=== PATIENT | male | born 1965 | race Caucasian/White ===

== ENCOUNTER → 2017-12-13 11:27 | Outpatient (CLI) | payer OTHER, SELFPAY ==
--- NOTE | 2017-12-13 13:06 | STRESSREP ---
Stress Test Report Exercise stress test. 52-year-old man with a history of chest pain. Stress protocol: Resting EKG demonstrates normal sinus rhythm with a rate of 76 bpm. Resting blood pressure is 148/90 mmHg. the patient exercised according to the regular Manuelito protocol for total duration of 5 minutes and 4 seconds. The maximum heart rate attained was 141 bpm. During recovery the patient was noted to go into a narrow complex tachycardia with a rate of approximately 166 bpm mild to moderate dyspnea was noted and the patient had to cough and bear down with gradual slowing of the narrow complex reentrant tachycardia 242 bpm, and then 137 bpm. Patient finally broke after 3 minutes of the narrow complex tachycardia. His blood pressure was stable at 168/88 mmHg. There were no ST or T-wave changes noted suggest ischemia no chest pain was noted. Blood pressures 148/90 with a peak blood pressure 174/90 mmHg. Conclusion ; Exercise stress test with no EKG criteria for ischemia at a moderate workload of 7 metabolic equivalents. Exercise provoked supraventricular tachyarrhythmia with a rate of approximately 170 bpm consistent with an AV jhon reentrant tachycardia.
== END ==
PROVIDERS: Family Provider Family Medicine; PCP Family Medicine; Visit Provider Internal Medicine Cardiovascular Disease
DX: R07.1 Chest pain on breathing (principal); R07.81 Pleurodynia
CPT/HCPCS: 93017

== ENCOUNTER → 2019-12-03 10:16 | Outpatient (CLI) | payer OTHER, SELFPAY ==
[2019-12-03 09:47] VITALS: BMI 37.3
[2019-12-03 11:01] LABS: Absolute Lymphocyte Count 2.01 X10^3/uL (0.83-4.51); Absolute Neutrophil Count 3.2 X10^3/uL (2.0-7.7); Basophil# 0.03 X10^3/uL; Basophil% 0.5 % (0-1); Eosinophil# 0.18 X10^3/uL; Hematocrit 47.5 % (40-54); Hemoglobin 16.3 g/dL (13.0-16.5); Lymphocyte # 2.01 X10^3/ul (4.0); Lymphocyte % 33.7 % (19-41); Mean Corp Hgb Conc 34.3 g/dL (32-36); Mean Corpuscular Hgb 30.9 pg (27.0-32.0); Mean Platelet Vol. 10.8 fl (6.2-12.0); Monocyte# 0.49 X10^3/uL; Monocyte% 8.2 % (0-10); NRBC Flagged by Analyzer 0 % (0-5); Neutrophil # 3.24 X10^3/uL (2.7-7.7); Neutrophil % 54.3 % (47-70); Platelet Count 185 K/mm3 (150-450); RBC Distribution Width CV 12.3 % (11.6-14.6); RBC Distribution Width SD 40.3 fl (35.1-43.9); Red Blood Count 5.28 M/mm3 (4.6-6.2)
[2019-12-03 11:34] LABS: Anion Gap 6 (5-15); BUN 10 mg/dL (7-18); BUN/Creat Ratio 9.3 RATIO (10-20); Calcium,Total 9.2 mg/dL (8.5-10.1); Chloride 110 mmol/L (98-107); Creatinine, Serum 1.07 mg/dL (0.70-1.30); EST Glomerular Filtration Rate 77 mL/min (>60); Est Glom Filt Rate - Afr Amer 93 mL/min (>60); Glucose 100 mg/dL (74-106); Potassium 3.9 mmol/L (3.5-5.1); Sodium Level 140 mmol/L (136-145)
[2019-12-03 11:37] LABS: BNP,B-Type NATRIURETIC PEPTIDE 24.7 pg/mL (0-100)
== END ==
PROVIDERS: PCP Family Medicine; Referring Provider Internal Medicine Cardiovascular Disease; Visit Provider Internal Medicine Cardiovascular Disease
DX: I10 Essential (primary) hypertension (principal); R06.00 Dyspnea, unspecified
CPT/HCPCS: 36415; 80048; 83880; 85025

== ENCOUNTER → 2019-12-17 12:58 | Outpatient (CLI) | payer OTHER, SELFPAY ==
[2019-12-03 09:47] VITALS: BMI 37.3
--- NOTE | 2019-12-17 13:00 | ECHOCS_ITS ---
Reason For Study: DYSPNEA Procedure This was a 2D Doppler, Color Flow transthoracic echocardiogram. The study was technically difficult. Contrast injection was performed. Exam performed in department. Left Ventricle Normal LV size. Left ventricular systolic function is normal. The estimated ejection fraction is 65 %. Stage 1 diastolic dysfunction. No regional wall motion abnormalities noted. Right Ventricle Normal RV size. Normal systolic function. Atria Normal left atrium. Normal right atrium. Mitral Valve Normal mitral valve. Tricuspid Valve Normal tricuspid valve. Mild (1+) tricuspid valve insufficiency. Pulmonary artery systolic pressure is 30 mmHg. Aortic Valve Normal aortic valve. Pulmonic Valve Normal pulmonic valve. Great Vessels Normal aortic root. The pulmonary artery is normal size. Normal inferior vena cava. Pericardium/Pleural No pericardial effusion. Medication 22 gauge I.V. with prn adaptor inserted into right arm. Diluted definity 3.0ml given slow IV push to enhance endocardial definition. MMode/2D Measurements & Calculations LVIDd: 4.9 cm IVSd: 0.98 cm Ao root diam: 3.6 cm LVIDs: 2.6 cm LVPWd: 0.96 cm RVDd: 3.2 cm FS: 46.2 % LAV(MOD-bp): 46.0 ml EDV(MOD-sp4): 136.1 ml EDV(MOD-sp2): 83.9 ml LAV(MOD-bp) Indexed: 19.2 ml/m2 ESV(MOD-sp4): 34.7 ml EF(MOD-sp2): 69.0 % LAV(MOD-sp2): 40.6 ml EF(MOD-sp4): 74.5 % LAV(MOD-sp4): 45.0 ml SV(MOD-sp4): 101.4 ml SV(MOD-sp2): 57.9 ml LA A4 area: 17.8 cm2 LA dimension(2D): 4.2 cm RA A4 area: 18.1 cm2 Time Measurements MV dec time: 0.22 sec Doppler Measurements & Calculations MV E max alvin: 65.0 cm/sec Lat Peak E' Alvin: 8.1 cm/sec Med Peak E' Alvin: 8.5 cm/sec MV A max alvin: 80.1 cm/sec E/E' lat: 8.1 E/E' med: 7.6 MV E/A: 0.81 Ao V2 max: 162.3 cm/sec LV V1 max: 153.5 cm/sec TR max alvin: 247.5 cm/sec Ao max P.5 mmHg LV V1 max P.4 mmHg TR max P.7 mmHg Interpretation Summary Normal LV size. Left ventricular systolic function is normal. The estimated ejection fraction is 65 %. Stage 1 diastolic dysfunction. Pulmonary artery systolic pressure is 30 mmHg. Contrast injection was performed. Ordering Physician: Parveen Dillard Referring Physician: RAFA BAILEY Performed By: Mar Arellano, AKSHAT, RVT
== END ==
PROVIDERS: PCP Family Medicine; Referring Provider Internal Medicine Cardiovascular Disease; Visit Provider Internal Medicine Cardiovascular Disease
DX: I10 Essential (primary) hypertension (principal); R06.00 Dyspnea, unspecified
CPT/HCPCS: 93306; Q9957; A4216; C8929

== ENCOUNTER → 2020-03-28 10:19 | Outpatient (CLI) | payer OTHER, SELFPAY ==
[2020-03-28 10:16] VITALS: BMI 37.3
--- NOTE | 2020-03-28 10:19 | RAD_ITS ---
STUDY: X-RAY - PELVIS AND LEFT HIP REASON FOR EXAM: Male, 54 years old. Hip pain, left leg injury over 30 years ago TECHNIQUE: 3 views of the pelvis and hip. COMPARISON: None. FINDINGS: There is a non-specific bowel gas pattern. There are multiple calcified phleboliths. A few surgical clips project in the left lower quadrant of the abdomen. Normal bilateral iliac wings, sacroiliac joints and visualized sacrum. Normal bilateral superior and inferior pubic rami. Normal pubic symphysis. Normal bilateral ischial tuberosities. Normal visualized femoral head. There is an old healed fracture deformity with some bowing at the proximal mid third of the femoral diaphysis. Minor degenerative sclerosis and slight articular lobulation of the roof of the acetabulum. Normal hip joint. There is no demonstrated acute fracture. RAD/HIP, UNI W/ Pelvis 2-3 Views IMPRESSION: No acute osseous abnormality of the pelvis or left hip. There is an old healed fracture deformity at the proximal to mid third of the left femoral diaphysis. Electronically Signed: Ritchie Winchester MD at 13:16 EDT , Service support ,
== END ==
PROVIDERS: PCP Family Medicine; Referring Provider Orthopaedic Surgery; Visit Provider Orthopaedic Surgery
DX: M25.552 Pain in left hip (principal)
CPT/HCPCS: 73502

== ENCOUNTER → 2020-03-28 10:37 | Outpatient (CLI) | payer OTHER, SELFPAY ==
[2020-03-28 10:16] VITALS: BMI 37.3
--- NOTE | 2020-03-28 10:38 | RAD_ITS ---
STUDY: X-RAY - LUMBAR SPINE REASON FOR EXAM: Male, 54 years old. LBP, HIP PAIN TECHNIQUE: 3 view(s) of the lumbar spine were obtained. COMPARISON: None FINDINGS: Normal lumbar lordosis. There is no substantial scoliosis. There is a normal alignment of the vertebrae. There is multilevel endplate spondylosis of the lumbar vertebrae. There is multi-level degenerative disc disease with multi-level disc space narrowing. The soft tissue structures are unremarkable. RAD/L/S Spine Min 4 Views IMPRESSION: Degenerative changes of the spine, as detailed above. Electronically Signed: Matias Templeton MD at 17:13 EDT , Service support ,
== END ==
PROVIDERS: PCP Family Medicine; Referring Provider Orthopaedic Surgery; Visit Provider Orthopaedic Surgery
DX: M25.552 Pain in left hip (principal)
CPT/HCPCS: 72110

== ENCOUNTER 2022-02-12 18:01 | Outpatient (RCR) | payer SELFPAY, OTHER ==
--- NOTE | 2022-02-13 07:54 | HP.PTEVAL_ITS ---
Patient's Visit Information KIRK ROGER is a 56 year old M referred to Physical Therapy by SHELBY HARDY with a diagnosis of SPONDYLOLISHESIS OF LUMBAR ,LUMAR FORAMINAL STENOSIS,HIP OA. Date of Evaluation: 02/12/22 Physical Therapist: Can Cornell PT, Cert MDT, OCS - Visit Plan Frequency: 1x/Week Duration: 2 Weeks Plan: PT EVAL ONLY FOR HEP PER PATIENT - Subjective This 56 y/o male presents to physical therapy with lumbar radiculopathy ,HIP OA. Patient has lumbar pain ~ 5 years from possible heavy sin. Seen orthopedic DR Fisher did MRI lumbar stenosis, bulging disc and spondylolisthesis . Patient then saw pain management recommended PT. Pain meds meloxicam. Location of pain left LS buttock to hip and lateral leg. Aggravating lifting ,standing ,walking affects job demands ,occasional ,no pain . Alleviating factors recliner. Tried chiropractor which did not help. Patient would be candidate. C/O paresthesia in leg. Coughing/sneezing -. Pain affect sleeping. Patient has no h/o trauma except 5 years old femur has leg shorter started heel lift . No abnormal night pain. Patient pain affects QOL and function. SOCIAL: . 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 GAIT: reciprocal pattern. NEURO: occasional paresthesia LLE ,reflexes L3-4,L4-5,L5-S1 1/3. SYMTRIES: LEFT LEG SHORTER 1/4. MMT QUADS/HAMS 4/5 RIGHT ,LEFT 4-/5,HIP FLEXION 4-/5,ABD 4-/5,ANKLE 4/5. AROM: HIP FLEXION 95 DEGREES,HIP ABD 40. FLEXABLITY : hams mod limited left - Special Tests L/S Slump test left side: Negative L/S Slump test right side: Negative L/S Left Straight Leg Raise: Negative L/S Right Straight Leg Raise: Negative - Goals Goal 1:: Patient was provided with HEP for back pain with core strengthening and flexablity Goal Time Frame: 2 Weeks - Rehabilitation Potential Physical Therapy Diagnosis: This patient has lumbar pain with radicular symptoms with pain ,pain with motion testing, positioning weakness left leg along decrease ROM left hip with pain thus benefit from skilled PT Rehabilitation Potential: Good - Anticipated Interventions Patient/Client Instruction: Educate patient on: Condition, Plan of Care For the Purpose of:: To decrease pain, To increase ROM, To improve muscle perfo rmance and motor function, To improve ability to perform ADL's, To increase tolerance to activity/condition/position, To improve performance and independence with ADL's, To improve ability of physical actions for home/community/work/leisure, To improve health of tissue, To decrease soft tissue restriction, To increase flexibility/ROM, To improve tolerance to ADL's Therapeutic Exercise to Include: Strength training, Power training, Body mechanics, Postural training, Gait and locomotor training, Active ROM, Marybeth Exercises Comment: HIP For the Purpose of:: To decrease pain, To increase ROM, To improve muscle performance and motor function, To improve ability to perform ADL's, To increase tolerance to activity/condition/position, To improve ability of physical actions for home/community/work/leisure, To improve gait and locomotor functions, To improve health of tissue, To decrease soft tissue restriction, To increase flexibility/ROM, To improve endurance Thank you for the opportunity to evaluate your patient. For Medicare and Medicare HMO plans, please review the plan of care and approve it. It will need to be FAXED BACK to us at [phone] for Medicare purposes. For Medicare only, by signing this I certify the plan of care. Please let me know if there are questions or concerns regarding this plan of care. Physician Signature: Date:
== END 2022-02-12 19:00 | disposition home or self-care (01) ==
LOC: PT 18:01
PROVIDERS: PCP Family Medicine
DX: M43.16 Spondylolisthesis, lumbar region (principal); M48.061 Spinal stenosis, lumbar region without neurogenic claudication; M16.10 Unilateral primary osteoarthritis, unspecified hip
CPT/HCPCS: 97110; 97162

== ENCOUNTER 2023-01-08 09:45 | Outpatient (RCR) | payer OTHER, SELFPAY ==
[2022-12-24 09:51] VITALS: BP 119/74; PULSE 79; RESP 16; TEMP 35.2
[2023-01-01 08:58] VITALS: BP 131/89; PULSE 79; TEMP 36.2; BMI 34.0
--- NOTE | 2023-01-01 12:44 | HP.PCM_ITS ---
History of Present Illness Date of Service: 01/01/23 Chief Complaint: Surgical abdominal wound History of Wound: This is a 57-year-old male who underwent elective left total hip replacement surgery at the [facility] in [place], [place], on December 04, 2022. Postoperatively, he developed an acute abdomen, and was transferred to [facility], where he was diagnosed with pneumoperitoneum, small bowel obstruction, and a small bowel perforation. December 06, 2022, the patient underwent diagnostic laparoscopy which was converted to an open exploratory laparotomy, with a small bowel resection with enteroenterostomy, appendectomy, and partial closure of the abdominal surgical incision and application of a wound VAC. The procedure was performed through a vertical midline incision. The surgeon was Dr. Michael Leblanc. The patient has largely recovered from his recent surgical interventions, though his vertical midline surgical incision remains open, and healing by secondary intention, with negative pressure wound therapy and use to assist in the healing of the surgical wound. At this juncture, the patient is functioning well on an outpatient basis, and has been referred to our facility for oversight of the wound healing process. He remains under the care of his surgeon, with whom he has an outpatient appointment on Saturday of this week. He also remains under the care of an infectious disease specialist. The patient's BMI is 34. He suffers from several pre-existing medical conditions, which are listed below. [facility] Medical History Anxiety AVNRT (AV jhon re-entry tachycardia) Bipolar disorder Bipolar disorder Celiac disease Celiac disease Colon polyps Depression Diverticulitis Family history of colon cancer GERD (gastroesophageal reflux disease) GERD (gastroesophageal reflux disease) Hemorrhoids Hepatic steatosis Hepatic steatosis Hiatal hernia History of rheumatic fever Hyperglycemia Hypertension Obesity (BMI 30.0-34.9) Obstructive sleep apnea Status post amputation of finger Surgical wound present Thrombocytopenia Home Medications bupropion HCl 150 mg tablet,12 hr sustained-release 150 mg PO DAILY 12/03/19 [History Last Taken Unknown] lisinopril 10 mg tablet 10 mg PO DAILY #90 tabs 11/23/21 [Rx Last Taken Unknown] metoprolol succinate 50 mg tablet,extended release 24 hr 50 mg PO QDAY #90 tabs 08/27/22 [Rx Last Taken Unknown] meloxicam 15 mg tablet 15 mg PO DAILY 11/27/22 [History Last Taken Unknown] aspirin 81 mg capsule 81 mg PO DAILY 01/01/23 [History Last Taken Unknown] oxycodone 5 mg capsule 5 mg PO BID PRN Pain, Moderate 01/01/23 [History Last Taken Unknown] Allergy/AdvReac Type Severity Reaction Status Date / Time No Known Allergies Allergy Verified 11/27/22 10:11 Surgical History History of esophagogastroduodenoscopy (EGD) History of laparoscopic cholecystectomy History of partial colectomy History of total left hip replacement History of umbilical hernia repair S/P ACL repair S/P colonoscopy S/P hemorrhoidectomy S/P tooth extraction Status post colectomy Social History Smoking Status: Never smoker Smokeless tobacco user: chewing tobacco and other how long ago did patient quit smoking: Quit smoking, still chewing alcohol intake: current alcohol intake frequency: 0-2 drinks per day Alcohol type: wine substance use type: does not use caffeine: Yes Type: coffee Number of servings: 3 Vital Signs Vital Signs Vital Signs: 01/01/23 08:58 Temperature 97.2 F L Temperature Source Temporal Pulse Rate 79 Blood Pressure 131/89 H Blood Pressure Mean 103 Blood Pressure Source Monitor Weight Weight: 244 lb Body Mass Index (BMI) 34.0 Physical Exam Const alert, oriented x3, no apparent distress and well nourished Constitutional Narrative: The patient is mildly obese. General Appearance: cooperative, comfortable, well kempt and well developed Orientation / Consciousness: awake, oriented to person, oriented to place and oriented to time Exam Limitations: no limitations HEENT normocephalic, head/scalp atraumatic and hearing grossly normal bilaterally Head and Scalp: normal to inspection, normocephalic and atraumatic Face and Sinus: normal facial exam External Ear: external ears normal Eyes PERRL and EOMs intact bilaterally General Eye: normal appearance of both eyes Chest inspection of chest normal Resp normal respiratory effort, normal air movement, no retractions and no use of accessory muscles Effort and Inspection: able to speak in complete sentences Extremity no calf tenderness General Extremity: Negative for clubbing or cyanosis Skin Wound Narrative: The abdomen is mildly obese. A vertical midline surgical incision is noted. The surgical incision is open, with subcutaneous tissue exposed. There is no sign of infection or cellulitis. Dimensions are documented elsewhere. The wound appears pink and healthy in appearance. One exposed suture is noted within the midportion of the open incision. Neuro oriented x3, CN's II-XII intact bilaterally, moves all extremities and no focal motor deficits Sensorium / Orientation: awake, alert, oriented to person, oriented to place and oriented to time Cranial Nerves: CN normal except as noted Speech: speech normal Psych mental status grossly normal Appearance: grossly normal and appropriate Attitude: calm Activity / Motor Behavior: appropriate eye contact Speech: normal speech Mood & Affect: euthymic mood Thought Process: normal thought process Thought Content: normal thought content Attention / Concentration: attention grossly intact Debridement Note Debridement Note No debridement was completed: No debridement was completed today Post-Debridement Measurements and Additional Note: Post-Debridement Measurements/Treatment - Nurse 1 - General Ulcer Assessment Start: 12/24/22 09:51 Freq: Status: Active Protocol: .AZRA Activity Type Activity Date Activity User E-sign Co-sign Detail Recorded Client Recorded Date Recorded By Document 12/24/22 09:51 [facility] [id number] 12/24/22 09:53 [facility] Document 01/01/23 08:58 MS [id number] 01/01/23 09:18 MS 12/24/22 01/01/23 09:51 08:58 - Today's Visit Information Type of service Nurse-only Initial Visit Visit Arrival Mode Ambulatory Ambulatory Transfer Assistance None Accompanied by Patient Identification Verified (Name & Yes Yes ) Patient Requires Transmission-Based No No Precautions Safety Precautions NA Height and Weight Height 5 ft 11 in Weight 244 lb Weight in Pounds 244.0 lbs Weight Measurement Method Standing Scale Body Mass Index (BMI) 34.0 BMI Classification Obese BSA - Victorina 2.29 Vital Signs Temperature (97.8 F-99.1 F) 95.4 F L 97.2 F L Temperature Source Temporal Temporal Pulse Rate (60-100) 79 79 Pulse Location Monitor Monitor Respiratory Rate (12-18) 16 Respiratory rate source Observation Oxygen Delivery Method Room Air Blood Pressure (90/60-120/80) 119/74 131/89 H Blood Pressure Mean 89 103 Source Monitor Monitor Position Sitting Blood Pressure Location Right Arm History Since Last Visit- (Skip if this is Patient's initial visit) Have you changed medications since your No last visit? Any new allergies or adverse reactions No Had a fall/change in ADL's that may No increase risk of falls Signs or symptoms of abuse and/or No neglect since last visit Have you been in the hospital since your No last visit? Has dressing in place as prescribed Yes Has compression in place as prescribed N/A Has offloadiing in place as prescribed N/A Experienced any changes in pain level or No management Left Footwear Regular Shoe Regular Shoe Right Footwear Regular Shoe Marion/Foam Pain Scale: 0-10 Numeric Is Patient Pain Free? Yes No Culture/Scientologist/Radio Television Announcer Cultural/Scientologist Needs that may affect Yes: tenriism Treatment Plan WC - Nurse 1 - General Ulcer Measurement Start: 12/24/22 09:51 Freq: Status: Active Protocol: Activity Type Activity Date Activity User E-sign Co-sign Detail Recorded Client Recorded Date Recorded By Document 01/01/23 08:58 MS [id number] 01/01/23 09:18 AK 01/01/23 08:58 Wound Center Nurse 1 #1- abd post op -Combined with other wound No -Current Size (cm) - Length 15 -Current Size (cm) - Width 4 -Current Size (cm) - Depth 0.1 -Total Square Cm 60 -Date of Last Picture (Recall this 01/01/23 field) -Photo Taken Yes -Tunneling No -Undermining/Tunneling No -Circular Undermining No -Change in Wound Grade/Stage No -Exudate Amt Medium -Exudate Type Serosanguineous -Wound Margin Distinct, Outline Attached -Granulation Amt Large (67-100%) -Granulation Quality Red -Slough/Fibrin Yes -Necrosis Amt Small (1-33%) -Necrotic Tissue Type Adherent Slough -Structure Exposed N/A -Texture (Maricel-wound Skin Appearance) No Abnormality, Assessed -Moisture (Maricel-wound Skin Appearance) No Abnormality, Assessed -Color (Maricel-wound Skin Appearance) No Abnormality, Assessed -Temperature (Maricel-wound Skin No Abnormality Appearance) (Pt Warm) -Tenderness on Palpation (Maricel-wound No Skin Appearance) -Ulcer Cleansing Soap and Water -Foul Odor after Cleansing No -Anesthetic Used 4% Lidocaine Solution WC - Nurse 2 - General Ulcer CM Notes Start: 12/24/22 09:51 Freq: Status: Active Protocol: Activity Type Activity Date Activity User E-sign Co-sign Detail Recorded Client Recorded Date Recorded By Document 01/01/23 09:39 MW [id number] 01/01/23 09:48 MW 01/01/23 09:39 Wound Center Nurse 2 -Time 09:40 -Correct Patient Yes -Correct Side, Site, Position Yes -Correct Procedure Yes -Procedure Performed Yes -Type of Procedure Debridement -Clinical Debridement Subcutaneous -Tissue Removed Subcutaneous -Post Debridement (cm) - Length 15.0 -Post Debridement (cm) - Width 4.0 -Post Debridement (cm) - Depth 0.1 -Total Square (Post) (cm) 60.00 -Tunneling No -Undermining/Tunneling No -Circular Undermining No -Wound/Ulcer Outcome Not Healed -Ulcer Cleansing Rinsed/ Irrigated with Saline -Foul Odor after Cleansing No -Bioengineered Tissue No -Treatment Response Procedure Tolerated Well -Offloading No -Debridement - Subq, 1st 20sq cm Yes Pain Scale: 0-10 Numeric Is Patient Pain Free? Yes WC - Nurse 3 - General Ulcer D/C NN Start: 12/24/22 09:51 Freq: Status: Active Protocol: Activity Type Activity Date Activity User E-sign Co-sign Detail Recorded Client Recorded Date Recorded By Document 12/24/22 09:51 [facility] [id number] 12/24/22 09:53 [facility] Document 12/24/22 09:53 [facility] [id number] 12/24/22 09:54 [facility] 12/24/22 12/24/22 09:51 09:53 Vital Signs Temperature (97.8 F-99.1 F) 95.4 F L Temperature Source Temporal Pulse Rate (60-100) 79 Pulse Location Monitor Respiratory Rate (12-18) 16 Respiratory rate source Observation Oxygen Delivery Method Room Air Blood Pressure (90/60-120/80) 119/74 Blood Pressure Mean 89 Source Monitor Position Sitting Blood Pressure Location Right Arm Pain Scale: 0-10 Numeric Is Patient Pain Free? Yes Yes Culture/Scientologist/Radio Television Announcer Cultural/Scientologist Needs that may affect Yes: tenriism Treatment Plan Wound Care Center Nurse 3 #1- abd post op -Ulcer Cleansing Soap and Water -Foul Odor after Cleansing No -Negative Pressure Wound Therapy Continue -Setting (mmHg) 125 -Negative Pressure is Continuous -NPWT Application Charge NPWT </= 50 sq cm ($) Treatment Response Procedure Tolerated Well WC - Visit Discharge Discharge Condition Stable Ambulatory Status Ambulatory, Walker Transportation Private Auto Accompanied by Notes: pt has home health Assessment/Plan Assessment/Plan (1) Surgical wound present: CODE(S): T14.8XXA - Other injury of unspecified body region, initial encounter (2) AVNRT (AV jhon re-entry tachycardia): CODE(S): I47.1 - Supraventricular tachycardia (3) Bipolar disorder: CODE(S): F31.9 - Bipolar disorder, unspecified (4) Celiac disease: CODE(S): K90.0 - Celiac disease (5) GERD (gastroesophageal reflux disease): CODE(S): K21.9 - Gastro-esophageal reflux disease without esophagitis (6) Hypertension: CODE(S): I10 - Essential (primary) hypertension (7) Obstructive sleep apnea: CODE(S): G47.33 - Obstructive sleep apnea (adult) (pediatric) (8) Hepatic steatosis: CODE(S): K76.0 - Fatty (change of) liver, not elsewhere classified (9) History of partial colectomy: CODE(S): Z90.49 - Acquired absence of other specified parts of digestive tract (10) History of umbilical hernia repair: CODE(S): Z98.890 - Other specified postprocedural states; Z87.19 - Personal history of other diseases of the digestive system (11) History of laparoscopic cholecystectomy: CODE(S): Z90.49 - Acquired absence of other specified parts of digestive tract (12) History of total left hip replacement: CODE(S): Z96.642 - Presence of left artificial hip joint PLAN: Plan This is a 57-year-old male who is status post exploratory laparotomy, small bowel resection with enteroenterostomy, and appendectomy. At the time of surgery, fascial closure was performed, though the subcutaneous layers were left open, and negative pressure wound therapy was implemented. The patient has been referred to our facility for oversight and management of the continued surgical wound healing process. It appears as though he is progressing well, and relates significant improvement in recent weeks. The wound appears healthy and viable, and healing without complication. Continuation of the negative pressure wound therapy appears appropriate. Serial wound management and oversight will continue at our facility. It is anticipated that transition will occur from negative pressure wound therapy to other modalities within the next several weeks, anticipating that the wound will continue to diminish in size. Patient is to remain under the care of his primary surgeon, Dr. Michael Leblanc, with whom he has an appointment 3 days hence. There is a suture which remains visible within the patient's surgical wound, which has been left in place today and undisturbed. We will defer to Dr. Leblanc as to management in this regard. Patient is to return for reevaluation in 1 week. Total time, including review of available medical records from the patient's prior hospitalizations, discussion and interaction with the patient and his , and physical examination: 62 minutes
[2023-01-08 09:58] VITALS: BP 125/87; PULSE 78; TEMP 36.2; BMI 34.0
--- NOTE | 2023-01-08 14:00 | HP.PCM_ITS ---
History of Present Illness Date of Service: 01/08/23 Chief Complaint: Surgical abdominal wound History of Wound: This is a 57-year-old male who underwent elective left total hip replacement surgery at the [facility] in [place], [place], on December 04, 2022. Postoperatively, he developed an acute abdomen, and was transferred to [facility], where he was diagnosed with pneumoperitoneum, small bowel obstruction, and a small bowel perforation. December 06, 2022, the patient underwent diagnostic laparoscopy which was converted to an open exploratory laparotomy, with a small bowel resection with enteroenterostomy, appendectomy, and partial closure of the abdominal surgical incision and application of a wound VAC. The procedure was performed through a vertical midline incision. The surgeon was Dr. Michael Leblanc. The patient has largely recovered from his recent surgical interventions, though his vertical midline surgical incision remains open, and healing by secondary intention, with negative pressure wound therapy and use to assist in the healing of the surgical wound. At this juncture, the patient is functioning well on an outpatient basis, and has been referred to our facility for oversight of the wound healing process. He remains under the care of his surgeon, with whom he has an outpatient appointment on Saturday of this week. He also remains under the care of an infectious disease specialist. The patient's BMI is 34. He suffers from several pre-existing medical conditions, which are listed below. [facility] Medical History Anxiety AVNRT (AV jhon re-entry tachycardia) Bipolar disorder Bipolar disorder Celiac disease Celiac disease Colon polyps Depression Diverticulitis Family history of colon cancer GERD (gastroesophageal reflux disease) GERD (gastroesophageal reflux disease) Hemorrhoids Hepatic steatosis Hepatic steatosis Hiatal hernia History of rheumatic fever Hyperglycemia Hypertension Obesity (BMI 30.0-34.9) Obstructive sleep apnea Status post amputation of finger Surgical wound present Thrombocytopenia Home Medications bupropion HCl 150 mg tablet,12 hr sustained-release 150 mg PO DAILY 12/03/19 [History Last Taken Unknown] lisinopril 10 mg tablet 10 mg PO DAILY #90 tabs 11/23/21 [Rx Last Taken Unknown] metoprolol succinate 50 mg tablet,extended release 24 hr 50 mg PO QDAY #90 tabs 08/27/22 [Rx Last Taken Unknown] meloxicam 15 mg tablet 15 mg PO DAILY 11/27/22 [History Last Taken Unknown] aspirin 81 mg capsule 81 mg PO DAILY 01/01/23 [History Last Taken Unknown] oxycodone 5 mg capsule 5 mg PO BID PRN Pain, Moderate 01/01/23 [History Last Taken Unknown] Allergy/AdvReac Type Severity Reaction Status Date / Time No Known Allergies Allergy Verified 11/27/22 10:11 Surgical History History of esophagogastroduodenoscopy (EGD) History of laparoscopic cholecystectomy History of partial colectomy History of total left hip replacement History of umbilical hernia repair S/P ACL repair S/P colonoscopy S/P hemorrhoidectomy S/P tooth extraction Status post colectomy Social History Smoking Status: Never smoker Smokeless tobacco user: chewing tobacco and other how long ago did patient quit smoking: Quit smoking, still chewing alcohol intake: current alcohol intake frequency: 0-2 drinks per day Alcohol type: wine substance use type: does not use caffeine: Yes Type: coffee Number of servings: 3 Vital Signs Vital Signs Vital Signs: 01/08/23 09:58 Temperature 97.2 F L Temperature Source Temporal Pulse Rate 78 Blood Pressure 125/87 H Blood Pressure Mean 99 Blood Pressure Source Monitor Weight Weight: 244 lb Body Mass Index (BMI) 34.0 Physical Exam Const alert, oriented x3, no apparent distress and well nourished Constitutional Narrative: The patient is mildly obese. General Appearance: cooperative, comfortable, well kempt and well developed Orientation / Consciousness: awake, oriented to person, oriented to place and oriented to time Exam Limitations: no limitations HEENT normocephalic, head/scalp atraumatic and hearing grossly normal bilaterally Head and Scalp: normal to inspection, normocephalic and atraumatic Face and Sinus: normal facial exam External Ear: external ears normal Eyes PERRL and EOMs intact bilaterally General Eye: normal appearance of both eyes Chest inspection of chest normal Resp normal respiratory effort, normal air movement, no retractions and no use of accessory muscles Effort and Inspection: able to speak in complete sentences Extremity no calf tenderness General Extremity: Negative for clubbing or cyanosis Skin Wound Narrative: The abdomen is mildly obese. A vertical midline surgical incision is noted. The surgical incision is open, with subcutaneous tissue exposed. There is no sign of infection or cellulitis. Dimensions are documented elsewhere. The wound appears pink and healthy in appearance. It appears slightly smaller than 1 week ago. One exposed suture is noted within the midportion of the open incision. Neuro oriented x3, CN's II-XII intact bilaterally, moves all extremities and no focal motor deficits Sensorium / Orientation: awake, alert, oriented to person, oriented to place and oriented to time Cranial Nerves: CN normal except as noted Speech: speech normal Psych mental status grossly normal Appearance: grossly normal and appropriate Attitude: calm Activity / Motor Behavior: appropriate eye contact Speech: normal speech Mood & Affect: euthymic mood Thought Process: normal thought process Thought Content: normal thought content Attention / Concentration: attention grossly intact Debridement Note Debridement Note No debridement was completed: No debridement was completed today Post-Debridement Measurements and Additional Note: Post-Debridement Measurements/Treatment - Nurse 1 - General Ulcer Assessment Start: 12/24/22 09:51 Freq: Status: Active Protocol: CATRACHITA Activity Type Activity Date Activity User E-sign Co-sign Detail Recorded Client Recorded Date Recorded By Document 12/24/22 09:51 [facility] [id number] 12/24/22 09:53 [facility] Document 01/01/23 08:58 [place] [id number] 01/01/23 09:18 [place] Document 01/08/23 09:58 WI [id number] 01/08/23 10:00 [place] 12/24/22 01/01/23 01/08/23 09:51 08:58 09:58 - Today's Visit Information Type of service Nurse-only Initial Visit Follow-up Visit Visit (Physician/CIVIL ENGINEER [employer] ) Arrival Mode Ambulatory Ambulatory Ambulatory Transfer Assistance None Accompanied by Patient Identification Verified (Name & Yes Yes Yes ) Patient Requires Transmission-Based No No No Precautions Safety Precautions NA NA Height and Weight Height 5 ft 11 in Weight 244 lb Weight in Pounds 244.0 lbs Weight Measurement Method Standing Scale Body Mass Index (BMI) 34.0 34.0 BMI Classification Obese Obese BSA - Victorina 2.29 Vital Signs Temperature (97.8 F-99.1 F) 95.4 F L 97.2 F L 97.2 F L Temperature Source Temporal Temporal Temporal Pulse Rate (60-100) 79 79 78 Pulse Location Monitor Monitor Monitor Respiratory Rate (12-18) 16 Respiratory rate source Observation Oxygen Delivery Method Room Air Blood Pressure (90/60-120/80) 119/74 131/89 H 125/87 H Blood Pressure Mean 89 103 99 Source Monitor Monitor Monitor Position Sitting Blood Pressure Location Right Arm History Since Last Visit- (Skip if this is Patient's initial visit) Have you changed medications since your No No last visit? Any new allergies or adverse reactions No No Had a fall/change in ADL's that may No No increase risk of falls Signs or symptoms of abuse and/or No No neglect since last visit Have you been in the hospital since your No No last visit? Has dressing in place as prescribed Yes Yes Has compression in place as prescribed N/A Has offloadiing in place as prescribed N/A N/A Experienced any changes in pain level or No No management Left Footwear Regular Shoe Regular Shoe Regular Shoe Right Footwear Regular Shoe [place] Port/Foam Regular Shoe Pain Scale: 0-10 Numeric Is Patient Pain Free? Yes No Yes Culture/Denominational/Consultant Electronics Cultural/Denominational Needs that may affect Yes: yazidi Treatment Plan WC - Nurse 1 - General Ulcer Measurement Start: 12/24/22 09:51 Freq: Status: Active Protocol: Activity Type Activity Date Activity User E-sign Co-sign Detail Recorded Client Recorded Date Recorded By Document 01/01/23 08:58 [place] [id number] 01/01/23 09:18 [place] Document 01/08/23 09:58 WI [id number] 01/08/23 10:00 [place] 01/01/23 01/08/23 08:58 09:58 Wound Center Nurse 1 #1- abd post op -Combined with other wound No No -Current Size (cm) - Length 15 14.6 -Current Size (cm) - Width 4 2.5 -Current Size (cm) - Depth 0.1 0.1 -Total Square Cm 60 36.50 -Date of Last Picture (Recall this 01/01/23 01/08/23 field) -Photo Taken Yes Yes -Tunneling No No -Undermining/Tunneling No No -Circular Undermining No No -Change in Wound Grade/Stage No No -Exudate Amt Medium Medium -Exudate Type Serosanguineous Serosanguineous -Wound Margin Distinct, Distinct, Outline Outline Attached Attached -Granulation Amt Large (67-100%) Large (67-100%) -Granulation Quality Red [place] -Slough/Fibrin Yes Yes -Necrosis Amt Small (1-33%) Small (1-33%) -Necrotic Tissue Type Adherent Slough Adherent Slough -Structure Exposed N/A N/A -Texture (Maricel-wound Skin Appearance) No Abnormality, No Abnormality, Assessed Assessed -Moisture (Maricel-wound Skin Appearance) No Abnormality, No Abnormality, Assessed Assessed -Color (Maricel-wound Skin Appearance) No Abnormality, No Abnormality, Assessed Assessed -Temperature (Maricel-wound Skin No Abnormality No Abnormality Appearance) (Pt Warm) (Pt Warm) -Tenderness on Palpation (Maricel-wound No No Skin Appearance) -Ulcer Cleansing Soap and Water Soap and Water -Foul Odor after Cleansing No No -Anesthetic Used 4% Lidocaine 4% Lidocaine Solution Solution WC - Nurse 2 - General Ulcer CM Notes Start: 12/24/22 09:51 Freq: Status: Active Protocol: Activity Type Activity Date Activity User E-sign Co-sign Detail Recorded Client Recorded Date Recorded By Document 01/01/23 09:39 MW [id number] 01/01/23 09:48 MW Document 01/08/23 10:16 MW [id number] 01/08/23 10:18 MW 01/01/23 01/08/23 09:39 10:16 Wound Center Nurse 2 #1- abd post op -Time 09:40 10:16 -Correct Patient Yes Yes -Correct Side, Site, Position Yes Yes -Correct Procedure Yes Yes -Procedure Performed Yes No -Type of Procedure Debridement -Clinical Debridement Subcutaneous -Tissue Removed Subcutaneous -Post Debridement (cm) - Length 15.0 14.6 -Post Debridement (cm) - Width 4.0 2.5 -Post Debridement (cm) - Depth 0.1 0.1 -Total Square (Post) (cm) 60.00 36.50 -Tunneling No No -Undermining/Tunneling No No -Circular Undermining No No -Wound/Ulcer Outcome Not Healed Not Healed -Ulcer Cleansing Rinsed/ Rinsed/ Irrigated with Irrigated with Saline Saline -Foul Odor after Cleansing No No -Bioengineered Tissue No No -Bleeding Controlled with NA -Treatment Response Procedure Procedure Tolerated Well Tolerated Well -Offloading No No -Debridement - Subq, 1st 20sq cm Yes Pain Scale: 0-10 Numeric Is Patient Pain Free? Yes Yes WC - Nurse 3 - General Ulcer D/C NN Start: 12/24/22 09:51 Freq: Status: Active Protocol: Activity Type Activity Date Activity User E-sign Co-sign Detail Recorded Client Recorded Date Recorded By Document 12/24/22 09:51 BM [id number] 12/24/22 09:53 BM Document 12/24/22 09:53 BMF [id number] 12/24/22 09:54 BM Document 01/08/23 10:31 MW [id number] 01/08/23 10:32 MW 12/24/22 12/24/22 01/08/23 09:51 09:53 10:31 Vital Signs Temperature (97.8 F-99.1 F) 95.4 F L Temperature Source Temporal Pulse Rate (60-100) 79 Pulse Location Monitor Respiratory Rate (12-18) 16 Respiratory rate source Observation Oxygen Delivery Method Room Air Blood Pressure (90/60-120/80) 119/74 Blood Pressure Mean 89 Source Monitor Position Sitting Blood Pressure Location Right Arm Pain Scale: 0-10 Numeric Is Patient Pain Free? Yes Yes Yes Culture/Denominational/Consultant Electronics Cultural/Denominational Needs that may affect Yes: yazidi Treatment Plan Teaching: Wound Center Dressing Your Wound -Person Taught Patient,Family -Teaching Method Discussion, Demonstration -Response to teaching Verbalize understanding Wound Care Center Nurse 3 #1- abd post op -Ulcer Cleansing Soap and Water Wound Cleanser -Foul Odor after Cleansing No No -Negative Pressure Wound Therapy Continue N/A -Setting (mmHg) 125 -Negative Pressure is Continuous -Primary Dressing Applied Fibracol Plus 4x4 -Primary Dressing Covered/Secured with Secured with Tape -Other Covering ABD pad -NPWT Application Charge NPWT </= 50 sq cm ($) -Fibracol Plus 4x4 3 Treatment Response Procedure Procedure Tolerated Well Tolerated Well WC - Visit Discharge Discharge Condition Stable Stable Ambulatory Status Ambulatory, Ambulatory,Cane Walker Transportation Private Auto Private Auto Accompanied by self Medication Reconcilliation completed & No provided to patient/care provider Clinical Summary of Care Provided Yes Notes: pt has home health Assessment/Plan Assessment/Plan (1) Surgical wound present: CODE(S): T14.8XXA - Other injury of unspecified body region, initial encounter (2) AVNRT (AV jhon re-entry tachycardia): CODE(S): I47.1 - Supraventricular tachycardia (3) Bipolar disorder: CODE(S): F31.9 - Bipolar disorder, unspecified (4) Celiac disease: CODE(S): K90.0 - Celiac disease (5) GERD (gastroesophageal reflux disease): CODE(S): K21.9 - Gastro-esophageal reflux disease without esophagitis (6) Hypertension: CODE(S): I10 - Essential (primary) hypertension (7) Obstructive sleep apnea: CODE(S): G47.33 - Obstructive sleep apnea (adult) (pediatric) (8) Hepatic steatosis: CODE(S): K76.0 - Fatty (change of) liver, not elsewhere classified (9) History of partial colectomy: CODE(S): Z90.49 - Acquired absence of other specified parts of digestive tract (10) History of umbilical hernia repair: CODE(S): Z98.890 - Other specified postprocedural states; Z87.19 - Personal history of other diseases of the digestive system (11) History of laparoscopic cholecystectomy: CODE(S): Z90.49 - Acquired absence of other specified parts of digestive tract (12) History of total left hip replacement: CODE(S): Z96.642 - Presence of left artificial hip joint PLAN: Plan This is a 57-year-old male who is status post exploratory laparotomy, small bowel resection with enteroenterostomy, and appendectomy. At the time of surgery, fascial closure was performed, though the subcutaneous layers were left open, and negative pressure wound therapy was implemented. The patient has been referred to our facility for oversight and management of the continued surgical wound healing process. It appears as though he is progressing well, and relates significant improvement in recent weeks. The wound appears healthy and viable, and healing without complication. We are to transition from the use of negative pressure wound therapy to the use of Fibracol which will be applied topically to the open surgical wound every other day. The patient has been instructed in the appropriate means of application. Serial wound management and oversight will continue at our facility. The patient remains under the care of his primary surgeon, Dr. Michael Leblanc, with whom he is to follow-up at intervals. There is a suture which remains visible within the patient's surgical wound, which has been left in place today and undisturbed. The patient is to return for reevaluation in 1 week. Total time, including review of available medical records from the patient's prior hospitalizations, discussion and interaction with the patient and his , and physical examination: 28 minutes
== END 2023-01-08 23:59 | disposition home or self-care (01) ==
LOC: WC 09:45
PROVIDERS: PCP Family Medicine; Visit Provider Surgery
DX: T81.31XA Disruption of external operation (surgical) wound, not elsewhere classified, initial encounter (principal); I10 Essential (primary) hypertension; F17.220 Nicotine dependence, chewing tobacco, uncomplicated; K21.9 Gastro-esophageal reflux disease without esophagitis; K90.0 Celiac disease; K76.0 Fatty (change of) liver, not elsewhere classified; G47.33 Obstructive sleep apnea (adult) (pediatric); Y83.6 Removal of other organ (partial) (total) as the cause of abnormal reaction of the patient, or of later complication, without mention of misadventure at the time of the procedure; E66.9 Obesity, unspecified; Z68.34 Body mass index [BMI] 34.0-34.9, adult; Z79.899 Other long term (current) drug therapy; Z79.82 Long term (current) use of aspirin; F32.9 Major depressive disorder, single episode, unspecified; F41.9 Anxiety disorder, unspecified
CPT/HCPCS: 11042; 97605; 99203; 99213; G0463

== ENCOUNTER 2023-01-22 09:45 | Outpatient (RCR) | payer OTHER, SELFPAY ==
[2023-01-09 00:34] VITALS: BP 125/87; PULSE 78; RESP 16; TEMP 36.2; BMI 34.0
[2023-01-15 09:41] VITALS: BP 139/92; PULSE 77; RESP 20; TEMP 36.2; BMI 34.0
--- NOTE | 2023-01-15 13:22 | HP.PCM_ITS ---
History of Present Illness Date of Service: 01/15/23 Chief Complaint: Surgical abdominal wound History of Wound: This is a 57-year-old male who underwent elective left total hip replacement surgery at the [facility] in [place], [place], on December 04, 2022. Postoperatively, he developed an acute abdomen, and was transferred to [facility], where he was diagnosed with pneumoperitoneum, small bowel obstruction, and a small bowel perforation. December 06, 2022, the patient underwent diagnostic laparoscopy which was converted to an open exploratory laparotomy, with a small bowel resection with enteroenterostomy, appendectomy, and partial closure of the abdominal surgical incision and application of a wound VAC. The procedure was performed through a vertical midline incision. The surgeon was Dr. Michael Leblanc. The patient has largely recovered from his recent surgical interventions, though his vertical midline surgical incision remains open, and healing by secondary intention, with negative pressure wound therapy and use to assist in the healing of the surgical wound. At this juncture, the patient is functioning well on an outpatient basis, and was referred to our facility for oversight of the wound healing process. He remains under the care of his surgeon. He also remains under the care of an infectious disease specialist. The patient's BMI is 34. He suffers from several pre- existing medical conditions, which are listed below. [facility] Medical History Anxiety AVNRT (AV jhon re-entry tachycardia) Bipolar disorder Bipolar disorder Celiac disease Celiac disease Colon polyps Depression Diverticulitis Family history of colon cancer GERD (gastroesophageal reflux disease) GERD (gastroesophageal reflux disease) Hemorrhoids Hepatic steatosis Hepatic steatosis Hiatal hernia History of rheumatic fever Hyperglycemia Hypertension Obesity (BMI 30.0-34.9) Obstructive sleep apnea Status post amputation of finger Surgical wound present Thrombocytopenia Home Medications bupropion HCl 150 mg tablet,12 hr sustained-release 150 mg PO DAILY 12/03/19 [History Last Taken Unknown] lisinopril 10 mg tablet 10 mg PO DAILY #90 tabs 11/23/21 [Rx Last Taken Unknown] metoprolol succinate 50 mg tablet,extended release 24 hr 50 mg PO QDAY #90 tabs 08/27/22 [Rx Last Taken Unknown] meloxicam 15 mg tablet 15 mg PO DAILY 11/27/22 [History Last Taken Unknown] aspirin 81 mg capsule 81 mg PO DAILY 01/01/23 [History Last Taken Unknown] oxycodone 5 mg capsule 5 mg PO BID PRN Pain, Moderate 01/01/23 [History Last Taken Unknown] Allergy/AdvReac Type Severity Reaction Status Date / Time No Known Allergies Allergy Verified 11/27/22 10:11 Surgical History History of esophagogastroduodenoscopy (EGD) History of laparoscopic cholecystectomy History of partial colectomy History of total left hip replacement History of umbilical hernia repair S/P ACL repair S/P colonoscopy S/P hemorrhoidectomy S/P tooth extraction Status post colectomy Social History Smoking Status: Never smoker Smokeless tobacco user: chewing tobacco and other how long ago did patient quit smoking: Quit smoking, still chewing alcohol intake: current alcohol intake frequency: 0-2 drinks per day Alcohol type: wine substance use type: does not use caffeine: Yes Type: coffee Number of servings: 3 Vital Signs Vital Signs Vital Signs: 01/15/23 09:41 Temperature 97.2 F L Temperature Source Temporal Pulse Rate 77 Respiratory Rate 20 H Blood Pressure 139/92 H Blood Pressure Mean 107 Blood Pressure Source Monitor Weight Weight: 244 lb Body Mass Index (BMI) 34.0 Physical Exam Const alert, oriented x3, no apparent distress and well nourished Constitutional Narrative: The patient is mildly obese. General Appearance: cooperative, comfortable, well kempt and well developed Orientation / Consciousness: awake, oriented to person, oriented to place and oriented to time Exam Limitations: no limitations HEENT normocephalic, head/scalp atraumatic and hearing grossly normal bilaterally Head and Scalp: normal to inspection, normocephalic and atraumatic Face and Sinus: normal facial exam External Ear: external ears normal Eyes PERRL and EOMs intact bilaterally General Eye: normal appearance of both eyes Chest inspection of chest normal Resp normal respiratory effort, normal air movement, no retractions and no use of accessory muscles Effort and Inspection: able to speak in complete sentences Extremity no calf tenderness General Extremity: Negative for clubbing or cyanosis Skin Wound Narrative: The abdomen is mildly obese. A vertical midline surgical incision is noted. The surgical incision is open, with subcutaneous tissue exposed. There is no sign of infection or cellulitis. Dimensions are documented elsewhere. The wound appears pink and healthy in appearance. It appears slightly smaller than 1 week ago. There is a small amount of bioburden. Neuro oriented x3, CN's II-XII intact bilaterally, moves all extremities and no focal motor deficits Sensorium / Orientation: awake, alert, oriented to person, oriented to place and oriented to time Cranial Nerves: CN normal except as noted Speech: speech normal Psych mental status grossly normal Appearance: grossly normal and appropriate Attitude: calm Activity / Motor Behavior: appropriate eye contact Speech: normal speech Mood & Affect: euthymic mood Thought Process: normal thought process Thought Content: normal thought content Attention / Concentration: attention grossly intact Debridement Note Debridement Note Wound debrided: Open surgical wound, vertical midline surgical incision Laterality: Not Applicable Type of Debridement: Excisional debridement Anesthesia Used: 5% Lidocaine Gel Depth: Down to and including healthy tissue and in the subcutaneous layer Percentage of wound debrided: 100 Instrument Used: 5mm curette Tissue Removed: Bioburden Severity: Fat Layer Exposed Amount of bleeding with debridement: Mild Bleeding Controlled with: Compression and gauze Patient tolerated procedure: Patient tolerated procedure well Post-Debridement Measurements and Additional Note: Post-Debridement Measurements/Treatment - Nurse 1 - General Ulcer Assessment Start: 01/15/23 09:41 Freq: Status: Active Protocol: CATRACHITA Activity Type Activity Date Activity User E-sign Co-sign Detail Recorded Client Recorded Date Recorded By Document 01/15/23 09:41 DL [id number] 01/15/23 09:44 DL 01/15/23 09:41 - Today's Visit Information Type of service Follow-up Visit (Physician/FINANCIAL AID COUNSELOR ) Arrival Mode Ambulatory Transfer Assistance None Patient Identification Verified (Name & Yes ) Patient Requires Transmission-Based No Precautions Height and Weight Body Mass Index (BMI) 34.0 BMI Classification Obese Vital Signs Temperature (97.8 F-99.1 F) 97.2 F L Temperature Source Temporal Pulse Rate (60-100) 77 Pulse Location Monitor Respiratory Rate (12-18) 20 H Respiratory rate source Observation Blood Pressure (90/60-120/80) 139/92 H Blood Pressure Mean 107 Source Monitor History Since Last Visit- (Skip if this is Patient's initial visit) Have you changed medications since your No last visit? Any new allergies or adverse reactions No Had a fall/change in ADL's that may No increase risk of falls Signs or symptoms of abuse and/or No neglect since last visit Have you been in the hospital since your No last visit? Has dressing in place as prescribed Yes Has compression in place as prescribed N/A Has offloadiing in place as prescribed N/A Experienced any changes in pain level or No management Pain Scale: 0-10 Numeric Is Patient Pain Free? Yes WC - Nurse 1 - General Ulcer Measurement Start: 01/15/23 09:41 Freq: Status: Active Protocol: Activity Type Activity Date Activity User E-sign Co-sign Detail Recorded Client Recorded Date Recorded By Document 01/15/23 09:41 DL [id number] 01/15/23 09:44 DL 01/15/23 09:41 Wound Center Nurse 1 #1- abd post op -Current Size (cm) - Length 14.8 -Current Size (cm) - Width 2 -Current Size (cm) - Depth 0.1 -Total Square Cm 29.6 -Photo Taken Yes -Exudate Amt Medium -Exudate Type Serosanguineous -Wound Margin Thickened -Granulation Amt Large (67-100%) -Granulation Quality Red -Necrosis Amt Small (1-33%) -Necrotic Tissue Type Adherent Slough -Structure Exposed N/A -Texture (Maricel-wound Skin Appearance) Scarring -Moisture (Maricel-wound Skin Appearance) No Abnormality -Color (Maricel-wound Skin Appearance) No Abnormality -Temperature (Maricel-wound Skin No Abnormality Appearance) (Pt Warm) -Tenderness on Palpation (Maricel-wound No Skin Appearance) -Ulcer Cleansing Rinsed/ Irrigated with Saline -Foul Odor after Cleansing No -Anesthetic Used 5% Lidocaine Gel - Nurse 2 - General Ulcer CM Notes Start: 01/15/23 09:41 Freq: Status: Active Protocol: Activity Type Activity Date Activity User E-sign Co-sign Detail Recorded Client Recorded Date Recorded By Document 01/15/23 11:32 PL [id number] 01/15/23 11:33 PL 01/15/23 11:32 Wound Center Nurse 2 -Time 09:55 -Correct Patient Yes -Correct Side, Site, Position Yes -Correct Procedure Yes -Procedure Performed Yes -Type of Procedure Debridement -Clinical Debridement Subcutaneous -Tissue Removed Subcutaneous -Post Debridement (cm) - Length 14.8 -Post Debridement (cm) - Width 2.0 -Post Debridement (cm) - Depth 0.1 -Total Square (Post) (cm) 29.60 -Area of Debridement (cm) - Length 14.8 -Area of Debridement (cm) - Width 2.0 -Total Square (Area) (cm) 29.60 -Tunneling No -Undermining/Tunneling No -Circular Undermining No -Wound/Ulcer Outcome Not Healed -Ulcer Cleansing Rinsed/ Irrigated with Saline -Foul Odor after Cleansing No -Bioengineered Tissue No -Bleeding Controlled with Pressure -Treatment Response Procedure Tolerated Well -Debridement - Subq, 1st 20sq cm Yes Pain Scale: 0-10 Numeric Is Patient Pain Free? Yes - Nurse 3 - General Ulcer D/C NN Start: 01/15/23 09:41 Freq: Status: Active Protocol: Activity Type Activity Date Activity User E-sign Co-sign Detail Recorded Client Recorded Date Recorded By Document 01/15/23 10:10 DL [id number] 01/15/23 10:14 DL 01/15/23 10:10 Wound Care Center Nurse 3 #1- abd post op -Ulcer Cleansing Rinsed/ Irrigated with Saline -Foul Odor after Cleansing No -Primary Dressing Applied Fibracol Plus 4x4 -Primary Dressing Covered/Secured with Dry Gauze, Secured with Tape -Fibracol Plus 4x4 1 Treatment Response Procedure Tolerated Well Pain Scale: 0-10 Numeric Is Patient Pain Free? Yes WC - Visit Discharge Discharge Condition Stable Ambulatory Status Ambulatory Facility Type Home Health Orders Sent Yes Assessment/Plan Assessment/Plan (1) Surgical wound present: CODE(S): T14.8XXA - Other injury of unspecified body region, initial encou nter (2) AVNRT (AV jhon re-entry tachycardia): CODE(S): I47.1 - Supraventricular tachycardia (3) Bipolar disorder: CODE(S): F31.9 - Bipolar disorder, unspecified (4) Celiac disease: CODE(S): K90.0 - Celiac disease (5) GERD (gastroesophageal reflux disease): CODE(S): K21.9 - Gastro-esophageal reflux disease without esophagitis (6) Hypertension: CODE(S): I10 - Essential (primary) hypertension (7) Obstructive sleep apnea: CODE(S): G47.33 - Obstructive sleep apnea (adult) (pediatric) (8) Hepatic steatosis: CODE(S): K76.0 - Fatty (change of) liver, not elsewhere classified (9) History of partial colectomy: CODE(S): Z90.49 - Acquired absence of other specified parts of digestive tract (10) History of umbilical hernia repair: CODE(S): Z98.890 - Other specified postprocedural states; Z87.19 - Personal history of other diseases of the digestive system (11) History of laparoscopic cholecystectomy: CODE(S): Z90.49 - Acquired absence of other specified parts of digestive tract (12) History of total left hip replacement: CODE(S): Z96.642 - Presence of left artificial hip joint PLAN: Plan This is a 57-year-old male who is status post exploratory laparotomy, small bowel resection with enteroenterostomy, and appendectomy. At the time of surgery, fascial closure was performed, though the subcutaneous layers were left open, and negative pressure wound therapy was implemented. The patient has been referred to our facility for oversight and management of the continued surgical wound healing process. It appears as though he is progressing well, and relates significant improvement in recent weeks. The wound appears healthy and viable, and healing without complication. We are to continue the use of Fibracol, which will be applied topically to the open surgical wound every other day. The patient has been instructed in the appropriate means of application. Serial wound management and oversight will continue at our facility. The patient remains under the care of his primary surgeon, Dr. Michael Leblanc, with whom he is to follow-up at intervals. The patient is to return for reevaluation in 1 week. Total time, including review of available medical records from the patient's prior hospitalizations, discussion and interaction with the patient and his , and physical examination: 26 minutes
[2023-01-22 10:06] VITALS: BP 136/86; PULSE 76; RESP 16; TEMP 35.7; BMI 34.0
--- NOTE | 2023-01-22 13:17 | HP.PCM_ITS ---
History of Present Illness Date of Service: 01/22/23 Chief Complaint: Surgical abdominal wound History of Wound: This is a 57-year-old male who underwent elective left total hip replacement surgery at the [facility] in [place], [place], on December 04, 2022. Postoperatively, he developed an acute abdomen, and was transferred to [facility], where he was diagnosed with pneumoperitoneum, small bowel obstruction, and a small bowel perforation. December 06, 2022, the patient underwent diagnostic laparoscopy which was converted to an open exploratory laparotomy, with a small bowel resection with enteroenterostomy, appendectomy, and partial closure of the abdominal surgical incision and application of a wound VAC. The procedure was performed through a vertical midline incision. The surgeon was Dr. Michael Leblanc. The patient has largely recovered from his recent surgical interventions, though his vertical midline surgical incision remains open, and healing by secondary intention, with negative pressure wound therapy and use to assist in the healing of the surgical wound. At this juncture, the patient is functioning well on an outpatient basis, and was referred to our facility for oversight of the wound healing process. He remains under the care of his surgeon. He also remains under the care of an infectious disease specialist. The patient's BMI is 34. He suffers from several pre- existing medical conditions, which are listed below. [facility] Medical History (Updated 01/22/23 @ 13:[address] Moncho Herbert MD) Anxiety AVNRT (AV jhon re-entry tachycardia) Bipolar disorder Bipolar disorder Celiac disease Celiac disease Colon polyps Depression Diverticulitis Family history of colon cancer GERD (gastroesophageal reflux disease) GERD (gastroesophageal reflux disease) Hemorrhoids Hepatic steatosis Hepatic steatosis Hiatal hernia History of rheumatic fever Hyperglycemia Hypertension Obesity (BMI 30.0-34.9) Obstructive sleep apnea Postoperative wound dehiscence Status post amputation of finger Surgical wound present Thrombocytopenia Home Medications bupropion HCl 150 mg tablet,12 hr sustained-release 150 mg PO DAILY 12/03/19 [History Last Taken Unknown] lisinopril 10 mg tablet 10 mg PO DAILY #90 tabs 11/23/21 [Rx Last Taken Unknown] metoprolol succinate 50 mg tablet,extended release 24 hr 50 mg PO QDAY #90 tabs 08/27/22 [Rx Last Taken Unknown] meloxicam 15 mg tablet 15 mg PO DAILY 11/27/22 [History Last Taken Unknown] aspirin 81 mg capsule 81 mg PO DAILY 01/01/23 [History Last Taken Unknown] oxycodone 5 mg capsule 5 mg PO BID PRN Pain, Moderate 01/01/23 [History Last Ghanshyam en Unknown] Allergy/AdvReac Type Severity Reaction Status Date / Time No Known Allergies Allergy Verified 11/27/22 10:11 Surgical History History of esophagogastroduodenoscopy (EGD) History of laparoscopic cholecystectomy History of partial colectomy History of total left hip replacement History of umbilical hernia repair S/P ACL repair S/P colonoscopy S/P hemorrhoidectomy S/P tooth extraction Status post colectomy Social History Smoking Status: Never smoker Smokeless tobacco user: chewing tobacco and other how long ago did patient quit smoking: Quit smoking, still chewing alcohol intake: current alcohol intake frequency: 0-2 drinks per day Alcohol type: wine substance use type: does not use caffeine: Yes Type: coffee Number of servings: 3 Vital Signs Vital Signs Vital Signs: 01/22/23 10:06 Temperature 96.2 F L Temperature Source Temporal Pulse Rate 76 Respiratory Rate 16 Blood Pressure 136/86 H Blood Pressure Mean 102 Blood Pressure Source Monitor Blood Pressure Position Sitting Blood Pressure Location Right Arm Oxygen Delivery Method Room Air Weight Weight: 244 lb Body Mass Index (BMI) 34.0 Physical Exam Const alert, oriented x3, no apparent distress and well nourished Constitutional Narrative: The patient is mildly obese. General Appearance: cooperative, comfortable, well kempt and well developed Orientation / Consciousness: awake, oriented to person, oriented to place and oriented to time Exam Limitations: no limitations HEENT normocephalic, head/scalp atraumatic and hearing grossly normal bilaterally Head and Scalp: normal to inspection, normocephalic and atraumatic Face and Sinus: normal facial exam External Ear: external ears normal Eyes PERRL and EOMs intact bilaterally General Eye: normal appearance of both eyes Chest inspection of chest normal Resp normal respiratory effort, normal air movement, no retractions and no use of accessory muscles Effort and Inspection: able to speak in complete sentences Extremity no calf tenderness General Extremity: Negative for clubbing or cyanosis Skin Wound Narrative: The abdomen is mildly obese. A vertical midline surgical incision is noted. The surgical incision is open, with subcutaneous tissue exposed. There is no sign of infection or cellulitis. Dimensions are documented elsewhere. The wound appears pink and healthy in appearance. It appears smaller than 1 week ago, with evidence of peripheral epithelialization. The wound bed appears clean, pink, and healthy. Neuro oriented x3, CN's II-XII intact bilaterally, moves all extremities and no focal motor deficits Sensorium / Orientation: awake, alert, oriented to person, oriented to place and oriented to time Cranial Nerves: CN normal except as noted Speech: speech normal Psych mental status grossly normal Appearance: grossly normal and appropriate Attitude: calm Activity / Motor Behavior: appropriate eye contact Speech: normal speech Mood & Affect: euthymic mood Thought Process: normal thought process Thought Content: normal thought content Attention / Concentration: attention grossly intact Debridement Note Debridement Note No debridement was completed: No debridement was completed today Post-Debridement Measurements and Additional Note: Post-Debridement Measurements/Treatment - Nurse 1 - General Ulcer Assessment Start: 01/15/23 09:41 Freq: Status: Active Protocol: CATRACHITA Activity Type Activity Date Activity User E-sign Co-sign Detail Recorded Client Recorded Date Recorded By Document 01/15/23 09:41 DL [id number] 01/15/23 09:44 DL Document 01/22/23 10:06 MW [id number] 01/22/23 10:13 MW 01/15/23 01/22/23 09:41 10:06 - Today's Visit Information Type of service Follow-up Visit Follow-up Visit (Physician/REAL ESTATE SERVICES ADMINISTRATOR (Physician/REAL ESTATE SERVICES ADMINISTRATOR ) ) Arrival Mode Ambulatory Ambulatory Transfer Assistance None None Accompanied by Patient Identification Verified (Name & Yes Yes ) Patient Requires Transmission-Based No No Precautions Height and Weight Body Mass Index (BMI) 34.0 34.0 BMI Classification Obese Obese Vital Signs Temperature (97.8 F-99.1 F) 97.2 F L 96.2 F L Temperature Source Temporal Temporal Pulse Rate (60-100) 77 76 Pulse Location Monitor Apical Respiratory Rate (12-18) 20 H 16 Respiratory rate source Observation Observation Oxygen Delivery Method Room Air Blood Pressure (90/60-120/80) 139/92 H 136/86 H Blood Pressure Mean 107 102 Source Monitor Monitor Position Sitting Blood Pressure Location Right Arm History Since Last Visit- (Skip if this is Patient's initial visit) Have you changed medications since your No No last visit? Any new allergies or adverse reactions No No Had a fall/change in ADL's that may No No increase risk of falls Signs or symptoms of abuse and/or No No neglect since last visit Have you been in the hospital since your No No last visit? Has dressing in place as prescribed Yes Yes Has compression in place as prescribed N/A N/A Has offloadiing in place as prescribed N/A N/A Experienced any changes in pain level or No No management Left Footwear Regular Shoe Right Footwear Regular Shoe Pain Scale: 0-10 Numeric Is Patient Pain Free? Yes Yes WC - Nurse 1 - General Ulcer Measurement Start: 01/15/23 09:41 Freq: Status: Active Protocol: Activity Type Activity Date Activity User E-sign Co-sign Detail Recorded Client Recorded Date Recorded By Document 01/15/23 09:41 DL [id number] 01/15/23 09:44 DL Document 01/22/23 10:06 MW [id number] 01/22/23 10:13 MW 01/15/23 01/22/23 09:41 10:06 Wound Center Nurse 1 #1- abd post op -Current Size (cm) - Length 14.8 6.8 -Current Size (cm) - Width 2 2.0 -Current Size (cm) - Depth 0.1 0.1 -Total Square Cm 29.6 13.60 -Date of Last Picture (Recall this 01/22/23 field) -Photo Taken Yes Yes -Epithelialization Small 1-33% -Tunneling No -Undermining/Tunneling No -Circular Undermining No -Exudate Amt Medium Medium -Exudate Type Serosanguineous Sanguineous -Wound Margin Thickened Flat & Intact -Granulation Amt Large (67-100%) Large (67-100%) -Granulation Quality Red [place] -Slough/Fibrin Yes -Necrosis Amt Small (1-33%) Small (1-33%) -Necrotic Tissue Type Adherent Slough Adherent Slough -Structure Exposed N/A N/A -Texture (Maricel-wound Skin Appearance) Scarring Assessed, Scarring -Moisture (Maricel-wound Skin Appearance) No Abnormality No Abnormality, Assessed -Color (Maricel-wound Skin Appearance) No Abnormality No Abnormality, Assessed -Temperature (Maricel-wound Skin No Abnormality Appearance) (Pt Warm) -Tenderness on Palpation (Maricel-wound No No Skin Appearance) -Ulcer Cleansing Rinsed/ Rinsed/ Irrigated with Irrigated with Saline Saline -Foul Odor after Cleansing No No -Anesthetic Used 5% Lidocaine 5% Lidocaine Gel Gel [facility] - Nurse 2 - General Ulcer CM Notes Start: 01/15/23 09:41 Freq: Status: Active Protocol: Activity Type Activity Date Activity User E-sign Co-sign Detail Recorded Client Recorded Date Recorded By Document 01/15/23 11:32 PL [id number] 01/15/23 11:33 PL Edit Result 01/15/23 11:32 PL (1) [id number] 01/16/23 07:14 PL Document 01/22/23 11:49 PL [id number] 01/22/23 11:50 PL (1) #1- abd post op - Debridement, SubQ, ea addt'l 20sq cm => 1 or part thereof 01/15/23 01/22/23 11:32 11:49 Wound Center Nurse 2 #1- abd post op -Time 09:55 10:18 -Correct Patient Yes -Correct Side, Site, Position Yes -Correct Procedure Yes -Procedure Performed Yes No -Type of Procedure Debridement -Clinical Debridement Subcutaneous -Tissue Removed Subcutaneous -Post Debridement (cm) - Length 14.8 6.8 -Post Debridement (cm) - Width 2.0 2.0 -Post Debridement (cm) - Depth 0.1 0.1 -Total Square (Post) (cm) 29.60 13.60 -Area of Debridement (cm) - Length 14.8 -Area of Debridement (cm) - Width 2.0 -Total Square (Area) (cm) 29.60 -Tunneling No -Undermining/Tunneling No -Circular Undermining No -Wound/Ulcer Outcome Not Healed Not Healed -Ulcer Cleansing Rinsed/ Irrigated with Saline -Foul Odor after Cleansing No -Bioengineered Tissue No -Bleeding Controlled with Pressure -Treatment Response Procedure Tolerated Well -Debridement - Subq, 1st 20sq cm Yes -Debridement, SubQ, ea addt'l 20sq cm 1 or part thereof Pain Scale: 0-10 Numeric Is Patient Pain Free? Yes Yes NHI - Nurse 3 - General Ulcer D/C NN Start: 01/15/23 09:41 Freq: Status: Active Protocol: Activity Type Activity Date Activity User E-sign Co-sign Detail Recorded Client Recorded Date Recorded By Document 01/15/23 10:10 DL [id number] 01/15/23 10:14 DL Document 01/22/23 10:31 MW [id number] 01/22/23 10:32 MW 01/15/23 01/22/23 10:10 10:31 Wound Care Center Nurse 3 #1- abd post op -Ulcer Cleansing Rinsed/ Rinsed/ Irrigated with Irrigated with Saline Saline -Foul Odor after Cleansing No No -Negative Pressure Wound Therapy N/A -Primary Dressing Applied Fibracol Plus Fibracol Plus 4x4 4x4 -Primary Dressing Covered/Secured with Dry Gauze, Secured with Secured with Tape Tape -Other Covering abd pad -Fibracol Plus 4x4 1 3 Treatment Response Procedure Procedure Tolerated Well Tolerated Well Pain Scale: 0-10 Numeric Is Patient Pain Free? Yes Yes Teaching: Wound Center Dressing Your Wound -Person Taught Patient,Family -Teaching Method Discussion -Response to teaching Verbalize understanding WC - Visit Discharge Discharge Condition Stable Stable Ambulatory Status Ambulatory Ambulatory Transportation Private Auto Accompanied by Medication Reconcilliation completed & No provided to patient/care provider Clinical Summary of Care Provided Yes Facility Type Home Health Orders Sent Yes Assessment/Plan Assessment/Plan (1) Postoperative wound dehiscence: CODE(S): T81.31XA - Disruption of external operation (surgical) wound, not elsewhere classified, initial encounter QUALIFIERS: Encounter type: subsequent encounter Qualified Code(s): T81.31XD - Disruption of external operation (surgical) wound, not elsewhere classified, subsequent encounter (2) Surgical wound present: CODE(S): T14.8XXA - Other injury of unspecified body region, initial encounter (3) AVNRT (AV jhon re-entry tachycardia): CODE(S): I47.1 - Supraventricular tachycardia (4) Bipolar disorder: CODE(S): F31.9 - Bipolar disorder, unspecified (5) Celiac disease: CODE(S): K90.0 - Celiac disease (6) GERD (gastroesophageal reflux disease): CODE(S): K21.9 - Gastro-esophageal reflux disease without esophagitis (7) Hypertension: CODE(S): I10 - Essential (primary) hypertension (8) Obstructive sleep apnea: CODE(S): G47.33 - Obstructive sleep apnea (adult) (pediatric) (9) Hepatic steatosis: CODE(S): K76.0 - Fatty (change of) liver, not elsewhere classified (10) History of partial colectomy: CODE(S): Z90.49 - Acquired absence of other specified parts of digestive tract (11) History of umbilical hernia repair: CODE(S): Z98.890 - Other specified postprocedural states; Z87.19 - Personal history of other diseases of the digestive system (12) History of laparoscopic cholecystectomy: CODE(S): Z90.49 - Acquired absence of other specified parts of digestive tract (13) History of total left hip replacement: CODE(S): Z96.642 - Presence of left artificial hip joint PLAN: Plan This is a 57-year-old male who is status post exploratory laparotomy, small bowel resection with enteroenterostomy, and appendectomy. At the time of surgery, fascial closure was performed, though the subcutaneous layers were left open, and negative pressure wound therapy was implemented. The patient has been referred to our facility for oversight and management of the continued surgical wound healing process. It appears as though he is progressing well, and relates significant improvement in recent weeks. The wound appears healthy and viable, and healing without complication. We are to continue the use of Fibracol, which will be applied topically to the open surgical wound every other day. The patient has been instructed in the appropriate means of application. Serial wound management and oversight will continue at our facility. The patient remains under the care of his primary surgeon, Dr. Michael Leblanc, with whom he is to follow-up at intervals. He has a scheduled appointment with his surgeon 2 days hence. The patient is to return for reevaluation in 1 week. Total time, including review of available medical records from the patient's prior hospitalizations, discussion and interaction with the patient and his , and physical examination: 25 minutes
== END 2023-02-08 23:59 | disposition home or self-care (01) ==
LOC: WC 09:45
PROVIDERS: PCP Family Medicine; Visit Provider Surgery
DX: T81.31XA Disruption of external operation (surgical) wound, not elsewhere classified, initial encounter (principal); F31.9 Bipolar disorder, unspecified; Z79.82 Long term (current) use of aspirin; G47.33 Obstructive sleep apnea (adult) (pediatric); K76.0 Fatty (change of) liver, not elsewhere classified; I10 Essential (primary) hypertension; K21.9 Gastro-esophageal reflux disease without esophagitis; F17.220 Nicotine dependence, chewing tobacco, uncomplicated; K90.0 Celiac disease; Y83.9 Surgical procedure, unspecified as the cause of abnormal reaction of the patient, or of later complication, without mention of misadventure at the time of the procedure; Z79.899 Other long term (current) drug therapy; F41.9 Anxiety disorder, unspecified; E66.9 Obesity, unspecified; Z68.34 Body mass index [BMI] 34.0-34.9, adult
CPT/HCPCS: 11042; 11045; 99213; G0463

== ENCOUNTER 2023-03-05 13:45 | Outpatient (RCR) | payer OTHER, SELFPAY ==
[2023-02-09 01:59] VITALS: BP 136/86; PULSE 76; RESP 16; TEMP 35.7; BMI 34.0
[2023-02-12 09:33] VITALS: BP 143/98; PULSE 75; RESP 20; TEMP 36.4; BMI 34.0
--- NOTE | 2023-02-12 12:32 | HP.PCM_ITS ---
History of Present Illness Date of Service: 02/12/23 Chief Complaint: Surgical abdominal wound History of Wound: This is a 57-year-old male who underwent elective left total hip replacement surgery at the [facility] in [place], [place], on December 04, 2022. Postoperatively, he developed an acute abdomen, and was transferred to [facility], where he was diagnosed with pneumoperitoneum, small bowel obstruction, and a small bowel perforation. December 06, 2022, the patient underwent diagnostic laparoscopy which was converted to an open exploratory laparotomy, with a small bowel resection with enteroenterostomy, appendectomy, and partial closure of the abdominal surgical incision and application of a wound VAC. The procedure was performed through a vertical midline incision. The surgeon was Dr. Michael Leblanc. The patient has largely recovered from his recent surgical interventions, though his vertical midline surgical incision remains open, and healing by secondary intention, with negative pressure wound therapy and use to assist in the healing of the surgical wound. At this juncture, the patient is functioning well on an outpatient basis, and was referred to our facility for oversight of the wound healing process. He remains under the care of his surgeon. He also remains under the care of an infectious disease specialist. The patient's BMI is 34. He suffers from several pre- existing medical conditions, which are listed below. [facility] Medical History Anxiety AVNRT (AV jhon re-entry tachycardia) Bipolar disorder Bipolar disorder Celiac disease Celiac disease Colon polyps Depression Diverticulitis Family history of colon cancer GERD (gastroesophageal reflux disease) GERD (gastroesophageal reflux disease) Hemorrhoids Hepatic steatosis Hepatic steatosis Hiatal hernia History of rheumatic fever Hyperglycemia Hypertension Obesity (BMI 30.0-34.9) Obstructive sleep apnea Postoperative wound dehiscence Status post amputation of finger Surgical wound present Thrombocytopenia Home Medications bupropion HCl 150 mg tablet,12 hr sustained-release 150 mg PO DAILY 12/03/19 [History Last Taken Unknown] lisinopril 10 mg tablet 10 mg PO DAILY #90 tabs 11/23/21 [Rx Last Taken Unknown] metoprolol succinate 50 mg tablet,extended release 24 hr 50 mg PO QDAY #90 tabs 08/27/22 [Rx Last Taken Unknown] meloxicam 15 mg tablet 15 mg PO DAILY 11/27/22 [History Last Taken Unknown] aspirin 81 mg capsule 81 mg PO DAILY 01/01/23 [History Last Taken Unknown] oxycodone 5 mg capsule 5 mg PO BID PRN Pain, Moderate 01/01/23 [History Last Ta violeta Unknown] Allergy/AdvReac Type Severity Reaction Status Date / Time No Known Allergies Allergy Verified 11/27/22 10:11 Surgical History History of esophagogastroduodenoscopy (EGD) History of laparoscopic cholecystectomy History of partial colectomy History of total left hip replacement History of umbilical hernia repair S/P ACL repair S/P colonoscopy S/P hemorrhoidectomy S/P tooth extraction Status post colectomy Social History Smoking Status: Never smoker Smokeless tobacco user: chewing tobacco and other how long ago did patient quit smoking: Quit smoking, still chewing alcohol intake: current alcohol intake frequency: 0-2 drinks per day Alcohol type: wine substance use type: does not use caffeine: Yes Type: coffee Number of servings: 3 Vital Signs Vital Signs Vital Signs: 02/12/23 09:33 Temperature 97.6 F L Temperature Source Temporal Pulse Rate 75 Respiratory Rate 20 H Blood Pressure 143/98 H Blood Pressure Mean 113 Blood Pressure Source Monitor Weight Weight: 244 lb Body Mass Index (BMI) 34.0 Physical Exam Const alert, oriented x3, no apparent distress and well nourished Constitutional Narrative: The patient is mildly obese. General Appearance: cooperative, comfortable, well kempt and well developed Orientation / Consciousness: awake, oriented to person, oriented to place and oriented to time Exam Limitations: no limitations HEENT normocephalic, head/scalp atraumatic and hearing grossly normal bilaterally Head and Scalp: normal to inspection, normocephalic and atraumatic Face and Sinus: normal facial exam External Ear: external ears normal Eyes PERRL and EOMs intact bilaterally General Eye: normal appearance of both eyes Chest inspection of chest normal Resp normal respiratory effort, normal air movement, no retractions and no use of accessory muscles Effort and Inspection: able to speak in complete sentences Extremity no calf tenderness General Extremity: Negative for clubbing or cyanosis Skin Wound Narrative: The abdomen is mildly obese. A vertical midline surgical incision is noted. The surgical incision is open, with subcutaneous tissue exposed. There is no sign of infection or cellulitis. Dimensions are documented elsewhere. The wound appears pink and healthy in appearance. It appears smaller than 2 weeks ago, with evidence of peripheral epithelialization. Unfortunately, at this time, there is evidence that the patient may have developed an incisional hernia. The subcutaneous layers appear to be well approximated, but a bulge at the site of the incision suggests the presence of a fascial disruption. Neuro oriented x3, CN's II-XII intact bilaterally, moves all extremities and no focal motor deficits Sensorium / Orientation: awake, alert, oriented to person, oriented to place and oriented to time Cranial Nerves: CN normal except as noted Speech: speech normal Psych mental status grossly normal Appearance: grossly normal and appropriate Attitude: calm Activity / Motor Behavior: appropriate eye contact Speech: normal speech Mood & Affect: euthymic mood Thought Process: normal thought process Thought Content: normal thought content Attention / Concentration: attention grossly intact Debridement Note Debridement Note Wound debrided: Surgical abdominal wound Laterality: Not Applicable Type of Debridement: Excisional debridement Anesthesia Used: 5% Lidocaine Gel Depth: Down to and including healthy tissue and in the subcutaneous layer Percentage of wound debrided: 100 Instrument Used: 5mm curette Tissue Removed: Bioburden Severity: Fat Layer Exposed Amount of bleeding with debridement: Mild Bleeding Controlled with: Compression and gauze Patient tolerated procedure: Patient tolerated procedure well Post-Debridement Measurements and Additional Note: Post-Debridement Measurements/Treatment - Nurse 1 - General Ulcer Assessment Start: 02/12/23 09:33 Freq: Status: Active Protocol: .LOWPRITESH Activity Type Activity Date Activity User E-sign Co-sign Detail Recorded Client Recorded Date Recorded By Document 02/12/23 09:33 DL [id number] 02/12/23 09:41 DL 02/12/23 09:33 - Today's Visit Information Type of service Follow-up Visit (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 ) Arrival Mode Ambulatory Transfer Assistance None Patient Identification Verified (Name & Yes ) Patient Requires Transmission-Based No Precautions Height and Weight Body Mass Index (BMI) 34.0 BMI Classification Obese Vital Signs Temperature (97.8 F-99.1 F) 97.6 F L Temperature Source Temporal Pulse Rate (60-100) 75 Pulse Location Monitor Respiratory Rate (12-18) 20 H Respiratory rate source Observation Blood Pressure (90/60-120/80) 143/98 H Blood Pressure Mean 113 Source Monitor History Since Last Visit- (Skip if this is Patient's initial visit) Have you changed medications since your No last visit? Any new allergies or adverse reactions No Had a fall/change in ADL's that may No increase risk of falls Signs or symptoms of abuse and/or No neglect since last visit Have you been in the hospital since your No last visit? Has dressing in place as prescribed Yes Has compression in place as prescribed N/A Has offloadiing in place as prescribed N/A Experienced any changes in pain level or No management Pain Scale: 0-10 Numeric Is Patient Pain Free? Yes WC - Nurse 1 - General Ulcer Measurement Start: 02/12/23 09:33 Freq: Status: Active Protocol: Activity Type Activity Date Activity User E-sign Co-sign Detail Recorded Client Recorded Date Recorded By Document 02/12/23 09:33 DL [id number] 02/12/23 09:41 DL 02/12/23 09:33 Wound Center Nurse 1 #1- abd post op -Current Size (cm) - Length 3 -Current Size (cm) - Width 0.8 -Current Size (cm) - Depth 0.1 -Total Square Cm 2.4 -Photo Taken Yes -Exudate Amt Small -Exudate Type Serosanguineous -Wound Margin Distinct, Outline Attached -Granulation Amt Large (67-100%) -Granulation Quality Red -Necrosis Amt None Present (0 %) -Structure Exposed N/A -Texture (Maricel-wound Skin Appearance) Scarring -Moisture (Maricel-wound Skin Appearance) No Abnormality -Color (Maricel-wound Skin Appearance) No Abnormality -Temperature (Maricel-wound Skin No Abnormality Appearance) (Pt Warm) -Tenderness on Palpation (Maricel-wound No Skin Appearance) -Ulcer Cleansing Rinsed/ Irrigated with Saline -Foul Odor after Cleansing No -Anesthetic Used 5% Lidocaine Gel WC - Nurse 2 - General Ulcer CM Notes Start: 02/12/23 09:33 Freq: Status: Active Protocol: Activity Type Activity Date Activity User E-sign Co-sign Detail Recorded Client Recorded Date Recorded By Document 02/12/23 12:02 PL [id number] 02/12/23 12:03 PL 02/12/23 12:02 Wound Center Nurse 2 -Time 10:03 -Correct Patient Yes -Correct Side, Site, Position Yes -Correct Procedure Yes -Procedure Performed Yes -Type of Procedure Debridement -Clinical Debridement Subcutaneous -Tissue Removed Subcutaneous -Post Debridement (cm) - Length 3.0 -Post Debridement (cm) - Width 0.8 -Post Debridement (cm) - Depth 0.1 -Total Square (Post) (cm) 2.40 -Area of Debridement (cm) - Length 3.0 -Area of Debridement (cm) - Width 0.8 -Total Square (Area) (cm) 2.40 -Tunneling No -Undermining/Tunneling No -Circular Undermining No -Wound/Ulcer Outcome Not Healed -Ulcer Cleansing Rinsed/ Irrigated with Saline -Foul Odor after Cleansing No -Bioengineered Tissue No -Bleeding Controlled with Pressure -Treatment Response Procedure Tolerated Well -Debridement - Subq, 1st 20sq cm Yes Pain Scale: 0-10 Numeric Is Patient Pain Free? Yes - Nurse 3 - General Ulcer D/C NN Start: 02/12/23 09:33 Freq: Status: Active Protocol: Activity Type Activity Date Activity User E-sign Co-sign Detail Recorded Client Recorded Date Recorded By Document 02/12/23 12:02 PL [id number] 02/12/23 12:03 PL 02/12/23 12:02 Is Patient Pain Free? Yes Wound Care Center Nurse 3 #1- abd post op -Ulcer Cleansing Rinsed/ Irrigated with Saline -Foul Odor after Cleansing No -Primary Dressing Applied Fibracol Plus 4x4,Mepilex Border -Fibracol Plus 4x4 1 -Mepilex Border 1 WC - Visit Discharge Discharge Condition Stable Ambulatory Status Ambulatory Transportation Private Auto Assessment/Plan Assessment/Plan (1) Postoperative wound dehiscence: CODE(S): T81.31XA - Disruption of external operation (surgical) wound, not elsewhere classified, initial encounter QUALIFIERS: Encounter type: subsequent encounter Qualified Code(s): T81.31XD - Disruption of external operation (surgical) wound, not elsewhere classified, subsequent encounter (2) Surgical wound present: CODE(S): T14.8XXA - Other injury of unspecified body region, initial encounter (3) AVNRT (AV jhon re-entry tachycardia): CODE(S): I47.1 - Supraventricular tachycardia (4) Bipolar disorder: CODE(S): F31.9 - Bipolar disorder, unspecified (5) Celiac disease: CODE(S): K90.0 - Celiac disease (6) GERD (gastroesophageal reflux disease): CODE(S): K21.9 - Gastro-esophageal reflux disease without esophagitis (7) Hypertension: CODE(S): I10 - Essential (primary) hypertension (8) Obstructive sleep apnea: CODE(S): G47.33 - Obstructive sleep apnea (adult) (pediatric) (9) Hepatic steatosis: CODE(S): K76.0 - Fatty (change of) liver, not elsewhere classified (10) History of partial colectomy: CODE(S): Z90.49 - Acquired absence of other specified parts of digestive tract (11) History of umbilical hernia repair: CODE(S): Z98.890 - Other specified postprocedural states; Z87.19 - Personal history of other diseases of the digestive system (12) History of laparoscopic cholecystectomy: CODE(S): Z90.49 - Acquired absence of other specified parts of digestive tract (13) History of total left hip replacement: CODE(S): Z96.642 - Presence of left artificial hip joint PLAN: Plan This is a 57-year-old male who is status post exploratory laparotomy, small bowel resection with enteroenterostomy, and appendectomy. At the time of surgery, fascial closure was performed, though the subcutaneous layers were left open, and negative pressure wound therapy was implemented. The patient has been referred to our facility for oversight and management of the continued surgical wound healing process. It appears as though he is progressing well, and relates significant improvement in recent weeks. The wound appears healthy and viable, and healing without complication. We are to continue the use of Fibracol, which will be applied topically to the open surgical wound every day. The patient has been instructed in the appropriate means of application. Serial wound management and oversight will continue at our facility. The patient remains under the care of his primary surgeon, Dr. Michael Leblanc, with whom he is to follow-up at intervals. As of today's visit, it appears as though the patient has developed an incisional hernia, and he has been advised to seek follow-up with his surgeon as soon as possible. He is to return for reevaluation in our clinic in 1 week. Lifting beyond 10 to 15 pounds has been discouraged. Total time: 25 minutes
[2023-02-19 09:32] VITALS: BP 150/95; PULSE 75; RESP 18; TEMP 36.2; BMI 34.0
--- NOTE | 2023-02-19 13:17 | PCM.WC.HP ---
History of Present Illness Date of Service: 02/19/23 Chief Complaint: Surgical abdominal wound History of Wound: This is a 57-year-old male who underwent elective left total hip replacement surgery at the [facility] in [place], [place], on December 04, 2022. Postoperatively, he developed an acute abdomen, and was transferred to [facility], [place], where he was diagnosed with pneumoperitoneum, small bowel obstruction, and a small bowel perforation. December 06, 2022, the patient underwent diagnostic laparoscopy which was converted to an open exploratory laparotomy, with a small bowel resection with enteroenterostomy, appendectomy, and partial closure of the abdominal surgical incision and application of a wound VAC. The procedure was performed through a vertical midline incision. The surgeon was Dr. Michael Leblanc. The patient has largely recovered from his recent surgical interventions, though his vertical midline surgical incision remains open, and healing by secondary intention, with negative pressure wound therapy and use to assist in the healing of the surgical wound. At this juncture, the patient is functioning well on an outpatient basis, and was referred to our facility for oversight of the wound healing process. He remains under the care of his surgeon. He also remains under the care of an infectious disease specialist. The patient's BMI is 34. He suffers from several pre-existing medical conditions, which are listed below. FORMERLY [facility], [facility] Medical History Anxiety AVNRT (AV jhon re-entry tachycardia) Bipolar disorder Bipolar disorder Celiac disease Celiac disease Colon polyps Depression Diverticulitis Family history of colon cancer GERD (gastroesophageal reflux disease) GERD (gastroesophageal reflux disease) Hemorrhoids Hepatic steatosis Hepatic steatosis Hiatal hernia History of rheumatic fever Hyperglycemia Hypertension Obesity (BMI 30.0-34.9) Obstructive sleep apnea Postoperative wound dehiscence Status post amputation of finger Surgical wound present Thrombocytopenia Home Medications bupropion HCl 150 mg tablet,12 hr sustained-release 150 mg PO DAILY 12/03/19 [History Last Taken Unknown] lisinopril 10 mg tablet 10 mg PO DAILY #90 tabs 11/23/21 [Rx Last Taken Unknown] metoprolol succinate 50 mg tablet,extended release 24 hr 50 mg PO QDAY #90 tabs 08/27/22 [Rx Last Taken Unknown] meloxicam 15 mg tablet 15 mg PO DAILY 11/27/22 [History Last Taken Unknown] aspirin 81 mg capsule 81 mg PO DAILY 01/01/23 [History Last Taken Unknown] oxycodone 5 mg capsule 5 mg PO BID PRN Pain, Moderate 01/01/23 [History Last Taken Unknown] Allergy/AdvReac Type Severity Reaction Status Date / Time No Known Allergies Allergy Verified 11/27/22 10:11 Surgical History History of esophagogastroduodenoscopy (EGD) History of laparoscopic cholecystectomy History of partial colectomy History of total left hip replacement History of umbilical hernia repair S/P ACL repair S/P colonoscopy S/P hemorrhoidectomy S/P tooth extraction Status post colectomy Social History Smoking Status: Never smoker Smokeless tobacco user: chewing tobacco and other how long ago did patient quit smoking: Quit smoking, still chewing alcohol intake: current alcohol intake frequency: 0-2 drinks per day Alcohol type: wine substance use type: does not use caffeine: Yes Type: coffee Number of servings: 3 Vital Signs Vital Signs Vital Signs: 02/19/23 09:32 Temperature 97.1 F L Temperature Source Temporal Pulse Rate 75 Respiratory Rate 18 Blood Pressure 150/95 H Blood Pressure Mean 113 Blood Pressure Source Monitor Weight Weight: 244 lb Body Mass Index (BMI) 34.0 Physical Exam Const alert, oriented x3, no apparent distress and well nourished Constitutional Narrative: The patient is mildly obese. General Appearance: cooperative, comfortable, well kempt and well developed Orientation / Consciousness: awake, oriented to person, oriented to place and oriented to time Exam Limitations: no limitations HEENT normocephalic, head/scalp atraumatic and hearing grossly normal bilaterally Head and Scalp: normal to inspection, normocephalic and atraumatic Face and Sinus: normal facial exam External Ear: external ears normal Eyes PERRL and EOMs intact bilaterally General Eye: normal appearance of both eyes Chest inspection of chest normal Resp normal respiratory effort, normal air movement, no retractions and no use of accessory muscles Effort and Inspection: able to speak in complete sentences Extremity no calf tenderness General Extremity: Negative for clubbing or cyanosis Skin Wound Narrative: The abdomen is mildly obese. A vertical midline surgical incision is noted. The surgical incision is open, with subcutaneous tissue exposed. There is no sign of infection or cellulitis. Dimensions are documented elsewhere. The wound appears pink and healthy in appearance. It appears smaller in size, with evidence of peripheral epithelialization. Unfortunately, at this time, there is evidence that the patient may have developed an incisional hernia. The subcutaneous layers appear to be well approximated, but a bulge at the site of the incision suggests the presence of a fascial disruption. Neuro oriented x3, CN's II-XII intact bilaterally, moves all extremities and no focal motor deficits Sensorium / Orientation: awake, alert, oriented to person, oriented to place and oriented to time Cranial Nerves: CN normal except as noted Speech: speech normal Psych mental status grossly normal Appearance: grossly normal and appropriate Attitude: calm Activity / Motor Behavior: appropriate eye contact Speech: normal speech Mood & Affect: euthymic mood Thought Process: normal thought process Thought Content: normal thought content Attention / Concentration: attention grossly intact Debridement Note Debridement Note No debridement was completed: No debridement was completed today (The dehiscent surgical wound appears pink and healthy in appearance, with little or no bioburden.) Post-Debridement Measurements and Additional Note: Post-Debridement Measurements/Treatment - Nurse 1 - General Ulcer Assessment Start: 02/12/23 09:33 Freq: Status: Active Protocol: NHI.AZRA Activity Type Activity Date Activity User E-sign Co-sign Detail Recorded Client Recorded Date Recorded By Document 02/12/23 09:33 DL [id number] 02/12/23 09:41 DL Document 02/19/23 09:32 DL [id number] 02/19/23 09:38 DL 02/12/23 02/19/23 09:33 09:32 - Today's Visit Information Type of service Follow-up Visit Follow-up Visit (Physician/WELDING SYSTEMS AND EQUIPMENT REPAIRER (Physician/WELDING SYSTEMS AND EQUIPMENT REPAIRER ) ) Arrival Mode Ambulatory Ambulatory Transfer Assistance None None Patient Identification Verified (Name & Yes Yes ) Patient Requires Transmission-Based No No Precautions Height and Weight Body Mass Index (BMI) 34.0 34.0 BMI Classification Obese Obese Vital Signs Temperature (97.8 F-99.1 F) 97.6 F L 97.1 F L Temperature Source Temporal Temporal Pulse Rate (60-100) 75 75 Pulse Location Monitor Monitor Respiratory Rate (12-18) 20 H 18 Respiratory rate source Observation Observation Blood Pressure (90/60-120/80) 143/98 H 150/95 H Blood Pressure Mean 113 113 Source Monitor Monitor History Since Last Visit- (Skip if this is Patient's initial visit) Have you changed medications since your No No last visit? Any new allergies or adverse reactions No No Had a fall/change in ADL's that may No No increase risk of falls Signs or symptoms of abuse and/or No No neglect since last visit Have you been in the hospital since your No No last visit? Has dressing in place as prescribed Yes Yes Has compression in place as prescribed N/A N/A Has offloadiing in place as prescribed N/A Yes Experienced any changes in pain level or No No management Pain Scale: 0-10 Numeric Is Patient Pain Free? Yes Yes WC - Nurse 1 - General Ulcer Measurement Start: 02/12/23 09:33 Freq: Status: Active Protocol: Activity Type Activity Date Activity User E-sign Co-sign Detail Recorded Client Recorded Date Recorded By Document 02/12/23 09:33 DL [id number] 02/12/23 09:41 DL Document 02/19/23 09:32 DL [id number] 02/19/23 09:38 DL 02/12/23 02/19/23 09:33 09:32 Wound Center Nurse 1 #1- abd post op -Current Size (cm) - Length 3 3.9 -Current Size (cm) - Width 0.8 0.9 -Current Size (cm) - Depth 0.1 0.1 -Total Square Cm 2.4 3.51 -Photo Taken Yes Yes -Exudate Amt Small None Present -Exudate Type Serosanguineous -Wound Margin Distinct, Distinct, Outline Outline Attached Attached -Granulation Amt Large (67-100%) Large (67-100%) -Granulation Quality Red Red -Necrosis Amt None Present (0 None Present (0 %) %) -Structure Exposed N/A N/A -Texture (Maricel-wound Skin Appearance) Scarring Scarring -Moisture (Maricel-wound Skin Appearance) No Abnormality No Abnormality -Color (Maricel-wound Skin Appearance) No Abnormality No Abnormality -Temperature (Maricel-wound Skin No Abnormality No Abnormality Appearance) (Pt Warm) (Pt Warm) -Tenderness on Palpation (Maricel-wound No No Skin Appearance) -Ulcer Cleansing Rinsed/ Rinsed/ Irrigated with Irrigated with Saline Saline -Foul Odor after Cleansing No No -Anesthetic Used 5% Lidocaine 5% Lidocaine Gel Gel - Nurse 2 - General Ulcer CM Notes Start: 02/12/23 09:33 Freq: Status: Active Protocol: Activity Type Activity Date Activity User E-sign Co-sign Detail Recorded Client Recorded Date Recorded By Document 02/12/23 12:02 PL [id number] 02/12/23 12:03 PL 02/12/23 12:02 Wound Center Nurse 2 -Time 10:03 -Correct Patient Yes -Correct Side, Site, Position Yes -Correct Procedure Yes -Procedure Performed Yes -Type of Procedure Debridement -Clinical Debridement Subcutaneous -Tissue Removed Subcutaneous -Post Debridement (cm) - Length 3.0 -Post Debridement (cm) - Width 0.8 -Post Debridement (cm) - Depth 0.1 -Total Square (Post) (cm) 2.40 -Area of Debridement (cm) - Length 3.0 -Area of Debridement (cm) - Width 0.8 -Total Square (Area) (cm) 2.40 -Tunneling No -Undermining/Tunneling No -Circular Undermining No -Wound/Ulcer Outcome Not Healed -Ulcer Cleansing Rinsed/ Irrigated with Saline -Foul Odor after Cleansing No -Bioengineered Tissue No -Bleeding Controlled with Pressure -Treatment Response Procedure Tolerated Well -Debridement - Subq, 1st 20sq cm Yes Pain Scale: 0-10 Numeric Is Patient Pain Free? Yes - Nurse 3 - General Ulcer D/C NN Start: 02/12/23 09:33 Freq: Status: Active Protocol: Activity Type Activity Date Activity User E-sign Co-sign Detail Recorded Client Recorded Date Recorded By Document 02/12/23 12:02 PL [id number] 02/12/23 12:03 02/12/23 12:02 Is Patient Pain Free? Yes Wound Care Center Nurse 3 #1- abd post op -Ulcer Cleansing Rinsed/ Irrigated with Saline -Foul Odor after Cleansing No -Primary Dressing Applied Fibracol Plus 4x4,Mepilex Border -Fibracol Plus 4x4 1 -Mepilex Border 1 WC - Visit Discharge Discharge Condition Stable Ambulatory Status Ambulatory Transportation Private Auto Assessment/Plan Assessment/Plan (1) Postoperative wound dehiscence: CODE(S): T81.31XA - Disruption of external operation (surgical) wound, not elsewhere classified, initial encounter QUALIFIERS: Encounter type: subsequent encounter Qualified Code(s): T81.31XD - Disruption of external operation (surgical) wound, not elsewhere classified, subsequent encounter (2) Surgical wound present: CODE(S): T14.8XXA - Other injury of unspecified body region, initial encounter (3) AVNRT (AV jhon re-entry tachycardia): CODE(S): I47.1 - Supraventricular tachycardia (4) Bipolar disorder: CODE(S): F31.9 - Bipolar disorder, unspecified (5) Celiac disease: CODE(S): K90.0 - Celiac disease (6) GERD (gastroesophageal reflux disease): CODE(S): K21.9 - Gastro-esophageal reflux disease without esophagitis (7) Hypertension: CODE(S): I10 - Essential (primary) hypertension (8) Obstructive sleep apnea: CODE(S): G47.33 - Obstructive sleep apnea (adult) (pediatric) (9) Hepatic steatosis: CODE(S): K76.0 - Fatty (change of) liver, not elsewhere classified (10) History of partial colectomy: CODE(S): Z90.49 - Acquired absence of other specified parts of digestive tract (11) History of umbilical hernia repair: CODE(S): Z98.890 - Other specified postprocedural states; Z87.19 - Personal history of other diseases of the digestive system (12) History of laparoscopic cholecystectomy: CODE(S): Z90.49 - Acquired absence of other specified parts of digestive tract (13) History of total left hip replacement: CODE(S): Z96.642 - Presence of left artificial hip joint PLAN: Plan This is a 57-year-old male who is status post exploratory laparotomy, small bowel resection with enteroenterostomy, and appendectomy. At the time of surgery, fascial closure was performed, though the subcutaneous layers were left open, and negative pressure wound therapy was implemented. The patient has been referred to our facility for oversight and management of the continued surgical wound healing process. It appears as though he is progressing well. The wound appears healthy and viable, and healing without complication. We are to continue the use of Fibracol, which will be applied topically to the open surgical wound every day. The patient has been instructed in the appropriate means of application. Serial wound management and oversight will continue at our facility. The patient remains under the care of his primary surgeon, Dr. Michael Leblanc, with whom he is to follow-up at intervals. It appears as though the patient has developed an incisional hernia, and he has been advised to seek follow-up with his surgeon as soon as possible. He has an appointment with her next week. He is to return for reevaluation in our clinic in 2 weeks. Lifting beyond 10 to 15 pounds has been discouraged. Total time: 24 minutes
[2023-03-05 13:46] VITALS: BP 146/89; PULSE 72; RESP 18; TEMP 36.4; BMI 34.0
--- NOTE | 2023-03-05 14:50 | PCM.WC.HP ---
History of Present Illness Date of Service: 03/05/23 Chief Complaint: Surgical abdominal wound History of Wound: This is a 57-year-old male who underwent elective left total hip replacement surgery at the [facility] in [place], [place], on December 04, 2022. Postoperatively, he developed an acute abdomen, and was transferred to [facility], where he was diagnosed with pneumoperitoneum, small bowel obstruction, and a small bowel perforation. December 06, 2022, the patient underwent diagnostic laparoscopy which was converted to an open exploratory laparotomy, with a small bowel resection with enteroenterostomy, appendectomy, and partial closure of the abdominal surgical incision and application of a wound VAC. The procedure was performed through a vertical midline incision. The surgeon was Dr. Michael Leblanc. The patient has largely recovered from his recent surgical interventions, though his vertical midline surgical incision remains open, and healing by secondary intention, with negative pressure wound therapy and use to assist in the healing of the surgical wound. At this juncture, the patient is functioning well on an outpatient basis, and was referred to our facility for oversight of the wound healing process. He remains under the care of his surgeon. He also remains under the care of an infectious disease specialist. The patient's BMI is 34. He suffers from several pre-existing medical conditions, which are listed below. REPLACED BY [facility] Medical History Anxiety AVNRT (AV jhon re-entry tachycardia) Bipolar disorder Bipolar disorder Celiac disease Celiac disease Colon polyps Depression Diverticulitis Family history of colon cancer GERD (gastroesophageal reflux disease) GERD (gastroesophageal reflux disease) Hemorrhoids Hepatic steatosis Hepatic steatosis Hiatal hernia History of rheumatic fever Hyperglycemia Hypertension Obesity (BMI 30.0-34.9) Obstructive sleep apnea Postoperative wound dehiscence Status post amputation of finger Surgical wound present Thrombocytopenia Home Medications bupropion HCl 150 mg tablet,12 hr sustained-release 150 mg PO DAILY 12/03/19 [History Last Taken Unknown] metoprolol succinate 50 mg tablet,extended release 24 hr 50 mg PO QDAY #90 tabs 08/27/22 [Rx Last Taken Unknown] meloxicam 15 mg tablet 15 mg PO DAILY 11/27/22 [History Last Taken Unknown] aspirin 81 mg capsule 81 mg PO DAILY 01/01/23 [History Last Taken Unknown] oxycodone 5 mg capsule 5 mg PO BID PRN Pain, Moderate 01/01/23 [History Last Taken Unknown] lisinopril 10 mg tablet 10 mg PO DAILY #90 tabs 02/25/23 [Rx Last Taken Unknown] Allergy/AdvReac Type Severity Reaction Status Date / Time No Known Allergies Allergy Verified 11/27/22 10:11 Surgical History History of esophagogastroduodenoscopy (EGD) History of laparoscopic cholecystectomy History of partial colectomy History of total left hip replacement History of umbilical hernia repair S/P ACL repair S/P colonoscopy S/P hemorrhoidectomy S/P tooth extraction Status post colectomy Social History Smoking Status: Never smoker Smokeless tobacco user: chewing tobacco and other how long ago did patient quit smoking: Quit smoking, still chewing alcohol intake: current alcohol intake frequency: 0-2 drinks per day Alcohol type: wine substance use type: does not use caffeine: Yes Type: coffee Number of servings: 3 Vital Signs Vital Signs Vital Signs: 03/05/23 13:46 Temperature 97.6 F L Temperature Source Temporal Pulse Rate 72 Respiratory Rate 18 Blood Pressure 146/89 H Blood Pressure Mean 108 Blood Pressure Source Monitor Blood Pressure Location Left Arm Oxygen Delivery Method Room Air Weight Weight: 244 lb Body Mass Index (BMI) 34.0 Physical Exam Const alert, oriented x3, no apparent distress and well nourished Constitutional Narrative: The patient is mildly obese. General Appearance: cooperative, comfortable, well kempt and well developed Orientation / Consciousness: awake, oriented to person, oriented to place and oriented to time Exam Limitations: no limitations HEENT normocephalic, head/scalp atraumatic and hearing grossly normal bilaterally Head and Scalp: normal to inspection, normocephalic and atraumatic Face and Sinus: normal facial exam External Ear: external ears normal Eyes PERRL and EOMs intact bilaterally General Eye: normal appearance of both eyes Chest inspection of chest normal Resp normal respiratory effort, normal air movement, no retractions and no use of accessory muscles Effort and Inspection: able to speak in complete sentences Extremity no calf tenderness General Extremity: Negative for clubbing or cyanosis Skin Wound Narrative: The abdomen is mildly obese. A dehiscent vertical midline surgical incision is noted. The dehiscent surgical wound is now nearly totally healed. Only several small, superficial areas remain yet unhealed. There is no sign of infection or cellulitis. Dimensions are documented elsewhere. The remaining open portion of the wound appears pink and healthy in appearance. It appears much smaller in size, with evidence of peripheral epithelialization. Unfortunately, at this time, there is evidence a large incisional hernia, with fascial dehiscence. The subcutaneous layers appear to be well approximated, but a bulge at the site of the incision suggests the presence of a fascial disruption. Neuro oriented x3, CN's II-XII intact bilaterally, moves all extremities and no focal motor deficits Sensorium / Orientation: awake, alert, oriented to person, oriented to place and oriented to time Cranial Nerves: CN normal except as noted Speech: speech normal Psych mental status grossly normal Appearance: grossly normal and appropriate Attitude: calm Activity / Motor Behavior: appropriate eye contact Speech: normal speech Mood & Affect: euthymic mood Thought Process: normal thought process Thought Content: normal thought content Attention / Concentration: attention grossly intact Debridement Note Debridement Note No debridement was completed: No debridement was completed today Post-Debridement Measurements and Additional Note: Post-Debridement Measurements/Treatment - Nurse 1 - General Ulcer Assessment Start: 02/12/23 09:33 Freq: Status: Active Protocol: CATRACHITA Activity Type Activity Date Activity User E-sign Co-sign Detail Recorded Client Recorded Date Recorded By Document 02/12/23 09:33 DL [id number] 02/12/23 09:41 DL Document 02/19/23 09:32 DL [id number] 02/19/23 09:38 DL Document 03/05/23 13:46 MW [id number] 03/05/23 13:53 MW 02/12/23 02/19/23 03/05/23 09:33 09:32 13:46 - Today's Visit Information Type of service Follow-up Visit Follow-up Visit Follow-up Visit (Physician/[employer] PROFESSOR (Physician/[employer] PROFESSOR (Physician/[employer] PROFESSOR ) ) ) Arrival Mode Ambulatory Ambulatory Ambulatory Transfer Assistance None None None Accompanied by Patient Identification Verified (Name & Yes Yes Yes ) Patient Requires Transmission-Based No No No Precautions Height and Weight Body Mass Index (BMI) 34.0 34.0 34.0 BMI Classification Obese Obese Obese Vital Signs Temperature (97.8 F-99.1 F) 97.6 F L 97.1 F L 97.6 F L Temperature Source Temporal Temporal Temporal Pulse Rate (60-100) 75 75 72 Pulse Location Monitor Monitor Monitor Respiratory Rate (12-18) 20 H 18 18 Respiratory rate source Observation Observation Observation Oxygen Delivery Method Room Air Blood Pressure (90/60-120/80) 143/98 H 150/95 H 146/89 H Blood Pressure Mean 113 113 108 Source Monitor Monitor Monitor Blood Pressure Location Left Arm History Since Last Visit- (Skip if this is Patient's initial visit) Have you changed medications since your No No No last visit? Any new allergies or adverse reactions No No No Had a fall/change in ADL's that may No No No increase risk of falls Signs or symptoms of abuse and/or No No No neglect since last visit Have you been in the hospital since your No No No last visit? Has dressing in place as prescribed Yes Yes Yes Has compression in place as prescribed N/A N/A N/A Has offloadiing in place as prescribed N/A Yes N/A Experienced any changes in pain level or No No No management Left Footwear Regular Shoe Right Footwear Regular Shoe Pain Scale: 0-10 Numeric Is Patient Pain Free? Yes Yes Yes WC - Nurse 1 - General Ulcer Measurement Start: 02/12/23 09:33 Freq: Status: Active Protocol: Activity Type Activity Date Activity User E-sign Co-sign Detail Recorded Client Recorded Date Recorded By Document 02/12/23 09:33 DL [id number] 02/12/23 09:41 DL Document 02/19/23 09:32 DL [id number] 02/19/23 09:38 DL Document 03/05/23 13:46 MW [id number] 03/05/23 13:53 MW 02/12/23 02/19/23 03/05/23 09:33 09:32 13:46 Wound Center Nurse 1 #1- abd post op -Combined with other wound No -Current Size (cm) - Length 3 3.9 0.6 -Current Size (cm) - Width 0.8 0.9 0.4 -Current Size (cm) - Depth 0.1 0.1 0.1 -Total Square Cm 2.4 3.51 0.24 -Photo Taken Yes Yes Yes -Exudate Amt Small None Present Small -Exudate Type Serosanguineous Serosanguineous -Wound Margin Distinct, Distinct, Distinct, Outline Outline Outline Attached Attached Attached -Granulation Amt Large (67-100%) Large (67-100%) Large (67-100%) -Granulation Quality Red Red Pearl -Necrosis Amt None Present (0 None Present (0 Small (1-33%) %) %) -Necrotic Tissue Type Adherent Slough -Structure Exposed N/A N/A N/A -Texture (Maricel-wound Skin Appearance) Scarring Scarring Scarring -Moisture (Maricel-wound Skin Appearance) No Abnormality No Abnormality No Abnormality -Color (Maricel-wound Skin Appearance) No Abnormality No Abnormality No Abnormality -Temperature (Maricel-wound Skin No Abnormality No Abnormality No Abnormality Appearance) (Pt Warm) (Pt Warm) (Pt Warm) -Tenderness on Palpation (Maricel-wound No No No Skin Appearance) -Ulcer Cleansing Rinsed/ Rinsed/ Rinsed/ Irrigated with Irrigated with Irrigated with Saline Saline Saline -Foul Odor after Cleansing No No No -Anesthetic Used 5% Lidocaine 5% Lidocaine 5% Lidocaine Gel Gel Gel WC - Nurse 2 - General Ulcer CM Notes Start: 02/12/23 09:33 Freq: Status: Active Protocol: Activity Type Activity Date Activity User E-sign Co-sign Detail Recorded Client Recorded Date Recorded By Document 02/12/23 12:02 [id number] 02/12/23 12:03 Document 03/05/23 14:20 [id number] 03/05/23 14:21 PL 02/12/23 03/05/23 12:02 14:20 Wound Center Nurse 2 #1- abd post op -Time 10:03 13:59 -Correct Patient Yes Yes -Correct Side, Site, Position Yes -Correct Procedure Yes -Procedure Performed Yes No -Type of Procedure Debridement -Clinical Debridement Subcutaneous -Tissue Removed Subcutaneous -Post Debridement (cm) - Length 3.0 0.5 -Post Debridement (cm) - Width 0.8 0.4 -Post Debridement (cm) - Depth 0.1 0.1 -Total Square (Post) (cm) 2.40 0.20 -Area of Debridement (cm) - Length 3.0 -Area of Debridement (cm) - Width 0.8 -Total Square (Area) (cm) 2.40 -Tunneling No No -Undermining/Tunneling No No -Circular Undermining No No -Wound/Ulcer Outcome Not Healed Not Healed -Ulcer Cleansing Rinsed/ Irrigated with Saline -Foul Odor after Cleansing No -Bioengineered Tissue No -Bleeding Controlled with Pressure -Treatment Response Procedure Tolerated Well -Debridement - Subq, 1st 20sq cm Yes Pain Scale: 0-10 Numeric Is Patient Pain Free? Yes Yes - Nurse 3 - General Ulcer D/C NN Start: 02/12/23 09:33 Freq: Status: Active Protocol: Activity Type Activity Date Activity User E-sign Co-sign Detail Recorded Client Recorded Date Recorded By Document 02/12/23 12:02 PL [id number] 02/12/23 12:03 PL Document 03/05/23 14:10 DL [id number] 03/05/23 14:11 DL 02/12/23 03/05/23 12:02 14:10 Pain Scale: 0-10 Numeric Is Patient Pain Free? Yes Yes Wound Care Center Nurse 3 #1- abd post op -Ulcer Cleansing Rinsed/ Rinsed/ Irrigated with Irrigated with Saline Saline -Foul Odor after Cleansing No No -Primary Dressing Applied Fibracol Plus 4x4,Mepilex Border -Other Dressing hydrogel -Primary Dressing Covered/Secured with Dry Gauze, Secured with Tape -Fibracol Plus 4x4 1 -Mepilex Border 1 Treatment Response Procedure Tolerated Well WC - Visit Discharge Discharge Condition Stable Stable Ambulatory Status Ambulatory Ambulatory Transportation Private Auto Private Auto Assessment/Plan Assessment/Plan (1) Postoperative wound dehiscence: CODE(S): T81.31XA - Disruption of external operation (surgical) wound, not elsewhere classified, initial encounter QUALIFIERS: Encounter type: subsequent encounter Qualified Code(s): T81.31XD - Disruption of external operation (surgical) wound, not elsewhere classified, subsequent encounter (2) Surgical wound present: CODE(S): T14.8XXA - Other injury of unspecified body region, initial encounter (3) AVNRT (AV jhon re-entry tachycardia): CODE(S): I47.1 - Supraventricular tachycardia (4) Bipolar disorder: CODE(S): F31.9 - Bipolar disorder, unspecified (5) Celiac disease: CODE(S): K90.0 - Celiac disease (6) GERD (gastroesophageal reflux disease): CODE(S): K21.9 - Gastro-esophageal reflux disease without esophagitis (7) Hypertension: CODE(S): I10 - Essential (primary) hypertension (8) Obstructive sleep apnea: CODE(S): G47.33 - Obstructive sleep apnea (adult) (pediatric) (9) Hepatic steatosis: CODE(S): K76.0 - Fatty (change of) liver, not elsewhere classified (10) History of partial colectomy: CODE(S): Z90.49 - Acquired absence of other specified parts of digestive tract (11) History of umbilical hernia repair: CODE(S): Z98.890 - Other specified postprocedural states; Z87.19 - Personal history of other diseases of the digestive system (12) History of laparoscopic cholecystectomy: CODE(S): Z90.49 - Acquired absence of other specified parts of digestive tract (13) History of total left hip replacement: CODE(S): Z96.642 - Presence of left artificial hip joint PLAN: Plan This is a 57-year-old male who is status post exploratory laparotomy, small bowel resection with enteroenterostomy, and appendectomy. At the time of surgery, fascial closure was performed, though the subcutaneous layers were left open, and negative pressure wound therapy was implemented. The patient has been referred to our facility for oversight and management of the continued surgical wound healing process. It appears as though he is progressing well. The wound appears healthy and viable, and healing without complication. The wound is now nearly totally healed. We are to implement the use of collagen hydrogel, which will be applied topically on a daily basis. The patient and his have been instructed in the appropriate means of application. The patient remains under the care of his primary surgeon, Dr. Michael Leblanc, who evaluated the patient last week with regard to his fascial herniation. According the patient, the plan is for his surgeon to schedule robotic incisional hernia repair in the very near future. In the interim, the patient will continue to follow-up at our facility until which time his external surgical dehiscent wound has completely healed. The patient will follow-up in 1 week, unless surgical intervention occurs prior to that time. Lifting beyond 10 to 15 pounds has been discouraged. Total time: 25 minutes
== END 2023-03-10 23:59 | disposition home or self-care (01) ==
LOC: WC 13:45
PROVIDERS: PCP Family Medicine; Visit Provider Surgery
DX: T81.31XA Disruption of external operation (surgical) wound, not elsewhere classified, initial encounter (principal); F31.9 Bipolar disorder, unspecified; G47.33 Obstructive sleep apnea (adult) (pediatric); F17.220 Nicotine dependence, chewing tobacco, uncomplicated; I10 Essential (primary) hypertension; K90.0 Celiac disease; K21.9 Gastro-esophageal reflux disease without esophagitis; K76.0 Fatty (change of) liver, not elsewhere classified; Y83.9 Surgical procedure, unspecified as the cause of abnormal reaction of the patient, or of later complication, without mention of misadventure at the time of the procedure; Z79.899 Other long term (current) drug therapy; Z79.82 Long term (current) use of aspirin; F41.9 Anxiety disorder, unspecified
CPT/HCPCS: 11042; 99213; G0463

== ENCOUNTER 2023-03-12 09:33 | Outpatient (RCR) | payer OTHER, SELFPAY ==
[2023-03-11 00:39] VITALS: BP 146/89; PULSE 72; RESP 18; TEMP 36.4; BMI 34.0
[2023-03-12 09:37] VITALS: BP 149/101; PULSE 65; RESP 18; TEMP 36.2; BMI 35.5
--- NOTE | 2023-03-12 10:00 | WC ---
Patient arrived at [facility] wound center for appt. Accompanied with . Noted BP elevated. Checked x 2 in left arm 150/100 and 172/118. Right arm 149/101. stated pt had chest pain Saturday with shortness of breath. Patient c/o fatigue and decreased energy past two days. Dr. Herbert notified. Instructed to re-check BP with a larger cuff size. Left arm 147/96. Dr. Herbert will instruct patient to call his pecan huller or be seen in the ER for evaluation.
--- NOTE | 2023-03-12 10:18 | PCM.WC.HP ---
History of Present Illness Date of Service: 03/12/23 Chief Complaint: Surgical abdominal wound History of Wound: This is a 57-year-old male who underwent elective left total hip replacement surgery at the [facility] in [place], [place], on December 04, 2022. Postoperatively, he developed an acute abdomen, and was transferred to [facility], where he was diagnosed with pneumoperitoneum, small bowel obstruction, and a small bowel perforation. December 06, 2022, the patient underwent diagnostic laparoscopy which was converted to an open exploratory laparotomy, with a small bowel resection with enteroenterostomy, appendectomy, and partial closure of the abdominal surgical incision and application of a wound VAC. The procedure was performed through a vertical midline incision. The surgeon was Dr. Michael Leblanc. The patient has largely recovered from his recent surgical interventions, though his vertical midline surgical incision remains open, and healing by secondary intention, with negative pressure wound therapy and use to assist in the healing of the surgical wound. At this juncture, the patient is functioning well on an outpatient basis, and was referred to our facility for oversight of the wound healing process. He remains under the care of his surgeon. He also remains under the care of an infectious disease specialist. The patient's BMI is 34. He suffers from several pre-existing medical conditions, which are listed below. [facility] Medical History Anxiety AVNRT (AV jhon re-entry tachycardia) Bipolar disorder Bipolar disorder Celiac disease Celiac disease Colon polyps Depression Diverticulitis Family history of colon cancer GERD (gastroesophageal reflux disease) GERD (gastroesophageal reflux disease) Hemorrhoids Hepatic steatosis Hepatic steatosis Hiatal hernia History of rheumatic fever Hyperglycemia Hypertension Obesity (BMI 30.0-34.9) Obstructive sleep apnea Postoperative wound dehiscence Status post amputation of finger Surgical wound present Thrombocytopenia Home Medications bupropion HCl 150 mg tablet,12 hr sustained-release 150 mg PO DAILY 12/03/19 [History Last Taken Unknown] metoprolol succinate 50 mg tablet,extended release 24 hr 50 mg PO QDAY #90 tabs 08/27/22 [Rx Last Taken Unknown] meloxicam 15 mg tablet 15 mg PO DAILY 11/27/22 [History Last Taken Unknown] aspirin 81 mg capsule 81 mg PO DAILY 01/01/23 [History Last Taken Unknown] oxycodone 5 mg capsule 5 mg PO BID PRN Pain, Moderate 01/01/23 [History Last Taken Unknown] lisinopril 10 mg tablet 10 mg PO DAILY #90 tabs 02/25/23 [Rx Last Taken Unknown] Allergy/AdvReac Type Severity Reaction Status Date / Time No Known Allergies Allergy Verified 11/27/22 10:11 Surgical History History of esophagogastroduodenoscopy (EGD) History of laparoscopic cholecystectomy History of partial colectomy History of total left hip replacement History of umbilical hernia repair S/P ACL repair S/P colonoscopy S/P hemorrhoidectomy S/P tooth extraction Status post colectomy Social History Smoking Status: Never smoker Smokeless tobacco user: chewing tobacco and other how long ago did patient quit smoking: Quit smoking, still chewing alcohol intake: current alcohol intake frequency: 0-2 drinks per day Alcohol type: wine substance use type: does not use caffeine: Yes Type: coffee Number of servings: 3 Vital Signs Vital Signs Vital Signs: 03/12/23 09:37 Temperature 97.1 F L Temperature Source Temporal Pulse Rate 65 Respiratory Rate 18 Blood Pressure 149/101 H Blood Pressure Mean 117 Blood Pressure Source Monitor Blood Pressure Position Sitting Blood Pressure Location Right Arm Oxygen Delivery Method Room Air Weight Weight: 255 lb Body Mass Index (BMI) 35.5 Physical Exam Const alert, oriented x3, no apparent distress and well nourished Constitutional Narrative: The patient is mildly obese. General Appearance: cooperative, comfortable, well kempt and well developed Orientation / Consciousness: awake, oriented to person, oriented to place and oriented to time Exam Limitations: no limitations HEENT normocephalic, head/scalp atraumatic and hearing grossly normal bilaterally Head and Scalp: normal to inspection, normocephalic and atraumatic Face and Sinus: normal facial exam External Ear: external ears normal Eyes PERRL and EOMs intact bilaterally General Eye: normal appearance of both eyes Chest inspection of chest normal Resp normal respiratory effort, normal air movement, no retractions and no use of accessory muscles Effort and Inspection: able to speak in complete sentences Extremity no calf tenderness General Extremity: Negative for clubbing or cyanosis Skin Wound Narrative: The abdomen is mildly obese. The patient's dehiscent vertical midline surgical incision appears to be completely healed and epithelialized. There is no sign of infection or cellulitis. There is a large incisional hernia, with fascial dehiscence. The cutaneous and subcutaneous layers appear to be well approximated, but a bulge at the site of the incision suggests the presence of a fascial disruption. Neuro oriented x3, CN's II-XII intact bilaterally, moves all extremities and no focal motor deficits Sensorium / Orientation: awake, alert, oriented to person, oriented to place and oriented to time Cranial Nerves: CN normal except as noted Speech: speech normal Psych mental status grossly normal Appearance: grossly normal and appropriate Attitude: calm Activity / Motor Behavior: appropriate eye contact Speech: normal speech Mood & Affect: euthymic mood Thought Process: normal thought process Thought Content: normal thought content Attention / Concentration: attention grossly intact Debridement Note Debridement Note No debridement was completed: No debridement was completed today (The patient's surgical wound appears to be completely healed and epithelialized.) Post-Debridement Measurements and Additional Note: Post-Debridement Measurements/Treatment - Nurse 1 - General Ulcer Assessment Start: 03/12/23 09:37 Freq: Status: Active Protocol: WC.LOWPRITESHT Activity Type Activity Date Activity User E-sign Co-sign Detail Recorded Client Recorded Date Recorded By Document 03/12/23 09:37 MW [id number] 03/12/23 09:49 MW Edit Result 03/12/23 09:37 MW (1) [id number] 03/12/23 09:57 MW (1) Height => 5 ft 11 in Weight => 255 lb Weight in Pounds => 255.0 lbs Weight Measurement Method => Stated by Patient Body Mass Index (BMI) 34.0 => 35.5 BSA - Victorina => 2.34 03/12/23 09:37 - Today's Visit Information Type of service Follow-up Visit (Physician/FOOD MIXER REPAIRER ) Arrival Mode Ambulatory Transfer Assistance None Accompanied by Patient Identification Verified (Name & Yes ) Patient Requires Transmission-Based No Precautions Height and Weight Height 5 ft 11 in Weight 255 lb Weight in Pounds 255.0 lbs Weight Measurement Method Stated by Patient Body Mass Index (BMI) 35.5 BMI Classification Obese BSA - Victorina 2.34 Vital Signs Temperature (97.8 F-99.1 F) 97.1 F L Temperature Source Temporal Pulse Rate (60-100) 65 Pulse Location Monitor Respiratory Rate (12-18) 18 Respiratory rate source Observation Oxygen Delivery Method Room Air Blood Pressure (90/60-120/80) 149/101 H Blood Pressure Mean 117 Source Monitor Position Sitting Blood Pressure Location Right Arm History Since Last Visit- (Skip if this is Patient's initial visit) Have you changed medications since your No last visit? Any new allergies or adverse reactions No Had a fall/change in ADL's that may No increase risk of falls Signs or symptoms of abuse and/or No neglect since last visit Have you been in the hospital since your No last visit? Has dressing in place as prescribed Yes Has compression in place as prescribed N/A Has offloadiing in place as prescribed N/A Experienced any changes in pain level or No management Left Footwear Regular Shoe Right Footwear Regular Shoe Pain Scale: 0-10 Numeric Is Patient Pain Free? Yes WC - Nurse 1 - General Ulcer Measurement Start: 03/12/23 09:37 Freq: Status: Active Protocol: Activity Type Activity Date Activity User E-sign Co-sign Detail Recorded Client Recorded Date Recorded By Document 03/12/23 09:37 MW [id number] 03/12/23 09:49 MW 03/12/23 09:37 Wound Center Nurse 1 #1- abd post op -Combined with other wound No -Current Size (cm) - Length 0.1 -Current Size (cm) - Width 0.1 -Current Size (cm) - Depth 0.1 -Total Square Cm 0.01 -Date of Last Picture (Recall this 03/12/23 field) -Photo Taken Yes -Epithelialization Large 67-100% -Tunneling No -Undermining/Tunneling No -Circular Undermining No -Exudate Amt None Present -Wound Margin Flat & Intact -Granulation Amt None Present (0 %) -Granulation Quality N/A -Slough/Fibrin No -Necrosis Amt None Present (0 %) -Structure Exposed N/A -Texture (Maricel-wound Skin Appearance) Assessed, Scarring -Moisture (Maricel-wound Skin Appearance) No Abnormality, Assessed -Color (Maricel-wound Skin Appearance) No Abnormality, Assessed -Temperature (Maricel-wound Skin No Abnormality Appearance) (Pt Warm) -Tenderness on Palpation (Maricel-wound No Skin Appearance) -Ulcer Cleansing Not Cleansed -Foul Odor after Cleansing No Lower Limb Edema Present No Assessment/Plan Assessment/Plan (1) Postoperative wound dehiscence: CODE(S): T81.31XA - Disruption of external operation (surgical) wound, not elsewhere classified, initial encounter QUALIFIERS: Encounter type: subsequent encounter Qualified Code(s): T81.31XD - Disruption of external operation (surgical) wound, not elsewhere classified, subsequent encounter (2) Surgical wound present: CODE(S): T14.8XXA - Other injury of unspecified body region, initial encounter (3) AVNRT (AV jhon re-entry tachycardia): CODE(S): I47.1 - Supraventricular tachycardia (4) Bipolar disorder: CODE(S): F31.9 - Bipolar disorder, unspecified (5) Celiac disease: CODE(S): K90.0 - Celiac disease (6) GERD (gastroesophageal reflux disease): CODE(S): K21.9 - Gastro-esophageal reflux disease without esophagitis (7) Hypertension: CODE(S): I10 - Essential (primary) hypertension (8) Obstructive sleep apnea: CODE(S): G47.33 - Obstructive sleep apnea (adult) (pediatric) (9) Hepatic steatosis: CODE(S): K76.0 - Fatty (change of) liver, not elsewhere classified (10) History of partial colectomy: CODE(S): Z90.49 - Acquired absence of other specified parts of digestive tract (11) History of umbilical hernia repair: CODE(S): Z98.890 - Other specified postprocedural states; Z87.19 - Personal history of other diseases of the digestive system (12) History of laparoscopic cholecystectomy: CODE(S): Z90.49 - Acquired absence of other specified parts of digestive tract (13) History of total left hip replacement: CODE(S): Z96.642 - Presence of left artificial hip joint PLAN: Plan This is a 57-year-old male who is status post exploratory laparotomy, small bowel resection with enteroenterostomy, and appendectomy. At the time of surgery, fascial closure was performed, though the subcutaneous layers were left open, and negative pressure wound therapy was implemented. The patient was referred to our facility for oversight and management of the continued surgical wound healing process. It appears as though the surgical wound is now completely healed and epithelialized. Therefore, the patient is to be discharged. The patient remains under the care of his primary surgeon, Dr. Michael Leblanc, who evaluated the patient recently with regard to his fascial herniation. According the patient, the plan is for his surgeon to schedule robotic incisional hernia repair in the very near future. His surgeon has indicated that a plastic surgeon will also be involved in the surgical reconstruction. Of note, it is learned that the patient has had chest pain within the last 48 hours. His blood pressure in the clinic today is noted to be as high as 172/118. The patient and his have been urged to seek medical attention without delay. The patient's switchboard operator supervisor, Dr. Dillard, is to be contacted. If an appointment with the patient's switchboard operator supervisor cannot be arranged without delay, the patient has been advised to seek evaluation in the emergency department. The patient will be discharged from the Wound Center at this time. Total time: 26 minutes
== END 2023-03-12 16:23 | disposition home or self-care (01) ==
LOC: WC 09:33
PROVIDERS: PCP Family Medicine; Visit Provider Surgery
DX: T81.31XA Disruption of external operation (surgical) wound, not elsewhere classified, initial encounter (principal); F31.9 Bipolar disorder, unspecified; I47.1 Supraventricular tachycardia; K90.0 Celiac disease; G47.33 Obstructive sleep apnea (adult) (pediatric); Z80.0 Family history of malignant neoplasm of digestive organs; I10 Essential (primary) hypertension; K21.9 Gastro-esophageal reflux disease without esophagitis; K76.0 Fatty (change of) liver, not elsewhere classified; Z87.891 Personal history of nicotine dependence; T14.8XXA Other injury of unspecified body region, initial encounter; Z90.49 Acquired absence of other specified parts of digestive tract; Z96.642 Presence of left artificial hip joint; Z98.890 Other specified postprocedural states
CPT/HCPCS: 99213; G0463

== ENCOUNTER 2023-03-12 10:32 | Emergency (ER) | payer OTHER, SELFPAY ==
[2023-03-12 10:33] VITALS: BP 163/101; PULSE 66; RESP 14; TEMP 36.4; O2SAT 96; BMI 35.5
[2023-03-12 11:07] VITALS: BP 139/98; PULSE 66; RESP 18; O2SAT 95
--- NOTE | 2023-03-12 11:30 | EX.ED.DYSGE1 ---
HPI History of Present Illness Chief Complaint: Hypertension Detail of Chief Complaint: Hypertension, dizzy, blurred vision Informant: patient Onset/Context/Timing Onset: Days Current Severity: Mild Maximum Severity: Moderate Narrative Narrative: Patient presents from the wound center secondary to concerns for high blood pressure and recent indigestion. Reportedly his blood pressure was elevated at the wound center. He told them that he had some indigestion on Saturday, 2 days ago. They were concerned that this may be cardiac in nature and sent him to emergency room. He does state that he has had some dizziness and blurred vision the past couple days that seems to come and go. He is not sure if it is related to his blood pressure. Patient had hip replacement surgery in [place] earlier this year. Following this he was found to have a tumor in his abdomen with bowel perforation. He had another extensive abdominal surgery and is currently following up with the wound center secondary to wound dehiscence from his abdominal surgery. He states that site is healing well. He has had no fevers or chills. [facility] Medical History Anxiety AVNRT (AV jhon re-entry tachycardia) Bipolar disorder Celiac disease Colon polyps Depression Diverticulitis Family history of colon cancer GERD (gastroesophageal reflux disease) Hemorrhoids Hepatic steatosis Hiatal hernia History of rheumatic fever Hyperglycemia Hypertension Obesity (BMI 30.0-34.9) Obstructive sleep apnea Postoperative wound dehiscence Status post amputation of finger Surgical wound present Thrombocytopenia Home Medications bupropion HCl 150 mg tablet,12 hr sustained-release 150 mg PO DAILY 12/03/19 [History Last Taken Unknown] metoprolol succinate 50 mg tablet,extended release 24 hr 50 mg PO QDAY #90 tabs 08/27/22 [Rx Last Taken Unknown] meloxicam 15 mg tablet 15 mg PO DAILY 11/27/22 [History Last Taken Unknown] aspirin 81 mg capsule 81 mg PO DAILY 01/01/23 [History Last Taken Unknown] oxycodone 5 mg capsule 5 mg PO BID PRN Pain, Moderate 01/01/23 [History Last Taken Unknown] lisinopril 10 mg tablet 10 mg PO DAILY #90 tabs 02/25/23 [Rx Last Taken Unknown] Allergy/AdvReac Type Severity Reaction Status Date / Time No Known Allergies Allergy Verified 03/12/23 10:34 Surgical History History of esophagogastroduodenoscopy (EGD) History of laparoscopic cholecystectomy History of partial colectomy History of total left hip replacement History of umbilical hernia repair S/P ACL repair S/P colonoscopy S/P hemorrhoidectomy S/P tooth extraction Status post colectomy Social History Smoking Status: Never smoker Smokeless tobacco user: chewing tobacco and other how long ago did patient quit smoking: Quit smoking, still chewing alcohol intake: current alcohol intake frequency: 0-2 drinks per day Alcohol type: wine substance use type: does not use caffeine: Yes Type: coffee Number of servings: 3 ROS ROS ED Constitutional Constitutional ED: Denies chills or fever(s) Eyes Eyes: Reports change in vision; Denies discharge from eye(s) ENT ENT ED: Denies discharge from eye(s), rhinorrhea or sore throat Cardiovascular Cardiovascular: Denies chest pain or palpitations Respiratory/Chest Respiratory/Chest: Denies cough or dyspnea Gastrointestinal Gastrointestinal: Denies abdominal pain, diarrhea, nausea or vomiting Genitourinary Genitourinary ED: Denies dysuria Musculoskeletal Musculoskeletal: Denies back pain or extremity pain Integumentary Denies Abrasions or rash Neurologic Neurologic: Denies headache(s) or weakness Psychiatric Psychiatric: Denies anxiety or depression Allergic/Immunologic Allergic/Immunologic ED: Denies lip swelling or urticaria EXAM Physical Exam Const Vital Signs: 03/12/23 10:33 03/12/23 11:07 03/12/23 13:20 Temperature 97.5 F L Temperature Source Temporal Pulse Rate 66 66 64 Respiratory Rate 14 18 20 H Blood Pressure 163/101 H 139/98 H 127/102 H Blood Pressure Mean 121 111 110 Pulse Ox 96 95 95 Oxygen Delivery Method Room Air Room Air Room Air Positive well nourished and well developed General Appearance ED: well developed HEENT Reports normocephalic and head/scalp atraumatic Eyes PERRL and EOMs intact bilaterally Neck supple Chest Wall inspection of chest normal and palpation of chest normal Resp normal respiratory effort and clear to auscultation bilaterally Cardio regular rate and regular rhythm GI GI Narrative: Abdomen soft with healing midline surgical wound. No sign of secondary infection. Abdomen is nontender to palpation. Palpation: soft Extremity normal to inspection Neuro oriented x3 and no sensory deficits noted Sensorium / Orientation: alert Motor Exam: strength 5/5 throughout Psych mental status grossly normal Skin no rashes or lesions noted MDM MDM MDM Narrative Medical decision making narrative: Patient placed on cardiac nurse specialist. EKG obtained to evaluate for cardiac arrhythmia/ischemia. Labwork obtained to evaluate for leukocytosis, anemia, and electrolyte derangement. Chest x-ray obtained to evaluate for acute lung pathology, cardiac size, or mediastinal abnormality. Lab Data Attestation: I reviewed the patient's lab results. Labs: Laboratory Results - last 24 hr 03/12/23 03/12/23 11:10 11:10 WBC 7.2 RBC 5.46 Hgb 16.3 Hct 47.4 MCV 86.8 MCH 29.9 MCHC 34.4 RDW Std Deviation 43.3 RDW Coeff of Lei 13.5 Plt Count 166 MPV 10.9 Immature Gran % (Auto) 0.300 Neut % (Auto) 62.4 Lymph % (Auto) 27.2 Barron % (Auto) 7.8 Eos % (Auto) 1.7 Baso % (Auto) 0.6 Absolute Neuts (auto) 4.5 Absolute Lymphs (auto) 1.96 Nucleated RBC % 0 Sodium 141 Potassium 3.9 Chloride 110 H Carbon Dioxide 24.0 Anion Gap 7 BUN 13 Creatinine 0.90 Estim Creat Clear Calc 98.77 Est GFR (MDRD) Af Amer 113 Est GFR (MDRD) Non-Af 93 BUN/Creatinine Ratio 14.5 Glucose 106 Calcium 9.5 Troponin I High Sens 3 Radiography Chest X-Ray - ED: 1 View, Read by ED Physician and Chronic Changes Diagnostic Testing: Clinical Impression(s) from Imaging Studies Chest X-Ray 03/12/23 12:34 IMPRESSION: No acute abnormality is seen. Electronically Signed: Pito Diamond MD at 13:16 EDT , EKG Initial EKG: Attestation: I personally reviewed and interpreted this EKG as follows: Interpretation: Sinus Rhythm (Sinus at 66 with no acute ischemia.) Treatment and Re-Evaluation :: CBC is unremarkable. Chemistry studies normal. Glucose is normal at 106. Troponin is 3. EKG reveals no evidence of acute ischemia. Chest x-ray per my interpretation was chronic changes with no focal findings. Radiology interpretation is reviewed and agrees. At this time patient's blood pressure has been in the 120s to 130s systolic while in the emergency room. He will be discharged home at this time and advised to follow-up with his primary care physician. Return instructions given. Discharge Plan Triage Chief Complaint: Hypertension ED Provider: Anila Mercado Dx/Rx/DC Orders Clinical Impression: Dizziness Instructions: ED Dizziness, Uncertain Cause Prescriptions: No Action meloxicam 15 mg tablet 15 mg PO DAILY Label Comments: TAKE 1 TABLET BY MOUTH ONCE DAILY bupropion HCl 150 mg tablet sustained-release 12 hr 150 mg PO DAILY Label Comments: DEPRESSION oxycodone 5 mg Capsule 5 mg PO BID PRN (Reason: Pain, Moderate) aspirin 81 mg Capsule 81 mg PO DAILY metoprolol succinate 50 mg tablet extended release 24 hr 50 mg PO QDAY Qty: 90 4RF lisinopril 10 mg tablet 10 mg PO DAILY Qty: 90 3RF Primary Care Provider: Tommy Callahan Referrals: Tommy Callahan MD [Primary Care Provider] - Disposition Disposition: Home, Self Care
[2023-03-12 11:50] LABS: Absolute Lymphocyte Count 1.96 X10^3/uL (0.83-4.51); Absolute Neutrophil Count 4.5 X10^3/uL (2.0-7.7); Basophil# 0.04 X10^3/uL; Basophil% 0.6 % (0-1); Eosinophil# 0.12 X10^3/uL; Eosinophils% 1.7 % (0-5); Hematocrit 47.4 % (40-54); Hemoglobin 16.3 g/dL (13.0-16.5); Lymphocyte # 1.96 X10^3/ul (0.83-4.51); Lymphocyte % 27.2 % (19-41); Mean Corp Hgb Conc 34.4 g/dL (32-36); Mean Corpuscular Hgb 29.9 pg (27.0-32.0); Mean Corpuscular Volume 86.8 fL (80-94); Mean Platelet Vol. 10.9 fl (6.2-12.0); Monocyte# 0.56 X10^3/uL; Monocyte% 7.8 % (0-10); NRBC Flagged by Analyzer 0 % (0-5); Neutrophil % 62.4 % (47-70); Platelet Count 166 K/mm3 (150-450); RBC Distribution Width CV 13.5 % (11.6-14.6); RBC Distribution Width SD 43.3 fl (35.1-43.9); Red Blood Count 5.46 M/mm3 (4.6-6.2); White Blood Count 7.2 K/mm3 (4.4-11.0)
[2023-03-12 11:55] LABS: Anion Gap 7 (5-15); BUN 13 mg/dL (7-18); BUN/Creat Ratio 14.5 RATIO (10-20); Calcium,Total 9.5 mg/dL (8.5-10.1); Chloride 110 mmol/L (98-107); EST Glomerular Filtration Rate 93 mL/min (>60); Est Glom Filt Rate - Afr Amer 113 mL/min (>60); Estimated Creatinine Clearance 98.77 ml/min; Glucose 106 mg/dL (74-106); Potassium 3.9 mmol/L (3.5-5.1); Sodium Level 141 mmol/L (136-145); Troponin-I HS 3 pg/mL (3.0-78.0)
--- NOTE | 2023-03-12 12:34 | RAD_ITS ---
STUDY: X-RAY CHEST REASON FOR EXAM: Male, 57 years old. Chest pain. Hypertension. TECHNIQUE: Single AP portable view of the chest. COMPARISON: None. FINDINGS: EKG electrodes are seen. The lungs are clear and expanded. There is no demonstrated pleural abnormality. Normal size heart. Normal mediastinum and david. Normal visualized pulmonary arteries. There is atherosclerotic tortuosity of the aortic arch and descending thoracic aorta. Normal visualized thoracic spine. Normal visualized ribs, clavicles, and shoulders. There is no demonstrated abnormality of the visualized soft tissue structures of the upper abdomen. RAD/Chest 1 View (Portable) IMPRESSION: No acute abnormality is seen. Electronically Signed: Pito Diamond MD at 13:16 EDT ,
[2023-03-12 13:20] VITALS: BP 127/102; PULSE 64; RESP 20; O2SAT 95
== END 2023-03-12 13:42 | disposition home or self-care (01) ==
PROVIDERS: Emergency Provider Emergency Medicine; PCP Family Medicine; Visit Provider Emergency Medicine
DX: R42 Dizziness and giddiness (principal); G47.33 Obstructive sleep apnea (adult) (pediatric); F17.290 Nicotine dependence, other tobacco product, uncomplicated
CPT/HCPCS: 71045; 80048; 84484; 85025; 93005; 99284; A4216

== ENCOUNTER 2023-12-02 18:09 | Emergency (ER) | payer OTHER, SELFPAY ==
[2023-12-02 18:11] VITALS: BP 165/94; PULSE 75; RESP 20; TEMP 37.1; O2SAT 100; BMI 37.0
--- NOTE | 2023-12-02 18:21 | ED.VIS.CHEST ---
HPI <SOPHIA Titus - Last Filed: 12/02/23 21:10> History of Present Illness Chief Complaint: Chest Pain Narrative Narrative: 58-year-old male with PMH of HTN, GERD, SVT presents with left-sided chest heaviness radiating down his left arm that started about 3:30 PM. He states he just got up to get dressed when it started and had not been exerting himself. When asked if he has had recent exertional chest pain or shortness of breath he says no but then states sometimes when he is active he will get a minute of chest pain that resolves. During today's episode he also felt nauseous and lightheaded. No vomiting or diaphoresis. He is scheduled to have a stress test with Dr. Dillard's office next month for clearance for hernia surgery. He vapes and uses chewing tobacco. PFSH <SOPHIA Titus - Last Filed: 12/02/23 21:10> PFS Medical History Anxiety AVNRT (AV jhon re-entry tachycardia) Bipolar disorder Celiac disease Colon polyps Depression Diverticulitis Family history of colon cancer GERD (gastroesophageal reflux disease) Hemorrhoids Hepatic steatosis Hiatal hernia History of rheumatic fever Hyperglycemia Hypertension Obesity (BMI 30.0-34.9) Obstructive sleep apnea Postoperative wound dehiscence Status post amputation of finger Surgical wound present Thrombocytopenia Home Medications bupropion HCl 150 mg tablet,12 hr sustained-release 150 mg PO DAILY DEPRESSION 12/03/19 [History Last Taken Unknown] aspirin 81 mg capsule 81 mg PO DAILY HEART HEALTH 01/01/23 [History Last Taken Unknown] amoxicillin 875 mg-potassium clavulanate 125 mg tablet 1 tab PO BID ANTIBIOTIC 11/28/23 [History Last Taken Unknown] lisinopril 10 mg tablet 10 mg PO DAILY BLOOD PRESSURE #90 tabs 11/28/23 [Rx Last Taken Unknown] metoprolol succinate 50 mg tablet,extended release 24 hr 50 mg PO QDAY BLOOD PRESSURE #90 tabs 11/28/23 [Rx Last Taken Unknown] Allergy/AdvReac Type Severity Reaction Status Date / Time No Known Allergies Allergy Verified 11/28/23 09:07 Surgical History History of esophagogastroduodenoscopy (EGD) History of laparoscopic cholecystectomy History of partial colectomy History of total left hip replacement History of umbilical hernia repair S/P ACL repair S/P colonoscopy S/P hemorrhoidectomy S/P tooth extraction Status post colectomy Social History Smoking Status: Never smoker Smokeless tobacco user: chewing tobacco and other how long ago did patient quit smoking: Quit smoking, still chewing alcohol intake: current alcohol intake frequency: 0-2 drinks per day Alcohol type: wine substance use type: does not use caffeine: Yes Type: coffee Number of servings: 3 ROS <SOPHIA Titus - Last Filed: 12/02/23 21:10> ROS ED ROS Narrative Constitutional: Negative for fever, chills, malaise. CVS: Positive for chest pain. Negative for palpitations, syncope. Respiratory: Negative for shortness of breath, cough. GI: Positive for nausea. Negative for abdominal pain, vomiting. EXAM <SOPHIA Titus - Last Filed: 12/02/23 21:10> Physical Exam Narrative Exam Narrative: CONST: Patient appears uncomfortable but nontoxic EYES: Normal inspection. NECK: Normal inspection. RESP: No respiratory distress, CTAB. CVS: Regular rate and rhythm, no murmur, no gallop. ABD: Soft and nontender, no guarding or rebound, nondistended. SKIN: Color normal, no rash, warm, dry, intact. EXTREMITIES: Normal appearance, no pedal edema. NEURO: Oriented x4. PSYCH: Normal affect. Const Vital Signs: 12/02/23 18:11 12/02/23 18:24 12/02/23 18:24 Temperature 98.8 F Temperature Source Temporal Pulse Rate 75 Respiratory Rate 20 H Respiratory Effort Normal Blood Pressure 165/94 H Blood Pressure Mean 117 Pulse Ox 100 Oxygen Delivery Method Room Air Room Air 12/02/23 18:35 Temperature Temperature Source Pulse Rate 69 Respiratory Rate Respiratory Effort Blood Pressure 117/91 H Blood Pressure Mean Pulse Ox Oxygen Delivery Method <Dr. Dave Nielson MD - Last Filed: 12/02/23 21:20> Physical Exam Const Vital Signs: 12/02/23 18:11 12/02/23 18:24 12/02/23 18:24 Temperature 98.8 F Temperature Source Temporal Pulse Rate 75 Respiratory Rate 20 H Respiratory Effort Normal Blood Pressure 165/94 H Blood Pressure Mean 117 Pulse Ox 100 Oxygen Delivery Method Room Air Room Air 12/02/23 18:35 Temperature Temperature Source Pulse Rate 69 Respiratory Rate Respiratory Effort Blood Pressure 117/91 H Blood Pressure Mean Pulse Ox Oxygen Delivery Method <SOPHIA Titus - Last Filed: 12/02/23 21:10> Heart Score History: Moderately Suspicious ECG: Normal Age: >45 - <65 years Risk Factors: >/= 3 Risk Factors or History of CAD Score: 4 <Dr. Dave Nielson MD - Last Filed: 12/02/23 21:20> Heart Score Score: 4 MDM <SOPHIA Titus - Last Filed: 12/02/23 21:10> MDM MDM Narrative Medical decision making narrative: History gathered from: Patient and spouse Patient has left-sided chest pressure radiating down the left arm that started around 3:30 PM. He appears well and nontoxic. Vital signs stable. Normal cardiopulmonary exam. No abdominal tenderness. He is wearing abdominal binder for a chronic hernia. Upper and lower extremity pulses are symmetric and intact. He was given full dose aspirin while cardiac workup obtained. EKG is normal sinus rhythm with no ischemic changes. First troponin is 4. External records reviewed Echocardiogram 12/17/2019 EF is 65%, stage I diastolic dysfunction Mild tricuspid valve insufficiency. Lab Data Attestation: I reviewed the patient's lab results. Labs: Laboratory Results - last 24 hr 12/02/23 12/02/23 18:15 20:16 WBC 11.9 H RBC 5.00 Hgb 15.6 Hct 44.8 MCV 89.6 MCH 31.2 MCHC 34.8 RDW Std Deviation 38.7 RDW Coeff of Lei 12.0 Plt Count 259 MPV 10.5 Immature Gran % (Auto) 0.900 Neut % (Auto) 55.4 Lymph % (Auto) 33.7 Newberry % (Auto) 7.8 Eos % (Auto) 1.6 Baso % (Auto) 0.6 Absolute Neuts (auto) 6.6 Absolute Lymphs (auto) 4.00 Nucleated RBC % 0 Sodium 141 Potassium 3.6 Chloride 109 H Carbon Dioxide 26.0 Anion Gap 6 BUN 12 Creatinine 1.01 Estim Creat Clear Calc 107.87 Est GFR (MDRD) Af Amer 98 Est GFR (MDRD) Non-Af 81 BUN/Creatinine Ratio 11.9 Glucose 105 Calcium 10.2 H Troponin I High Sens 4 5 History gathered from: Patient and spouse Patient has left-sided chest pressure rating down his left arm. He appears well and nontoxic. He is hypertensive on arrival with otherwise normal vital signs. Normal cardiopulmonary exam. No abdominal tenderness. He has an abdominal binder due to a chronic hernia. He has no lower extremity edema or calf tenderness. EKG is sinus rhythm with no ischemic changes and serial enzymes are 4 and 5 ruling out ACS. Basic labs and CXR show no acute process. Patient was given aspirin here, declined pain medication and states he is feeling significantly improved. He is scheduled for an outpatient stress test next month with the [facility]. I advised him if symptoms return or worsen he should come back to the ER for reevaluation. He was comfortable with this plan and discharged in stable condition. Radiography Chest X-Ray - ED: 1 View, Read by ED Physician, Read by Radiologist, Heart, Mediastinum, Bony Structures and No Acute Disease Diagnostic Testing: Clinical Impression(s) from Imaging Studies Chest X-Ray 12/02/23 18:25 IMPRESSION: There are findings consistent with COPD. There is no evidence of acute chest disease. Electronically Signed: Mack Duarte MD at 19:00 EST , ED attending interpretation of 2-view chest x-ray shows normal heart size, no acute infiltrate, edema, or effusion. EKG Initial EKG: Attestation: I personally reviewed and interpreted this EKG as follows: Interpretation: Sinus Rhythm and No Acute Injury Pattern Comments: Normal sinus rhythm at 75 bpm Normal intervals, no acute ischemic changes <Dr. Dave Nielson MD - Last Filed: 12/02/23 21:20> [facility] Narrative Medical decision making narrative: History gathered from: Patient and spouse Patient has left-sided chest pressure radiating down the left arm that started around 3:30 PM. He appears well and nontoxic. Vital signs stable. Normal cardiopulmonary exam. No abdominal tenderness. He is wearing abdominal binder for a chronic hernia. Upper and lower extremity pulses are symmetric and intact. He was given full dose aspirin while cardiac workup obtained. EKG is normal sinus rhythm with no ischemic changes. First troponin is 4. External records reviewed Echocardiogram 12/17/2019 EF is 65%, stage I diastolic dysfunction Mild tricuspid valve insufficiency. I have personally performed a face to face assessment of the patient and have reviewed the SHAHRAM Note. I performed a substantive portion of the visit including all aspects of the following. My browning findings include: History is remarkable for left-sided pressure sensation rating down the left arm. This is started at approximately 1520. He was sitting in a chair at the time. There were no alleviating or exacerbating factors. Patient is scheduled for an outpatient stress test for operative restratification/clearance. He is scheduled for hernia repair. The stress test is scheduled for the end of December. He denied diaphoresis or dyspnea. He denies known history of coronary disease. He denies fever, chills night sweats. He denies dyspnea, dyspnea on exertion or orthopnea. 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 Exam is unremarkable for any acute pathology. HEENT exam is unremarkable. Initial blood pressure was elevated. Subsequent blood pressure is normal. Lungs are clear to auscultation. Breath sounds are symmetric. Heart is regular. Rate is normal. There is no murmur, gallop or rub. Abdomen soft nontender. No palp pulsatile mass or abdominal bruit. Lower extremity exam is mild pitting edema bilaterally. Medical Decision Making need to evaluate for cardiac versus noncardiac etiology. Patient's first and second troponin were both less than 7. EKG was unremarkable. Patient was discharged to home to follow-up with his alumina refinery operator. Other additions or changes: [None] Lab Data Lab results narrative: White count is slightly evaded at 11.9 which is nonspecific. Differential is normal. Basic metabolic panel is normal. First troponin is 4. 2-hour troponin is 5 with a delta of 1. These are all normal. Labs: Laboratory Results - last 24 hr 12/02/23 12/02/23 18:15 20:16 WBC 11.9 H RBC 5.00 Hgb 15.6 Hct 44.8 MCV 89.6 MCH 31.2 MCHC 34.8 RDW Std Deviation 38.7 RDW Coeff of Lei 12.0 Plt Count 259 MPV 10.5 Immature Gran % (Auto) 0.900 Neut % (Auto) 55.4 Lymph % (Auto) 33.7 Newberry % (Auto) 7.8 Eos % (Auto) 1.6 Baso % (Auto) 0.6 Absolute Neuts (auto) 6.6 Absolute Lymphs (auto) 4.00 Nucleated RBC % 0 Sodium 141 Potassium 3.6 Chloride 109 H Carbon Dioxide 26.0 Anion Gap 6 BUN 12 Creatinine 1.01 Estim Creat Clear Calc 107.87 Est GFR (MDRD) Af Amer 98 Est GFR (MDRD) Non-Af 81 BUN/Creatinine Ratio 11.9 Glucose 105 Calcium 10.2 H Troponin I High Sens 4 5 Radiography Diagnostic Testing: Clinical Impression(s) from Imaging Studies Chest X-Ray 12/02/23 18:25 IMPRESSION: There are findings consistent with COPD. There is no evidence of acute chest disease. Electronically Signed: Mack Duarte MD at 19:00 EST , Discharge Plan Triage Chief Complaint: Chest Pain ED Midlevel Provider: Phyllis Dhillon ED Provider: Dave Nielson Dx/Rx/DC Orders Clinical Impression: Chest pain Instructions: Chest Pain [facility] Prescriptions: No Action amoxicillin-pot clavulanate 875-125 mg tablet 1 tab PO BID Patient Comments: TAKE 1 TABLET BY MOUTH IN THE MORNING AND 1 TABLET IN THE EVENING FOR 7 DAYS lisinopril 10 mg tablet 10 mg PO DAILY Qty: 90 3RF metoprolol succinate 50 mg tablet extended release 24 hr 50 mg PO QDAY Qty: 90 3RF bupropion HCl 150 mg tablet sustained-release 12 hr 150 mg PO DAILY aspirin 81 mg Capsule 81 mg PO DAILY Primary Care Provider: Tommy Callahan Referrals: Tommy Callahan MD [Primary Care Provider] - Activity Restrictions/Additional Instructions: Follow-up with your alumina refinery operator as scheduled for your stress test. If your symptoms worsen before then come back to the ER. Disposition Disposition: Home, Self Care
--- NOTE | 2023-12-02 18:25 | RAD_ITS ---
STUDY: X-RAY CHEST REASON FOR EXAM: Male, 58 years old. chest pain TECHNIQUE: Frontal and lateral views of the chest. COMPARISON: 03/12/2023. FINDINGS: There is hyperinflation of the lungs consistent with chronic obstructive lung disease (COPD). No infiltrates or effusions. There is no demonstrated pleural abnormality. Normal size heart. Normal mediastinum and david. Normal visualized pulmonary arteries. Normal visualized aortic arch and descending thoracic aorta. Normal visualized thoracic spine. Normal visualized ribs, clavicles, and shoulders. There is no demonstrated abnormality of the visualized soft tissue structures of the upper abdomen. RAD/Chest PA and Lateral IMPRESSION: There are findings consistent with COPD. There is no evidence of acute chest disease. Electronically Signed: Mack Duarte MD at 19:00 EST ,
[2023-12-02 18:27] LABS: Absolute Neutrophil Count 6.6 X10^3/uL (2.0-7.7); Basophil# 0.07 X10^3/uL; Basophil% 0.6 % (0-1); Eosinophil# 0.19 X10^3/uL; Eosinophils% 1.6 % (0-5); Hematocrit 44.8 % (40-54); Hemoglobin 15.6 g/dL (13.0-16.5); Lymphocyte % 33.7 % (19-41); Mean Corp Hgb Conc 34.8 g/dL (32-36); Mean Corpuscular Hgb 31.2 pg (27.0-32.0); Mean Corpuscular Volume 89.6 fL (80-94); Mean Platelet Vol. 10.5 fl (6.2-12.0); Monocyte# 0.92 X10^3/uL; Monocyte% 7.8 % (0-10); NRBC Flagged by Analyzer 0 % (0-5); Neutrophil # 6.57 X10^3/uL (2.7-7.7); Neutrophil % 55.4 % (47-70); Platelet Count 259 K/mm3 (150-450); RBC Distribution Width SD 38.7 fl (35.1-43.9); White Blood Count 11.9 K/mm3 (4.4-11.0)
[2023-12-02] MEDS: Aspirin 81 MG TAB.CHEW 324 MG PO (18:34)
[2023-12-02 18:35] VITALS: BP 117/91; PULSE 69
[2023-12-02 18:47] LABS: Anion Gap 6 (5-15); BUN 12 mg/dL (7-18); BUN/Creat Ratio 11.9 RATIO (10-20); Calcium,Total 10.2 mg/dL (8.5-10.1); Chloride 109 mmol/L (98-107); Creatinine, Serum 1.01 mg/dL (0.70-1.30); EST Glomerular Filtration Rate 81 mL/min (>60); Est Glom Filt Rate - Afr Amer 98 mL/min (>60); Estimated Creatinine Clearance 107.87 ml/min; Glucose 105 mg/dL (74-106); Potassium 3.6 mmol/L (3.5-5.1); Sodium Level 141 mmol/L (136-145); Troponin-I HS (w/2H Reflex) 4 pg/mL (3.0-78.0)
--- OUTSIDE RECORDS SUMMARY | 2023-12-02 19:02 | XMS RPT_ITS | CCD ---
Author Name Unknown Address [address] [place] [address] Organization [facility] Care Team Providers Care Lead Sprinkler Name Role Phone PHYSICIAN, NOT RECORDED Primary Care Physician U GRACIELA Pedroza Attending Unavailable GRACIELA DEGROOT Primary Care Unavailable GRACIELA DEGROOT Admitting Unavailable ENRIQUE COLEMAN PA-C Consulting Unavailable STELLA WELLER MD Referring Unavailable PROVIDER, UNKNOWN Consulting Unavailable STELLA WELLER MD Attending Unavailable STELLA WELLER MD Primary Care Unavailable STELLA WELLER MD Admitting Unavailable ENRIQUE COLEMAN PA-C Consulting Unavailable PROVIDER, UNKNOWN Consulting Unavailable None, Pcp Primary Care Provider Unavaillori ortega None, Pcp Primary Care Provider UnavailTommy Baker MD Unavailable Tommy Dan MD Primary Care Provider Tommy Dan MD Unavailable Tommy Dan MD Primary Care Provider GERARD EGAN DO Attending Unavaillori e PHYSICIAN, NOT RECORDED Primary Care UnavailTommy Gonzales MD Primary Care Provider [phone] JOHN JORDAN Attending Unavailable TOMMY DAN Primary Care Unavailable JOHN JORDAN Attending Unavailable JOHN JORDAN Referring Unavailable TOMMY DAN Primary Care Unavailable JOHN JORDAN Attending Unavailable TOMMY DAN Primary Care Unavailable Jim MANRIQUE Enrique J Unavailable [facility] Unavailable Oral Surgery Provider Unavailable Unavaillori Curran MD, Dr. Donovan Unavailable General Surgery Provider Unavailable Unavail able Todd WALKER, Dr. 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 WORKER-C, Yifan Shin Unavailable Lex JACOBS, Sugey Clark Unavailable Unavaila ble [place] SHOE IRONER, Velma K Unavailable Unavai ghazala Degroot PA-C, Graciela Vallejo Unavailable [phone] Scottie Garcia), Guero Unavailable Unavailab le Richert SHOE IRONER, Janessa Kenney Unavailable Unavailab le Katarzyna SHOE IRONER, Sylwia Shore Unavailable Unavailab le [place] SHOE IRONER, Blank Nazario Unavailable Unavailab le Bridger ZENDEJAS, Alena Unavailable Unavailable Wengerd SHOE IRONER, Anila Unavailable Unavailabl ina Francis SHOE IRONER, Stacy Monreal Unavailable Unavaila ble Unavailable Unavailable ADAM TAPIA Referring Unavailable DIYA ROSALES Attending Unavailable DIYA ROSALES Referring Unavailable NI TOMMY [facility] Care Unavailable KEVIN GANNON Referring Unavailable [facility] TOMMY Primary Care Unavailable DEANA, RATHNA Referring Unavailable DEANA, RATHNA Referring Unavailable KEVIN GANNON Attending [facility] Care Unavailable STELLA WELLER Attending Unavailable STELLA WELLER Referring Unavailable [facility] Primary Care Unavailable DEANA, RATHNA Attending Unavailable KATHARINE VIDAL Consulting Unavailable DEANA, RATHNA Admitting Unavailable DINAH PARKS Consulting Unavailable STELLA WELLER Consulting Unavailable DEANA, RATHNA Referring Unavailable DEANA, RATHNA Referring Unavailable DINAH PARKS Referring Unavailable DEANA, RATHNA Referring Unavailable DEANA, RATHNA Referring Unavailable DEANA, RATHNA Referring Unavailable VAISHNAVI HUNG Attending Unavailable [facility] Primary Care Unavailable DIYA ROSALES Attending Unavailable NITOMMY [facility] Unavailable TOMMY DAN [facility] Unavailable KEVIN GANNON Attending Unavailable [facility] Unavailable NI TOMMY [facility] Unavailable Genevieve MARQUEZ Attending Unavailable STELLA WELLER Attending Unavailable [facility], [facility] Unavailable IRLANDA KATHLEEN Attending Unavailable [facility] Unavailable Allergies Allergy Classification Reported Allergen(s) Allergy Type Date of Onset Reaction(s) Facility (15 sources) Gluten Propensity to adverse reactions 06-03-2015 Diarrhea [facility] (3 sources) Wheat gluten extract; Translations: [GLUTEN] Drug Allergy 06-03-2015 Diarrhea [facility] Work Phone: Medications Current Medications Medication Drug Class(es) Dates Sig (Normalized) Sig (Original) aspirin 81 mg delayed release oral tablet (2 sources) Platelet Aggregation Inhibitor, Nonsteroidal Anti-inflammatory Drug take 1 tablet by mouth once daily Aspirin 81 MG Oral Tablet Delayed Release ; 1 daily (81 MG) 12 hr buPROPion hydrochloride 150 mg extended release oral tablet (18 sources) Aminoketone Start: 11-15-2022 take 1 tablet by mouth twice daily buPROPion HCl ER (SR) 150 MG Oral Tablet Extended Release 12 Hour ; 1 (one) Tablet two times daily for 0 days Quantity: 180 {Tablet} Refills: 1 Ordered: 15-Nov-2022 HILARIA Coleman Start: 15-Nov-2022 Comments: pu Completed/Discontinued Medications Medication Drug Class(es) Dates Sig (Normalized) Sig (Original) acetaminophen 325 mg / oxyCODONE hydrochloride 5 mg oral tablet (6 sources) Opioid Agonist Start: 12-04-2022 End: 02-28-2023 take 1 tablet by mouth every four hours as needed for pain oxyCODONE-acetamino phen (Percocet) 5-325 MG tablet TAKE 1 TABLET BY MOUTH EVERY 4 HOURS (INTERVAL) NEEDED FOR PAIN 0 12/04/2022 02/28/2023 Discontinued (Med list cleanup) Problems Active Problems Problem Classification Problem Date Documented Date Episodic/Chronic Abdominal hernia (7 sources) Hernia of anterior abdominal wall; Translations: [Ventral hernia without obstruction or gangrene] Onset: 09-26-2023 Episodic Abdominal pain (4 sources) Abdominal pain; Translations: [Unspecified abdominal pain] 11-25-2023 Episodic Adjustment disorders (3 sources) Complicated grieving; 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] 11-25-2023 Chronic Administrative/socia l admission (2 sources) Issue of repeat prescriptions 08-04-2012 Episodic Anxiety disorders (3 sources) Anxiety; Translations: [Anxiety disorder, unspecified] 09-07-2016 Chronic Cardiac dysrhythmias (15 sources) AV jhon re-entry tachycardia; Translations: [Supraventricular tachycardia] Onset: 11-24-2021 12-26-2022 Chronic Coagulation and hemorrhagic disorders (15 sources) Platelet count below reference range; Translations: [Thrombocytopenia, unspecified] Onset: 12-26-2022 12-26-2022 Chronic Diseases of mouth; excluding dental (2 sources) Ulcer of mouth; Translations: [Other forms of stomatitis] 11-25-2023 Episodic Diverticulosis and diverticulitis (20 sources) Diverticulitis; Translations: [Diverticulitis of intestine, part unspecified, without perforation or abscess without bleeding] Onset: 12-26-2022 12-26-2022 Chronic E Codes: Cut/pierceb (3 sources) Accident caused by powered lawn technician; Translations: [Contact with powered lawn technician, initial encounter] 11-25-2023 Episodic Esophageal disorders (15 sources) Gastroesophageal reflux disease; Translations: [Gastro-esophageal reflux disease without esophagitis] Onset: 01-09-2023 01-24-2023 Chronic Essential hypertension (20 sources) Hypertensive disorder; Translations: [Essential (primary) hypertension] Onset: 01-09-2023 01-24-2023 Chronic Past or Other Problems Problem Classification Problem Date Documented Da te Episodic/Chronic Bacterial infection; unspecified site (19 sources) Infection due to ESBL bacteria; Translations: [Bacterial infection, unspecified] Onset: 01-04-2023 01-04-2023 Episodic Cardiac dysrhythmias (15 sources) Tachycardia; Translations: [Tachycardia, unspecified] Onset: 12-26-2022 12-26-2022 Episodic Complications of surgical procedures or medical care (17 sources) Postoperative intra-abdominal abscess; Translations: [Infection following a procedure, organ and space surgical site, initial encounter] Onset: 01-04-2023 01-04-2023 Episodic Intestinal obstruction without hernia (4 sources) Small bowel obstruction; Translations: [Unspecified intestinal obstruction, unspecified as to partial versus complete obstruction] Onset: 12-06-2022 11-25-2023 Episodic Other acquired deformities (20 sources) Lumbar spondylolisthesis; Translations: [Spondylolisthesis, lumbar region] Onset: 12-26-2022 01-30-2022 Episodic Other and unspecified benign neoplasm (15 sources) Familial multiple polyposis syndrome; Translations: [Benign neoplasm of colon, unspecified] Onset: 12-26-2022 12-26-2022 Episodic Other gastrointestinal disorders (17 sources) Viscus structure finding; Translations: [Other specified symptoms and signs involving the digestive system and abdomen] Onset: 12-06-2022 Episodic Other gastrointestinal disorders (15 sources) Pneumatosis coli; Translations: [Other specified diseases of intestine] Onset: 12-06-2022 12-06-2022 Episodic Other gastrointestinal disorders (2 sources) Perforation of intestine (nontraumatic); Translations: [Perforation of intestine (nontraumatic) (HCC)] Onset: 12-31-2022 Episodic Other gastrointestinal disorders (2 sources) Other specified symptoms and signs involving the digestive system and abdomen; Translations: [Other specified symptoms and signs involving the digestive system and abdomen] Onset: 12-06-2022 Episodic Other gastrointestinal disorders (2 sources) Other specified diseases of intestine; Translations: [Other specified diseases of intestine] Onset: 12-06-2022 Episodic Other gastrointestinal disorders (2 sources) Other specified disorders of peritoneum; Translations: [Other specified disorders of peritoneum] Onset: 12-06-2022 Episodic Other lower respiratory disease (15 sources) Chest pain on breathing; Translations: [Chest pain on breathing] Onset: 12-26-2022 12-26-2022 Episodic Other lower respiratory disease (17 sources) Dyspnea; Translations: [Shortness of breath] Onset: 12-26-2022 12-26-2022 Episodic Peritonitis and intestinal abscess (4 sources) Infectious disease of abdomen; Translations: [Peritonitis, unspecified] Onset: 12-31-2022 11-25-2023 Episodic Residual codes; unclassified (15 sources) History of partial resection of colon; Translations: [Acquired absence of other specified parts of digestive tract] Onset: 01-24-2023 01-24-2023 Episodic Unclassified (1 source) Abdominal pain - The onset of the abdominal pain has been acute and has been occurring in a persistent pattern for 3 days. The course has been constant. The pain is described as a moderate cramping. The pain is located in the periumbilical area. The symptoms have been associated with constipation and fever (100.3). Note for Abdominal pain : Has been using stool softener with no improvement. reviewed by [facility] 11-25-2023 Unclassified (1 source) Mouth pain - Symptoms include mouth lesions and inflamed gums. Symptoms are located in the gums and left mandibular area. There is no radiation. Onset was sudden 6 month(s) ago. There is no known event that preceded symptom onset. The symptoms occur intermittently. The patient describes this as mild and worsening. Note for Mouth pain : patient reports that sometimes he busts it open and puts listerine in it reviewed by [facility] 01-15-2023 Unclassified (1 source) Preoperative Clearance - Surgical procedure(s) planned: other (Left hip arthroplasty). Date of procedure: (12-04-22) Surgeon: (Dr Katharine Vidal) and Location of procedure: ([facility]) There have been no problems with general anesthesia or blood/blood products. Prosthetics include dentures (Full upper and lower). Note for Pre-operative clearance : Saw lead caster helper this morning and had an EKG done at that time.Labs to be completed on .Patient reports that he is feeling well at this time. Denies any chest pain, fatigue, shortness of breath, or palpitations. 11-27-2022 Unclassified (1 source) Fever - The onset of the fever has been acute , and it has been occurring in a persistent pattern for 2 days. The course has been recurrent. The patient has had a temperature of up to 104 F (104.6). The fever is relieved by analgesics. Note for Fever : Has a painful lesion on back of right foot which his drained at home last night. He reports pus-like drainage at the time. Also complains of painful lymph nodes in right groin area. Continues with pain and fever. 10-08-2022 Unclassified (1 source) Consult - Patient is here today to discuss his left hip pain and lower back pain. Been seeing pain management Dr. Jordan Velasquez for his left hip and lower back pain. Was given Epidural Steroid Injection into his back that helped for a few weeks. It was about $2,000 dollars. Was prescribed Meloxicam that seems to help his pain, he has been out of this medication for a few days and the hip/back pain is getting worse. Would like to discuss if PCP is able to refill meloxicam or if needs to be seen by pain management.He was seen by a hip specialist Dr. Harley that recommended patient to have his lower back addressed first but then back specialist said that a fusion could be done on the lower back but could have worse pain in 5 years than he does currently. Patient is interested in a second opinion from ortho if he can get one.Been taking Alternating Tylenol and Ibuprofen but does not help to relieve the pain. He stands on [employer] for his job. 09-24-2022 Unclassified (1 source) grief reaction - pts father at 1 am this morning pt is not doing well around people right now-- wants something to help him with this - he is already on bupropion and needs that refilled bupropion has been working well to control his bipolar disorder symptomshis dad has been struggling and was in the hospital the last 2 weeks before he - pt has only been sleeping a few hrs a night since then. He has taken Ambien in the past for sleep and found that it worked well for him.pt was tearful and wants something to get him through this - has tried both lorazepam and Klonopin in the past and did not like the way these medications made him feelPatient reports that he has a very good support system through his and other family members 12-12-2021 Unclassified (1 source) Hip pain - The onset of the hip pain has been gradual and has been occurring in a persistent pattern for 4 years (been having left hip pain intermittent for the past 4 years. No known injury 4 years ago but when he was 14 years old had an accident and fractured his femur below the hip joint. Within the past year, he has seen ortho (had xrays done) then was seen by a specialist Dr. Elpidio Harley who told him that eventually he will need hip replacement surgery. Was seen by Dr. Harley earlier this year.This Saturday, he was loading a truck with 90lb bags of [place], is having worse pain of his left hip since Saturday that is constant.). The course has been worsening. The hip pain is described as being a dull aching (with movement will become a sharper pain) located in the left hip (Will sometimes have pain in both hips and into left leg). The pain is aggravated by general physical activity, walking, sitting (on a hard chair), prolonged standing, lying on affected side, lifting, bending and squatting. There are no relieving factors. The symptoms have been associated with limping, stiffness and tingling (sometimes will), while the symptoms have not been associated with weakness, numbness, catching, locking, fatigue, fever, chills or other joint complaints. Previous diagnostic tests have included plain radiographs (03/2020). There has been no previous surgeries. Note for Hip pain : Has tried Extra Strength Tylenol, Ibuprofen, Aleve OTC but nothing is helping to relieve his pain.When he walks, will feel like the hip joint is wanting to come out of socket. 07-21-2021 Unclassified (1 source) Transition into care - The patient is transitioning into care from a hospital and a summary of care was reviewed. 12-08-2019 Unclassified (1 source) [ADDITIONAL REASON] Follow up consultation - The patient is here to follow-up after hospitalization ([facility] with bowel obstruction.) on : (11-30-19 to 12-01-19.). Note for Consultation follow-up : Is feeling well. reviewed by [facility] 12-08-2019 Unclassified (1 source) Preoperative Clearance - Surgical procedure(s) planned: other (Right shoulder Rotator cuff repair). Date of procedure: (08-28-18) Surgeon: and Location of procedure: ([facility].) There have been no problems with general anesthesia or blood/blood products. Prosthetics include dentures and eye glasses. Note for Pre-operative clearance : Saw Dr Dillard in November 2017. Had an EKG and stress test at that time. 08-18-2018 Unclassified (1 source) Breathing trouble - The onset of the breathing trouble has been sudden and has been occurring in a persistent pattern for 1 week. The course has been increasing. The breathing trouble is moderate. It is described as tightness, shortness of breath (lightheaded as well) and wheezing. The breathing trouble occurs with normal activities and occurs when waking. The symptoms have been associated with chest pain and swelling of feet, but have not been associated with fever / chills or palpitations. Note for Breathing trouble : JOSE FRANCISCO 06/04/2017patient was rushing to get somewhere last weekend and had to stop for 3 breaks to catch breath. ran for 10-15 minutes. ever since has been having trouble breathingalso had back pain saturday and had pain going down right arm. took aspirin and went away after 10-15 minutes 08-26-2017 Unclassified (1 source) Follow up consultation - The patient is here to follow-up after Emergency Room/Urgent Care on : (Patient seen at [facility] on 05/17/2017 for lawnmower accident. Was discharged to home. Patient went to [facility] ER on 05/20/2017 due to having pain from injuries from the accident. Was discharged to home. Patient is here today for a ER follow-up.). Current symptoms include right side pain (the pain is described as being an achy pain at rest, with movement, deep breathing, cough, or hiccups the pain will become sharper. Denies having shortness of breath. Is currently alternating Percocet and Motrin. Pain is rated a 3/10 pain scale at rest, with movement the pain will increase to 8/10. ). Note for Consultation follow-up : pain has been improving slowely. 06-04-2017 Unclassified (1 source) [ADDITIONAL REASON] Transition into care - The patient is transitioning into care from an emergency room and a summary of care was reviewed. 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 he was mowing the lawn going down a hill and rolled off the lawn technician. his pain while moving from a scale of 1-10 is a 10. the pain while sitting still is a 4. the pain is described is stabbing pain in the areas of injury. he stated he has been coughing anf it is very painful while doing so. the accident occured yesterday afternoon. the areas of injury are the right leg, right wrist, right side of abdomen, and left shoulder down to left elbow. the patient has taken tylenol for pain. Reviewed by JOHANA. 05-17-2017 Unclassified (1 source) Follow up consultation - The patient is here to follow-up after hospitalization ([facility]) on : (08/28-09/04). Follow up visit with no current symptoms. Note for Consultation follow-up : Patient was hospitalized for recurrent diverticulitis. He had a sigmoid partial colectomy. 09-10-2016 Unclassified (1 source) Rectal bleeding - The onset of the rectal bleeding has been sudden and has been occurring in an intermittent pattern for 1 week. The course has been recurrent. The bleeding is characterized as blood streaking of toilet paper and bloody toilet bowl water. The symptoms have been associated with abdominal pain, family history of colon cancer and nausea, while the symptoms have not been associated with change in bowel habits, dizziness, easy bruising, heartburn, hematemesis, ingestion of bismuth, ingestion of iron pills, painful bowel movements, vomiting or weight loss. The symptoms do not include pain or painful bowel movements. There have been no previous diagnostic tests. Note for Rectal bleeding : Patient has concerns as he has gained 15# in the 10 days. 11-15-2015 Unclassified (1 source) Abdominal pain - The onset of the abdominal pain has been sudden and has been occurring in a persistent pattern for 1 day. The course has been increasing. The pain is described as a severe sharp pain and stabbing. The pain is located in the lower abdomen and does not radiate. The symptoms are aggravated by motion (bending over) but have no relieving factors. The symptoms have been associated with fever. 09-08-2015 Unclassified (1 source) Follow up consultation - The patient is here to follow-up after hospitalization on : (10/19/14 to 10/21/14). Current symptoms include abdominal pain. Note for Consultation follow-up : Pt was in hospital for diverticulitis. Pt was given Cipro, Flagyl and percocet. 10-23-2014 Unclassified (1 source) Back pain - The onset of the back pain has been sudden and has been occurring in a persistent pattern for 2 days. The course has been increasing. The pain is characterized as a dull ache. The pain is located in the lower back and radiates to the lower abdomen (states that it hurts in his testicals and feels like he has to urinate all the time and when he does he has to push to go.). There are no precipitating factors. The symptoms have no aggravating factors and have no relieving factors. The pain has been associated with abdominal pain, chills and fever. Note for Back pain : also headache . reviewed by [facility] 07-21-2012 Unclassified (1 source) Insect Bite/Sting - This occurred 1 day(s) ago at home. The patient sustained the insect bite/sting to the left arm (elbow). Presenting symptoms included insect bite/sting, swelling at the site of the bite/sting, redness at the site of the bite/sting and pain at the site of the bite/sting. Current symptoms include single bite or sting, pain at the site of the bite or sting, redness at the site of the bite or sting and swelling at the site of the bite or sting. Symptoms are located on the left arm (elbow). Onset was sudden. The patient describes this as moderate in severity and worsening. Note for Insect Bite/Sting : Patient woke up yesterday morning and noticed bite at that time. Since then the redness and swelling have been worsening. Patient reports he does not know what bit him. reviewed by [facility] 05-27-2012 Unclassified (1 source) Bloody stools - The onset of the bloody stools has been gradual (Has been doing this on/off for about a year but then started again last thru Saturday. Has not noticed any yesterday ro today.) , and they have been occurring in an intermittent pattern. The bloody stools are characterized as blood streaking of toilet paper. The symptoms have been associated with abdominal pain (Has had lower abdominal pain that is more constant at this point. Stoold are soft and brown. Not straining to have BM.). Note for Bloody stools : Had henorroidectomy and fissure repair about 10 years ago by doctor in [place]. reviewed by [facility] 09-24-2011 Unclassified (1 source) Follow up consultation - The patient is here to follow-up after Emergency Room/Urgent Care on : (06/26/11). Note for Follow up consultation : Pt had a rock (24X3 inch slab) fall on his left foot from a second story window on Saturday. He went to the ER, xrays done, no fx noted. He does have swelling and bruising of his left foot, is using crutches to help keep weight off his foot. He states that last evening was the worst it has been, but seems to have let up this am. Has been using ice and elevation. Swelling was worse until this AM. Has noted swelling up to knee and calf tenderness over the last two days.No personal of family history of clots. 06-29-2011 Unclassified (1 source) Anxiety - The onset of the anxiety has been gradual and has been occurring in a persistent pattern for 2 weeks. The course has been increasing. The anxiety is characterized as apprehension. The phobia is defined as social phobias (diagnosed with social phobia few yrs ago. Son is getting in 2 days and apprehensive about that. There is conflict in the voodoo and these people will be at the wedding. 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 Precipitating factors include specific forthcoming events. The symptoms have been associated with agitation and chest pain. 03-14-2011 Unclassified (1 source) Shoulder Pain - The onset of the shoulder pain has been sudden following no specific incident (Injured trying to start an engine (pulling on a rope starter)) and has been occurring in a persistent pattern for 2 days. The course has been without change. The shoulder pain is characterized as a moderate to severe sharp stabbing. The shoulder pain is described as being located in the right shoulder. The shoulder pain is aggravated by any movement. There are no relieving factors. Associated features include muscle swelling, painful ROM, decreased ROM, difficulty overhead activities, difficulty dressing oneself, difficulty combing hairs and difficulty with lifting, but do not include other joint complaints. The shoulder pain was preceded by trauma. 02-01-2011 Unclassified (1 source) Low back pain, unspecified; Translations: [Low back pain, unspecified] Onset: 02-25-2023 Results Test Name Value Interpretation Reference Range Facil ity Vital Signs Date Time Vital Sign Value Performing Clinician Faci lity 11-25-2023 18:03-0500 SaO2% (BldA) [Mass fraction] 100 % ABIGAIL Marquez MD Work Phone: [employer] 11-25-2023 17:58-0500 Body temperature 98.49 [degF] ABIGAIL Marquez MD Work Phone: [facility] 11-25-2023 17:58-0500 Diastolic blood pressure 85 mm[Hg] ABIGAIL Marquez MD Work Phone: [facility] 11-25-2023 17:58-0500 Heart rate 83 /min ABIGAIL Marquez MD Work Phone: [facility] 11-25-2023 17:58-0500 Respiratory rate 18 /min ABIGAIL Marquez MD Work Phone: [facility] 11-25-2023 17:58-0500 Systolic blood pressure 143 mm[Hg] ABIGAIL Marquez MD Work Phone: [facility] 11-25-2023 11:22-0500 Body height 180.34 cm [facility], [facility].; [facility], [employer]. 11-25-2023 11:22-0500 Body mass index (BMI) [Ratio] 35.98 kg/m2 [facility], [facility].; [place] [facility], [facility]. 11-25-2023 11:22-0500 Body surface area Derived from formula 2.35 m2 [facility], [facility].; [employer] [facility], [employer]. 11-25-2023 11:22-0500 Body temperature 100.2 [degF] [facility], [facility] [employer] [facility] Encounters Encounter Date Encounter Type Care Provider Facility Start: 11-25-2023 End: 11-25-2023 Emergency department patient visit [facility] Start: 11-25-2023 End: 11-25-2023 Emergency department patient visit Genevieve Marquez MD Work Phone: [facility] Procedures Date Procedure Procedure Detail Performing Clinician Start: 11-25-2023 Ct abdomen & pelvis w/contrast material Lilia CORTES Work Phone: Start: 11-25-2023 Urinalysis complete panel - Urine Lilia CORTES Work Phone: Start: 11-25-2023 Urnls dip stick/tabl et reagent auto microscopy Lilia CORTES Work Phone: Start: 11-25-2023 Comprehensive metabo lic panel Lilia CORTES Work Phone: Start: 09-19-2023 End: 09-19-2023 Colonoscopy flx dx w/collj spec when pfrmd John Jordan MD Work Phone: Plan of Treatment Date Care Activity Detail Author Start: 2027 RSV Immunization aged 60 or older (1 - 1-dose 60+ series) RSV Immunization aged 60 or older (1 - 1-dose 60+ series) [facility] Start: 09-19-2024 Colonoscopy Colonoscopy [facility] Start: 09-19-2024 Colorectal Cancer Screening Colorectal Cancer Screening [facility] Start: 01-15-2024 End: 01-15-2024 Patient encounter procedure 01/15/2024 11:30 AM EST Office Visit [facility] [address] [place] [id number] Diya Rosales PA-C [address] [place], [place] [id number] [facility] Start: 01-06-2024 End: 01-06-2024 Admission to same day surgery center 01/06/2024 7:30 AM EST - 01/06/2024 12:30 PM EST Surgery [facility] MA[facility] OR [address] [place] [address] Vaishnavi Hung MD [address], [place] [id number] ANTERIOR VS POSTERIOR COMPONENT SEPARATION WITH MESH PLACEMENT [[id number] (CPT )] [facility] Payers Date Payer Category Payer Unknown [id number] 2022 Unknown [id number] 2022 Unknown [id number] 1965 Unknown [id number] 1965 Unknown [id number] 1965 Unknown [id number] Social History Date Type Detail Facility Tobacco Nicotine Use: sn uff. Type: Oral (Snuff, Chew). [facility] Sex Assigned At [facility] Start: 01-04-2023 Tobacco smoking status NVIS Never smoked tobacco [facility] Start: 01-04-2023 Tobacco use and exposure Smokeless tobacco non-user [facility] Start: 01-04-2023 End: 11-25-2023 Alcohol intake Lifetime non-drinker (finding) [facility] Start: 12-06-2022 History SDOH Alcohol Frequency 4 [facility] Start: 12-06-2022 History SDOH Alcohol Std Drinks 1 [facility] Start: 1965 Sex Assigned At Not on file [facility] Start: 01-14-2023 End: 03-27-2023 Exposure to SARS-CoV-2 (event) Not sure [facility] Start: 12-06-2022 End: 10-02-2023 History of Social function [facility] Start: 12-06-2022 End: 10-02-2023 Alcohol Use Disorder Identification Test - Consumption [AUDIT-C] [facility] How often to you hav e a drink containing alcohol? 2-3 time sa week [facility] How many standard dr inks containing alcohol do you have on a typical day? 1 or 2 [facility] How often do you hav e 6 or more drinks on 1 occasion? Never [facility] Start: 08-27-2023 Tobacco smoking status NVIS Smokes tobacco daily [facility] History of tobacco use Cigar Smoker [facility] Start: 08-27-2023 End: 09-19-2023 Tobacco use and exposure User of smokeless tobacco [facility] Start: 08-27-2023 End: 09-19-2023 Alcohol intake Current drinker of alcohol (finding) [facility] National Score (1-10 0), lower number is lower risk 47 [facility] Start: 08-27-2023 Tobacco Comment 2 cigars a day and snuff [facility] Start: 09-19-2023 Tobacco smoking status NHIS Occasional tobacco smoker [facility] History of tobacco use Snuff User [facility] Tobacco Use: Tobacco Use: ; C urrent some day smoker. [facility]. Male [facility].; [facility] [employer]. Work Phone: Functional Status Date Assessment Result Facility 03-29-2022 Functional Status [facility] Mental Status Date Assessment Result Facility 03-29-2022 Mental Status [facility] Clinical Notes 03-29-2022 to 11-25-2023 Elisha Bee RN - 11/25/2023 6:08 PM Salome Bee RN - 11/25/2023 6:08 PM LÓPEZ Marquez MD - 11/25/2023 1:40 PM ESTDischarge InstructionsAttachmentsPatient Instructions Note Date & Type Note Facility 11-25-2023 Emergency department Note Pt provided with & educated on discharge paperwork, follow up care, and new medication. Pt verbalized understanding with no further questions. Pt stable, A&O x4, with even & unlabored respirations upon leaving ED Elisha Bee RN 11/25/231809 [employer] 11-25-2023 Emergency department Note Pt provided with & educated on discharge paperwork, follow up care, and new medication. Pt verbalized understanding with no further questions. Pt stable, A&O x4, with even & unlabored respirations upon leaving ED Elisha Bee RN 11/25/231809 Emergency Department Encounter [facility] Patient: Adam Lawson : 1965 Date of Evaluation: 11/25/2023 ED Provider: Genevieve Marquez MD I saw the patient as the Clinician in Triage and performed a brief history and physical exam, established acuity, and ordered appropriate tests to develop basic plan of care. Patient will be seen by SHAHRAM, resident and/or my physician partner who will evaluate the patient. I wore appropriate PPE for the entirety of this encounter. Brief HPI: In brief, Adam Lawson is a 58 y.o. male that presents for generalized abdominal pain and constipation, noting that he has not had a bowel movement for 2 days, which is abnormal for him. He states that he has been able to pass gas. He endorses accompanying nausea but denies any vomiting. He endorses decreased p.o. intake. He denies any complaints. Focused Physical exam: Generalized TTP of his abdomen. Marked ventral hernia with no accompanying TTP Plan/MDM: He denies any penile discharge or testicular pain and I'm less concerned for testicular torsion. Cannot rule out pancreatitis versus diverticulitis versus biliary pathology versus urinary tract infection versus appendicitis versus SBO. No rebound or guarding, and I am less concerned for mesenteric ischemia versus perforated viscus. He denies any ripping or tearing back or flank pain and I'm less concerned for for aortic dissection. No CVA tenderness to palpation, he denies flank pain, hematuria, or dysuria, and I'm less concerned for kidney stone. Please see subsequent provider note for further details and disposition This will serve as my Supervisory note and shared attestation. I did perform a substantive portion of the visit including all aspects of the Medical Decision Making. All diagnostic, treatment, and disposition decisions were made by myself in conjunction with the SHAHRAM. For all further details of the patient's emergency department visit, please see their documentation. (Comment: Please note this report has been produced using speech recognition software and may contain errors related to that system including errors in grammar, punctuation, and spelling as well as words and phrases that may be inappropriate. If there are any questions or concerns please feel free to contact the dictating provider for clarification) Genevieve Marquez MD [email or web address] [facility] Genevieve Marquez MD 11/25/23 [id number] documented in this encounter [facility] 11-25-2023 Hospital Discharg e instructions SOPHIA Calvo - 11/25/2023 6:[address] of your abdomen shows evidence of a diverticulitis. Please take antibiotic, Augmentin, as prescribed please take full course. Please follow-up with your primary care provider in 2 days for reevaluation. If any of your symptoms are to worsen or change please return to the ED for reevaluation. In the medical field, there is always a level of diagnostic uncertainty, even if this uncertainty is low. For this reason, it is important to immediately return to the emergency department if you have any new symptoms, worsening symptoms, change of symptoms, or if you have any other concerns. We would be happy to re-evaluate you. Otherwise, please take your medications as prescribed and follow-up as recommended. The following attachments cannot be sent through Care Everywhere.Diverticulitis Discharge Instructions (Eritrean)documented in this encounter [facility] 11-25-2023 Physician Emergency department Note Emergency Department Encounter [facility] EMERGENCY DEPT Patient: Adam Lawson : 1965 Date of Evaluation: 11/25/2023 ED Provider: Genevieve Marquez MD I saw the patient as the Clinician in Triage and performed a brief history and physical exam, established acuity, and ordered appropriate tests to develop basic plan of care. Patient will be seen by SHAHRAM, resident and/or my physician partner who will evaluate the patient. I wore appropriate PPE for the entirety of this encounter. Brief HPI: In brief, Adam Lawson is a 58 y.o. male that presents for generalized abdominal pain and constipation, noting that he has not had a bowel movement for 2 days, which is abnormal for him. He states that he has been able to pass gas. He endorses accompanying nausea but denies any vomiting. He endorses decreased p.o. intake. He denies any complaints. Focused Physical exam: Generalized TTP of his abdomen. Marked ventral hernia with no accompanying TTP Plan/MDM: He denies any penile discharge or testicular pain and I'm less concerned for testicular torsion. Cannot rule out pancreatitis versus diverticulitis versus biliary pathology versus urinary tract infection versus appendicitis versus SBO. No rebound or guarding, and I am less concerned for mesenteric ischemia versus perforated viscus. He denies any ripping or tearing back or flank pain and I'm less concerned for for aortic dissection. No CVA tenderness to palpation, he denies flank pain, hematuria, or dysuria, and I'm less concerned for kidney stone. Please see subsequent provider note for further details and disposition This will serve as my Supervisory note and shared attestation. I did perform a substantive portion of the visit including all aspects of the Medical Decision Making. All diagnostic, treatment, and disposition decisions were made by myself in conjunction with the SHAHRAM. For all further details of the patient's emergency department visit, please see their documentation. (Comment: Please note this report has been produced using speech recognition software and may contain errors related to that system including errors in grammar, punctuation, and spelling as well as words and phrases that may be inappropriate. If there are any questions or concerns please feel free to contact the dictating provider for clarification) Genevieve Marquez MD Acute Care [facility] Genevieve Marquez MD 11/25/23 [id number] [employer] Work Phone: 11-21-2023 Telephone encounter Note Mrs Lawson calling to check status of FMLA - I asked the patient to fax the forms to [phone]. I will get them filled out and signed once I received them. Patient's expressed understanding. [employer] 11-21-2023 Miscellaneous Notes Mrs Lawson calling to check status of FMLA - I asked the patient to fax the forms to [phone]. I will get them filled out and signed once I received them. Patient's expressed understanding. documented in this encounter [facility] 10-14-2023 Telephone encounter Note Yomaira notified, voiced her understanding. [facility] 10-14-2023 Miscellaneous Notes Yomaira notified, voiced her understanding. Left voicemail for Yomaira of information in Dr. Leblanc's note. To call with any questions. No he does not need any surgery from my perspective. He does not have a desmoid tumor. His pathology revealed desmoid fibromatosis, but he does not appear to have disease on his scan. Michael No he does not need any surgery from my perspective. He does not have a desmoid tumor. His pathology revealed desmoid fibromatosis, but he does not appear to have disease on his scan. Michael Name of caller: Yomaira Contact phone number: [phone] Relationship to Patient: spouse/SO Provider: Deana Practice: Trauma Chief Complaint/Reason for Call: Yomaira called and said the patient is having hernia surgery on 01/06/24. She said the patient had a CT scan done 09/26/23. They want to know if you can look at the scan to see if the desmoid tumor needs to be removed. She said Dr Said said that you could come in and remove it when he does the hernia surgery. Please advise Best time of day caller can be reached: any Patient advised that office/PCP has 24-48 business hours to return their call: No documented in this encounter [facility] 10-09-2023 Telephone encounter Note Left voicemail for Yomaira of information in Dr. Leblanc's note. To call with any questions. [facility] [employer] 10-09-2023 Telephone encounter Note No he does not need any surgery from my perspective. He does not have a desmoid tumor. His pathology revealed desmoid fibromatosis, but he does not appear to have disease on his scan. Michael [employer] Work Phone: 10-09-2023 Telephone encounter Note No he does not need any surgery from my perspective. He does not have a desmoid tumor. His pathology revealed desmoid fibromatosis, but he does not appear to have disease on his scan. Michael [employer] 10-08-2023 Note Case# [id number] Procedure: anterior versus posterior component separation with mesh placement. Sx Date: 01/06/24 730 AM Time: 5 HOURS Location: [facility] Anesthesia: GENERAL CPT: 29134 ICD-10: K43.2, E66.9, Z68.37 Special Equipment: PAT: 12/30/23 2PM COMBO WITH SUBICHIN AND ADMISSION NEEDED FOR OBSERVATION TO ONE DAY. SCHEDULE AFTER 01-04. MERISSA FROM THE [facility] ADVISED THAT PROCEDURE IS APPROVED AND NO PRIOR AUTH IS REQUIRED. [facility] [employer] [facility] 10-08-2023 Telephone encounter Note Name of caller: Yomaira Contact phone number: [phone] Relationship to Patient: spouse/SO Provider: Deana Practice: Trauma Chief Complaint/Reason for Call: Yomaira called and said the patient is having hernia surgery on 01/06/24. She said the patient had a CT scan done 09/26/23. They want to know if you can look at the scan to see if the desmoid tumor needs to be removed. She said Dr Said said that you could come in and remove it when he does the hernia surgery. Please advise Best time of day caller can be reached: any Patient advised that office/PCP has 24-48 business hours to return their call: No [facility] [employer] 10-02-2023 History of Presen t illness Narrative Department of Plastic Surgery - Adult Attending Consult Note CHIEF COMPLAINT: Follow-up to discuss CT abdomen and pelvis History Obtained From: patient, EMR HISTORY OF PRESENT ILLNESS: The patient is a 58 y.o. male with past medical history significant for exploratory laparotomy in November 2022 for abdominal peritonitis and pneumoperitoneum following total hip arthroplasty who presents in follow-up to discuss results of CT abdomen and pelvis. We initially saw the patient in March 2023 for evaluation of large ventral hernia. Ultimately, it was too close to his initial operation to consider further surgical intervention. We advised conservative management with use of an abdominal binder and follow-up in 6 months for reevaluation. Patient completed CT abdomen and pelvis prior to presentation today. He denies recent changes in health history. Past Medical History: Past Medical History: Diagnosis Date AVNRT (AV jhon re-entry tachycardia) Bipolar disorder (HCC) Celiac disease GERD (gastroesophageal reflux disease) Hepatic steatosis Hypertension [place] (obstructive sleep apnea) Thrombocytopenia (HCC) Past Surgical History: Past Surgical History: Procedure Laterality Date CHOLECYSTECTOMY COLON SURGERY 12inch of colon removed EXPLORATORY LAPAROTOMY 12/06/2022 HERNIA REPAIR JOINT REPLACEMENT L hip Current Medications: Current Outpatient Medications Medication Instructions buPROPion XL (WELLBUTRIN XL) 150 mg, Oral, Daily, Do not crush, chew, or split. Calcium Polycarbophil (fiber) 625 MG tablet 1 tablet, Oral cholecalciferol (VITAMIN D-3) 1,000 Units, Oral, Daily lisinopril 10 mg, Oral, Daily metoprolol succinate XL (TOPROL-XL) 50 mg, Oral, Daily omega-3 acid ethyl esters (LOVAZA) 1 g, Oral, Daily Allergies: Gluten meal Social History: Social History Socioeconomic History Marital status: Spouse name: Not on file Number of children: Not on file Years of education: Not on file Highest education level: Not on file Occupational History Not on file Tobacco Use Smoking status: Never Smokeless tobacco: Never Substance and Sexual Activity Alcohol use: Never Drug use: Never Sexual activity: Not Currently Partners: Female Comment: Other Topics Concern Not on file Social History Narrative Not on file Social Determinants of Health Financial Resource Strain: Not on file Food Insecurity: Not on file Transportation Needs: Not on file Physical Activity: Not on file Stress: Not on file Social Connections: Not on file Intimate Partner Violence: Not on file Housing Stability: Not on file Family History: No family history on file. REVIEW OF SYSTEMS: CONSTITUTIONAL: negative for fevers, chills, sweats and fatigue EYES: negative for dipolpia or acute vision loss. RESPIRATORY: negative for dry cough, cough with sputum, dyspnea, wheezing and chest pain CARDIOVASCULAR: negative for chest pain, dyspnea, palpitations, syncope GASTROINTESTINAL: negative for nausea, vomiting, change in bowel habits, diarrhea, constipation and abdominal pain EXTREMITIES: negative for edema MUSCULOSKELETAL: negative for muscle weakness SKIN: negative for itching or rashes. BEHAVIOR/PSYCH: negative for poor appetite, increased appetite, decreased sleep and poor concentration PHYSICAL EXAM: VITALS: Ht 5' 11.5 (1.816 m) Wt 274 lb 9.6 oz (125 kg) BMI 37.77 kg/m CONSTITUTIONAL: awake, alert, cooperative, no apparent distress, and appears stated age EYES: PERRLA, EOMI, no signs of occular infection LUNGS: No increased work of breathing, good air exchange, clear to auscultation bilaterally, no crackles or wheezing CARDIOVASCULAR: Normal apical impulse, regular rate and rhythm, normal S1 and S2, no S3 or S4, and no murmur noted ABDOMEN: Soft, nontender, and nondistended. Patient continues to have large ventral hernia/supraumbilical as well as umbilical hernia. According to Dr. Hung's initial evaluation, the ventral hernia was approximately 17 cm wide. On repeat examination today, it is closer to 13 to 14 cm wide. Palpation of the abdomen reveals no palpable organomegaly. Exploratory laparotomy incision healed well via secondary intention. Thinning of the scar due to the distention of the ventral hernia is not as noticeable on reexamination today. EXTREMITIES: no signs of clubbing or cyanosis. MUSCULOSKELETAL: negative for flaccid muscle tone or spastic movements. SKIN: gross examination reveals no signs of rashes, or diaphoresis. NEURO: Cranial nerves II-XII grossly intact. No signs of agitated mood. CBC: Lab Results Component Value Date WBC 7.5 12/20/2022 RBC 3.59 (L) 12/20/2022 HGB 11.5 (L) 12/20/2022 HGB 15.8 12/06/2022 HCT 33.8 (L) 12/20/2022 MCV 94.1 12/20/2022 MCH 31.9 12/20/2022 MCHC 33.9 12/20/2022 RDW 13.1 12/20/2022 PLT 327 12/20/2022 MPV 8.6 12/20/2022 BMP: Lab Results Component Value Date NA 140 02/25/2023 K 4.4 02/25/2023 CL 109 (H) 02/25/2023 CO2 26 02/25/2023 BUN 17 02/25/2023 CREATININE 0.84 02/25/2023 CALCIUM 9.6 02/25/2023 GLUCOSE 91 02/25/2023 Hepatic Function Panel: Lab Results Component Value Date ALKPHOS 59 12/18/2022 ALT 60 (H) 12/18/2022 AST 43 12/18/2022 PROT 6.9 12/18/2022 BILITOT 0.8 12/18/2022 BILIDIR 0.0 12/18/2022 Data- Radiology Review: CT abdomen and pelvis from 09/26/2023 COMPARISON: 02/25/2023 FINDINGS: Lung bases: Bibasilar dependent atelectasis is observed. Otherwise, no focal consolidation or pleural effusion identified. No suspicious pulmonary nodules. Chest wall: Unremarkable. Liver: The liver is enlarged and diffusely hypoattenuating relative to the spleen, compatible with hepatomegaly and steatosis. The liver is otherwise normal in contour. No focal hepatic lesions identified. Biliary system: The biliary system is not dilated. Postsurgical changes compatible with cholecystectomy are noted. Spleen: The spleen is normal in size and contour. Pancreas: No significant abnormality. Adrenal glands: No significant abnormality. Kidneys/ Ureter: The bilateral kidneys are normal in size and contour. No evidence of hydroureteronephrosis. No evidence of nephrolithiasis. No evidence of focal renal lesions. Bladder: The urinary bladder is decompressed, limiting detailed evaluation. Pelvic organs: No masses or other significant abnormalities seen. Bowel: Esophagus is unremarkable. The stomach is unremarkable. Postsurgical changes are noted in the in the small bowel. Otherwise, the small bowel is of normal caliber throughout without evidence of wall thickening or obstruction. Postsurgical changes compatible with appendectomy are observed. Diverticuli are noted throughout the colon. No stenotic lesion or mucosal thickening is noted to suggest diverticulitis. Postsurgical changes noted in the sigmoid colon. Mesentery/Intraperitoneum: No evidence of ascites or pneumoperitoneum. Lymph nodes: No lymphadenopathy Vasculature: The abdominal aorta is normal in caliber without evidence of aneurysmal dilatation. The venous vasculature appears grossly unremarkable. Abdominal wall: Fat and bowel containing ventral abdominal hernia is noted largely stable as compared to prior examination. No evidence of bowel incarceration. Osseous structures: Postsurgical changes compatible with total left hip arthroplasty are observed, without prosthetic fracture or periprosthetic lucencies to suggest hardware failure. Mild degenerative changes of the lumbar spine are observed. Subtle retrolisthesis of L2-L3 is seen as well as L5-S1. IMPRESSION: 1. No acute abdominopelvic process identified. 2. Fat and bowel containing ventral abdominal hernia without evidence of incarceration. 3. Hepatomegaly with steatosis. 4. Diverticulosis without evidence of diverticulitis. 5. Thoracolumbar spondylosis with multilevel retrolisthesis. 6. Other chronic and postsurgical findings as discussed. IMPRESSION/RECOMMENDATIONS: Diagnosis: 1-loss of domain 2-large ventral hernia We will plan to wait until patient is at least 1 year out from previous open abdominal surgery, which will be December 2023. At that time, we will plan for anterior versus posterior component separation with mesh placement. Patient will be admitted to the hospital for at least 1 day afterwards for observation. This will be a combination case with Dr. Hung's partner, Dr. Sher. We also had a lengthy conversation regarding weight loss. Patient was advised to aim for loss of 1 to 2 pounds per week until surgery in order to minimize wound healing complications and ultimately aid in an easier recovery. Patient was offered a referral to nonsurgical weight management, and he accepts the referral at this point of time. Risks or complications including but not limited to scar formation, pain, bleeding, bowel obstruction, bowel perforation, infection, hematoma or seroma formation, DVT/PE, asymmetry, and need for additional procedures in the future were discussed with the patient. He agrees to the risks, and would like to proceed with surgical intervention. Our office to contact patient regarding scheduling surgery. Follow Up for surgery. Orders are in. The physician was present, and has seen and examined the patient at the bedside with me. Diya Ngo PA-C documented in this encounter [facility] 09-26-2023 Note HNO ID: [id number] Author: John Jordan MD Service: ? Author Type: Physician Type: Progress Notes Filed: 09/26/2023 2:09 PM Note Text: Subjective: Patient is status post a colonoscopy completed. [facility] removed a polyp in his hepatic flexure which came back as a serrated polyp with thermal artifacts. Pictures really do confirm this does look like an adenomatous polyp. He is moving his bowels normally not having any abdominal pain. The other areas where he had had previous polyps removed and they been inked all look normal. Objective:Blood pressure 134/86, pulse 80, temperature 36.9 ?C (98.4 ?F), SpO2 95 %. Abdomen is obese soft nontender no rebound guarding or peritoneal signs are identified Assessment: Colon polyps Plan: He will need to have another colonoscopy in 5 years [facility] 09-19-2023 Nurse Note Patient freely passing flatus and states abdomen is much more comfortable. Assisted with dressing by his . Ambulated to vehicle at 1155. Dinah Armenta RN Patient ambulated to BRP with assistance of nurse. Has distended belly and needs to release flatus. All safety precautions in place' Arrived in phase II via cart. Left lateral position. Sedated, but responds to verbal stimuli. Color normal; skin warm and dry. Respirations wnl and unlabored. Abdomen soft and with + bowel sounds in quads X 4. Patient resting comfortably. Family at bedside. Dr. Jordan at bedside to review procedure and recommendations. Dinah Armenta RN documented in this encounter [facility] 09-19-2023 History and physical note Images from the original note were not included. HISTORY AND PHYSICAL Adam Lawson 1965 REFERRING PHYSICIAN: Tommy Dan MD CHIEF COMPLAINT: Consult (Stomach pain x6 months, family history of stomach cancer. ) HPI: The patient is a 58 year old male referred for endoscopy. Adam notes the following GI complaints: Adam denies abdominal pain.. Adam denies diarrhea. Adam denies constipation. Adam denies a change in bowel habits. Adam denies melena. Adam notes bright red blood per rectum. Adam denies hemorrhoids. The patient notes no history of upper GI complaints. Adam has undergone prior endoscopy. 2017 The patient is being seen by me today at the request of Dr. Tommy Dan MD for my opinion and advice regarding Rectal bleeding (primary encounter diagnosis). PAST MEDICAL HISTORY PAST MEDICAL HISTORY Diagnosis Date Bipolar 1 disorder (HCC) Celiac disease Depression Diverticulitis PAST SURGICAL HISTORY PAST SURGICAL HISTORY Procedure Laterality Date AMP /11/12 JT/PHALANX W/NEURECT W/DIR CLSR COLONOSCOPY FLX DX W/COLLJ SPEC WHEN PFRMD 06/24/2014 Colonoscopy [facility] COLONOSCOPY FLX DX W/COLLJ SPEC WHEN PFRMD 10/16/2011 Colonoscopy [facility] COLONOSCOPY FLX DX W/COLLJ SPEC WHEN PFRMD 11/28/2012 Colonoscopy [facility] HEMORRHOID SURGERY HX with fissurectomy PAST SURGICAL HISTORY OF left acl repair PAST SURGICAL HISTORY OF left arm artery tear repair REMOVAL GALLBLADDER REPAIR ROTATOR CUFF,ACUTE TOTAL HIP REPLACEMENT 11/2022 CURRENT MEDICATIONS Current Outpatient Medications Medication Sig peg 3350-Electrolytes (GOLYTELY) 236-22.74-6.74 -5.86 gram suspension Take 4,000 mL by mouth one time only for 1 dose. Refer to printed prep instructions from your provider. buPROPion SR (WELLBUTRIN SR) 150 mg 12 hr tablet Take 150 mg by mouth once daily. No current facility-administered medications for this visit. ALLERGIES: Gluten PERSONAL HISTORY: SOCIAL HISTORY Social History Tobacco Use Smoking status: Every Day Types: Cigars Smokeless tobacco: Current Tobacco comments: 2 cigars a day and snuff Substance Use Topics Alcohol use: Yes Comment: rare FAMILY HISTORY: FAMILY HISTORY FAMILY HISTORY Problem Relation Age of Onset Cancer Sister colon Cancer Paternal Grandmother colon Cancer Mother lung Cancer Sister brain Cancer Other kidney cancer-spread REVIEW OF SYMPTOMS: The review of systems data was entered by the nurse and reviewed by nv Nursing Notes: Darcie Serrato RN 08/27/2023 4:29 PM Signed REVIEW OF SYSTEMS: General: The patient denies fatigue, denies weight loss, denies weight gain, denies feeling hot, and denies feelings of cold. Eyes: The patient denies glaucoma, denies eye injury/surgery, does not wear glasses or contacts. Ear/Nose/Throat: The patient NOTES allergies, denies hayfever, denies ear infections, and denies bloody noses. Cardiovascular: The patient denies chest pain, denies heart disease, NOTES high blood pressure,denies cardiac stent, denies prior heart attack, denies irregular heart beat, denies high cholesterol, denies poor circulation, NOTES heart failure, other cardiac issues, denies claudication, denies cold feet, denies peripheral arterial stent. Respiratory: The patient denies tuberculosis, denies pneumonia, denies frequent cough, denies pulmonary embolism, denies shortness of breath, denies coughing up blood and NOTES NJ. Gastrointestinal: The patient denies difficulty swallowing, NOTES acid reflux, denies ulcers, denies vomiting, denies jaundice/hepatitis, NOTES gallbladder problems, denies black or tarry stools, denies hemorrhoids, NOTES bleeding from rectum, NOTES diverticulitis, denies constipation, denies diarrhea, denies loss of stool control, and NOTES hernias. Kidney/Bladder: The patient denies kidney stones, denies urine infections, and denies bloody urine. Skin: The patient denies a history of skin cancer, denies bleeding/changing moles, and denies a history of skin rash. Neurologic: The patient denies a history of epilepsy/convulsions, denies headaches, denies head/spinal injuries, and denies stroke/TIA. Psychiatric: The patient denies psychiatric medications, NOTES depression, and denies voices, denies substance abuse. Endocrine: The patient denies thyroid disorders, denies diabetes, and denies hormonal problems. Hematologic: The patient denies a history of bruising, denies bleeding, and denies anemia, denies blood clots. Infections: The patient denies a history of measles and mumps, NOTES rheumatic fever, and denies sexually transmitted diseases. Musculoskeletal: The patient NOTES back pain/injury, NOTES back problems, denies sciatica, denies knee/foot trouble, NOTES arthritis, or denies gout. When was patient's last Mammogram screening? N/A Last Colonoscopy: Possibly 2017 Darcie Serrato RN PHYSICAL EXAMINATION: General: The patient is 58 year old male, well nourished, well hydrated in no acute distress. The patient is oriented to time, place, and person. VITALS: Blood pressure 142/88, pulse 75, temperature 36.4 C (97.5 F), height 181.6 cm (5' 11.5 ), weight 126.6 kg (279 lb 3.2 oz), SpO2 97 %. Body mass index is 38.4 kg/m . HEENT: Normal cephalic, ataumatic, pupils are equally round, sclera are anicteric, mucous membranes are moist, oropharynx is clear. Neck has no masses, asymmetry or lymphadenopathy. Thyroid is unremarkable. Respiratory: Clear to auscultation and percussion. Normal respiratory excursion and pattern. Cardiac: Examination is regular rate and rhythm. Abdominal exam: Soft, nontender, with no palpable masses. No hepatosplenomegaly. No palpable hernias. Rectal exam: exam deferred Extremities: no clubbing, cyanosis or edema. No adenopathy. Other: LABORATORY VALUES: As Noted RADIOLOGIC STUDIES: As Noted Assessment IMPRESSION: Rectal bleeding (primary encounter diagnosis) PLAN: I plan to perform lower endoscopy. We discussed the risks and benefits of the planned endoscopy. I have informed the patient that complications can occur including failure to complete the endoscopy and perforation. The patient had the opportunity to ask questions concerning the planned endoscopy. My staff has also explained the procedure to the patient in understandable terms and has given the patient printed material concerning the procedure. The patient freely consents to surgery. I plan to use golytely bowel preparation for endoscopy Diagnoses: (K62.5) Rectal bleeding (primary encounter diagnosis) My findings have been communicated to Dr. Tommy Dan MD via shared medical record. This note will be forwarded to Dr. Tommy Dan MD. Return to Clinic: The patient is instructed to follow-up with me 1 week post operatively. John Jordan III, MD UPDATED HISTORY AND PHYSICAL EXAMINATION SERVICE DATE: 09/19/2023 SERVICE TIME: 10:33 AM PHYSICAL EXAM MUST BE COMPLETED ON ADMISSION The History and Physical (completed in the past 30 days) has been reviewed and the patient has been examined. The contents accurately reflect the patient's condition with the following additions or revisions since the H&P was completed. Examination indicates no changes. This H&P can be found in the attached. SIGNATURE: John Jordan III, MD PATIENT NAME: Adam Lawson DATE: September 19, 2023 TIME: 10:33 AM documented in this encounter [facility] 08-27-2023 Note HNO ID: [id number] Author: John Jordan MD Service: ? Author Type: Physician Type: Progress Notes Filed: 09/13/2023 2:17 PM Note Text: HISTORY AND PHYSICAL Adam Lawson 1965 REFERRING PHYSICIAN: Tommy Dan MD CHIEF COMPLAINT: Consult (Stomach pain x6 months, family history of stomach cancer. ) HPI: The patient is a 58 year old male referred for endoscopy. Adam notes the following GI complaints: Adam denies abdominal pain.. Adam denies diarrhea. Adam denies constipation. Adam denies a change in bowel habits. Adam denies melena. Adam notes bright red blood per rectum. Adam denies hemorrhoids. The patient notes no history of upper GI complaints. Adam has undergone prior endoscopy. 2016 The patient is being seen by me today at the request of Dr. Tommy Dan MD for my opinion and advice regarding Rectal bleeding (primary encounter diagnosis). PAST MEDICAL HISTORY Diagnosis Date Bipolar 1 disorder (HCC) Celiac disease Depression Diverticulitis PAST SURGICAL HISTORY Procedure Laterality Date AMP /11/12 JT/PHALANX W/NEURECT W/DIR CLSR COLONOSCOPY FLX DX W/COLLJ SPEC WHEN PFRMD 06/24/2014 Colonoscopy [facility] COLONOSCOPY FLX DX W/COLLJ SPEC WHEN PFRMD 10/16/2011 Colonoscopy [facility] COLONOSCOPY FLX DX W/COLLJ SPEC WHEN PFRMD 11/28/2012 Colonoscopy [facility] HEMORRHOID SURGERY HX with fissurectomy PAST SURGICAL HISTORY OF left acl repair PAST SURGICAL HISTORY OF left arm artery tear repair REMOVAL GALLBLADDER REPAIR ROTATOR CUFF,ACUTE TOTAL HIP REPLACEMENT 11/2022 Current Outpatient Medications Medication Sig peg 3350-Electrolytes (GOLYTELY) 236-22.74-6.74 -5.86 gram suspension Take 4,000 mL by mouth one time only for 1 dose. Refer to printed prep instructions from your provider. buPROPion SR (WELLBUTRIN SR) 150 mg 12 hr tablet Take 150 mg by mouth once daily. No current facility-administered medications for this visit. ALLERGIES: Gluten PERSONAL HISTORY: Social History Tobacco Use Smoking status: Every Day Types: Cigars Smokeless tobacco: Current Tobacco comments: 2 cigars a day and snuff Substance Use Topics Alcohol use: Yes Comment: rare FAMILY HISTORY: FAMILY HISTORY Problem Relation Age of Onset Cancer Sister colon Cancer Paternal Grandmother colon Cancer Mother lung Cancer Sister brain Cancer Other kidney cancer-spread REVIEW OF SYMPTOMS: The review of systems data was entered by the nurse and reviewed by nv Nursing Notes: Darcie Serrato RN 08/27/2023 4:29 PM Signed REVIEW OF SYSTEMS: General: The patient denies fatigue, denies weight loss, denies weight gain, denies feeling hot, and denies feelings of cold. Eyes: The patient denies glaucoma, denies eye injury/surgery, does not wear glasses or contacts. Ear/Nose/Throat: The patient NOTES allergies, denies hayfever, denies ear infections, and denies bloody noses. Cardiovascular: The patient denies chest pain, denies heart disease, NOTES high blood pressure,denies cardiac stent, denies prior heart attack, denies irregular heart beat, denies high cholesterol, denies poor circulation, NOTES heart failure, other cardiac issues, denies claudication, denies cold feet, denies peripheral arterial stent. Respiratory: The patient denies tuberculosis, denies pneumonia, denies frequent cough, denies pulmonary embolism, denies shortness of breath, denies coughing up blood and NOTES NJ. Gastrointestinal: The patient denies difficulty swallowing, NOTES acid reflux, denies ulcers, denies vomiting, denies jaundice/hepatitis, NOTES gallbladder problems, denies black or tarry stools, denies hemorrhoids, NOTES bleeding from rectum, NOTES diverticulitis, denies constipation, denies diarrhea, denies loss of stool control, and NOTES hernias. Kidney/Bladder: The patient denies kidney stones, denies urine infections, and denies bloody urine. Skin: The patient denies a history of skin cancer, denies bleeding/changing moles, and denies a history of skin rash. Neurologic: The patient denies a history of epilepsy/convulsions, denies headaches, denies head/spinal injuries, and denies stroke/TIA. Psychiatric: The patient denies psychiatric medications, NOTES depression, and denies voices, denies substance abuse. Endocrine: The patient denies thyroid disorders, denies diabetes, and denies hormonal problems. Hematologic: The patient denies a history of bruising, denies bleeding, and denies anemia, denies blood clots. Infections: The patient denies a history of measles and mumps, NOTES rheumatic fever, and denies sexually transmitted diseases. Musculoskeletal: The patient NOTES back pain/injury, NOTES back problems, denies sciatica, denies knee/foot trouble, NOTES arthritis, or denies gout. When was patient's last Mammogram screening? N/A Last Colonoscopy: Possibly 2017 Darcie Link (more content not included)... [facility] 08-27-2023 Nurse Note REVIEW OF SYSTEMS: General: The patient denies fatigue, denies weight loss, denies weight gain, denies feeling hot, and denies feelings of cold. Eyes: The patient denies glaucoma, denies eye injury/surgery, does not wear glasses or contacts. Ear/Nose/Throat: The patient NOTES allergies, denies hayfever, denies ear infections, and denies bloody noses. Cardiovascular: The patient denies chest pain, denies heart disease, NOTES high blood pressure,denies cardiac stent, denies prior heart attack, denies irregular heart beat, denies high cholesterol, denies poor circulation, NOTES heart failure, other cardiac issues, denies claudication, denies cold feet, denies peripheral arterial stent. Respiratory: The patient denies tuberculosis, denies pneumonia, denies frequent cough, denies pulmonary embolism, denies shortness of breath, denies coughing up blood and NOTES NJ. Gastrointestinal: The patient denies difficulty swallowing, NOTES acid reflux, denies ulcers, denies vomiting, denies jaundice/hepatitis, NOTES gallbladder problems, denies black or tarry stools, denies hemorrhoids, NOTES bleeding from rectum, NOTES diverticulitis, denies constipation, denies diarrhea, denies loss of stool control, and NOTES hernias. Kidney/Bladder: The patient denies kidney stones, denies urine infections, and denies bloody urine. Skin: The patient denies a history of skin cancer, denies bleeding/changing moles, and denies a history of skin rash. Neurologic: The patient denies a history of epilepsy/convulsions, denies headaches, denies head/spinal injuries, and denies stroke/TIA. Psychiatric: The patient denies psychiatric medications, NOTES depression, and denies voices, denies substance abuse. Endocrine: The patient denies thyroid disorders, denies diabetes, and denies hormonal problems. Hematologic: The patient denies a history of bruising, denies bleeding, and denies anemia, denies blood clots. Infections: The patient denies a history of measles and mumps, NOTES rheumatic fever, and denies sexually transmitted diseases. Musculoskeletal: The patient NOTES back pain/injury, NOTES back problems, denies sciatica, denies knee/foot trouble, NOTES arthritis, or denies gout. When was patient's last Mammogram screening? N/A Last Colonoscopy: Possibly 2017 Darcie Serrato RN documented in this encounter [facility] 08-27-2023 Instructions John Jordan MD - 08/27/2023 4:04 PM EDT Images from the original note were not included. Bowel Preparation Instructions for: Golytely, Nulytely, Trilyte or Colyte (polyethylene glycol 3350 and electrolytes) IF YOU DO NOT FOLLOW THESE DIRECTIONS, YOUR COLONOSCOPY WILL BE CANCELLED. [place] Instructions: Your bowel must be empty so that your doctor can clearly view your colon. Follow all of the instructions in this handout EXACTLY as they are written. Do NOT eat any solid food the ENTIRE day before your colonoscopy. Drink only clear liquids. Buy your bowel preparation at least 5 days before your colonoscopy. TRANSPORTATION on the Day of Your Exam A responsible person MUST be present with you at Check In prior to your colonoscopy and REMAIN in the endoscopy area until you are discharged. You are NOT ALLOWED to drive, take a taxi or bus, or leave the Endoscopy Center ALONE. If you do not have a responsible class a regional drivers (family member or friend) with you to take you home, your exam cannot be done with sedation and will be cancelled. Please bring a list of all of your current medications, including any Over-the Counter medications with you. Medications If you take insulin, diabetic medications or blood thinners such as Coumadin (warfarin), Plavix (clopidogrel), Ticlid (ticlopidine hydrochloride), Agrylin (anagrelide), Xarelto (Rivaroxaban), Pradaxa (Dabigatran), Eliquis (Apixaban), and Effient (Prasugrel). You MUST call the doctors who orders those medicines for instructions on altering the dosage before your colonoscopy. All other medications should be taken the day of the exam with a sip of water including ASPIRIN. Five (5) Days Before Your Colonoscopy Do NOT take medicines that stop diarrhea - such as Imodium, Kaopectate, or Pepto Bismol. Do NOT take fiber supplements - such as Metamucil, Citrucel, or Perdiem. Do NOT take products that contain iron - such as multi-vitamins (the label lists what is in the products). Do NOT take Vitamin E. Buy the prescription bowel preparation solution at your local pharmacy or drugstore pharmacy. 10/2019 Bowel Preparation Instructions for: Golytely, Nulytely, Trilyte or Colyte (polyethylene glycol 3350 and electrolytes) Three (3) Days Before Your Colonoscopy Do NOT eat high-fiber foods - such as popcorn, beans, seeds (flax, sunflower, quinoa), multigrain bread, nuts, salad/vegetables, or fresh and dried fruit. One (1) Day Before Your Colonoscopy Only drink clear liquids the ENTIRE DAY before your colonoscopy. Do NOT eat any solid foods. Drink at least 8 ounces of clear liquids every hour after waking up. The clear liquids you can drink include: Clear Liquid (NO RED LIQUIDS) DO NOT DRINK Gatorade, Pedialyte or Powerade Clear broth or bouillon Coffee or tea (no milk or non-dairy creamer) Carbonated and non-carbonated soft drinks Duran-Aid or other fruit flavored drinks Strained fruit juices (no pulp) Jell-O, popsicles, hard candy Water Alcohol Milk or non-dairy creamers Noodles or vegetables in soup Juice with pulp Liquid you cannot see through Do not use tobacco/vaping products The bowel preparation solution will be consumed in two parts. Mix the solution the evening before your colonoscopy and refrigerate before drinking. You may add the flavor pack that came with the bowel preparation. Do NOT add ice, sugar or any other flavorings to the solution. Part 1 At 6:00 PM - Evening before your colonoscopy Drink an 8-oz glass of bowel preparation every 10 minutes for a total of 8 glasses. You may continue to drink clear liquids until midnight. Part 2 On the day of your colonoscopy you may drink clear liquids up to (three) 3 hours before your procedure. 4 1/2 hours before your colonoscopy Drink an 8-oz glass of bowel preparation every 10 minutes for a total of 8 glasses. Fifteen (15) minutes later, drink an 8-oz glass of clear liquids every 15 minutes for a total of 2 glasses. You may continue to drink clear liquids up to (three) 3 hours before your exam. 2 10/2019 documented in this encounter [facility] 08-27-2023 History of Presen t illness Narrative HISTORY AND PHYSICAL Adam Kenney Renny 1965 REFERRING PHYSICIAN: Tommy Dan MD CHIEF COMPLAINT: Consult (Stomach pain x6 months, family history of stomach cancer. ) HPI: The patient is a 58 year old male referred for endoscopy. Adam notes the following GI complaints: Adam denies abdominal pain.. Adam denies diarrhea. Adam denies constipation. Adam denies a change in bowel habits. Adam denies melena. Adam notes bright red blood per rectum. Adam denies hemorrhoids. The patient notes no history of upper GI complaints. Adam has undergone prior endoscopy. 2017 The patient is being seen by me today at the request of Dr. Tommy Dan MD for my opinion and advice regarding Rectal bleeding (primary encounter diagnosis). PAST MEDICAL HISTORY Diagnosis Date Bipolar 1 disorder (HCC) Celiac disease Depression Diverticulitis PAST SURGICAL HISTORY Procedure Laterality Date AMP /11/12 JT/PHALANX W/NEURECT W/DIR CLSR COLONOSCOPY FLX DX W/COLLJ SPEC WHEN PFRMD 06/24/2014 Colonoscopy [facility] COLONOSCOPY FLX DX W/COLLJ SPEC WHEN PFRMD 10/16/2011 Colonoscopy [facility] COLONOSCOPY FLX DX W/COLLJ SPEC WHEN PFRMD 11/28/2012 Colonoscopy [facility] HEMORRHOID SURGERY HX with fissurectomy PAST SURGICAL HISTORY OF left acl repair PAST SURGICAL HISTORY OF left arm artery tear repair REMOVAL GALLBLADDER REPAIR ROTATOR CUFF,ACUTE TOTAL HIP REPLACEMENT 11/2022 Current Outpatient Medications Medication Sig peg 3350-Electrolytes (GOLYTELY) 236-22.74-6.74 -5.86 gram suspension Take 4,000 mL by mouth one time only for 1 dose. Refer to printed prep instructions from your provider. buPROPion SR (WELLBUTRIN SR) 150 mg 12 hr tablet Take 150 mg by mouth once daily. No current facility-administered medications for this visit. ALLERGIES: Gluten PERSONAL HISTORY: Social History Tobacco Use Smoking status: Every Day Types: Cigars Smokeless tobacco: Current Tobacco comments: 2 cigars a day and snuff Substance Use Topics Alcohol use: Yes Comment: rare FAMILY HISTORY: FAMILY HISTORY Problem Relation Age of Onset Cancer Sister colon Cancer Paternal Grandmother colon Cancer Mother lung Cancer Sister brain Cancer Other kidney cancer-spread REVIEW OF SYMPTOMS: The review of systems data was entered by the nurse and reviewed by me Nursing Notes: Darcie Serrato RN 08/27/2023 4:29 PM Signed REVIEW OF SYSTEMS: General: The patient denies fatigue, denies weight loss, denies weight gain, denies feeling hot, and denies feelings of cold. Eyes: The patient denies glaucoma, denies eye injury/surgery, does not wear glasses or contacts. Ear/Nose/Throat: The patient NOTES allergies, denies hayfever, denies ear infections, and denies bloody noses. Cardiovascular: The patient denies chest pain, denies heart disease, NOTES high blood pressure,denies cardiac stent, denies prior heart attack, denies irregular heart beat, denies high cholesterol, denies poor circulation, NOTES heart failure, other cardiac issues, denies claudication, denies cold feet, denies peripheral arterial stent. Respiratory: The patient denies tuberculosis, denies pneumonia, denies frequent cough, denies pulmonary embolism, denies shortness of breath, denies coughing up blood and NOTES NJ. Gastrointestinal: The patient denies difficulty swallowing, NOTES acid reflux, denies ulcers, denies vomiting, denies jaundice/hepatitis, NOTES gallbladder problems, denies black or tarry stools, denies hemorrhoids, NOTES bleeding from rectum, NOTES diverticulitis, denies constipation, denies diarrhea, denies loss of stool control, and NOTES hernias. Kidney/Bladder: The patient denies kidney stones, denies urine infections, and denies bloody urine. Skin: The patient denies a history of skin cancer, denies bleeding/changing moles, and denies a history of skin rash. Neurologic: The patient denies a history of epilepsy/convulsions, denies headaches, denies head/spinal injuries, and denies stroke/TIA. Psychiatric: The patient denies psychiatric medications, NOTES depression, and denies voices, denies substance abuse. Endocrine: The patient denies thyroid disorders, denies diabetes, and denies hormonal problems. Hematologic: The patient denies a history of bruising, denies bleeding, and denies anemia, denies blood clots. Infections: The patient denies a history of measles and mumps, NOTES rheumatic fever, and denies sexually transmitted diseases. Musculoskeletal: The patient NOTES back pain/injury, NOTES back problems, denies sciatica, denies knee/foot trouble, NOTES arthritis, or denies gout. When was patient's last Mammogram screening? N/A Last Colonoscopy: Possibly 2017 Darcie Serrato RN PHYSICAL EXAMINATION: General: The patient is 58 year old male, well nourished, well hydrated in no acute distress. The patient is oriented to time, place, and person. VITALS: Blood pressure 142/88, pulse 75, temperature 36.4 C (97.5 F), height 181.6 cm (5' 11.5 ), weight 126.6 kg (279 lb 3.2 oz), SpO2 97 %. Body mass index is 38.4 kg/m . HEENT: Normal cephalic, ataumatic, pupils are equally round, sclera are anicteric, mucous membranes are moist, oropharynx is clear. Neck has no masses, asymmetry or lymphadenopathy. Thyroid is unremarkable. Respiratory: Clear to auscultation and percussion. Normal respiratory excursion and pattern. Cardiac: Examination is regular rate and rhythm. Abdominal exam: Soft, nontender, with no palpable masses. No hepatosplenomegaly. No palpable hernias. Rectal exam: exam deferred Extremities: no clubbing, cyanosis or edema. No adenopathy. Other: LABORATORY VALUES: As Noted RADIOLOGIC STUDIES: As Noted Assessment IMPRESSION: Rectal bleeding (primary encounter diagnosis) PLAN: I plan to perform lower endoscopy. We discussed the risks and benefits of the planned endoscopy. I have informed the patient that complications can occur including failure to complete the endoscopy and perforation. The patient had the opportunity to ask questions concerning the planned endoscopy. My staff has also explained the procedure to the patient in understandable terms and has given the patient printed material concerning the procedure. The patient freely consents to surgery. I plan to use golytely bowel preparation for endoscopy Diagnoses: (K62.5) Rectal bleeding (primary encounter diagnosis) My findings have been communicated to Dr. Tommy Dan MD via shared medical record. This note will be forwarded to Dr. Tommy Dan MD. Return to Clinic: The patient is instructed to follow-up with me 1 week post operatively. John Jordan III, MD documented in this encounter [facility] 03-27-2023 Note Addended by: DIYA LAW on: 09/02/2023 08:03 AM Modules accepted: [facility] 03-27-2023 History of Presen t illness Narrative Department of Plastic Surgery - Adult Attending Consult Note Reason for Consult: Ventral incisional hernia Requesting Physician: Dr. Leblanc CHIEF COMPLAINT: Dr. Leblanc History Obtained From: patient and EMR HISTORY OF PRESENT ILLNESS: The patient is a 57 y.o. male who presents with significant past surgical history of abdominal peritonitis and pneumoperitoneum. Patient had a hip replacement surgery early November 2022. 2 days later patient developed significant abdominal pain and peritonitis. He underwent diagnostic laparoscopy which was converted to exploratory laparotomy with small bowel resection, appendectomy and application of wound VAC on 01/07/2023. Postoperatively the patient developed an incisional ventral hernia. Patient is being referred to manage his ventral hernia. Patient reports that he can walk a mile he had slowly due to his deconditioning after surgery. Otherwise, he is pretty much very active. Patient denies smoking tobacco. Patient is complaining of pain and discomfort while bending forward as well as attempting to lift any heavy object. Is currently out of work and needs a medical clearance for light duty so that he can pay his bills. Past Medical History: Past Medical History: Diagnosis Date AVNRT (AV jhon re-entry tachycardia) (CMS/HCC) (HCC) Bipolar disorder (HCC) Celiac disease GERD (gastroesophageal reflux disease) Hepatic steatosis Hypertension NJ (obstructive sleep apnea) Thrombocytopenia (HCC) Past Surgical History: Past Surgical History: Procedure Laterality Date CHOLECYSTECTOMY COLON SURGERY 12inch of colon removed EXPLORATORY LAPAROTOMY 12/06/2022 HERNIA REPAIR JOINT REPLACEMENT L hip Current Medications: Current Outpatient Medications Medication Instructions buPROPion XL (WELLBUTRIN XL) 150 mg, Oral, Daily, Do not crush, chew, or split. Calcium Polycarbophil (fiber) 625 MG tablet 1 tablet, Oral cholecalciferol (VITAMIN D-3) 1,000 Units, Oral, Daily lisinopril 10 mg, Oral, Daily metoprolol succinate XL (TOPROL-XL) 50 mg, Oral, Daily omega-3 acid ethyl esters (LOVAZA) 1 g, Oral, Daily Allergies: Gluten meal Social History: Social History Socioeconomic History Marital status: Spouse name: Not on file Number of children: Not on file Years of education: Not on file Highest education level: Not on file Occupational History Not on file Tobacco Use Smoking status: Never Smokeless tobacco: Never Substance and Sexual Activity Alcohol use: Never Drug use: Never Sexual activity: Not Currently Partners: Female Comment: Other Topics Concern Not on file Social History Narrative Not on file Social Determinants of Health Financial Resource Strain: Not on file Food Insecurity: Not on file Transportation Needs: Not on file Physical Activity: Not on file Stress: Not on file Social Connections: Not on file Intimate Partner Violence: Not on file Housing Stability: Not on file Family History: No family history on file. REVIEW OF SYSTEMS: CONSTITUTIONAL: negative for fevers, chills, sweats and fatigue EYES: negative for dipolpia or acute vision loss. RESPIRATORY: negative for dry cough, cough with sputum, dyspnea, wheezing and chest pain CARDIOVASCULAR: negative for chest pain, dyspnea, palpitations, syncope GASTROINTESTINAL: negative for nausea, vomiting, change in bowel habits, diarrhea, constipation and positive for abdominal discomfort with physical activities at the hernia site EXTREMITIES: negative for edema MUSCULOSKELETAL: negative for muscle weakness SKIN: negative for itching or rashes. BEHAVIOR/PSYCH: negative for poor appetite, increased appetite, decreased sleep and poor concentration PHYSICAL EXAM: VITALS: Ht 1.803 m (5' 11 ) Wt 119 kg (262 lb 6.4 oz) BMI 36.60 kg/m CONSTITUTIONAL: awake, alert, cooperative, no apparent distress, and appears stated age EYES: PERRLA, EOMI, no signs of occular infection LUNGS: No increased work of breathing, good air exchange, clear to auscultation bilaterally, no crackles or wheezing CARDIOVASCULAR: Normal apical impulse, regular rate and rhythm, normal S1 and S2, no S3 or S4, and no murmur noted ABDOMEN: Soft, not tender and not distended. However, there is a large ventral hernia/supraumbilical as well as umbilical hernia. The ventral hernia is 17 cm wide. Palpation of the abdomen reveals no palpable organomegaly. Overlying incision is healing by secondary intention. Marked thinning out of the scar due to the distention of the ventral hernia. EXTREMITIES: no signs of clubbing or cyanosis. MUSCULOSKELETAL: negative for flaccid muscle tone or spastic movements. SKIN: gross examination reveals no signs of rashes, or diaphoresis. NEURO: Cranial nerves II-XII grossly intact. No signs of agitated mood. CBC: Lab Results Component Value Date WBC 7.5 12/20/2022 RBC 3.59 (L) 12/20/2022 HGB 11.5 (L) 12/20/2022 HGB 15.8 12/06/2022 HCT 33.8 (L) 12/20/2022 MCV 94.1 12/20/2022 MCH 31.9 12/20/2022 MCHC 33.9 12/20/2022 RDW 13.1 12/20/2022 PLT 327 12/20/2022 MPV 8.6 12/20/2022 BMP: Lab Results Component Value Date NA 140 02/25/2023 K 4.4 02/25/2023 CL 109 (H) 02/25/2023 CO2 26 02/25/2023 BUN 17 02/25/2023 CREATININE 0.84 02/25/2023 CALCIUM 9.6 02/25/2023 GLUCOSE 91 02/25/2023 Hepatic Function Panel: Lab Results Component Value Date ALKPHOS 59 12/18/2022 ALT 60 (H) 12/18/2022 AST 43 12/18/2022 PROT 6.9 12/18/2022 BILITOT 0.8 12/18/2022 BILIDIR 0.0 12/18/2022 Data- Radiology Review: CT scan performed on 02/25/2022 revealed IMPRESSION: No acute abdominal or pelvic findings to explain symptoms. No ileus or bowel obstruction is evident. Supraumbilical ventral hernia, increased from prior exam. Enlarged fatty liver. IMPRESSION/RECOMMENDATIONS: Diagnosis: 1-incisional ventral hernia/supraumbilical. Not incarcerated or obstructed The Patients EMR report has been reviewed We will plan 1-on reviewing the CT scan, there is still evidence of postsurgical changes in the form of tissue edema and swelling. 2-we will wait for at least a year prior to attempting any form of surgical repair of the ventral hernia to allow for scar maturation and decrease the incidence of bowel injury while attempting surgical repair with component separation 3-abdominal binder while the patient is ambulating (patient can take of the abdominal binder while sleeping) 4-patient can return to light duty work with weight limitations at 20 pounds. Follow-up in 6-month We will order CT scan during the next office visit and prepare the patient for Anterior component separation/bilateral to repair his large ventral hernia defect Follow Up In September 2023 Please disregard any typographical errors. This note was partially dictated using voice recognition software. documented in this encounter [facility] 03-27-2023 Miscellaneous Notes Addended by: DIYA ROSALES on: 09/02/2023 08:03 AM Modules accepted: Orders documented in this encounter [facility] 03-27-2023 Note Addended by: DIYA LAW on: 09/02/2023 08:03 AM Modules accepted: Orders [facility] Work Phone: 03-08-2023 Note Name of Caller: Yomaira Contact Reason for Appointment: Ventral hernia without obstruction or gangrene, refer to msg on referral Office Name: [facility] [place] Plastic Surgery Medication Refills need, if any: N/A Medication Name: N/A [facility] 03-08-2023 Telephone encounter Note Name of Caller: Yomaira Contact Reason for Appointment: Ventral hernia without obstruction or gangrene, refer to msg on referral Office Name: [facility] [place] Plastic Surgery Medication Refills need, if any: N/A Medication Name: N/A [facility] 03-08-2023 Miscellaneous Notes Name of Caller: Yomaira Contact Reason for Appointment: Ventral hernia without obstruction or gangrene, refer to msg on referral Office Name: [facility] [place] Plastic Surgery Medication Refills need, if any: N/A Medication Name: N/A documented in this encounter [facility] 02-28-2023 History of Presen t illness Narrative Acute Care Surgery Brief Clinic Note Today's Date: 02/28/2023 Chief Complaint: Chief Complaint Patient presents with Follow-up CT results Identification: 57 y.o. male status post ex-lap, SBR, and appendectomy with Dr Leblanc on 12/06/22 for peritonitis, found to have a small bowel perforation. He had a wound vac applied after surgery. His path showed desmoid fibromatosis, small bowel serosal defects, serosal adhesions, appendix with serositis. He was discharged on 12/20. He was last seen in clinic on 01/24, at which time he had completed wound vac therapy and antibiotics. He was instructed to follow up again in 4 weeks for wound check. The patient presents today for follow up. Subjective: Patient reports that he is doing okay this afternoon, although has been experiencing some discomfort at the superior aspect of his midline incision. He was recently seen at his wound care clinic, and they noted that he likely had a incisional hernia. He had a CT scan on 02/25, which confirmed a superior/supraumbilical ventral hernia along the incision. There is additionally a possible small umbilical hernia. He reports that when he works, he sometimes has some shooting type pain due to the hernia. He denies any obstructive symptoms. He continues to endorse some lower back pain, although no findings were seen correlating with that on the CT scan. He states he has been eating well, having normal bowel function, and otherwise doing fine. No fevers, chills, shortness of breath, or chest pain. Review of Systems: I performed a complete Review of Systems. It was negative, except for as above. Objective: Vitals: BP (!) 153/87 (BP Location: Left arm, Patient Position: Sitting, BP Cuff Size: Large adult long) Pulse 76 Physical Exam: GEN: No acute distress, non-toxic appearance NEURO: Alert and oriented x3, no focal neuro deficits HEENT: Normocephalic, atraumatic NECK: Supple, full ROM CV: Regular rate, normal capillary refill PULM: Breathing unlabored, symmetric chest rise ABDOMEN: Protuberant, but nondistended. Soft. Large supraumbilical incisional hernia noted, as well as small umbilical defect. INCISION: Healthy granulation tissue noted along midline laparotomy incision, small site at left aspect of the middle incision with very small amount of serous drainage MSK: LEY, no deformities Assessment & Plan: Problem List Items Addressed This Visit None -Patient recovered well since surgery in November, however now experiencing some discomfort associated with a ventral incisional hernia. -We will discuss robotic ventral hernia repair with Dr Geoffrey Desai -Patient should source and wear a abdominal binder -Surgical pathology reviewed with the patient -All of the patient's questions were answered -Patient discussed with Dr Gannon Follow up: Follow up in about 1 week (around 03/07/2023) for pre-op visit, OR planning. Controlled Substances Monitoring: reviewed 02/28/23 by MD Aleah Escobar MD General Surgery PGY-1 02/28/23 3:20 PM Pager # [phone] This note may have been dictated using [email or web address] Practice Edition 2.6 and/or [employer] Voice Recognition Feature. The document was proofread; however, unrecognized voice recognition cost reduction engineer errors may be present. Associated attestation - Kevin Gannon MD - 02/28/2023 3:37 PM EDT I evaluated the patient in clinic with the resident. I agree with their assessment/plan as documented in their note. Additional comments below. - pt overall doing well, but has developed a large ventral hernia at midline incision that is limiting his ability work - we discussed the option of robotic ventral hernia repair which he would like to pursue as soon as possible - will discuss timing options with either Dr. Hale or Dr. Lloyd Gannon MD Division of Trauma Department of Surgery [facility] Pager: [phone] documented in this encounter [facility] 02-08-2023 Telephone encounter Note Called Adam Lawson to enquire about back pain to see what the nature of the concern was. Unusual that this would be related to the surgical procedure or which study that is required. Will possibly attempted to call back tomorrow. Message was left on the answering machine to call back/hospital monitor attending. Arturo Desai MD General Surgery, PGY5 [facility] Work Phone: 02-08-2023 Miscellaneous Notes Called Adam Lawson to enquire about back pain to see what the nature of the concern was. Unusual that this would be related to the surgical procedure or which study that is required. Will possibly attempted to call back tomorrow. Message was left on the answering machine to call back/hospital monitor attending. Arturo Desai MD General Surgery, PGY5 documented in this encounter [facility] 01-24-2023 History of Presen t illness Narrative Acute Care Surgery Brief Clinic Note Today's Date: 01/24/2023 Chief Complaint: Chief Complaint Patient presents with Wound Check Identification: 57 y.o. male status post ex lap, small bowel resection, appendectomy on 12/06/[address] Leblanc for small bowel perforation, discharged 12/20/2022. Hospital course complicated by postoperative ileus and abscess requiring TPN long-term antibiotics. Has since finished course of antibiotics and presents for wound check. Surgical pathology revealed desmoid fibromatosis, small bowel serosal defects, serosal adhesions, appendix with serositis. Subjective: Patient is doing well today and denies abdominal pain, nausea, vomiting. He is wondering about his wound healing and what appears to be tiny stitch in left superior aspect of the wound poking through. Review of Systems: I performed a complete Review of Systems. It was negative, except for as above. Objective: Vitals: BP (!) 145/94 (BP Location: Right arm, Patient Position: Sitting, BP Cuff Size: Large adult) Pulse 82 Temp 36.4 C (97.5 F) Physical Exam: GEN: No acute distress, non-toxic appearance NEURO: Alert and oriented x3, no focal neuro deficits HEENT: Normocephalic, atraumatic NECK: Supple, full ROM CV: Regular rate, normal capillary refill PULM: Breathing unlabored, symmetric chest rise ABDOMEN: Soft, nontender, nondistended INCISION: Midline laparotomy incision healing by secondary intention appears to be healing well with healthy appearing granulation tissue, no purulence. There is what appears to be a sliver of a exposed stitch in the left superior aspect of the wound MSK: LEY, no deformities Assessment & Plan: Problem List Items Addressed This Visit Other Perforated viscus - Primary -Patient has finished wound VAC and antibiotics. Wound continues to heal well. -Instructed patient that he can follow-up here in 4 weeks to check on status of wound healing and can call as needed for other concerns. He currently follows up at [place] [facility]. -Surgical pathology reviewed with the patient -All of the patient's questions were answered -Patient discussed with Dr. Gannon Follow up: Follow up in about 4 weeks (around 02/21/2023). Controlled Substances Monitoring: reviewed 01/24/23 by MD Kevin Nolasco MD General Surgery PGY-1 01/24/23 4:08 PM This note may have been dictated using [email or web address] Practice Edition 2.6 and/or [employer] Voice Recognition Feature. The document was proofread; however, unrecognized voice recognition cost reduction engineer errors may be present. Associated attestation - Kevin Gannon MD - 02/11/2023 4:42 PM EDT I evaluated the patient in clinic with the resident. I agree with their assessment/plan as documented in their note. 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 Pt has multiple relatives with hx of colon cancer. However, he has had recent colonoscopies without evidence of FAP, so this appears to be a sporadic tumor. - we discussed that while intra-abdominal desmoids are benign in nature, they do have a tendency to recur, and as such, he should follow up for clinical exam in 6 months, then at one year for CT scan which should be repeated annually for 5 years. - of note, the pt reported that he had recently been having some pain in his left lower back and noted some swelling there - denies trauma or injury to lower back - on exam, there is palpable swelling in the left lower back, moderately tender, no overlying erythema or skin changes - unclear etiology at this time, however with non-FAP associated desmoids, commonly affected regions include hip/trunk where location is often deep within muscles or fascial planes - recommended treatment with NSAIDs as needed, and if symptoms persist or worsen over the following week, will obtain a CT a/p to further evaluate Kevin Gannon MD Division of Trauma Department of Surgery [facility] Pager: [phone] documented in this encounter [facility] 12-20-2022 Note Discharge Summary Adam Lawson : 1965 ADMIT DATE: 12/06/2022 DISCHARGE DATE: 12/20/2022 ATTENDING PHYSICIAN: Michael Leblanc MD VISIT STATUS: Admission CODE STATUS: Full Code DISCHARGE DIAGNOSES: Patient Active Problem List Diagnosis Date Noted Perforated viscus 12/06/2022 Pneumatosis coli 12/06/2022 BMI Classification: Obese (BMI 30.0-39.9) HOSPITAL COURSE: Adam Lawson is a 57 y.o. male who presented to [facility] on 12/06/2022 2 days after an elective left hip orthopedic procedure with increased abdominal distention and pain. He was found to have peritonitis and concerning CTAP - he was taken to the OR for diagnostic lap converted to exploratory laparotomy with small bowel resection, enteroenterostomy, and closure on the day of admission. A wound vac was applied to his midline wound subcutaneous tissues given contamination from the small bowel perforation. He did tolerate the surgery well but he had an ileus and additionally, required TPN. He was weaned off of this with return of bowel function. He did have leukocytosis and cultures from peritoneal fluid grew ESBL organisms. An interval post-op CT scan did not demonstrate a discrete abscess but there was mentioned of an interloop area that may have harbored fluid - this was not amenable to aspiration. We started him onertapenem and consulted ID who recommended a 3 week course with interval CT scan. He was discharged tolerating diet, having wound vac changed MWF, off TPN, on ertapenem through a PICC line. Of note, orthopedic surgery made recommendations for BID ASA81 for DVT ppx - we followed these recommendations and sent scripts to [facility] for this medication in addition to the pain control, anti-nausea medications, and bowel regimen. At the time of discharge patient's vital signs were within normal limits. Patient was voiding spontaneously, tolerating a diet, ambulating independently and having bowel function. Patient's pain was controlled with PO pain meds. Pt was discharged with instructions as follows. CONSULTANTS: ID, Orthopedic Surgery (for continuity of care), Medicine (PICC, TPN), PT/OT, social work SIGNIFICANT DIAGNOSTIC STUDIES: CTAP 12/06/22 IMPRESSION: 1. Pneumatosis coli of the small bowel with adjacent mesenteric air external to the bowel loop concerning for bowel perforation versus air within the mesenteric vessels. There is bowel wall thickening. Suspect small bowel obstruction possibly due to adhesions. Findings are also concerning for bowel ischemia. Surgical consultation recommended. 2. Small volume of free fluid is present as well as stranding in the mesentery. 3. Left total hip arthroplasty with expected postsurgical changes. A few locules of air are present deep to the subcutaneous fatty tissue and there is stranding in the overlying subcutaneous fatty tissue due to recent surgery. 4. Hepatic steatosis. 5. Cholecystectomy. 6. Additional findings, as above. CTAP 12/11/22 IMPRESSION: 1. Multiple dilated loops of small bowel measuring up to at least 5.1 cm. Distal loops of small bowel demonstrate a relatively collapsed appearance. Though no discrete transition point is identified, there appears to be relative caliber change within the right hemiabdomen. Findings may reflect ileus versus developing or low-grade obstruction. 2. Fluid and gas distends the proximal large bowel at the level of the transverse colon which may also reflect ileus. 3. Relatively small amount of ascites in the upper abdomen/paracolic gutters as well as within the mesenteric folds without discrete focal fluid collection. Lack of enteric contrast limits evaluation to some extent. 4. Additional unchanged findings detected in the body the report. CTAP 12/15/22 IMPRESSION: 1. Persistent but improving dilated loops of small bowel. Distal loops of small bowel demonstrate collapsed appearance with relative caliber change within the right hemiabdomen, in region of anastomosis, without discrete transition point. Mild gaseous distention involving the proximal large bowel. 2. Subtle 3.4 x 1.4 x 0.8 cm loculated pocket of fluid, anterior right lower quadrant, in close proximity to loops of small bowel. This does not appear drainable due to its small size and close proximity of small bowel bowel. 3. Minimal mesenteric edema and trace ascites. DISCHARGE MEDICATIONS: Medication List START taking these medications aspirin 81 MG chewable tablet Chew 1 tablet (81 mg) 2 times daily. ClearLax 17 GM/SCOOP powder Generic drug: polyethylene glycol (PEG) 3350 Take 17 g by mouth daily. ondansetron 4 MG tablet Commonly known as: Zofran Take 1 tablet (4 mg) by mouth every 8 hours as needed for nausea or vomiting for up to 7 days. oxyCODONE 5 MG immediate release tablet Commonly known as: Roxicodone Take 1 tablet (5 mg) by mouth every 6 hours as needed for moderate pain (4-6) or severe pain (7 (more content not included)... [facility] 12-20-2022 Note [facility] - Infectious Diseases Attending Progress Note Subjective: Following for soft tissue abscess with ESBL E. Coli and Klebsiella He is continuing to improve. He continues to be afebrile and is increasing his movement well. He is eating a full diet and having regular bowel movements. He does report occasional L abdominal pain after eating that he describes as sharp. It will only last for a few seconds and resolve. No fevers, chills, night sweats, SOB, or new bruising. Per surgery notes, anticipating discharge tomorrow. Objective: Vitals: Patient Vitals for the past 24 hrs: BP Temp Temp src Pulse Resp SpO2 12/20/22 0827 93/67 36.7 ?C (98.1 ?F) Temporal 82 -- 94 % 12/20/22 0514 108/68 36.7 ?C (98 ?F) Temporal 71 16 97 % 12/20/22 0003 129/66 36.7 ?C (98 ?F) Temporal 78 18 98 % 12/19/22 2136 113/63 37.1 ?C (98.7 ?F) Temporal 78 16 95 % 12/19/22 1951 122/74 36.1 ?C (97 ?F) Temporal 84 16 95 % Physical Exam Vitals reviewed. Constitutional: General: He is not in acute distress. Appearance: Normal appearance. He is obese. He is not ill-appearing or diaphoretic. HENT: Head: Normocephalic and atraumatic. Pulmonary: Effort: Pulmonary effort is normal. Musculoskeletal: General: Swelling (R hip with VAC and associated bruising) present. Skin: General: Skin is warm and dry. Findings: Bruising present. No erythema or rash. Comments: Incision appears to be healing well - relatively unchanged from yesterday Neurological: General: No focal deficit present. Mental Status: He is alert and oriented to person, place, and time. Mental status is at baseline. Psychiatric: Mood and Affect: Mood normal. Thought Content: Thought content normal. Labs: Recent Labs 12/18/22 0234 12/19/22 0536 12/20/22 0130 NA 142 139 140 K 4.1 4.1 3.9 CL 114* 108* 108* CO2 24 22 22 BUN 22* 22* 19 CREATININE 0.72 0.67 0.77 GLUCOSE 118* 129* 102* CALCIUM 8.7 8.6 8.5 PROT 6.9 -- -- BILITOT 0.8 -- -- ALKPHOS 59 -- -- AST 43 -- -- ALT 60* -- -- Recent Labs 12/18/22 0234 12/19/22 0536 12/20/22 0130 WBC 8.7 8.1 7.5 HGB 10.9* 11.1* 11.5* HCT 31.1* 31.4* 33.8* PLT 319 316 327 LYMPHOPCT 21.3 21.1 27.2 MONOPCT 8.6 11.0* 10.7* BASOPCT 1.2 1.1 1.1 NEUTROABS 5.7 5.0 4.2 Micro: 12/06- peritoneal fluid cx- ESBL E coli, ESBL Kleb pneumo, Bacteroides 12/06- blood cx- negative 12/06- COVID/ RSV/ flu PCR- negative Lines: LUE PICC Radiography/Echo/Other: Reviewed Antimicrobials, Start/End Dates: Ertapenem Start 12/16/22 Zosyn 12/06/22-12/10/22 Impression: Post operative intraabdominal abscess - 3.4 x 1.4 x 0.8cm loculated pocket of fluid in the anterior R lower quadrant that is not a drainable location 2. Small bowel Perforation/peritonitis - ESBL E. Coli/Klebsiella/Bacterioides on peritoneal cx - s/p diagnostic laparoscopy converted to ex lap with SBR with enteroenterostomy, appendectomy, and wound vac placement on 12/06 3. S/p L RICHIE 12/03/22 at [facility] 4. Hx sigmoidectomy for diverticulitis (2017) Plan: Continue ertapenem. Will prescribe for 3 weeks, and will reassess with CT at 2 weeks. TCC informed of need to set up outpatient infusion. OPAT order to be scanned into chart. Repeat CT abdomen/pelvis at 2 weeks to reassess fluid collection. If not cleared at that time, reconsult IR to see if it is able to be drained at that time. Continue to monitor WBC trend. Can follow up with ID, at EOT( can be virtual visit) Will continue to follow [facility] Infectious Disease Attending Note Patient seen and evaluated with resident/student. I performed/re-performed a history and physical examination of the patient and discussed his/her management with the resident/student. I reviewed the resident/student note and agree with the documented findings and plan of care with changes as noted with italics. Overall stable, and awaiting DC home with Home care. OPAt order in chart already. Needs surveillance CTAP to help determine duraiton of treatment, but anticipate 2-3 weeks. [facility] 12-20-2022 Note Problem: Safety Goal: Patient will be injury free during hospitalization Outcome: Progressing Goal: I will remain free of falls Outcome: Progressing [facility] 12-19-2022 Note [facility] - Infectious Diseases Attending Progress Note Subjective: Following for soft tissue abscess with ESBL E. Coli and Klebsiella Patient doing well today with no acute complaints. His diet has advanced to soft foods and TPN has been discontinued. He reports he feels recovery is going well. He is having more regular bowel movements. He is not experiencing fevers, chills, sweats, abdominal pain, headache, chest pain, SOB today. Objective: Vitals: Patient Vitals for the past 24 hrs: BP Temp Temp src Pulse Resp SpO2 12/19/22 1054 115/70 36.4 ?C (97.5 ?F) Temporal 81 18 95 % 12/19/22 0818 116/75 36.5 ?C (97.7 ?F) Temporal 81 16 94 % 12/19/22 0500 110/71 36.9 ?C (98.4 ?F) Temporal 79 16 96 % 12/19/22 0020 106/62 36.6 ?C (97.8 ?F) Temporal 82 16 95 % 12/18/22 2140 110/68 37.1 ?C (98.7 ?F) Temporal 79 20 94 % 12/18/22 1701 101/71 36.7 ?C (98 ?F) Temporal 79 14 96 % Physical Exam Vitals reviewed. Constitutional: General: He is not in acute distress. Appearance: Normal appearance. He is obese. He is not ill-appearing or diaphoretic. HENT: Head: Normocephalic and atraumatic. Pulmonary: Effort: Pulmonary effort is normal. Musculoskeletal: General: Swelling (R hip with VAC and associated bruising) present. Skin: General: Skin is warm and dry. Findings: Bruising present. No erythema or rash. Comments: Incision appears to be healing well Neurological: General: No focal deficit present. Mental Status: He is alert and oriented to person, place, and time. Mental status is at baseline. Psychiatric: Mood and Affect: Mood normal. Thought Content: Thought content normal. Labs: Recent Labs 12/17/2222612/18/22 0234 12/19/22 0536 NA 140 142 139 K 3.9 4.1 4.1 CL 113* 114* 108* CO2 23 24 22 BUN 23* 22* 22* CREATININE 0.68 0.72 0.67 GLUCOSE 124* 118* 129* CALCIUM 8.8 8.7 8.6 PROT -- 6.9 -- BILITOT -- 0.8 -- ALKPHOS -- 59 -- AST -- 43 -- ALT -- 60* -- Recent Labs 12/17/2222612/18/22 0234 12/19/22 0536 WBC 11.0* 8.7 8.1 HGB 11.1* 10.9* 11.1* HCT 33.1* 31.1* 31.4* PLT 323 319 316 LYMPHOPCT 15.3* 21.3 21.1 MONOPCT 7.3 8.6 11.0* BASOPCT 0.4 1.2 1.1 NEUTROABS 8.2* 5.7 5.0 Micro: 12/06- peritoneal fluid cx- ESBL E coli, ESBL Kleb pneumo, Bacteroides 12/06- blood cx- negative 12/06- COVID/ RSV/ flu PCR- negative Lines: LUE PICC Radiography/Echo/Other: Reviewed Antimicrobials, Start/End Dates: Ertapenem Start 12/16/22 Zosyn 12/06/22-12/10/22 Impression: Post operative intraabdominal abscess - 3.4 x 1.4 x 0.8cm loculated pocket of fluid in the anterior R lower quadrant that is not a drainable location 2. Small bowel Perforation/peritonitis - ESBL E. Coli/Klebsiella/Bacterioides on peritoneal cx - s/p diagnostic laparoscopy converted to ex lap with SBR with enteroenterostomy, appendectomy, and wound vac placement on 12/06 3. S/p L RICHIE 12/03/22 at [facility] 4. Hx sigmoidectomy for diverticulitis (2017) Plan: Continue ertapenem. Will prescribe for 3 weeks, and will reassess with CT at 2 weeks. TCC informed of need to set up outpatient infusion. OPAT order to be scanned into chart. Repeat CT abdomen/pelvis at 2 weeks to reassess fluid collection. If not cleared at that time, reconsult IR to see if it is able to be drained at that time. Continue to monitor WBC trend. Can follow up with ID, at EOT( can be virtual visit) Will continue to follow [facility] Infectious Disease Attending Note Patient seen and evaluated with resident/student. I performed/re-performed a history and physical examination of the patient and discussed his/her management with the resident/student. I reviewed the resident/student note and agree with the documented findings and plan of care with changes as noted with italics. [facility] 12-18-2022 Note [facility] - Infectious Diseases Attending Progress Note Subjective: Patient doing well today with no acute complaints. His diet has advanced to full liquid and he is requiring less TPN. He is not experiencing fevers, chills, sweats, abdominal pain, headache, chest pain, SOB today. TCC informed of the need for outpatient ertapenem administration on discharge and the need for repeat CT scan after 2 weeks of therapy. Objective: Vitals: Patient Vitals for the past 24 hrs: BP Temp Temp src Pulse Resp SpO2 Height 12/18/22 1212 126/78 37 ?C (98.6 ?F) Temporal 81 14 97 % -- 12/18/22 1212 126/78 -- -- 81 -- -- -- 12/18/22 1204 -- -- -- -- -- -- 5' 10.98 (1.803 m) 12/18/22 0754 111/77 36.7 ?C (98.1 ?F) Temporal 85 18 94 % -- 12/18/22 0438 108/63 36.3 ?C (97.4 ?F) Temporal 77 20 95 % -- 12/18/22 0024 87/61 36.4 ?C (97.5 ?F) Temporal 80 18 91 % -- 12/17/222013 130/75 36.4 ?C (97.5 ?F) Temporal 91 20 96 % -- Physical Exam Vitals reviewed. Constitutional: General: He is not in acute distress. Appearance: Normal appearance. He is obese. He is not ill-appearing or diaphoretic. HENT: Head: Normocephalic and atraumatic. Cardiovascular: Rate and Rhythm: Normal rate and regular rhythm. Skin: General: Skin is warm and dry. Findings: No rash. Comments: Incision appears to be healing well Neurological: General: No focal deficit present. Mental Status: He is alert and oriented to person, place, and time. Mental status is at baseline. Labs: Recent Labs 12/16/2211212/17/2222612/18/22 0234 NA 139 140 142 K 4.1 3.9 4.1 CL 109* 113* 114* CO2 22 23 24 BUN 22* 23* 22* CREATININE 0.74 0.68 0.72 GLUCOSE 129* 124* 118* CALCIUM 8.7 8.8 8.7 PROT -- -- 6.9 BILITOT -- -- 0.8 ALKPHOS -- -- 59 AST -- -- 43 ALT -- -- 60* Recent Labs 12/16/22 01112/17/2222612/18/22 0234 WBC 14.6* 11.0* 8.7 HGB 12.0* 11.1* 10.9* HCT 34.8* 33.1* 31.1* PLT 355 323 319 LYMPHOPCT 12.0* 15.3* 21.3 MONOPCT 6.4 7.3 8.6 BASOPCT 1.1 0.4 1.2 NEUTROABS 11.3* 8.2* 5.7 Micro: 12/06- peritoneal fluid cx- ESBL E coli, ESBL Kleb pneumo, Bacteroides 12/06- blood cx- negative 12/06- COVID/ RSV/ flu PCR- negative Lines: LUE PICC Radiography/Echo/Other: Reviewed Antimicrobials, Start/End Dates: Ertapenem Start 12/16/22 Zosyn 12/06/22-12/10/22 Impression: Post operative intraabdominal abscess - 3.4 x 1.4 x 0.8cm loculated pocket of fluid in the anterior R lower quadrant that is not a drainable location 2. Small bowel Perforation/peritonitis - ESBL E. Coli/Klebsiella/Bacterioides on peritoneal cx - s/p diagnostic laparoscopy converted to ex lap with SBR with enteroenterostomy, appendectomy, and wound vac placement on 12/06 3. S/p L RICHIE 12/03/22 at [facility] 4. Hx sigmoidectomy for diverticulitis (2017) Plan: Continue ertapenem. Will prescribe for 3 weeks, and will reassess with CT at 2 weeks. TCC informed of need to set up outpatient infusion. OPAT order to be scanned into chart. Repeat CT abdomen/pelvis at 2 weeks to reassess fluid collection. If not cleared at that time, reconsult IR to see if it is able to be drained at that time. Continue to monitor WBC trend. Can follow up with ID, at EOT( can be virtual visit) [facility] Infectious Disease Attending Note Patient seen and evaluated with resident/student. I performed/re-performed a history and physical examination of the patient and discussed his/her management with the resident/student. I reviewed the resident/student note and agree with the documented findings and plan of care with changes as noted with italics. Based on diagnoses and management, combination of acute and chronic problems, exacerbations and/or acuity, this visit should be considered to be of moderate complexity. [facility] 12-18-2022 Note Problem: Pain Goal: My pain/discomfort is manageable Outcome: Progressing Problem: Safety Goal: Patient will be injury free during hospitalization Outcome: Progressing Goal: I will remain free of falls Outcome: Progressing Problem: Daily Care Goal: Daily care needs are met Outcome: Progressing [facility] 12-18-2022 Note Nutrition Progress N familia Lawson : 1965(57 y.o.) Date: 12/18/22 CC: TPN Interval events: Advancing to fulls today. +BM, walking halls, no nausea, feels better overall. Family at bedside Diet: Adult TPN Central Line Adult diet Full liquid Adult TPN Central Line I/Os: No intake or output data in the 24 hours ending 12/18/22 1632 Weight: ABW: Admission weight: 122 kg (270 lb) Body mass index is 36.56 kg/m?. Line: PICC L basilic DL @ 48 cm Date placed: 12/12/22 Objective: Vitals: 12/18/22 0754 12/18/22 1204 12/18/22 1212 12/18/22 1212 BP: 111/77 126/78 126/78 BP Location: Right arm Patient Position: Sitting Pulse: 85 81 81 Resp: 18 14 Temp: 36.7 ?C (98.1 ?F) 37 ?C (98.6 ?F) TempSrc: Temporal Temporal SpO2: 94% 97% Weight: Height: 1.803 m (5' 10.98 ) Physical Exam Vitals and nursing note reviewed. Constitutional: Comments: WD overwt WM resting in bed, awake/alert, NAD Cardiovascular: Rate and Rhythm: Normal rate and regular rhythm. Pulmonary: Effort: Pulmonary effort is normal. No respiratory distress. Breath sounds: No stridor. No wheezing. Abdominal: Comments: Soft, +BS, non tender to light palp Musculoskeletal: Right lower leg: No edema. Left lower leg: No edema. Skin: General: Skin is warm. Coloration: Skin is not jaundiced. Renal Panel: Recent Labs 12/16/22 0113 12/17/22 0227 12/18/22 0234 NA 139 140 142 K 4.1 3.9 4.1 CL 109* 113* 114* CO2 22 23 24 PHOS 4.3 4.2 4.4 BUN 22* 23* 22* CREATININE 0.74 0.68 0.72 CALCIUM 8.7 8.8 8.7 MG 2.5* 2.4* 2.3 No results for input(s): POCGLU in the last 72 hours. Assessment: Malnutrition -pt is at high risk for malnutrition: decreased po intake x >=5 days; both pt and agree pt has lost weight acutely but neither can quantitate how much, per dietitian notes there is no documented wt loss in chart -TPN initiated 12/12/22, no significant refeeding, advanced to goal kcals 12/13/22 -tolerating clears, advancing to fulls Electrolytes -potassium and phos good range, creeping up, adjust stl -sodium also trending up, decrease -serum bicarb stable now -thiamine day 4 potassium much improved -mag high but starting to trend down -calcium nl range, serum pH 7.38 -hyperchloremia, minimize CL as able Hypertriglyceridemia -level 298 on 12/17--> still within range of < 350 while TPN infusing, continue weekly protocol L THR Small bowel obstruction with pneumoperitoneum -s/p L THR at [facility] 12/04/22, developed lower abdominal pain 12/05/22 which progressively worsened, presented to [facility] ER 12/06/22 where found to be febrile with leukocytosis -CTAP 12/06/22: Pneumatosis coli of small bowel with adjacent mesenteric air external to the bowel loop concerning for bowel perforation versus air within the mesenteric vessels. There is bowel wall thickening. Suspect small bowel obstruction possibly due to adhesions. Findings are also concerning for bowel ischemia -taken to OR 12/06/22 for exp laparoscopy, found to have small bowel perforation mid abdomen with dense adhesions,-->converted to open procedure, required KEREN and SBR with primary anastomosis (225 cm small bowel remaining) -post op ileus-->NG out 12/16, starting diet Past surgical history: -history of segmental sigmoid colectomy with primary re-anastomosis -cholecystectomy Other medical comorbidities: -HTN -[place] -AV jhon reentry tachycardia -hepatic steatosis -obesity, BMI >30 -celiac disease -GERD PLAN SUMMARY, and as above: -change to 16 hour cycle today, formula tweaked as above -if able to advance diet tomorrow may be able to stop tpn, discussed with Dr. Ledesma TPN macronutrient calculations Ht: 5' 11 Actual BW: 262 lbs/ 119 kgs IBW: 172 lbs/ 78.1 kgs Start TOTAL Kcal = 1562 @ 20 Kcal/kg of IBW Goal TOTAL Kcal = 1955 @ 25 Kcal/kg of IBW Protein: 140 grams @ 1.8 grams/kg of IBW for 560 kcal Goal: 155 grams @ 2 grams/kg of IBW for 620 kcal Carbs: Start- 540 Kcal Lipid: Start- 465 Kcal Goal- 750 Kcal Goal- 585 Kcal : Navi Keller personally obtained subsequent history, examined the patient, reviewed chart, reviewed/personally interpreted data including labs/radiology reports and ordered medications/tests as indicated. Discussed with patient, primary service, and family. Total time on this day of visit includes record and documentation review before and after visit including documentation and time not explicitly included on EMR time stamp. [facility] 12-17-2022 Note [facility] - Infectious Diseases Attending Progress Note Subjective: Following for post surgical ESBL E. Coli and Klebsiella abscess Patient was found to have a 3.4 x 1.4 x 0.8 cm loculated pocket of fluid in anterior RLQ on 12/15/22. Ertapenem was started on 12/16. He reports having pain in the RLQ since his surgery, but the pain has resolved over the weekend. Today he feels well with no acute complaints. He is still on a clear liquid diet supplemented with TPN. He has begun to have small bowel movements, and is ambulating. He would like to go home and do outpatient abx once surgery clears him to go home - PICC line already placed in L arm. He denies fever, chills, headaches, SOB, chest pain, abdominal pain, diarrhea, constipation. He reports no surgical site pain and feels the wound is healing well. Objective: Vitals: Patient Vitals for the past 24 hrs: BP Temp Temp src Pulse Resp SpO2 12/17/22 1329 120/83 36.5 ?C (97.7 ?F) Temporal 95 16 96 % 12/17/22 0916 124/79 36.7 ?C (98.1 ?F) Temporal 95 16 94 % 12/17/22 0538 105/69 36.6 ?C (97.8 ?F) Temporal 94 16 95 % 12/17/22 0059 (!) 145/78 36.2 ?C (97.2 ?F) Temporal 88 20 94 % 12/16/22 2121 126/73 -- -- 105 -- -- 12/16/221 133/81 36.7 ?C (98.1 ?F) Temporal 100 20 92 % Physical Exam Vitals reviewed. Constitutional: Appearance: Normal appearance. He is obese. HENT: Head: Normocephalic and atraumatic. Nose: Nose normal. Mouth/Throat: Mouth: Mucous membranes are moist. Pharynx: Oropharynx is clear. Cardiovascular: Rate and Rhythm: Normal rate and regular rhythm. Pulmonary: Effort: Pulmonary effort is normal. Breath sounds: Normal breath sounds. Abdominal: General: There is no distension. Palpations: Abdomen is soft. Tenderness: There is no abdominal tenderness. Comments: Abdominal incision healing well; no redness, warmth present, nontender. Skin: General: Skin is warm and dry. Neurological: General: No focal deficit present. Mental Status: He is alert and oriented to person, place, and time. Mental status is at baseline. Labs: Recent Labs 12/15/2225812/16/2211212/17/22226 NA 137 139 140 K 3.7 4.1 3.9 CL 110* 109* 113* CO2 20* 22 23 BUN 19 22* 23* CREATININE 0.68 0.74 0.68 GLUCOSE 128* 129* 124* CALCIUM 8.6 8.7 8.8 Recent Labs 12/15/2225812/16/2211212/17/22226 WBC 13.1* 14.6* 11.0* HGB 11.8* 12.0* 11.1* HCT 33.9* 34.8* 33.1* PLT 315 355 323 LYMPHOPCT 13.4* 12.0* 15.3* MONOPCT 6.4 6.4 7.3 BASOPCT 1.4 1.1 0.4 NEUTROABS 10.0* 11.3* 8.2* Micro: 12/06- peritoneal fluid cx- ESBL E coli, ESBL Kleb pneumo, Bacteroides 12/06- blood cx- negative 12/06- COVID/ RSV/ flu PCR- negative Lines: LUE PICC (12/12) Radiography/Echo/Other: 12/16/22 XR abdomen: FINDINGS: The contrast column is now present within the right colon. Mildly dilated air-filled loops of bowel within the central abdomen, decreased since the study of 12/13/2022. Degenerative changes of the imaged spine. Left hip arthroplasty is present. Surgical clips within the left lower quadrant. Skin pradip are present. Enteric tube courses below diaphragm with the tip overlying the stomach. IMPRESSION: Contrast column is now present within the right colon. Mildly dilated air-filled loops of bowel within the central abdomen, decreased since the study of 12/13/2022 Antimicrobials, Start/End Dates: Ertapenem - Start 12/16/22 Zosyn 12/06/22-12/10/22 Impression: Post operative intraabdominal abscess - 3.4 x 1.4 x 0.8cm loculated pocket of fluid in the anterior R lower quadrant that is not a drainable location 2. Small bowel Perforation/peritonitis - ESBL E. Coli/Klebsiella/Bacterioides on peritoneal cx - s/p diagnostic laparoscopy converted to ex lap with SBR with enteroenterostomy, appendectomy, and wound vac placement on 12/06 3. S/p L RICHIE 12/03/22 at [facility] 4. Hx sigmoidectomy for diverticulitis (2016) Plan: Continue ertapenem. Likely needs a minimum of 2 weeks of IV abx. OK for outpatient administration once patient is cleared for discharge by surgical team. Will discuss abx plan with TCC. Repeat CT abdomen/pelvis in the future to reassess fluid collection as it is not able to be aspirated. Continue to monitor WBC trend. [facility] Infectious Disease Attending Note Patient seen and evaluated with resident/student. I performed/re-performed a history and physical examination of the patient and discussed his/her management with the resident/student. I reviewed the resident/student note and agree with the documented findings and plan of care with changes as noted with italics. [facility] 12-17-2022 Note Nutrition Progress Jocelin familia Lawson : 1965(57 y.o.) Date: 12/17/22 CC: TPN Interval events: NG removed yesterday. Taking clears, having BMs. No vomiting Diet: NPO diet Adult TPN Central Line I/Os: Intake/Output Summary (Last 24 hours) at 12/17/2022 0817 Last data filed at 12/17/2022 0539 Gross per 24 hour Intake -- Output 50 ml Net -50 ml Weight: ABW: Admission weight: 122 kg (270 lb) Body mass index is 36.56 kg/m?. Line: PICC L basilic DL @ 48 cm Date placed: 12/12/22 Objective: Vitals: 12/16/22 2031 12/16/22 2121 12/17/22 0059 12/17/22 0538 BP: 133/81 126/73 (!) 145/78 105/69 BP Location: Right arm Left arm Patient Position: Lying Lying Pulse: 100 105 88 94 Resp: 20 20 16 Temp: 36.7 ?C (98.1 ?F) 36.2 ?C (97.2 ?F) 36.6 ?C (97.8 ?F) TempSrc: Temporal Temporal Temporal SpO2: 92% 94% 95% Weight: Height: Physical Exam Vitals and nursing note reviewed. Constitutional: Comments: WD overwt WM, awake/alert, walked down to floor lounge to watch the helicopter with family, NAD Cardiovascular: Rate and Rhythm: Normal rate and regular rhythm. Comments: No significant peripheral edema Pulmonary: Effort: Pulmonary effort is normal. No respiratory distress. Breath sounds: No stridor. No wheezing. Abdominal: Comments: Less distended. Some BS, non tender to light palp Skin: General: Skin is warm. Coloration: Skin is not jaundiced. Renal Panel: Recent Labs 12/15/22 0259 12/16/22 0113 12/17/22 0227 NA 137 139 140 K 3.7 4.1 3.9 CL 110* 109* 113* CO2 20* 22 23 PHOS 3.7 4.3 4.2 BUN 19 22* 23* CREATININE 0.68 0.74 0.68 CALCIUM 8.6 8.7 8.8 MG 2.3 2.5* 2.4* Assessment: Malnutrition -pt is at high risk for malnutrition: decreased po intake x >=5 days; both pt and agree pt has lost weight acutely but neither can quantitate how much, per dietitian notes there is no documented wt loss in chart -TPN initiated 12/12/22, no significant refeeding, advanced to goal kcals yesterday 12/13/22 -NG remains in place, 900 cc out per I/O documentation over past 24 hours Electrolytes -potassium much improved -mag high but starting to trend down -calcium nl range, serum pH 7.38 -hyperchloremia, minimize CL as able Hypertriglyceridemia -level 298 today 12/17--> still within range of < 350 while TPN infusing, continue weekly protocol L THR Small bowel obstruction with pneumoperitoneum -s/p L THR at [facility] 12/04/22, developed lower abdominal pain 12/05/22 which progressively worsened, presented to [facility] ER 12/06/22 where found to be febrile with leukocytosis -CTAP 12/06/22: Pneumatosis coli of small bowel with adjacent mesenteric air external to the bowel loop concerning for bowel perforation versus air within the mesenteric vessels. There is bowel wall thickening. Suspect small bowel obstruction possibly due to adhesions. Findings are also concerning for bowel ischemia -taken to OR 12/06/22 for exp laparoscopy, found to have small bowel perforation mid abdomen with dense adhesions,-->converted to open procedure, required KEREN and SBR with primary anastomosis (225 cm small bowel remaining) -post op ileus Past surgical history: -history of segmental sigmoid colectomy with primary re-anastomosis -cholecystectomy Other medical comorbidities: -HTN -[place] -AV jhon reentry tachycardia -hepatic steatosis -obesity, BMI >30 -celiac disease -GERD PLAN SUMMARY, and as above: -starting on clears, keep TPN continuous infusion today -adjustments to lytes as above, day 3 thiamine TPN macronutrient calculations Ht: 5' 11 Actual BW: 262 lbs/ 119 kgs IBW: 172 lbs/ 78.1 kgs Start TOTAL Kcal = 1562 @ 20 Kcal/kg of IBW Goal TOTAL Kcal = 1955 @ 25 Kcal/kg of IBW Protein: 140 grams @ 1.8 grams/kg of IBW for 560 kcal Goal: 155 grams @ 2 grams/kg of IBW for 620 kcal Carbs: Start- 540 Kcal Lipid: Start- 465 Kcal Goal- 750 Kcal Goal- 585 Kcal I spent over 51% of total time providing counseling or in coordination of care: > 25 minutes. I personally obtained subsequent history, examined the patient, reviewed chart, reviewed/personally interpreted data including labs/radiology reports and ordered medications/tests as indicated. Discussed with patient and family. Total time on this day of visit includes record and documentation review before and after visit including documentation and time not explicitly included on EMR time stamp. [facility] 12-17-2022 Note Referral sent to [facility] for possible home IV antibiotic infusion needs. [facility] updated in care port. Need IV orders when ID confirms plan. [facility] 12-14-2022 Note Nutrition Progress N familia Lawson : 1965(57 y.o.) Date: 12/14/22 CC: TPN Interval events: NG just readjusted but otherwise feeling a little better today. No BM. +gas. Only discomfort right now is his nose from the NG Diet: NPO diet Adult TPN Central Line Adult TPN Central Line I/Os: Intake/Output Summary (Last 24 hours) at 12/14/2022 1125 Last data filed at 12/14/2022 0747 Gross per 24 hour Intake 0 ml Output 900 ml Net -900 ml Weight: ABW: Admission weight: 122 kg (270 lb) Body mass index is 36.56 kg/m?. Line: PICC L basilic DL @ 48 cm Date placed: 12/12/22 Objective: Vitals: 12/14/22 0005 12/14/22 0539 12/14/22 0829 12/14/22 1019 BP: (!) 147/89 (!) 148/84 (!) 153/91 BP Location: Right arm Right arm Right arm Patient Position: Lying Lying Sitting Pulse: 83 89 88 Resp: 21 20 18 Temp: 37.5 ?C (99.5 ?F) 36.2 ?C (97.2 ?F) 36.1 ?C (97 ?F) TempSrc: Temporal Temporal Temporal SpO2: 96% 92% 94% Weight: Height: 1.803 m (5' 10.98 ) Physical Exam Vitals and nursing note reviewed. Constitutional: Comments: WD obese WM sitting up in chair, awake/alert, pleasant, NAD HENT: Nose: Comments: NG in place Mouth/Throat: Mouth: Mucous membranes are dry. Pharynx: Oropharynx is clear. Eyes: General: No scleral icterus. Cardiovascular: Rate and Rhythm: Normal rate and regular rhythm. Comments: Trace bilat LE edema Pulmonary: Effort: Pulmonary effort is normal. No respiratory distress. Abdominal: Tenderness: There is no guarding or rebound. Comments: A little less distended. Occ BS. Min tender to light palp Musculoskeletal: Comments: No significant loss of muscle mass or fat stores Skin: General: Skin is warm. Coloration: Skin is not jaundiced. Findings: Bruising (at site of hip surgery) present. Renal Panel: Recent Labs 12/12/22 0055 12/13/22 0000 12/14/22 0349 NA 139 137 135 K 3.5 3.5 3.6 CL 106 110* 104 CO2 26 23 22 PHOS 3.2 3.4 3.4 BUN 18 16 16 CREATININE 0.85 0.77 0.66 CALCIUM 8.0* 8.1* 8.3* MG 2.3 2.3 2.3 Glucose: Recent Labs 12/13/22 0003 POCGLU 109* Assessment: Malnutrition -pt is at high risk for malnutrition: decreased po intake x >=5 days; both pt and agree pt has lost weight acutely but neither can quantitate how much, per dietitian notes there is no documented wt loss in chart -TPN initiated 12/12/22, no significant refeeding, advanced to goal kcals yesterday 12/13/22 -NG remains in place, 900 cc out per I/O documentation over past 24 hours Electrolytes -hypokalemia, potassium a little better, still lower than goal for nutrition/ileus but ok to keep at goal kcals, increase in tpn -phos stayed the same even with increased amount in tpn, increase again today via Kphos -chloride dropped nicely but sodium dropped, increase again today, check ionized ca for serum pH -mag good L THR Small bowel obstruction with pneumoperitoneum -s/p L THR at [facility] 12/04/22, developed lower abdominal pain 12/05/22 which progressively worsened, presented to [facility] ER 12/06/22 where found to be febrile with leukocytosis -CTAP 12/06/22: Pneumatosis coli of small bowel with adjacent mesenteric air external to the bowel loop concerning for bowel perforation versus air within the mesenteric vessels. There is bowel wall thickening. Suspect small bowel obstruction possibly due to adhesions. Findings are also concerning for bowel ischemia -taken to OR 12/06/22 for exp laparoscopy, found to have small bowel perforation mid abdomen with dense adhesions,-->converted to open procedure, required KEREN and SBR with primary anastomosis (225 cm small bowel remaining) -post op ileus Past surgical history: -history of segmental sigmoid colectomy with primary re-anastomosis -cholecystectomy Other medical comorbidities: -HTN -[place] -AV jhon reentry tachycardia -hepatic steatosis -obesity, BMI >30 -celiac disease -GERD PLAN SUMMARY, and as above: -potassium and phos lower than goal for nutrition but I think ok to continue goal kcals -multiple electrolyte changes as above -zinc ordered 12/12 but does not appear to have been collected, need to discuss with nursing, will reorder -no insulin needed in tpn, dc glucose checks -continue daily electrolytes for now TPN macronutrient calculations Ht: 5 Actual BW: 262 lbs/ 119 kgs IBW: 172 lbs/ 78.1 kgs Start TOTAL Kcal = 1562 @ 20 Kcal/kg of IBW Goal TOTAL Kcal = 1955 @ 25 Kcal/kg of IBW Protein: 140 grams @ 1.8 grams/kg of IBW for 560 kcal Goal: 155 grams @ 2 grams/kg of IBW for 620 kcal Carbs: Start- 540 Kcal Lipid: Start- 465 Kcal Goal- 750 Kcal Goal- 585 Kcal I spent over 51% of total time providing counseling or in coordination of care: > 35 minutes. I personally obtained subsequent history, examined the patient, reviewed chart, reviewed/personally int (more content not included)... [facility] 12-13-2022 Note Nutrition Progress Jocelin Lawson : 1965(57 y.o.) Date: 12/13/22 CC: TPN Interval events: NG remains in place. No abdominal pain unless press hard. May have had some gas, no BM. Family at bedside, updated re nutrition. Diet: NPO diet Adult TPN Central Line I/Os: Intake/Output Summary (Last 24 hours) at 12/13/2022 0948 Last data filed at 12/13/2022 0634 Gross per 24 hour Intake -- Output 800 ml Net -800 ml Weight: ABW: Admission weight: 122 kg (270 lb) Body mass index is 36.56 kg/m?. Line: PICC L basilic DL @ 48 cm Date placed: 12/12/22 Objective: Vitals: 12/12/22 1946 12/12/22 2110 12/13/22 0605 12/13/22 0820 BP: (!) 146/88 (!) 158/88 (!) 154/85 (!) 160/88 BP Location: Right arm Right arm Right arm Patient Position: Lying Sitting Lying Pulse: 84 85 85 77 Resp: 20 16 Temp: 38.2 ?C (100.8 ?F) 36.9 ?C (98.4 ?F) TempSrc: Temporal Temporal SpO2: 92% 95% 94% Weight: Height: Physical Exam Vitals and nursing note reviewed. Constitutional: Comments: WD obese WM lying in bed, awake/alert, conversant, pleasant, NAD HENT: Nose: Comments: NG in place Mouth/Throat: Mouth: Mucous membranes are dry. Pharynx: Oropharynx is clear. Comments: edentulous Eyes: General: No scleral icterus. Pupils: Pupils are equal, round, and reactive to light. Cardiovascular: Rate and Rhythm: Normal rate and regular rhythm. Comments: Trace periph edema feet/hands Pulmonary: Effort: Pulmonary effort is normal. No respiratory distress. Breath sounds: No stridor. No wheezing. Abdominal: General: There is distension. Tenderness: There is no guarding or rebound. Comments: Non tender to mod palpation, did not hear BS Musculoskeletal: Comments: No significant loss of muscle mass or fat stores Skin: General: Skin is warm. Capillary Refill: Capillary refill takes less than 2 seconds. Coloration: Skin is not jaundiced. Renal Panel: Recent Labs 12/11/22 0142 12/12/22 0055 12/13/22 0000 NA 138 139 137 K 3.5 3.5 3.5 CL 106 106 110* CO2 25 26 23 PHOS -- 3.2 3.4 BUN 24* 18 16 CREATININE 0.74 0.85 0.77 CALCIUM 8.2* 8.0* 8.1* MG 2.3 2.3 2.3 Glucose: Recent Labs 12/13/22 0003 POCGLU 109* Assessment: Malnutrition -pt is at risk for malnutrition: decreased po intake x >=5 days -both pt and agree pt has lost weight acutely but neither can quantitate how much, per dietitian notes there is no documented wt loss in chart -TPN initiated yesterday 12/12/22, potassium stayed same at 3.5 but phos better-->I think should tolerate goal kcals Electrolytes -mild hypokalemia, level 3.5, bolus ordered this a.m. -hypophosphatemia, improving, > 3 -hyperchloremia, mild, serum pH 7.45 (on ionized ca), keep same -magnesium high normal, keep to help with potassium -follow calcium L THR Small bowel obstruction with pneumoperitoneum -s/p L THR at [facility] 12/04/22, developed lower abdominal pain 12/05/22 which progressively worsened, presented to [facility] ER 12/06/22 where found to be febrile with leukocytosis -CTAP 12/06/22: Pneumatosis coli of small bowel with adjacent mesenteric air external to the bowel loop concerning for bowel perforation versus air within the mesenteric vessels. There is bowel wall thickening. Suspect small bowel obstruction possibly due to adhesions. Findings are also concerning for bowel ischemia -taken to OR 12/06/22 for exp laparoscopy, found to have small bowel perforation mid abdomen with dense adhesions,-->converted to open procedure, required KEREN and SBR with primary anastomosis (225 cm small bowel remaining) -post op ileus Past surgical history: -history of segmental sigmoid colectomy with primary re-anastomosis -cholecystectomy Other medical comorbidities: -HTN -[place] -AV jhon reentry tachycardia -hepatic steatosis -obesity, BMI >30 -celiac disease -GERD PLAN SUMMARY, and as above: -KCl bolus this a.m. -trial of goal kcals today -dc glucose checks, sugars all in good range (< 180) while tpn infusing -electrolytes adjustments as above TPN macronutrient calculations: Ht: 5' 11 Actual BW: 262 lbs/ 119 kgs IBW: 172 lbs/ 78.1 kgs Start TOTAL Kcal = 1562 @ 20 Kcal/kg of IBW Goal TOTAL Kcal = 1955 @ 25 Kcal/kg of IBW Protein: 140 grams @ 1.8 grams/kg of IBW for 560 kcal Goal: 155 grams @ 2 grams/kg of IBW for 620 kcal Carbs: Start- 540 Kcal Lipid: Start- 465 Kcal Goal- 750 Kcal Goal- 585 Kcal I spent over 51% of total time providing counseling or in coordination of care: > 50 minutes. I personally obtained subsequent history, examined the patient, reviewed chart, reviewed/personally interpreted data including labs/radiology reports and ordered medications/tests as indicated. Discussed with patient and family. Total time on this day of visit includes record and documentation review before and after (more content not included)... [facility] 12-12-2022 Note Central Line Inserti on Checklist - PICC per Central Access Team 12/12/22 at 4:22 PM Procedure: [x] Central Venous Catheter Insertion - PICC (see PICC Procedure note same date) Time Out: [x] Completed immediately prior to the start of the procedure which included verification of the correct patient, correct site and agreement on the procedure to be done [] Unable to be completed due to emergent procedure Central Line Bundle: [x] Proceduralist(s) performed hand hygiene prior to starting procedure The following were worn by the proceduralist(s) throughout the procedure: [x] Hat [x] Mask [x] Sterile gown [x] Sterile gloves [x] Skin was prepped per policy --> [x] Upper Arm Site: Chlorhexidine was used to prep the skin using a vigorous, side to side motion for a minimum of 30 seconds and was allowed to air dry for at least 30 seconds. [x] Patient was draped per policy (Full body drape for central venous catheter; fenestrated drape for arterial line insertion) [x] Everyone in the room wore a mask during the procedure Patient and/or Family Education: [x] Type of Catheter [x] Catheter Care [x] Hand Hygiene [x] Signs and Symptoms of Infection Sterile Technique Used Throughout Procedure: [x] Yes [] Sterility temporarily compromised. Procedure stopped immediately and safety concern discussed. Sterility maintained in subsequent attempt.* *If sterility is not achieved after safety discussion, follow escalation policy. Proceduralist: Vipul Ordaz APRN [facility] 12-12-2022 Note PICC Procedure Note History/labs/allergies reviewed. Indication: Ileus, TPN Consent was obtained after explaining the procedure, indication, risks to patient and/or next of kin. Time out: Completed immediately prior to the start of the procedure which included verification of the correct patient, correct site and agreement on the procedure to be done. Sterile prep: Complete handwashing care was performed by all involved personnel prior to initiation of the procedure. Full maximum sterile field/barrier technique was followed (with cap and mask, gloves and sterile gown, as well as broad field sterile drapes). Local disinfection was performed with broad field application of dyed chloraprep solution, which was allowed to dry fully prior to the initiation of the procedure. Local anesthetic: Aqueous lidocaine 1% used Ultrasound guidance used. Site prior to insertion: benign Lot # [id number] Catheter type: 5 Irish Double Lumen Location: Left basilic vein Trimmed at 48 cm ; inserted at 48 Procedure: The site was prepped with chlorprep solution. Using modified seldinger technique, the above vessel was located venous access obtained with 20g 1.88cm catheter. Wire advanced, microintroducer inserted over wire, wire removed, picc positioned through introducer. The site was reprepped with chlorprep solution followed by placement of an antiseptic device and secured in place via securement device and covered with occlusive dressing. Hemostasis was assured at the termination of procedure. PICC info and BSI info sheet left at bedside. Complications: No apparent complications Follow up Chest X-Ray: Ordered. Placed by Vipul Ordaz APRN [facility] 12-11-2022 Note Problem: Pain Goal: My pain/discomfort is manageable Outcome: Progressing Problem: Safety Goal: Patient will be injury free during hospitalization Outcome: Progressing Goal: I will remain free of falls Outcome: Progressing Problem: Daily Care Goal: Daily care needs are met Outcome: Progressing Problem: Psychosocial Needs Goal: Demonstrates ability to cope with hospitalization/illness Outcome: Progressing Goal: Collaborate with me, my family, and caregiver to identify my specific goals Outcome: Progressing Problem: Discharge Barriers Goal: My discharge needs are met Outcome: Progressing Problem: Knowledge Deficit Goal: Patient/family/caregiver demonstrates understanding of disease process, treatment plan, medications, and discharge instructions Outcome: Progressing Problem: Potential for Compromised Skin Integrity Goal: Skin Integrity is Maintained or Improved Outcome: Progressing Goal: Nutritional status is improving Outcome: Progressing Problem: Urinary Incontinence Goal: Perineal skin integrity is maintained or improved Outcome: Progressing [facility] 12-09-2022 Note Problem: Pain Goal: My pain/discomfort is manageable Outcome: Progressing Problem: Safety Goal: Patient will be injury free during hospitalization Outcome: Progressing Goal: I will remain free of falls Outcome: Progressing Problem: Daily Care Goal: Daily care needs are met Outcome: Progressing Problem: Psychosocial Needs Goal: Demonstrates ability to cope with hospitalization/illness Outcome: Progressing Goal: Collaborate with me, my family, and caregiver to identify my specific goals Outcome: Progressing Problem: Discharge Barriers Goal: My discharge needs are met Outcome: Progressing Problem: Knowledge Deficit Goal: Patient/family/caregiver demonstrates understanding of disease process, treatment plan, medications, and discharge instructions Outcome: Progressing Problem: Potential for Compromised Skin Integrity Goal: Skin Integrity is Maintained or Improved Outcome: Progressing Goal: Nutritional status is improving Outcome: Progressing Problem: Urinary Incontinence Goal: Perineal skin integrity is maintained or improved Outcome: Progressing [facility] 12-08-2022 Note Department of Genera l Surgery Daily Progress Note Surg ACS Service ADMIT DATE: 12/06/2022 TODAY'S DATE: 12/08/2022 SUBJECTIVE: NAEON. Patient reports minimal pain. Still no evidence of flatus / BM. Bilious output from NGT - 1.6L /24h. No fevers, chills/CP/SOB. Passed TOV following Hu catheter discontinuation yesterday. OBJECTIVE: VITALS: BP (!) 146/97 Pulse 98 Temp 37.3 ?C (99.1 ?F) (Temporal) Resp 20 Ht 5' 11 (1.803 m) Wt 270 lb (122 kg) SpO2 94% BMI 37.66 kg/m? INTAKE/OUTPUT: I/O last 3 completed shifts: In: 1316.3 (10.7 mL/kg) [I.V.:1206.3 (9.8 mL/kg); IV Piggyback:110] Out: 3575 (29.2 mL/kg) [Urine:1950 (0.4 mL/kg/hr); Emesis/NG output:1400; Drains:25; Blood:200] Weight: 122.5 kg I/O this shift: In: - Out: 300 [Emesis/NG output:300] PHYSICAL EXAM: Gen: NAD, A&Ox3, pain well controlled Heart: Well perfused Lungs: symmetric chest rise, normal work of breathing Abd: soft, RUQ and RLQ tender, mildly distended. Non rigid. Wound vacuum in place, well sealing. Ext: no c/c/e no gross deformities Skin: warm, well perfused, <2 cm cap refill, no obvious rashes, cellulitis or gross discoloration LABS CBC: Recent Labs 12/06/22 0404 12/06/22 0408 12/07/22 0217 WBC 12.2* -- 10.0 HGB 15.0 15.8 14.2 HCT 43.4 -- 40.5 PLT 190 -- 170 BMP: Recent Labs 12/06/22 0404 12/07/22 0217 NA 136 140 K 3.8 3.9 CL 105 106 CO2 21* 26 BUN 15 17 CREATININE 0.86 0.88 GLUCOSE 155* 174* Hepatic: Recent Labs 12/06/22 040 AST 51* ALT 36 BILITOT 2.0* ALKPHOS 48 Current Inpatient Medications Scheduled Meds:acetaminophen, 1,000 mg, IntraVENous, q8h enoxaparin, 40 mg, SubCUTAneous, Daily metoprolol, 5 mg, IntraVENous, q6h piperacillin-tazobactam, 3,375 mg, IntraVENous, q8h sodium chloride 0.9%, 10 mL, IntraVENous, 2 times per day Continuous Infusions:lactated Ringer's, 125 mL/hr, Last Rate: 125 mL/hr (12/08/22 0152) PRN Meds:PRN medications: HYDROmorphone OR HYDROmorphone, LORazepam, ondansetron ODT OR ondansetron, phenol, sodium chloride, sodium chloride 0.9% ASSESSMENT AND PLAN: 57 y.o. male s/p diagnostic lap converted to Ex lap with small bowel resection with primary anastomosis, appendectomy, and application of wound vacuum on 12/06/22 for small bowel obstruction with pneumoperitoneum. - Continue NGT on low continious suction - start NGT flushes q12h - start IV Protonix 40 mg daily - stop LR - start D51/2 NS @ 125 ml/hr - encourage chewing gum - IV Abx - Zosyn - day 3/ Clarence Jean-Baptiste MD [facility] Trauma, Surgical Critical Care, & General Surgery Division of Trauma Department of Surgery [facility] P [facility] 12-06-2022 Note Patient: Adam Dumont etluis Procedure Summary Date: 12/06/22 Room / Location: [address] Operating Room Anesthesia Start: 732 Anesthesia Stop: Procedures: DIAGNOSTIC LAPAROSCOPY (Abdomen) EXPLORATORY LAPAROTOMY (Abdomen) Diagnosis: 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 Anesthesia Post Evaluation Patient location during evaluation: PACU Patient participation: complete - patient participated Level of consciousness: sleepy but conscious Pain management: satisfactory to patient Airway patency: patent Dental Injury: no Cardiovascular status: acceptable, blood pressure returned to baseline and hemodynamically stable Respiratory status: acceptable and spontaneous ventilation Hydration status: euvolemic Nausea/Vomiting: controlled No notable events documented. Patient can be discharged once all PACU criteria has been met. 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 Anesthesia Post Evaluation Patient location during evaluation: PACU Patient participation: complete - patient participated Level of consciousness: sleepy but conscious Pain management: satisfactory to patient Multimodal analgesia pain management approach Airway patency: patent Two or more strategies used to mitigate risk of obstructive sleep apnea Cardiovascular status: acceptable and hemodynamically stable Respiratory status: face mask Hydration status: acceptable No notable events documented. MIPS #430 PONV Patient received an inhalational anesthetic (4554F) Patient does not exhibit three or more risk factors for PONV (X0430)) Patient received at leaset 2 prophylactic Rx PONV anti-emtic agents of different classes preop and/or intraop (G9775) MIPS # 424 Perioperative Temperature Management Anesthesia time was 60 minutes or longer (4255F) Anesthesai administered was General (inhalational or TIVA) or Neuraxial block (X0424) At least one body temperature greater than 95.8F/35.5C achieved within the 30 mins immediately prior to or the 15 minutes immediately following anesthesia end time (G9771) MIPS #477 Multimodal Pain Management Not emergent case Patient was administered multimodal pain management (two or more drugs and/or interventions excluding systemic opioids) in the periopeartive period occurring at some time between 6 hours prior to anesthesia start time until discharged from PACU (G2148) MIPS #404 Anesthesiology Smoking Abstinence The patient is not a current smoker (e.g. cigarette, cigar, pipe, e-cigarette/vaping/marijuana) I completed my handoff to the receiving clinician during which we: 1. Identified the patient 2. Identified the responsible provider 3. Reviewed the pertinent medical history 4. Discussed the surgical course 5. Reviewed intra-op anesthesia management and issues during anesthesia 6. Set expectations for post-procedure period 7. Allowed opportunity for questions and acknowledgement of understanding. [facility] 12-06-2022 Note Airway Date/Time: 12/06/2022 7:41 AM Urgency: scheduled Airway not difficult General Information and Staff Patient location during procedure: Procedural Resident/TRACK COACH: Josef Barth APRN - TRACK COACH Performed: TRACK COACH Indications and Patient Condition Indications for airway management: anesthesia and airway protection Sedation level: RSI and Asleep Preoxygenated: yes Patient position: sniffing Mask difficulty assessment: 0 - not attempted Final Airway Details Final airway type: endotracheal airway Successful airway: ETT Cuffed: yes Successful intubation technique: direct laryngoscopy Facilitating devices/methods: cricoid pressure Blade: Keegan Blade size: #4 ETT size (mm): 8.0 Cormack-Lehane Classification: grade IIa - partial view of glottis Placement verified by: chest auscultation and capnometry Measured from: lips ETT to lips (cm): 19 Number of attempts at approach: 1 [facility] 12-06-2022 Note Peripheral Block Time Out: 12/06/2022 7:45 AM Patient location during procedure: Procedural Start time: 12/06/2022 7:45 AM End time: 12/06/2022 7:48 AM Reason for block: at surgeon's request and post-op pain management Staffing Performed: TRACK COACH Resident/TRACK COACH: JANNA Sequeira CRNA Preanesthetic Checklist Completed: patient identified, IV checked, site marked, risks and benefits discussed, surgical consent, monitors and equipment checked, pre-op evaluation and timeout performed Region: [place] Primary: TAP (Bupivacaine 0.375%/ Epi 1:200,000/ Dex 0.1mg/mL 40ml divided evenly bilateral) Secondary: Upper rectus (Bupivacaine 0.375%/ Epi 1:200,000/ Dex 0.1mg/mL 20ml divided evenly bilateral) Peripheral Block Patient position: supine Prep: ChloraPrep Patient monitoring: heart rate, disability rater, continuous pulse ox and continuous capnometry O2: ETT/LMA Laterality: bilateral Injection technique: single-shot Guidance: ultrasound guided -image retained in chart, tip of the needle identified by ultraound during injection. Needle Needle: 21G X 110 mm Additional Notes 12/06/2022 7:45 AM Assessment Injection assessment: negative aspiration for heme, no paresthesia on injection and incremental injection Heart rate change: no Slow fractionated injection: yes Required Documentation: Relevant anatomy identified (Nerves, Vessels, Muscles), Negative for blood on aspiration, Local anesthetic injected incrementally with intermittent aspiration every 5 mL, Normal resistance with injection, No EKG changes noted, No symptoms of toxicity, Local anesthetic spread visualized around nerves or plane. and Local anesthetic injected without difficultyMedications fboBCOMOktfiw-hrbzjuqmcav-eflwp phrine (TAP) syringe - Injection 60 mL - 12/06/2022 7:45:00 AM [facility] 12-06-2022 Note Patient: Adam garcía Procedure Information Date/Time: 12/06/22 0735 Procedures: DIAGNOSTIC LAPAROSCOPY (Abdomen) EXPLORATORY LAPAROTOMY (Abdomen) Location: [address] Operating Room Surgeons: Michael Leblanc MD EK12/06/22 Junctional tachycardia Ventricular premature complex Borderline T abnormalities, inferior leads Adam Lawson is a 57 y.o. male with PMHx of AVNRT, bipolar, celiac disease, GERD, hypertension, NJ, thrombocytopenia. Patient is status post left hip replacement at the [facility] 12/04. He has developed significant abdominal pain since this time and presented to the [facility] ER for evaluation. Patient has surgical history of segmental sigmoid colectomy with primary anastomosis. Also surgical history of laparoscopic cholecystectomy. Relevant Problems No relevant active problems Past Medical History: Past Medical History: No date: AVNRT (AV jhon re-entry tachycardia) (CMS/HCC) (HCC) No date: Bipolar disorder (HCC) No date: Celiac disease No date: GERD (gastroesophageal reflux disease) No date: Hepatic steatosis No date: Hypertension No date: NJ (obstructive sleep apnea) No date: Thrombocytopenia (HCC) Past Surgical History: Past Surgical History: No date: CHOLECYSTECTOMY No date: COLON SURGERY Comment: 12inch of colon removed No date: HERNIA REPAIR No date: JOINT REPLACEMENT Comment: L hip Social History: TOBACCO: has no history on file for tobacco use. ETOH: has no history on file for alcohol use. Social History Substance and Sexual Activity Drug Use Not on file Family History: No family history on file. Screening: unknown Clinical information reviewed: Allergies Meds Med Hx Surg Hx Fam Hx Soc Hx Physical Exam Airway Mallampati: II TM distance: >3 FB Neck ROM: full Mouth Open: normal Cardiovascular - normal exam Dental (+) edentulous Pulmonary - normal exam Abdominal (+) obese Abdomen: rigid and tender Anesthesia Plan ASA 4 general anesthesia The patient is not a current smoker. Anesthetic plan and risks discussed with patient. Use of blood products discussed with who consented to blood products. patient is NPO ZOSYN 4.5 GM LD 0430 AM [place] Screening Labs: Lab Results Component Value Date WBC 12.2 (H) 12/06/2022 HGB 15.8 12/06/2022 HCT 43.4 12/06/2022 MCV 92.8 12/06/2022 PLT 190 12/06/2022 Lab Results Component Value Date NA 136 12/06/2022 K 3.8 12/06/2022 CL 105 12/06/2022 CO2 21 (L) 12/06/2022 BUN 15 12/06/2022 CREATININE 0.86 12/06/2022 GLUCOSE 155 (H) 12/06/2022 CALCIUM 9.0 12/06/2022 PROT 7.1 12/06/2022 ALKPHOS 48 12/06/2022 AST 51 (H) 12/06/2022 ALT 36 12/06/2022 EGFR >90.0 12/06/2022 Pain Score: 6 No echocardiogram results found for the past 14 days 12/06/22 ECG 12-LEAD 12/06/2022 6:27 AM (Final) Impression Junctional tachycardia Ventricular premature complex Borderline T abnormalities, inferior leads Electronically Signed On 12-06-2022 6:27:47 EST by Haven Tierney Signed by: Haven Tierney DO on 12/06/2022 6:27 AM [facility] 12-06-2022 Note Procedure Critical Care Performed by: Adam Tapia DO Authorized by: Adam Tapia DO Critical care provider statement: Critical care time (minutes): 45 Critical care time was exclusive of: Separately billable procedures and treating other patients Critical care was necessary to treat or prevent imminent or life-threatening deterioration of the following conditions: Sepsis Critical care was time spent personally by me on the following activities: Development of treatment plan with patient or surrogate, discussions with consultants, evaluation of patient's response to treatment, examination of patient, ordering and performing treatments and interventions, ordering and review of laboratory studies, ordering and review of radiographic studies, pulse oximetry, re-evaluation of patient's condition and review of old charts Care discussed with: admitting provider Adam Tpaia DO 12/06/22 0709 [facility] 12-06-2022 Note Attestation signed by Michael Leblanc MD at 01/07/2023 10:55 AM ATTENDING ADDENDUM Patient Active Problem List Diagnosis Pneumatosis coli Perforated viscus Atrioventricular jhon re-entry tachycardia (CMS/HCC) (HCC) Bipolar disorder (HCC) Celiac disease Chest pain on breathing Diverticulitis Familial multiple polyposis syndrome Spondylolisthesis of lumbar region Low platelet count (HCC) Obesity Arthritis of hip Shortness of breath Steatosis of liver Tachycardia ESBL (extended spectrum beta-lactamase) producing bacteria infection Postoperative intra-abdominal abscess I independently saw the above patient and reviewed the recent events, imaging, labs, vital signs; I performed a physical exam and ROS on the same date of service as above. My findings agree with the above note except for any details corrected below. A complete review of systems was obtained and is negative except as stated in the resident note -Per Dr. Baker -Patient presents from [facility] after undergoing a L hip replacement on 12/04. Has had worsening abdominal pain, and was transferred to [facility] ER. -CT imaging reviewed, with concern for pneumatosis as well as air within the mesentery. -Patient with febrile illness, tachycardia, and mild leukocytosis of 12.2 -Patient with evidence of dehydration, Hb of 15 and lactic acidosis of 2.4 -Patients abdominal exam concerning for peritonitis, he has voluntary guarding and rigidity, and he is significantly distended. -Discussed with patient and operative exploration. Discussed diagnostic laparoscopy with possible conversion to exploratory laparotomy. Discussed risks, benefits, and potential complications of operative intervention. This included but was not limited to infection, bleeding, injury to intra-abdominal organs, need for conversion to open procedure, need for bowel resection, anastomotic leak, reoperation, open abdomen, need for ICU admission, mechanical ventilation, risk of anesthesia, and even . -Plan to proceed to the operating room, pre-op, consent I spent total time 75 minutes reviewing previous notes, test results, and face to face with Adam Lawson discussing the diagnosis and importance of compliance with the treatment plan as well as documenting on the day of the visit. Specifically, time spent coordinating care for review of lab work, review of CT scan, discussion with orthopedic service, discussion and obtaining consent for operative intervention. Michael Leblanc MD, FACS Trauma, Surgical Critical Care, & General Surgery Division of Trauma Department of Surgery [facility] Department of General Surgery Surgical Service ACS Resident History and Physical PATIENT NAME: Adam Lawson : 1965 ATTENDING PHYSICIAN: Adam Tapia,* ADMIT DATE: 12/06/2022 TODAY'S DATE: 12/06/2022 CHIEF COMPLAINT: Chief Complaint Patient presents with Abdominal Pain HISTORY OF PRESENT ILLNESS: Adam Lawson is a 57 y.o. male with PMHx of AVNRT, bipolar, celiac disease, GERD, hypertension, NJ, thrombocytopenia. Patient is status post left hip replacement at the [facility] 12/04. He has developed significant abdominal pain since this time and presented to the [facility] ER for evaluation. At time of consult patient reports 12 hours of worsening abdominal pain. The pain is in the mid abdomen and radiates to the pelvis. The pain has been increasing in severity. He is otherwise been tolerating a diet without nausea or vomiting. He has not had a BM or passed flatus since his orthopedic surgery. He reports low-grade fever at home. On review of chart patient febrile to 100.3, tachycardic 110s to 130s normotensive on 2 L nasal cannula. Labs with WBC 12.2, hemoglobin 15.0, platelets 190. BMP unremarkable. VBG with pH 7.5, PCO2 25, bicarb 19.6. Lactic acid elevated 2.4. CT abdomen pelvis was obtained which demonstrates a short segment of pneumatosis coli of the small bowel and a small dot of mesenteric air towards the anterior abdominal wall. Patient has surgical history of segmental sigmoid colectomy with primary anastomosis. Also surgical history of laparoscopic cholecystectomy. He is not on any antiplatelets or thinners. Distant history of smoking, social EtOH use. He has had x2 colonoscopy since his colectomy which she reports were normal. Family history of colorectal cancer Past Medical History: Diagnosis Date AVNRT (AV jhon re-entry tachycardia) (CMS/HCC) (HCC) Bipolar disorder (HCC) Celiac disease GERD (gastroesophageal reflux disease) Hepatic steatosis Hypertension NJ (obstructive sleep apnea) Thrombocytopenia (HCC) Past Surgical History: Procedure Laterality Date CHOLECYSTECTOMY COLON SURGER (more content not included)... [facility] 03-29-2022 Hospital Discharg e instructions Patient Education 03/29/2022 08:55:55 Epidural Steroid Injection, Care After Epidural Steroid Injection, Care After Refer to this sheet in the next few weeks. These instructions provide you with information about caring for yourself after your procedure. Your health care provider may also give you more specific instructions. Your treatment has been planned according to current medical practices, but problems sometimes occur. Call your health care provider if you have any problems or questions after your procedure. What can I expect after the procedure? After your procedure, it is common to feel a little discomfort at the injection site. Follow these instructions at home: For 24 hours after the procedure: ?Avoid using heat on the injection site. ?Do not take a tub bath, and do not soak in water. ?Do not drive if you received a medicine to help you relax (sedative). If directed, put ice on the injection site: ?Put ice in a plastic bag. ?Place a towel between your skin and the bag. ?Leave the ice on for 20 minutes, 2 3 times a day. Return to your normal activities as told by your health care provider. Ask your health care provider what activities are safe for you. You may remove the bandage (dressing) after 24 hours. Take mhlb-woy-mybtbea and prescription medicines only as told by your health care provider. Keep all follow-up visits as told by your health care provider. This is important. Contact a health care provider if: You have a fever. You continue to have pain and soreness around the injection site, even after taking wxlk-xdl-yrrpikb pain medicine. You have severe, sudden, or lasting nausea or vomiting. Get help right away if: You have severe pain at the injection site that is not relieved by medicines. You develop a severe headache or a stiff neck. You become sensitive to light. You have any new numbness or weakness in your legs or arms. You lose control of your bladder or bowel movements. You have trouble breathing. This information is not intended to replace advice given to you by your health care provider. Make sure you discuss any questions you have with your health care provider. Document Released: 02/12/2012 Document Revised: 10/10/2018 Document Reviewed: 02/12/2017 [employer] Patient Education 2020 [employer]. [facility] Pain Management Evaluation + Plan note Future Appointments Appointment Date:03/19/2022 08:30:00 AM Scheduled Provider:JORDAN VELASQUEZ MD Location:PM Office Appointment Type:PM OV [facility] Evaluation + Plan note Future Appointments Appointment Date:03/29/2022 08:30:00 AM Scheduled Provider: Location:Pain Management- [place] Appointment Type:PM Inj Spine L/S With Imaging [facility] Evaluation + Plan note Future Appointments Appointment Date:07/10/2022 01:45:00 PM Scheduled Provider:MICHELLE PHILLIP MD Location:[facility] 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 [facility] Pain Management Evaluation + Plan note Future Appointments Appointment Date:07/25/2023 01:30:00 PM Scheduled Provider:GERARD EGAN DO Location:[facility] [place] Appointment Type:OSM OV Review Testing [facility]* Diagnosis Perforated viscus- Primary [facility]* Diagnosis Ventral hernia without obstruction or gangrene- Primary Unspecified ventral hernia without mention of obstruction or gangrene [facility]* Diagnosis Essential (primary) hypertension Unspecified essential hypertension [facility]* Diagnosis Essential (primary) hypertension- Primary Unspecified essential hypertension [facility]* Diagnosis Ventral incisional hernia- Primary [facility]* Diagnosis Rectal bleeding- Primary Hemorrhage of rectum and anus [facility] Diagnosis Encounter for screening for malignant neoplasm of colon- Primary Special screening for malignant neoplasms, colon Rectal bleeding Hemorrhage of rectum and anus [facility] Diagnosis Ventral incisional hernia [facility]* Diagnosis Ventral incisional hernia- Primary Class 2 obesity with body mass index (BMI) of 37.0 to 37.9 in adult, unspecified obesity type, unspecified whether serious comorbidity present [facility]* Diagnosis Sigmoid diverticulitis- Primary Diverticulitis of colon (without mention of hemorrhage) Incisional hernia without obstruction or gangrene Obesity, unspecified Body mass index (BMI) 37.0-37.9, adult documented in this [facility] Narrative No data available for this section [facility] Hospital Discharge instructions No data available for this section [facility] Pain Management progress note No data available for this section [facility] Pain Management reason for referral (narrative)* Outpatient Procedure (Routine) - Pending Review Specialty Diagnoses / Procedures Referred By Contac t Referred To Contact [facility] Diagnoses Rectal bleeding Procedures COLONOSCOPY DIAGNOSTIC COLONOSCOPY FLX DX W/COLLJ SPEC WHEN John De La O MD [address] [place] [address] [place] [id number] Referral ID Status Reason Start Date Expiration Date Visits Requested Visits Authorized [id number] Pending Review Auto-Generat ed Referral 08/27/2024 1 1 [facility] for referral (narrative)* Outpatient Procedure (Routine) - Closed Specialty Diagnoses / Procedures Referred By Contac t Referred To Contact [facility] Diagnoses Rectal bleeding Procedures COLONOSCOPY DIAGNOSTIC COLONOSCOPY FLX DX W/COLLJ SPEC WHEN John De La O MD [address] [place] [address] [place] [address] Referral ID Status Reason Start Date Expiration Date V isits Requested Visits Authorized [id number] Closed Auto-Generate d Referral 08/27/2023 08/27/2024 1 1 [facility] for referral (narrative)* Consultation (Routine) - Pending Review Specialty Diagnoses / Procedures Referred By Contac t Referred To Contact Bariatrics Diagnoses Ventral incisional hernia Class 2 obesity with body mass index (BMI) of 37.0 to 37.9 in adult, unspecified obesity type, unspecified whether serious comorbidity present Procedures [place] OFFICE/OUTPATIENT NEW HIGH MDM 60-74 MINUTES Diya Rosales PA-C [address] [place] [address] [place] [address] [facility] [address] [place] [address] Referral ID Status Reason Start Date Expiration Date Visits Requested Visits Authorized [id number] Pending Review Specialty Services Required 3 10/01/2024 1 1 [facility] for visit Narrative* Outpatient Procedure (Routine) - Closed Specialty Diagnoses / Procedures Referred By Contac t Referred To Contact [facility] Diagnoses Rectal bleeding Procedures COLONOSCOPY DIAGNOSTIC COLONOSCOPY FLX DX W/COLLJ SPEC WHEN [facility] John Jordan MD [address] [place] [address] [facility] [address] [place] [address] Referral ID Status Reason Start Date Expiration Date V isits Requested Visits Authorized [id number] Closed Auto-Generate d Referral 08/27/2023 08/27/2024 1 1 [facility] Summary Purpose Family History No Family History Records Found Colon Cancer Status:Active Comments:Paterna l Uncle. Paternal Grandmother. Advance Directives No Advanced Directives Records FoundLatest Code Status on File Code Status Date Activated Date Inactivated Comments Full Code 12/06/2022 12:12 PM 12/20/2022 7:29 PM Latest Code Status on File Code Status Date Activated Date Inactivated Comments Full Code 12/06/2022 12:12 PM 12/20/2022 7:29 PM Reason for Referral Specialty Diagnoses / Procedures Referred By Contac t Referred To Contact Radiology Diagnoses Ventral incisional hernia Procedures CT abdomen pelvis w contrast Diya Rosales PA-C [address] [place] [address] [place] [address] Referral ID Status Reason Start Date Expiration Date V isits Requested Visits Authorized [id number] Authorized 09/02/2023 02/29/2024 1 1 Medications Administered Section Inactive Administered Medications - up to 3 most recent administrations Medication Order MAR Action Action Date Dose Rate Site diphenhydrAMINE 12.5-50 mg injection (BENADRYL) 12.5-50 mg, INTRAVENOUS, DIRECTED, Starting on [place] 09/19/23 at 1100, Until [place] 09/19/23 at 1459, DOSING DIRECTED BY PHYSICIAN FOR PROCEDURAL SEDATION ONLY, Intraprocedure Given 09/19/2023 10:35 AM EST 50 mg fentaNYL 50 mcg/mL 25-100 mcg injection (SUBLIMAZE) 25-100 mcg, INTRAVENOUS, DIRECTED, Starting on [place] 09/19/23 at 1100, Until [place] 09/19/23 at 1459, DOSING DIRECTED BY PHYSICIAN FOR PROCEDURAL SEDATION ONLY, Intraprocedure Given 09/19/2023 10:33 AM EST 50 mcg lactated ringers iv infusion 30 mL/hr, INTRAVENOUS, CONTINUOUS, Starting on [place] 09/19/23 at 1000, Until [place] 09/19/23 at 1106, Preprocedure New Bag/Syringe/Manish le 09/19/2023 10:12 AM EST 30 mL/hr 30 mL/hr Hand, Left midazolam 1-5 mg injection (VERSED) 1-5 mg, INTRAVENOUS, DIRECTED, Starting on [place] 09/19/23 at 1100, Until [place] 09/19/23 at 1459, DOSING DIRECTED BY PHYSICIAN FOR PROCEDURAL SEDATION ONLY, Intraprocedure Given 09/19/2023 10:37 AM EST 2 mg Additional Source Comments (unrecognized sect ion and content) No Status Records FoundNo Status Records FoundNo Status Records FoundNo Status Records FoundNo Status Records FoundNo Status Records FoundNo Status Records Found INFORMATION SOURCE (unrecogn ized section and content) DATE CREATED AUTHOR AUTHOR'S ORGANIZ ATION 03/23/2021 [facility] DATE CREATED AUTHOR AUTHOR'S ORGANIZ ATION 12/08/2021 [facility] DATE CREATED AUTHOR AUTHOR'S ORGANIZ ATION 01/01/2023 [facility] DATE CREATED AUTHOR AUTHOR'S ORGANIZ ATION 07/12/2023 [facility] ([place]) DATE CREATED AUTHOR AUTHOR'S ORGANIZ ATION 09/29/2023 [facility] DATE CREATED AUTHOR AUTHOR'S ORGANIZ ATION 11/26/2023 [facility] Care Team (unrecognized sect ion and content) Lead Sprinkler Relationship Specialty Start Date End Date None, Pcp [address] [place] [address] PCP - General 12/25/22 Lead Sprinkler Relationship Specialty Start Date End Date None, Pcp [address] [place] [address] PCP - General 12/25/22 02/18/23 Tommy Dan MD [address] [facility] [place] [phone] PCP - General Family Medicine 02/19/23 Tommy Dan MD [address] [facility] [place] [phone] Family Medicine 02/19/23 Lead Sprinkler Relationship Specialty Start Date End Date Tommy Dan MD [address] [facility] [place] [phone] PCP - General Family Medicine 02/19/23 Tommy Dan MD [address] [facility] [place] [phone] Family Medicine 02/19/23 Lead Sprinkler Relationship Specialty Start Date End Date Tommy Dan MD [address] [facility] [place] [phone] PCP - General Family Medicine 02/19/23 Tommy Dan MD [address] [facility] [place] [phone] Family Medicine 02/19/23 Lead Sprinkler Relationship Specialty Start Date End Date Tommy Dan MD [address] [facility] [place] [phone] PCP - General Family Medicine 02/19/23 Tommy Dan MD [address] [facility] [place] [phone] Family Medicine 02/19/23 Lead Sprinkler Relationship Specialty Start Date End Date Tommy Dan MD [address] [facility] [place] [phone] PCP - General Family Medicine 02/19/23 Tommy Dan MD [address] [place] [phone] Family Medicine 02/19/23 Lead Sprinkler Relationship Specialty Start Date End Date Tommy Dan MD [address] [place], [phone] PCP - General Family Medicine 02/19/23 Tommy Dan MD [address] [place], [phone] Family Medicine 02/19/23 Lead Sprinkler Relationship Specialty Start Date End Date Tommy Dan MD [address] [place] [address] PCP - General Family Medicine 08/20/23 Lead Sprinkler Relationship Specialty Start Date End Date Tommy Dan MD [address] [place], [place] [address] PCP - General Family Medicine 08/20/23 Lead Sprinkler Relationship Specialty Start Date End Date Tommy Dan MD [address] [place], [phone] PCP - General Family Medicine 02/19/23 Tommy Dan MD [address] [place], [phone] Family Medicine 02/19/23 Lead Sprinkler Relationship Specialty Start Date End Date Tommy Dan MD [address] [place] [phone] PCP - General Family Medicine 02/19/23 Tommy Dan MD [address] [place] [phone] Family Medicine 02/19/23 Lead Sprinkler Relationship Specialty Start Date End Date Tommy Dan MD [address] [place] [phone] PCP - General Family Medicine 02/19/23 Tommy Dan MD [address] [facility] [place] [phone] Family Medicine 02/19/23 Lead Sprinkler Relationship Specialty Start Date End Date Tommy Dan MD [address] [facility] [place] [address] PCP - General Family Medicine 02/19/23 Tommy Dan MD [address] [facility] [place] [address] Family Medicine 02/19/23 Care Team (unrecognized sect ion and content) Care Team Personnel Name: PHYSICIAN, NOT RECORDED Member Role: Primary Care Physician Care Team Related Persons Name: YOMAIRA LAWSON Care Team Personnel Name: PHYSICIAN, NOT RECORDED Member Role: Primary Care Physician Care Team Related Persons Name: YOMAIRA LAWSON Reason for Visit (unrecogniz ed section and content) Reason Comments Follow-up CT results Reason Onset Date Comments Appointment Request 03/08/2023 Reason Comments New Patient Reason Comments Consult Stomach pain x6 meghna hs, family history of stomach cancer. Specialty Diagnoses / Procedures Referred By Kasia flores Referred To Contact Radiology Diagnoses Ventral incisional hernia Procedures CT abdomen pelvis w contrast Diya Rosales PA-C [address] [facility] [address] [place] [address] Referral ID Status Reason Start Date Expiration Date Visits Re quested Visits Authorized [id number] Closed 09/02/2023 02/29/2024 1 1 Reason Comments Follow-up Reason Onset Date Comments update 10/08/2023 Reason Onset Date Comments Forms/questionnaires 11/21/2023 Mrs Radford er calling to check status of FMLA - I asked the patient to fax the forms to [phone]. I will get them filled out and signed once I received them. Patient's expressed understanding. Reason Comments Constipation Pt states last BM Sa tur morning. Pt denies any vomiting. Pt states having slight nausea. Pt states he abdomen feels bigger. Pt states he has a history of hernia. Source Comments (unrecognize d section and content) In the event this informatio n is protected by the Federal Confidentiality of Alcohol and Drug Abuse Patient Records regulations: The Federal rules restrict any use of the information to criminally investigate or prosecute any alcohol or drug abuse patient.[facility] the event this information is protected by the Federal Confidentiality of Alcohol and Drug Abuse Patient Records regulations: The Federal rules restrict any use of the information to criminally investigate or prosecute any alcohol or drug abuse patient[facility] Scheduled Active and Recently Administ ered Medications (unrecognized section and content) PRN Medication Order 11/23/2023 11/24/2023 11/25/2023 iopamidol (Isovue-370) 76 % injection 75 mL (COMPLETED) 75 mL, IntraVENous, IMG once PRN, contrast, Starting on Sat11/25/23 at 1548, For 1 dose 1558 (Given - Provid er: [facility]) FOR RECORDS PERTAINING TO PATIENTS WHO ARE OR HAVE BEEN ENROLLED IN A CHEMICAL DEPENDENCY/SUBSTANCEABUSE PROGRAM, SOME INFORMATION MAY BE OMITTED. This clinical summary was aggregated from multiple sources. Caution should be exercised in using it in the provision of clinical care. This summary normalizes information from multiple sources, and as a consequence, information in this document may materially change the coding, format and clinical context of patient data. In addition, data may be omitted in some cases. CLINICAL DECISIONS SHOULD BE BASED ON THE PRIMARY CLINICAL RECORDS. [employer] provides no warranty or guarantee of the accuracy or completeness of information in this document.
[2023-12-02 20:24] LABS: Reflex Troponin-HS? (from REC) Y
[2023-12-02 20:50] LABS: Troponin-I HS 5 pg/mL (3.0-78.0)
[2023-12-02 21:14] VITALS: BP 120/69; PULSE 58; RESP 18; TEMP 36.6; O2SAT 96
== END 2023-12-02 21:16 | disposition home or self-care (01) ==
PROVIDERS: Physician Assistant; Emergency Provider Emergency Medicine; PCP Family Medicine; Visit Provider Emergency Medicine
DX: R07.9 Chest pain, unspecified (principal); F17.220 Nicotine dependence, chewing tobacco, uncomplicated; I10 Essential (primary) hypertension; G47.33 Obstructive sleep apnea (adult) (pediatric); F41.9 Anxiety disorder, unspecified; F32.A Depression, unspecified; Z79.82 Long term (current) use of aspirin; Z79.899 Other long term (current) drug therapy
CPT/HCPCS: 71046; 80048; 84484; 85025; 93005; 99284; A4216

== ENCOUNTER → 2023-12-31 | Outpatient (CLI) | payer SELFPAY, OTHER ==
--- OUTSIDE RECORDS SUMMARY | 2023-12-31 06:09 | XMS RPT_ITS | CCD ---
Author Name Unknown Address [address] [place] [address] Organization [facility] Care Team Providers Care Telephone Directory Distributor Driver Name Role Phone PHYSICIAN, NOT RECORDED Primary Care Physician U navailable None, Pcp Primary Care Provider Unavaillori e None, Pcp Primary Care Provider UnavailTommy Baker MD Unavailable Tommy Callahan MD Primary Care Provider Tommy Callahan MD Unavailable Tommy Callahan MD Primary Care Provider GERARD EGAN DO Attending Unavaillori buckley PHYSICIAN, NOT RECORDED Primary Care UnavailTommy Gonzales MD Primary Care Provider [phone] JOHN IRBY Attending Unavailable TOMMY CALLAHAN Primary Care Unavailable JOHN IRBY Attending Unavailable JOHN IRBY Referring Unavailable TOMMY CALLAHAN Primary Care Unavailable JOHN IRBY Attending Unavailable TOMMY CALLAHAN Primary Care Unavailable Enrique Coleman PA-C Unavailable [facility] Unavailable [phone] Oral Surgery Provider Unavailable Dr. Zion Mullen MD Unavailable General Surgery Provider Unavailable Unavail Dr. Sha Mcallister MD ([facility]) Unavailable [phone] Sylwia Madrid MD Unavailable Radha Barragan LPN Unavailable Tommy Callahan MD Unavailable Fitz MERCHANT, Cynthia E Unavailable Unavailable Naveed REAL ESTATE OFFICER, Alia C Unavailable Unavailable Stewart WALKER, Phillip Clark Unavailable Jorge Alberto JACOBS, Jennifer Kenney Unavailable Unavail able Jose L REAL ESTATE OFFICER, Alena Unavailable Unavailable COIL FORMER-C, Yifan Shin Unavailable Lex JACOBS, Sugey Clark Unavailable Unavaila ble Mutersbasusannah REAL ESTATE OFFICER, Velma K Unavailable Unavai ghazala Degroot PA-C, Graciela J Unavailable Scottie (Dea), Guero Unavailable Unavailab le Richert REAL ESTATE OFFICER, Janessa L Unavailable Unavailab le Katarzyna REAL ESTATE OFFICER, Sylwia M Unavailable Unavailab le Conner REAL ESTATE OFFICER, Blank Nazario Unavailable Unavailab fred Sparks MA, Alena Unavailable Unavailable Kelsieerivy REAL ESTATE OFFICER, Anila Unavailable Unavailabl e Tito REAL ESTATE OFFICER, Stacy N Unavailable Unavaila ble Unavailable Unavailable [facility] Unavailable Dayan Mckeon MA Unavailable Unavailable COLEMAN, ENRIQUE PAC Attending Unavailable COLEMAN, ENRIQUE PAC Consulting Unavailable COLEMAN, ENRIQUE PAC Primary Care Unavailable COLEMAN, ENRIQUE PAC Admitting Unavailable PROVIDER, UNKNOWN Consulting Unavailable STELLA WELLER MD Referring Unavailable GRACIELA DEGROOT Attending Unavailable GRACIELA DEGROOT Primary Care Unavailable GRACIELA DEGROOT Admitting Unavailable COLEMAN, ENRIQUE PAC Consulting Unavailable PROVIDER, UNKNOWN Consulting Unavailable BROWN, TOMMY Primary Care Unavailable Genevieve MARQUEZ Attending Unavailable STELLA WELLER Attending Unavailable [facility] Primary Care Unavailable IRLANDA KATHLEEN Attending Unavailable [facility] Primary Care Unavailable VAISHNAVI BARNHART Attending Unavailable BROWN, TOMYM Primary Care Unavailable DIYA ROSALES Attending Unavailable BROWN, TOMMY Primary Care Unavailable KEVIN GANNON Attending Unavailable [facility] Primary Care Unavailable BROWN, TOMMY Primary Care Unavailable KEVIN GANNON Attending Unavailable BROWN, TOMMY Primary Care Unavailable KEVIN GANNON Referring Unavailable BROWN, TOMMY Primary Care Unavailable STELLA WELLER Attending Unavailable STELLA WELLER Referring Unavailable [facility] Primary Care Unavailable DIYA ROSALES Attending Unavailable DIYA ROSALES Referring Unavailable BROWN, TOMMY Primary Care Unavailable SAIDVAISHNAVI Admitting Unavailable SAIDVAISHNAVI Attending Unavailable SAIDVAISHNAVI Referring Unavailable BROWN, TOMMY Primary Care Unavailable Allergies Allergy Classification Reported Allergen(s) Allergy Type Date of Onset Reaction(s) Facility (15 sources) Gluten Propensity to adverse reactions 06-03-2015 Diarrhea [facility] (3 sources) Wheat gluten extract; Translations: [GLUTEN] Drug Allergy 06-03-2015 Diarrhea [facility] Work Phone: Medications Current Medications Medication Drug Class(es) Dates Sig (Normalized) Sig (Original) aspirin 81 mg delayed release oral tablet (12 sources) Platelet Aggregation Inhibitor, Nonsteroidal Anti-inflammatory Drug take 1 tablet by mouth once daily Aspirin 81 MG Oral Tablet Delayed Release ; 1 daily (81 MG) 12 hr buPROPion hydrochloride 150 mg extended release oral tablet (20 sources) Aminoketone Start: 12-16-2023 buPROPion HCL SR 150 mg tablet,12 hr sustained-releas e ; 1 (one) Tablet two times daily for 0 days Quantity: 60 {Tablet} Refills: 0 Ordered: 16-Dec-2023 HILARIA Coleman Start: 16-Dec-2023 Comments: pu Completed/Discontinued Medications Medication Drug Class(es) Dates Sig (Normalized) Sig (Original) acetaminophen 325 mg / oxyCODONE hydrochloride 5 mg oral tablet (16 sources) Opioid Agonist Start: 12-04-2022 End: 02-28-2023 take 1 tablet by mouth every four hours as needed for pain oxyCODONE-acetamino phen (Percocet) 5-325 MG tablet TAKE 1 TABLET BY MOUTH EVERY 4 HOURS (INTERVAL) NEEDED FOR PAIN 0 12/04/2022 02/28/2023 Discontinued (Med list cleanup) Problems Active Problems Problem Classification Problem Date Documented Date Episodic/Chronic Abdominal pain (20 sources) Abdominal pain; Translations: [Unspecified abdominal pain] 11-25-2023 Episodic Adjustment disorders (18 sources) Complicated grieving; 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] 11-25-2023 Chronic Administrative/socia l admission (12 sources) Issue of repeat prescriptions 08-04-2012 Episodic Anxiety disorders (18 sources) Anxiety; Translations: [Anxiety disorder, unspecified] 09-07-2016 Chronic Cardiac dysrhythmias (15 sources) AV jhon re-entry tachycardia; Translations: [Supraventricular tachycardia] Onset: 11-24-2021 12-26-2022 Chronic Coagulation and hemorrhagic disorders (15 sources) Platelet count below reference range; Translations: [Thrombocytopenia, unspecified] Onset: 12-26-2022 12-26-2022 Chronic Diseases of mouth; excluding dental (12 sources) Ulcer of mouth; Translations: [Other forms of stomatitis] 11-25-2023 Episodic Diverticulosis and diverticulitis (20 sources) Diverticulitis; Translations: [Diverticulitis of intestine, part unspecified, without perforation or abscess without bleeding] Onset: 12-26-2022 12-26-2022 Chronic E Codes: Cut/pierceb (18 sources) Accident caused by powered funds development director; Translations: [Contact with powered funds development director, initial encounter] 11-25-2023 Episodic Esophageal disorders (15 sources) Gastroesophageal reflux disease; Translations: [Gastro-esophageal reflux disease without esophagitis] Onset: 01-09-2023 01-24-2023 Chronic Essential hypertension (20 sources) Hypertensive disorder; Translations: [Essential (primary) hypertension] Onset: 01-09-2023 01-24-2023 Chronic Past or Other Problems Problem Classification Problem Date Documented Da te Episodic/Chronic Abdominal hernia (7 sources) Hernia of anterior abdominal wall; Translations: [Ventral hernia without obstruction or gangrene] Onset: 09-26-2023 Episodic Bacterial infection; unspecified site (19 sources) Infection due to ESBL bacteria; Translations: [Bacterial infection, unspecified] Onset: 01-04-2023 01-04-2023 Episodic Cardiac dysrhythmias (15 sources) Tachycardia; Translations: [Tachycardia, unspecified] Onset: 12-26-2022 12-26-2022 Episodic Complications of surgical procedures or medical care (17 sources) Postoperative intra-abdominal abscess; Translations: [Infection following a procedure, organ and space surgical site, initial encounter] Onset: 01-04-2023 01-04-2023 Episodic Other acquired deformities (20 sources) Lumbar [...] intestine (nontraumatic) (HCC)] Onset: 12-31-2022 Episodic Other lower respiratory disease (15 sources) Chest pain on breathing; Translations: [Chest pain on breathing] Onset: 12-26-2022 12-26-2022 Episodic Peritonitis and intestinal abscess (14 sources) Infectious disease of abdomen; Translations: [Peritonitis, unspecified] Onset: 12-31-2022 11-25-2023 Episodic Residual codes; unclassified (15 sources) History of partial resection of colon; Translations: [Acquired absence of other specified parts of digestive tract] Onset: 01-24-2023 01-24-2023 Episodic Unclassified (6 sources) Abdominal pain - The onset of the [...] stool softener with no improvement. reviewed by B 11-25-2023 Unclassified (6 sources) Mouth pain - Symptoms include mouth lesions [...] and puts listerine in it reviewed by B 01-15-2023 Unclassified (6 sources) Preoperative Clearance - Surgical procedure(s) planned: other (Left hip arthroplasty). Date of procedure: (12-04-22) Surgeon: (Dr Keo Vidal) and Location of procedure: ([facility]) There have been no problems with general anesthesia or blood/blood products. Prosthetics include dentures (Full upper and lower). Note for Pre-operative clearance : Saw solar engineer this morning and had an EKG done at that time.Labs to be completed on .Patient reports that he is feeling well at this time. Denies any chest pain, fatigue, shortness of breath, or palpitations. 11-27-2022 Unclassified (6 sources) Fever - The onset of the fever [...] Continues with pain and fever. 10-08-2022 Unclassified (6 sources) Consult - Patient is here today to [...] to relieve the pain. He stands on [employer] for his job. 09-24-2022 Unclassified (6 sources) grief reaction - pts father at 1 [...] his and other family members 12-12-2021 Unclassified (6 sources) Hip pain - The onset of the [...] to come out of socket. 07-21-2021 Unclassified (2 sources) Transition into care - The patient is transitioning into care from a hospital and a summary of care was reviewed. 12-08-2019 Unclassified (2 sources) [ADDITIONAL REASON] Follow up consultation - The patient is here to follow-up after hospitalization ([facility] with bowel obstruction.) on : (11-30-19 to 12-01-19.). Note for Consultation follow-up : Is feeling well. reviewed by [facility] 12-08-2019 Unclassified (6 sources) Preoperative Clearance - Surgical procedure(s) planned: other (Right shoulder Rotator cuff repair). Date of procedure: (08-28-18) Surgeon: and Location of procedure: ([facility] There have been no problems with general anesthesia or blood/blood products. Prosthetics include dentures and eye glasses. Note for Pre-operative clearance : Saw Dr Dillard in November 2017. Had an EKG and stress test at that time. 08-18-2018 Unclassified (6 sources) Breathing trouble - The onset of the [...] went away after 10-15 minutes 08-26-2017 Unclassified (5 sources) Follow up consultation - The patient is here to follow-up after Emergency Room/Urgent Care on : (Patient seen at [facility] on 05/17/2017 for lawnmower accident. Was discharged to home. Patient went to [facility] ER on 05/20/2017 due to having pain [...] pain has been improving slowely. 06-04-2017 Unclassified (5 sources) [ADDITIONAL REASON] Transition into care - The patient is transitioning into care from an emergency room and a summary of care was reviewed. 06-04-2017 Unclassified (6 sources) funds development director accident - patient is herer for a funds development director accident. he was mowing the lawn going down a hill and rolled off the funds development director. his pain while moving from a scale [...] has taken tylenol for pain. Reviewed by JPK. 05-17-2017 Unclassified (6 sources) Follow up consultation - The patient is here to follow-up after hospitalization ([facility]) on : (08/28-09/04). Follow up visit with no current symptoms. Note for Consultation follow-up : Patient was hospitalized for recurrent diverticulitis. He had a sigmoid partial colectomy. 09-10-2016 Unclassified (6 sources) Rectal bleeding - The onset of the [...] 15# in the 10 days. 11-15-2015 Unclassified (6 sources) Abdominal pain - The onset of the [...] have been associated with fever. 09-08-2015 Unclassified (6 sources) Follow up consultation - The patient is here to follow-up after hospitalization on : (10/19/14 to 10/21/14). Current symptoms include abdominal pain. Note for Consultation follow-up : Pt was in hospital for diverticulitis. Pt was given Cipro, Flagyl and percocet. 10-23-2014 Unclassified (6 sources) Back pain - The onset of the [...] pain : also headache . reviewed by [facility] 07-21-2012 Unclassified (6 sources) Insect Bite/Sting - This occurred 1 day(s) [...] not know what bit him. reviewed by [facility] 05-27-2012 Unclassified (6 sources) Bloody stools - The onset of the [...] about 10 years ago by doctor in [place]. reviewed by [facility] 09-24-2011 Unclassified (6 sources) Follow up consultation - The patient is [...] of family history of clots. 06-29-2011 Unclassified (6 sources) Anxiety - The onset of the anxiety has been gradual and has been occurring in a persistent pattern for 2 weeks. The course has been increasing. The anxiety is characterized as apprehension. The phobia is defined as social phobias (diagnosed with social phobia few yrs ago. Son is getting in 2 days and apprehensive about that. There is conflict in the nondenominational and these people will be at the wedding. 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 Precipitating factors include specific forthcoming events. The symptoms have been associated with agitation and chest pain. 03-14-2011 Unclassified (6 sources) Shoulder Pain - The onset of the [...] pain was preceded by trauma. 02-01-2011 Unclassified (4 sources) Follow up consultation - The patient is here to follow-up after hospitalization ([facility] with bowel obstruction.) on : (11-30-19 to 12-01-19.). Note for Consultation follow-up : Is feeling well. reviewed by [facility] 12-08-2019 Unclassified (4 sources) [ADDITIONAL REASON] Transition into care - The patient is transitioning into care from a hospital and a summary of care was reviewed. 12-08-2019 Unclassified (1 source) Transition into care - The patient is transitioning into care from an emergency room and a summary of care was reviewed. 06-04-2017 Unclassified (1 source) [ADDITIONAL REASON] Follow up consultation - The patient is here to follow-up after Emergency Room/Urgent Care on : (Patient seen at [facility] on 05/17/2017 for lawnmower accident. Was discharged to home. Patient went to [facility] ER on 05/20/2017 due to having pain [...] pain has been improving slowely. 06-04-2017 Unclassified (2 sources) Low back pain, unspecified; Translations: [Low back pain, unspecified] Onset: 02-25-2023 Results Test Name Value Interpretation Reference Range Facil ity Vital Signs Date Time Vital Sign Value Performing Clinician Nikki litmaida 12-13-2023 09:36-0500 Body height 180.34 cm Dayan Mckeon [facility] [employer]. 12-13-2023 09:36-0500 Body mass index (BMI) [Ratio] 35.43 kg/m2 Dayan Mckeon MA [facility] [employer] 12-13-2023 09:36-0500 Body surface area Derived from formula 2.33 m2 Dayan Mckeon MA [facility] [employer]. 12-13-2023 09:36-0500 Body weight 115.21 kg Dayan Mckeon MA [facility] [employer]. 12-13-2023 09:36-0500 Diastolic blood pressure 76 mm[Hg] Dayan Mckeon MA [facility] [employer] Encounters Encounter Date Encounter Type Care Provider Facility Start: 12-27-2023 Evaluation and management of inpatient [facility] Start: 12-13-2023 End: 12-13-2023 ambulatory ENRIQUE COLEMAN [facility] Start: 12-13-2023 End: 12-13-2023 Office outpatient visit 15 minutes Enrique Coleman PA-C Work Phone: [facility] Start: 12-13-2023 Review Enrique Russell Work Phone: [facility] Start: 11-25-2023 End: 11-25-2023 Emergency department patient visit TOMMY [facility] Start: 11-25-2023 End: 11-25-2023 Emergency department patient visit Genevieve Marquez MD Work Phone: [facility] Procedures Date Procedure Procedure Detail Performing Clinician Start: 12-13-2023 End: 12-13-2023 Radex spine lumbosacral minimum 4 views Enrique Coleman PA-C Work Phone: Start: 11-25-2023 Ct abdomen & pelvis w/contrast material Lilia CORTES Work Phone: Start: 11-25-2023 Urinalysis complete panel - Urine Lilia CORTES Work Phone: Start: 11-25-2023 Urnls dip stick/tabl et reagent auto microscopy Lilia CORTES Work Phone: Start: 11-25-2023 Comprehensive metabo lic panel Lilia CORTES Work Phone: Start: 10-02-2023 Follow-up visit Follow-up DIYA ROSALES Start: 09-19-2023 End: 09-19-2023 Colonoscopy flx dx w/collj spec when pfrmd John Irby MD Work Phone: Plan of Treatment Date Care Activity Detail Author Start: 2027 RSV Immunization aged 60 or older (1 - 1-dose 60+ series) RSV Immunization aged 60 or older (1 - 1-dose 60+ series) [facility] Start: 09-19-2024 Colonoscopy Colonoscopy [facility] Start: 09-19-2024 Colorectal Cancer Screening Colorectal Cancer Screening [facility] Start: 01-15-2024 End: 01-15-2024 Patient encounter procedure 01/15/2024 11:30 AM EST Office Visit [facility] [address] [place] [id number] Diya Rosales, HILARIA [address] [place], [place] [address] [facility] Start: 01-06-2024 End: 01-06-2024 Admission to same day surgery center 01/06/2024 7:30 AM EST - 01/06/2024 12:30 PM EST Surgery [facility] MA[facility] OR [address] [place] [address] Vaishnavi Barnhart MD [address] [place] [id number] ANTERIOR VS POSTERIOR COMPONENT SEPARATION WITH MESH PLACEMENT [[id number] (CPT )] [facility] Payers Date Payer Category Payer Unknown 133 2022 Unknown [id number] 2022 Unknown [id number] 1965 Unknown [id number] 1965 Unknown [id number] 1965 Unknown [id number] Social History Date Type Detail Facility Tobacco Nicotine Use: sn uff. Type: Oral (Snuff, Chew). [facility] Sex Assigned At [facility] Start: 01-04-2023 Tobacco smoking status NHIS Never smoked tobacco [facility] Start: 01-04-2023 Tobacco use and exposure Smokeless tobacco non-user [facility] Start: 01-04-2023 End: 11-25-2023 Alcohol intake Lifetime non-drinker (finding) [facility] Start: 12-06-2022 History SDOH Alcohol Frequency 4 [facility] Start: 12-06-2022 History SDOH Alcohol Std Drinks 1 [facility] Start: 1965 Sex Assigned At Not on file [facility] Start: 01-14-2023 End: 03-27-2023 Exposure to SARS-CoV-2 (event) Not sure [facility] Start: 12-06-2022 End: 10-02-2023 History of Social function [facility] Start: 12-06-2022 End: 10-02-2023 Alcohol Use Disorder Identification Test - Consumption [AUDIT-C] [facility] How often to you hav e a drink containing alcohol? 2-3 time sa week [facility] How many standard dr inks containing alcohol do you have on a typical day? 1 or 2 [facility] How often do you hav e 6 or more drinks on 1 occasion? Never [facility] Start: 08-27-2023 Tobacco smoking status NHIS Smokes tobacco daily [facility] History of tobacco use Cigar Smoker [facility] Start: 08-27-2023 End: 09-19-2023 Tobacco use and exposure User of smokeless tobacco [facility] Start: 08-27-2023 End: 09-19-2023 Alcohol intake Current drinker of alcohol (finding) [facility] National Score (1-10 0), lower number is lower risk 47 [facility] Start: 08-27-2023 Tobacco Comment 2 cigars a day and snuff [facility] Start: 09-19-2023 Tobacco smoking status NHIS Occasional tobacco smoker [facility] History of tobacco use Snuff User [facility] Tobacco Use: Tobacco Use: ; C urrent some day smoker. [facility]. Male [facility] Work Phone: Functional Status Date Assessment Result Facility 03-29-[address] [facility] Mental Status Date Assessment Result Facility 03-29-2022 Mental Status [facility] Clinical Notes 03-29-2022 [...] respirations upon leaving ED Elisha Bee RN 11/25/23 1810 [facility] 11-25-2023 Emergency department Note Pt provided with & educated on discharge paperwork, follow up care, and new medication. Pt verbalized understanding with no further questions. Pt stable, A&O x4, with even & unlabored respirations upon leaving ED Elisha Bee RN 11/25/23 1810 Emergency Department Encounter [facility] Patient: Adam Lawson [...] dictating provider for clarification) Genevieve Marquez MD [facility] Genevieve Marquez MD 11/25/23 1648 documented in this encounter [facility] 11-25-2023 Hospital Discharg e instructions SOPHIA Calvo [...] be sent through Care Everywhere.Diverticulitis Discharge Instructions (Slovak)documented in this encounter [facility] 11-25-2023 Physician Emergency department Note Emergency Department Encounter [facility] Patient: Adam Lawson [...] for clarification) Genevieve Marquez MD Acute Care [facility] Genevieve Marquez MD 11/25/23 [id number] [facility] [employer] Phone: 11-21-2023 Telephone encounter Note Mrs Lawson calling to check status of FMLA - I asked the patient to fax the forms to [phone]. I will get them filled out and signed once I received them. Patient's expressed understanding. [facility] 11-21-2023 Miscellaneous Notes Mrs Lawson calling to check status of FMLA - I asked the patient to fax the forms to [phone]. I will get them filled out and signed once I received them. Patient's expressed understanding. documented in this encounter [facility] 10-14-2023 Telephone encounter Note Yomaira notified, voiced her understanding. [facility] 10-14-2023 Miscellaneous Notes Yomaira notified, voiced her [...] Name of caller: Yomaira Contact phone number: [phone] Relationship to Patient: spouse/SO Provider: Deana Practice: [...] their call: No documented in this encounter [facility] 10-09-2023 Telephone encounter Note Left voicemail for Yomaira of information in Dr. Leblanc's note. To call with any questions. [facility] 10-09-2023 Telephone encounter Note No he does not need any surgery from my perspective. He does not have a desmoid tumor. His pathology revealed desmoid fibromatosis, but he does not appear to have disease on his scan. Michael [employer] Work Phone: 10-09-2023 Telephone encounter Note No he does not need any surgery from my perspective. He does not have a desmoid tumor. His pathology revealed desmoid fibromatosis, but he does not appear to have disease on his scan. [facility] [employer] 10-08-2023 Note Case# [id number] Procedure: anterior versus posterior component separation with mesh placement. Sx Date: 01/06/24 730 AM Time: 5 HOURS Location: [facility] Anesthesia: GENERAL CPT: 17633 ICD-10: K43.2, E66.9, Z68.37 Special Equipment: PAT: 12/30/23 2PM COMBO WITH SUBICHIN AND ADMISSION NEEDED FOR OBSERVATION TO ONE DAY. SCHEDULE AFTER 01-04. MERISSA FROM THE AC ADVISED THAT PROCEDURE IS APPROVED AND NO PRIOR AUTH IS REQUIRED. [facility] 10-08-2023 Telephone encounter Note Name of caller: Yomaira Contact phone number: [phone] Relationship to Patient: spouse/SO Provider: Deana Practice: [...] business hours to return their call: No [facility] 10-02-2023 History of Presen t illness Narrative [...] well as umbilical hernia. According to Dr. Barnhart's initial evaluation, the ventral hernia was approximately [...] will be a combination case with Dr. Barnhart's partner, Dr. Sher. We also had a [...] Diya Ngo PA-C documented in this encounter [facility] 09-26-2023 Note HNO ID: [id number] Author: John Irby MD Service: ? Author Type: Physician Type: Progress Notes Filed: 09/26/2023 2:09 PM Note Text: Subjective: Patient is status post a colonoscopy completed. [facility] removed a polyp in his [...] to have another colonoscopy in 5 years [facility] 09-19-2023 Nurse Note Patient freely passing flatus and states abdomen is much more comfortable. Assisted with dressing by his . Ambulated to vehicle at 1155. Dinah Armenta RN Patient ambulated to [facility] with assistance of nurse. Has distended belly and needs to release flatus. All safety precautions in place' Arrived in phase II via cart. Left lateral position. Sedated, but responds to verbal stimuli. Color normal; skin warm and dry. Respirations wnl and unlabored. Abdomen soft and with + bowel sounds in quads X 4. Patient resting comfortably. Family at bedside. Dr. Irby at bedside to review procedure and recommendations. Dinah Armenta RN documented in this encounter [facility] 09-19-2023 History and physical note Images from the original note were not included. HISTORY AND PHYSICAL Adam Anne Marie Lawson 1965 REFERRING PHYSICIAN: Tommy Callahan MD CHIEF COMPLAINT: Consult (Stomach pain x6 [...] today at the request of Dr. Tommy Callahan MD for my opinion and advice regarding Rectal bleeding (primary encounter diagnosis). PAST MEDICAL HISTORY PAST MEDICAL HISTORY Diagnosis Date Bipolar 1 disorder (HCC) Celiac disease Depression Diverticulitis PAST SURGICAL HISTORY PAST SURGICAL HISTORY Procedure Laterality Date AMP /11/12 JT/PHALANX W/NEURECT W/DIR CLSR COLONOSCOPY FLX DX W/COLLJ SPEC WHEN PFRMD 06/24/2014 Colonoscopy [facility] COLONOSCOPY FLX DX W/COLLJ SPEC WHEN PFRMD 10/16/2011 Colonoscopy [facility] COLONOSCOPY FLX DX W/COLLJ SPEC WHEN PFRMD 11/28/2012 Colonoscopy [facility] HEMORRHOID SURGERY HX with fissurectomy PAST SURGICAL [...] entered by the nurse and reviewed by la Nursing Notes: Darcie Serrato RN 08/27/2023 4:29 [...] findings have been communicated to Dr. Tommy Callahan MD via shared medical record. This note will be forwarded to Dr. Tommy Callahan MD. Return to Clinic: The patient is instructed to follow-up with me 1 week post operatively. John Irby III, MD UPDATED HISTORY AND PHYSICAL EXAMINATION [...] be found in the attached. SIGNATURE: John Irby III, MD PATIENT NAME: Adam Lawson DATE: September 19, 2023 TIME: 10:33 AM documented in this encounter [facility] 08-27-2023 Note HNO ID: [id number] Author: John Irby MD Service: ? Author Type: Physician Type: Progress Notes Filed: 09/13/2023 2:17 PM Note Text: HISTORY AND PHYSICAL Adam Lawson 1965 REFERRING PHYSICIAN: Tommy Callahan MD CHIEF COMPLAINT: Consult (Stomach pain x6 [...] today at the request of Dr. Tommy Callahan MD for my opinion and advice regarding Rectal bleeding (primary encounter diagnosis). PAST MEDICAL HISTORY Diagnosis Date Bipolar 1 disorder (HCC) Celiac disease Depression Diverticulitis PAST SURGICAL HISTORY Procedure Laterality Date AMP /11/12 JT/PHALANX W/NEURECT W/DIR CLSR COLONOSCOPY FLX DX W/COLLJ SPEC WHEN PFRMD 06/24/2014 Colonoscopy [facility] COLONOSCOPY FLX DX W/COLLJ SPEC WHEN PFRMD 10/16/2011 Colonoscopy [facility] COLONOSCOPY FLX DX W/COLLJ SPEC WHEN PFRMD 11/28/2012 Colonoscopy [facility] HEMORRHOID SURGERY HX with fissurectomy PAST SURGICAL [...] 2017 Darcie Link (more content not included)... [facility] 08-27-2023 Nurse Note REVIEW OF SYSTEMS: General: [...] last Mammogram screening? N/A Last Colonoscopy: Possibly 2016 Darcie Serrato RN documented in this encounter [facility] 08-27-2023 Instructions John Irby MD - 08/27/2023 4:04 PM EDT Images [...] If you do not have a responsible concrete mixing truck driver (family member or friend) with you to [...] exam. 2 10/2019 documented in this encounter [facility] 08-27-2023 History of Presen t illness Narrative HISTORY AND PHYSICAL Adam Lawson 1965 REFERRING PHYSICIAN: Tommy Callahan MD CHIEF COMPLAINT: Consult (Stomach pain x6 [...] today at the request of Dr. Tommy Callahan MD for my opinion and advice regarding Rectal bleeding (primary encounter diagnosis). PAST MEDICAL HISTORY Diagnosis Date Bipolar 1 disorder (HCC) Celiac disease Depression Diverticulitis PAST SURGICAL HISTORY Procedure Laterality Date AMP /11/12 JT/PHALANX W/NEURECT W/DIR CLSR COLONOSCOPY FLX DX W/COLLJ SPEC WHEN PFRMD 06/24/2014 Colonoscopy [facility] COLONOSCOPY FLX DX W/COLLJ SPEC WHEN PFRMD 10/16/2011 Colonoscopy [facility] COLONOSCOPY FLX DX W/COLLJ SPEC WHEN PFRMD 11/28/2012 Colonoscopy [facility] HEMORRHOID SURGERY HX with fissurectomy PAST SURGICAL [...] findings have been communicated to Dr. Tommy Callahan MD via shared medical record. This note will be forwarded to Dr. Tommy Callahan MD. Return to Clinic: The patient is instructed to follow-up with me 1 week post operatively. John Irby III, MD documented in this encounter [facility] 03-27-2023 Note Addended by: DIYA LAW on: 09/02/2023 08:03 AM Modules accepted: [facility] 03-27-2023 History of Presen t illness Narrative [...] voice recognition software. documented in this encounter [facility] 03-27-2023 Miscellaneous Notes Addended by: DIYA ROSALES on: 09/02/2023 08:03 AM Modules accepted: Orders documented in this encounter [facility] 03-27-2023 Note Addended by: DIYA LAW on: 09/02/2023 08:03 AM Modules accepted: Orders [facility] Work Phone: 03-08-2023 Note Name of Caller: Yomaira Contact Reason for Appointment: Ventral hernia without obstruction or gangrene, refer to msg on referral Office Name[place] [facility] [place] Medication Refills need, if any: N/A Medication Name: N/A [facility] 03-08-2023 Telephone encounter Note Name of Caller: Yomaira Contact Reason for Appointment: Ventral hernia without obstruction or gangrene, refer to msg on referral Office Name: [facility] Medication Refills need, if any: N/A Medication Name: N/A [facility] 03-08-2023 Miscellaneous Notes Name of Caller: Yomaira Contact Reason for Appointment: Ventral hernia without obstruction or gangrene, refer to msg on referral Office Name: [facility] Medication Refills need, if any: N/A Medication Name: N/A documented in this encounter [facility] 02-28-2023 History of Presen t illness Narrative [...] This note may have been dictated using [employer] Medical Practice Edition 2.6 and/or [employer] Voice Recognition Feature. The document was proofread; however, unrecognized voice recognition security installation technician errors may be present. Associated attestation - [...] MD Division of Trauma Department of Surgery [facility] Pager: [phone] documented in this encounter [facility] 02-08-2023 Telephone encounter Note Called Adam Lawson to enquire about back pain to see what the nature of the concern was. Unusual that this would be related to the surgical procedure or which study that is required. Will possibly attempted to call back tomorrow. Message was left on the answering machine to call back/medical consultant attending. Arturo Desai MD General Surgery, PGY5 [facility] [employer] Work Phone: 02-08-2023 Miscellaneous Notes Called Adam Lawson to enquire about back pain to see what the nature of the concern was. Unusual that this would be related to the surgical procedure or which study that is required. Will possibly attempted to call back tomorrow. Message was left on the answering machine to call back/medical consultant attending. Arturo Desai MD General Surgery, PGY5 documented in this encounter [facility] 01-24-2023 History of Presen t illness Narrative [...] other concerns. He currently follows up at [facility]. -Surgical pathology reviewed with the patient -All of the patient's questions were answered -Patient discussed with Dr. Gannon Follow up: Follow up in about 4 weeks (around 02/21/2023). Controlled Substances Monitoring: reviewed 01/24/23 by MD Kevin Nolasco MD General Surgery PGY-1 01/24/23 4:08 PM This note may have been dictated using [employer] Medical Practice Edition 2.6 and/or [employer] Voice Recognition Feature. The document was proofread; however, unrecognized voice recognition security installation technician errors may be present. Associated attestation - [...] MD Division of Trauma Department of Surgery [facility] Pager: [phone] documented in this encounter [facility] 03-29-2022 Hospital Discharg e instructions Patient [...] the bandage (dressing) after 24 hours. Take quks-kqx-pujfwix and prescription medicines only as told by your health care provider. Keep all follow-up visits as told by your health care provider. This is important. Contact a health care provider if: You have a fever. You continue to have pain and soreness around the injection site, even after taking ouzs-bns-cyhbyni pain medicine. You have severe, sudden, or [...] 02/12/2012 Document Revised: 10/10/2018 Document Reviewed: 02/12/2017 [employer] Patient Education 2020 [employer]. [facility] Evaluation + Plan note Future Appointments Appointment Date:03/19/2022 08:30:00 AM Scheduled Provider:JORDAN VELASQUEZ MD Location:PM Office Appointment Type:PM OV [facility] Evaluation + Plan note Future Appointments Appointment Date:03/29/2022 08:30:00 AM Scheduled Provider: Location:Pain Management- [place] Appointment Type:PM Inj Spine L/S With Imaging [facility] Evaluation + Plan note Future Appointments Appointment Date:07/10/2022 01:45:00 PM Scheduled Provider:MICHELLE PHILLIP MD Location:NEUROS Appointment Type:NS COIL FORMER [facility] Pain Management Evaluation + Plan note Future Appointments Appointment Date:07/25/2023 01:30:00 PM Scheduled Provider:GERARD EGAN DO Location:[facility] Appointment Type:OSM OV Review Testing [facility] documented in this encounter [facility]* Diagnosis Perforated viscus- Primary documented in this encounter [facility]* Diagnosis Ventral hernia without obstruction or gangrene- Primary Unspecified ventral hernia without mention of obstruction or gangrene documented in this encounter [facility]* Diagnosis Essential (primary) hypertension Unspecified essential hypertension documented in this encounter [facility]* Diagnosis Essential (primary) hypertension- Primary Unspecified essential hypertension documented in this encounter [facility]* Diagnosis Ventral incisional hernia- Primary documented in this encounter [facility]* Diagnosis Rectal bleeding- Primary Hemorrhage of rectum and anus documented in this encounter [facility] note* Diagnosis Encounter for screening for malignant neoplasm of colon- Primary Special screening for malignant neoplasms, colon Rectal bleeding Hemorrhage of rectum and anus documented in this encounter [facility] note* Diagnosis Ventral incisional hernia documented in this encounter [facility] note* Diagnosis Ventral incisional hernia- Primary Class 2 obesity with body mass index (BMI) of 37.0 to 37.9 in adult, unspecified obesity type, unspecified whether serious comorbidity present documented in this encounter [facility] note* Diagnosis Sigmoid diverticulitis- Primary Diverticulitis of colon (without mention of hemorrhage) Incisional hernia without obstruction or gangrene Obesity, unspecified Body mass index (BMI) 37.0-37.9, adult documented in this encounter [facility] course Narrative No data available for this section [facility] Hospital Discharge instructions No data available for this section [facility] progress note No data available for this section [facility] reason for referral (narrative)* Outpatient Procedure (Routine) - Pending Review Specialty Diagnoses / Procedures Referred By Kasia flores Referred To Contact [facility] Diagnoses Rectal bleeding Procedures COLONOSCOPY DIAGNOSTIC COLONOSCOPY FLX DX W/COLLJ SPEC WHEN John De La O MD [address] [place] [address] [place] [address] Referral ID Status Reason Start Date Expiration Date Visits Requested Visits Authorized [id number] Pending Review Auto-Generat ed Referral 3 08/27/2024 1 1 [facility] for referral (narrative)* Outpatient Procedure (Routine) - Closed Specialty Diagnoses / Procedures Referred By Kasia flores Referred To Contact [facility] Diagnoses Rectal bleeding Procedures COLONOSCOPY DIAGNOSTIC COLONOSCOPY FLX DX W/COLLJ SPEC WHEN John De La O MD [address] [place] [address] [facility] [address] [place] [id number] Referral ID Status Reason Start Date Expiration Date V isits Requested Visits Authorized [id number] Closed Auto-Generate d Referral 08/27/2023 08/27/2024 1 1 [facility] for referral (narrative)* Consultation (Routine) - Pending Review Specialty Diagnoses / Procedures Referred By Contac t Referred To Contact Bariatrics Diagnoses Ventral incisional hernia Class 2 obesity with body mass index (BMI) of 37.0 to 37.9 in adult, unspecified obesity type, unspecified whether serious comorbidity present Procedures [place] OFFICE/OUTPATIENT NEW HIGH MDM 60-74 MINUTES Diya Rosales PA-C [address] [facility] [place] [address] [facility] [address] [place] [address] Referral ID Status Reason Start Date Expiration Date Visits Requested Visits Authorized [id number] Pending Review Specialty Services Required 3 10/01/2024 1 1 [facility] for visit Narrative* Outpatient Procedure (Routine) - Closed Specialty Diagnoses / Procedures Referred By Contac t Referred To Contact [facility] Diagnoses Rectal bleeding Procedures COLONOSCOPY DIAGNOSTIC COLONOSCOPY FLX DX W/COLLJ SPEC WHEN PFRMD John Irby MD [address] [place] [address] [facility] [address] [place] [address] Referral ID Status Reason Start Date Expiration Date V isits Requested Visits Authorized [id number] Closed Auto-Generate d Referral 08/27/2023 08/27/2024 1 1 [facility] Summary Purpose Family History No Family History Records Found Colon Cancer Status:Active Comments:Paterna l Uncle. Paternal Grandmother. Colon Cancer Status:Active Comments:Paterna l Uncle. Paternal Grandmother. Colon Cancer Status:Active Comments:Paterna l Uncle. Paternal Grandmother. Colon Cancer Status:Active Comments:Paterna l Uncle. Paternal Grandmother. Colon Cancer Status:Active Comments:Paterna l Uncle. Paternal Grandmother. Colon Cancer Status:Active Comments:Paterna l Uncle. Paternal Grandmother. Advance Directives No Advanced Directives Records FoundLatest Code Status on File Code Status Date Activated Date Inactivated Comments Full Code 12/06/2022 12:12 PM 12/20/2022 7:29 PM Latest Code Status on File Code Status Date Activated Date Inactivated Comments Full Code 12/06/2022 12:12 PM 12/20/2022 7:29 PM Reason for Referral Specialty Diagnoses / Procedures Referred By Kasia flores Referred To Contact Radiology Diagnoses Ventral incisional hernia Procedures CT abdomen pelvis w contrast iDya Rosales PA-C [address] [place] [address] [place] [address] Referral ID Status Reason Start Date Expiration Date V isits Requested Visits Authorized [id number] Authorized 09/02/2023 02/29/2024 1 1 Medications Administered [...] DATE CREATED AUTHOR AUTHOR'S ORGANIZ ATION 03/23/2021 [facility] DATE CREATED AUTHOR AUTHOR'S ORGANIZ ATION 12/08/2021 [facility] Reference Lab DATE CREATED AUTHOR AUTHOR'S ORGANIZ ATION 07/12/2023 [facility] ([place]) DATE CREATED AUTHOR AUTHOR'S ORGANIZ ATION 09/29/2023 [facility] DATE CREATED AUTHOR AUTHOR'S ORGANIZ ATION 12/24/2023 [facility] DATE CREATED AUTHOR AUTHOR'S ORGANIZ ATION 12/29/2023 [facility] Care Team (unrecognized sect ion and content) Telephone Directory Distributor Driver Relationship Specialty Start Date End Date None, Pcp [address] [place] [address] PCP - General 12/25/22 Telephone Directory Distributor Driver Relationship Specialty Start Date End Date None, Pcp [address] [place] [address] PCP - General 12/25/22 02/18/23 Tommy Callahan MD [address] [place] [phone] PCP - General Family Medicine 02/19/23 Tommy Callahan MD [address] [place] [address] Family Medicine 02/19/23 Telephone Directory Distributor Driver Relationship Specialty Start Date End Date Tommy Callahan MD [address] [place] [phone] PCP - General Family Medicine 02/19/23 Tommy Callahan MD [address] [place] [phone] Family Medicine 02/19/23 Telephone Directory Distributor Driver Relationship Specialty Start Date End Date Tommy Callahan MD [address] [place] [phone] PCP - General Family Medicine 02/19/23 Tommy Callahan MD [address] [place] [phone] Family Medicine 02/19/23 Telephone Directory Distributor Driver Relationship Specialty Start Date End Date Tommy Callahan MD [address] [place] [phone] PCP - General Family Medicine 02/19/23 Tommy Callahan MD [address] [place] [phone] Family Medicine 02/19/23 Telephone Directory Distributor Driver Relationship Specialty Start Date End Date Tommy Callahan MD [address] [place] [address] [place] [phone] PCP - General Family Medicine 02/19/23 Tommy Callahan MD [address] [place] [address] [place] [phone] Family Medicine 02/19/23 Telephone Directory Distributor Driver Relationship Specialty Start Date End Date Tommy Callahan MD [address] [place] [phone] PCP - General Family Medicine 02/19/23 Tommy Callahan MD [address] [place] [phone] Family Medicine 02/19/23 Telephone Directory Distributor Driver Relationship Specialty Start Date End Date Tommy Callahan MD [address] [place] [address] PCP - General Family Medicine 08/20/23 Telephone Directory Distributor Driver Relationship Specialty Start Date End Date Tommy Callahan MD [address] [place] [address] PCP - General Family Medicine 08/20/23 Telephone Directory Distributor Driver Relationship Specialty Start Date End Date Tommy Callahan MD [address] [place] [address] PCP - General Family Medicine 02/19/23 Tommy Callahan MD [address] [place] [address] Family Medicine 02/19/23 Telephone Directory Distributor Driver Relationship Specialty Start Date End Date Tommy Callahan MD [address] [place] [address] PCP - General Family Medicine 02/19/23 Tommy Callahan MD [address] [place] [address] Family Medicine 02/19/23 Telephone Directory Distributor Driver Relationship Specialty Start Date End Date Tommy Callahan MD [address] [place] [address] PCP - General Family Medicine 02/19/23 Tommy Callahan MD [address] [place] [address] Family Medicine 02/19/23 Telephone Directory Distributor Driver Relationship Specialty Start Date End Date Tommy Callahan MD [address] [place] [address] PCP - General Family Medicine 02/19/23 Tommy Callahan MD [address] [place] [address] Family Medicine 02/19/23 Care Team (unrecognized sect [...] cancer. Specialty Diagnoses / Procedures Referred By Contchristiana t Referred To Contact Radiology Diagnoses Ventral incisional hernia Procedures CT abdomen pelvis w contrast Diya Rosales PA-C [address] [facility] [place] [address] [place] [address] Referral ID Status Reason Start Date Expiration Date Visits Re quested Visits Authorized [id number] Closed 09/02/2023 02/29/2024 1 1 Reason Comments Follow-up Reason Onset Date Comments update 10/08/2023 Reason Onset Date Comments Forms/questionnaires 11/21/2023 [employer] calling to check status of FMLA - I asked the patient to fax the forms to [phone]. I will get them filled out and [...] or prosecute any alcohol or drug abuse patient.[facility] the event this information is protected by the Federal Confidentiality of Alcohol and Drug Abuse Patient Records regulations: The Federal rules restrict any use of the information to criminally investigate or prosecute any alcohol or drug abuse patient.[facility] Scheduled Active and Recently Administ ered Medications (unrecognized section and content) PRN Medication Order 11/23/2023 11/24/2023 11/25/2023 iopamidol (Isovue-370) 76 % injection 75 mL (COMPLETED) 75 mL, IntraVENous, IMG once PRN, contrast, Starting on 11/25/23 at 1548, For 1 dose 1558 (Given - Provid er: Wendy Mata, [facility]) FOR RECORDS PERTAINING TO PATIENTS WHO ARE [...] BE BASED ON THE PRIMARY CLINICAL RECORDS. [employer] provides no warranty or guarantee of the accuracy or completeness of information in this document.
--- NOTE | 2023-12-31 18:23 | STRESSREP ---
Stress Test Report Exercise myocardial perfusion stress test. 58-year-old man with a history of chest pain for surgical clearance Stress protocol: Resting EKG demonstrates sinus bradycardia with a rate of 55 bpm resting blood pressure is 128/80 mmHg. The patient exercised according to the regular [place] protocol for a total duration of 5 minutes attaining a maximum heart rate of 116 bpm which was 70% of maximum predicted heart rate; the maximum workload was 7 metabolic equivalents. At rest there were no ST or T wave changes noted to suggest ischemia and at peak exercise upsloping ST changes only were noted which did not meet the criteria for ischemia. No clinical angina was noted the test was terminated due to the target heart rate being achieved/fatigue. The peak blood pressure was 160/78 mmHg. Rate-pressure product was 18,000. Myocardial perfusion protocol. 14.6 mCi of technetium 99m sestamibi was injected at rest. The patient exercised according to regular [place] protocol for total duration of 5 minutes and at peak exercise 44.8 mCi of technetium 99m sestamibi was injected stress images were obtained stress and rest images were reconstructed in comparing the short axis vertical long and horizontal long axis. Gated images were also obtained. Perfusion SPECT analysis: Review of the stress images demonstrate normal uptake of tracer noted in all areas of the myocardium. The resting images similarly demonstrate normal uptake of tracer noted in all areas of the myocardium. No areas of reversibility are noted to suggest ischemia no previous infarct was noted. Gated SPECT analysis: The gated ejection fraction is 74%. Conclusion: Normal exercise myocardial perfusion stress test at a moderate workload Preserved ejection fraction.
== END | disposition home or self-care (01) ==
LOC: CVS 06:05
PROVIDERS: PCP Family Medicine; Referring Provider Nurse Practitioner Family; Visit Provider Nurse Practitioner Family
DX: Z01.810 Encounter for preprocedural cardiovascular examination (principal); I10 Essential (primary) hypertension; I47.10 Supraventricular tachycardia, unspecified
CPT/HCPCS: 78452; 93017; A9500; A4216

== ENCOUNTER 2024-01-20 05:20 | Emergency (ER) | payer OTHER, SELFPAY ==
[2024-01-20] VITALS (7 sets, daily range): BP systolic 104–176; BP diastolic 66–97; PULSE 79–94; RESP 16–19; TEMP 36.7–37.1; O2SAT 95–98; BMI 36.0
--- NOTE | 2024-01-20 05:24 | EDS_ITS ---
HPI History of Present Illness Chief Complaint: Fever [facility] Medical History (Reviewed 11/28/23 @ 09:23 by Miles Sky OCCUPATIONAL THERAPY DEPARTMENT CHAIR, OCCUPATIONAL THERAPY DEPARTMENT CHAIR-C) Anxiety AVNRT (AV jhon re-entry tachycardia) Bipolar disorder Celiac disease Colon polyps Depression Diverticulitis Family history of colon cancer GERD (gastroesophageal reflux disease) Hemorrhoids Hepatic steatosis Hiatal hernia History of rheumatic fever Hyperglycemia Hypertension Obesity (BMI 30.0-34.9) Obstructive sleep apnea Postoperative wound dehiscence Status post amputation of finger Surgical wound present Thrombocytopenia Home Medications bupropion HCl 150 mg tablet,12 hr sustained-release 150 mg PO DAILY DEPRESSION 12/03/19 [History Last Taken Unknown] lisinopril 10 mg tablet 10 mg PO DAILY BLOOD PRESSURE #90 tabs 11/28/23 [Rx Last Taken Unknown] metoprolol succinate 50 mg tablet,extended release 24 hr 50 mg PO QDAY BLOOD PRESSURE #90 tabs 11/28/23 [Rx Last Taken Unknown] acetaminophen 325 mg tablet 650 mg PO Q6H PRN PRN mild pain 01/20/24 [History Last Taken Unknown] cholecalciferol (vitamin D3) 50 mcg (2,000 unit) capsule (D3-2000) 50 mcg PO DAILY 01/20/24 [History Last Taken Unknown] docusate sodium 250 mg capsule (Col-Rite) 250 mg PO DAILY 01/20/24 [History Last Taken Unknown] omega-3 fatty acids 2,000 mg PO DAILY 01/20/24 [History Last Taken Unknown] Allergy/AdvReac Type Severity Reaction Status Date / Time hydromorphone [From Dilaudid] AdvReac Vomiting Verified 01/20/24 05:22 Surgical History History of esophagogastroduodenoscopy (EGD) History of laparoscopic cholecystectomy History of partial colectomy History of total left hip replacement History of umbilical hernia repair S/P ACL repair S/P colonoscopy S/P hemorrhoidectomy S/P tooth extraction Status post colectomy Social History (Reviewed 11/28/23 @ 09:23 by Miles Sky OCCUPATIONAL THERAPY DEPARTMENT CHAIR, OCCUPATIONAL THERAPY DEPARTMENT CHAIR-C) Smoking Status: Never smoker Smokeless tobacco user: chewing tobacco and other how long ago did patient quit smoking: Quit smoking, still chewing alcohol intake: current alcohol intake frequency: 0-2 drinks per day Alcohol type: wine substance use type: does not use caffeine: Yes Type: coffee Number of servings: 3 EXAM Physical Exam Const Vital Signs: 01/20/24 05:21 01/20/24 05:21 01/20/24 05:28 Temperature 98.5 F 98.5 F Temperature Source Oral Oral Pulse Rate 91 91 Respiratory Rate 19 H 19 H Respiratory Effort Normal Non-Labored Respiratory Pattern Normal Blood Pressure 176/97 H 176/97 H Blood Pressure Mean 123 123 Pulse Ox 95 95 Oxygen Delivery Method Room Air Room Air 01/20/24 05:33 Temperature Temperature Source Pulse Rate Respiratory Rate Respiratory Effort Respiratory Pattern Blood Pressure 153/87 H Blood Pressure Mean 109 Pulse Ox Oxygen Delivery Method MDM MDM MDM Narrative Medical decision making narrative: HISTORY OF PRESENT ILLNESS: 58-year-old male presents with concern for fever. Notes recent surgery in January 06 for a hernia. Notes he was discharged 3 days ago. Notes he is having increasing pain at surgical site. Notes his incision is mid abdomen and 2 drains. Notes he last took Tylenol due to a fever 101.5 around 335am . Also took Zofran at 4 AM. REVIEW OF SYSTEMS: Pertinent positives: Fever, abdominal pain Pertinent negatives: Vomiting, changes in urinary habits, constipation, diarrhea PHYSICAL EXAM: Nursing triage notes reviewed, Vital signs reviewed Constitutional: please see mdm HENT: MMM Eyes: Pupils equal round and reactive to light, Extraocular muscles intact Neck: No stridor, no JVD, full neck ROM Lungs: Clear to auscultation, No wheezing or rales. No increased work of breathing, no conversational dyspnea, no accessory muscle use, no nasal flaring. No respiratory distress noted Heart: Regular rate and rhythm, No murmurs, No rubs and No gallops, 2+ distal pulses (radial, femoral, posterior tibial) in all extremities Abdomen: Abdomen slightly distended, lower abdominal TTP, 2 drains noted in lower abdomen, right drain with. Discharge and surrounding erythema. : No CVAT Extremities: No edema Neuro: No focal neurological deficits, cranial nerves II through XII intact, 5/5 strength in all extremities. Intact sensation to light touch in all extremities, 2+ reflexes bilateral patella tendons. Normal gait. No ataxia. Skin: 2 drains noted to lower abdomen, right drain with redness, noted purulent drainage MEDICAL DECISION MAKING: Chief Complaint: Abdominal pain, fever, recent surgery External records reviewed: Factors affecting care: Bipolar disorder, hypertension, GERD, hypertension, [place], Consults: Emergency medicine (Dr. Hu), plastic reconstructive surgery (Dr. Barnhart) MDM Narrative: Patient was initially hypertensive, otherwise afebrile and nontoxic-appearing. Abdominal exam with diffuse lower abdominal tenderness, 2 drains on the lower abdomen with signs of infection, redness and purulent discharge. I considered the following differential diagnosis: Postop infection, postop complication, postop obstruction, perforation ALL IMAGES (IF OBTAINED) HAVE BEEN PERSONALLY REVIEWED AND INTERPRETED BY MYSELF. CBC with leukocytosis consistent with systemic inflammation, no anemia or thr ombocytopenia BMP without evidence of significant electrolyte abnormalities, no anion gap, no acute kidney injury. Lactate initially elevated consistent with endorgan hypoperfusion LFTs show no evidence of hepatobiliary pathology. Urinalysis shows no evidence of urinary inflammation suggestive of UTI CT scan abdomen pelvis shows evidence of intra-abdominal abscess The synthesis of the patient's history, physical exam, labs images suggest intra-abdominal postop infection is consistent with his history of fever lower abdominal pain, physical exam with lower abdominal tenderness, purulent drainage and erythema around LADARIUS drain sites. Patient was given broad-spectrum antibiotics. Given his surgery was done at an outside hospital I called the outside hospitals emergency department spoke to Dr. Hu who accepted the patient in transfer. Patient was signed out to a.m. physician pending transfer to [facility]. Transfer form signed. The patient and/or family, caregivers express understanding. The patient and/or family, caregivers agrees with the plan. Shared decision making: I will have a discussion with the patient and or visitors regarding risk/benefits of further testing or admission. They will be made aware of of the risk/benefits inherent in this decision they will be given the opportunity to voice understanding. Total critical care time today provided was at least 0 minutes. This excludes separately billable procedures. Critical care time (if documented) is secondary to the patient having high probability of clinically significant/life threatening deterioration in the patient's condition which required my urgent intervention. Impression: 1. Abdominal pain 2. Postop infection 3. Leukocytosis 4. Elevated lactate Dispo: Transfer to [facility] for definitive surgical evaluation This note was generated with [employer] dictation software. It may contain incorrect words, spelling, and punctuation that were not noted in review of the chart prior to signing. Lab Data Labs: Laboratory Results - last 24 hr 01/20/24 01/20/24 05:35 05:44 WBC 19.8 H RBC 4.72 Hgb 14.4 Hct 42.6 MCV 90.3 MCH 30.5 MCHC 33.8 RDW Std Deviation 41.7 RDW Coeff of Lei 12.7 Plt Count 295 MPV 10.1 Immature Gran % (Auto) 0.800 Neut % (Auto) 81.3 H Lymph % (Auto) 8.8 L [place] % (Auto) 5.8 Eos % (Auto) 2.8 Baso % (Auto) 0.5 Absolute Neuts (auto) 16.1 H Absolute Lymphs (auto) 1.75 Nucleated RBC % 0 Sodium 139 Potassium 4.0 Chloride 109 H Carbon Dioxide 22.0 Anion Gap 8 BUN 10 Creatinine 1.03 Estim Creat Clear Calc 104.28 Est GFR (MDRD) Af Amer 96 Est GFR (MDRD) Non-Af 79 BUN/Creatinine Ratio 9.7 L Glucose 121 H Lactic Acid 2.2 H* Calcium 9.5 Total Bilirubin 0.80 Direct Bilirubin 0.16 AST 20 ALT 49 Alkaline Phosphatase 52 Total Protein 7.4 Albumin 3.4 Globulin 4.0 Lipase 22 Urine Color Yellow Urine Clarity Clear Urine pH 6.0 Ur Specific [place] 1.010 Urine Protein Negative Urine Glucose (UA) Normal Urine Ketones Negative Urine Occult Blood Negative Urine Nitrite Negative Urine Bilirubin Negative Urine Urobilinogen Normal Ur Leukocyte Esterase Negative Urine RBC 0 SEEN Urine WBC 0 SEEN Ur Squamous Epith Cells 0 SEEN Urine Bacteria 0 SEEN Urine Mucus 0 SEEN Radiography Diagnostic Testing: Clinical Impression(s) from Imaging Studies Abdomen/Pelvis CT 01/20/24 06:35 IMPRESSION: 1. Fluid collection measuring 8 x 1.6 x 3 cm in the midline lower anterior abdominal wound between the rectus muscles. Differential diagnosis includes abscess and seroma. 2. Small collection measuring 4.0 x 2.5 x 1.8 cm in the lower wound within the subcutaneous fat. Differential diagnosis includes abscess and seroma. 3. Cholecystectomy. 4. Drain in the right rectus muscle. 5. Drain in the left colic gutter in the anterior left lower pelvis. 6. Left total hip arthroplasty. Components appear well seated. 7. No intra-abdominal abscess. Electronically Signed: Tiburcio Jones MD at 7:03 EDT , Discharge Plan Triage Chief Complaint: Fever ED Provider: Elie Marie Dx/Rx/DC Orders Prescriptions: No Action lisinopril 10 mg tablet 10 mg PO DAILY Qty: 90 3RF metoprolol succinate 50 mg tablet extended release 24 hr 50 mg PO QDAY Qty: 90 3RF bupropion HCl 150 mg tablet sustained-release 12 hr 150 mg PO DAILY acetaminophen 325 mg tablet 650 mg PO Q6H PRN PRN (Reason: mild pain) omega-3 fatty acids Capsule 2,000 mg PO DAILY cholecalciferol (vitamin D3) [D3-2000] 50 mcg (2,000 unit) capsule 50 mcg PO DAILY docusate sodium [Col-Rite] 250 mg capsule 250 mg PO DAILY Primary Care Provider: Tommy Callahan Referrals: Tommy Callahan MD [Primary Care Provider] - Disposition Disposition: Acute Care Hospital Discharge Location: [facility]
[2024-01-20] MEDS: 0.9% Normal Saline (1000mL) 1,000 ML 1000 ML IV (05:45)
[2024-01-20] MEDS: Ketorolac 15 MG/ML Vial IV (05:45)
[2024-01-20] MEDS: Morphine 4 MG/ML Syringe IV ×2 (05:46→09:29)
--- OUTSIDE RECORDS SUMMARY | 2024-01-20 05:49 | XMS RPT_ITS | CCD ---
Author Name Unknown Address [address] [place] [address] Organization [facility] Care Team Providers Care Supervisory Training Specialist Name Role Phone PHYSICIAN, NOT RECORDED Primary Care Physician U navailable None, Pcp Primary Care Provider Unavaillori e None, Pcp Primary Care Provider UnavailTommy Baker MD Unavailable Tommy Dan MD Primary Care Provider Tommy Dan MD Unavailable Tommy Dan MD Primary Care Provider GERARD EGAN DO Attending Unavaillori ortega PHYSICIAN, NOT RECORDED Primary Care UnavailTommy Gonzales MD Primary Care Provider JOHN JORDAN Attending Unavailable TOMMY DAN Primary Care Unavailable JOHN JORDAN Attending Unavailable JOHN JORDAN Referring Unavailable TOMMY DAN Primary Care Unavailable JOHN JORDAN Attending Unavailable TOMMY DAN Primary Care Unavailable Jim MANRIQUE, Enrique Vallejo Unavailable [facility] Orthopedics Unavailable Oral Surgery Provider Unavailable UnavailDr. Zion Hutson MD Unavailable General Surgery Provider Unavailable [facility]avail able [facility] Unavailable Julius WALKER, Sylwia Ortega Unavailable Laurel MERCHANT, Radha Unavailable Tommy Dan MD Unavailable Fitz MARTINEZN, Cynthia Ortega Unavailable Unavailable Naveed MARTINEZN, Alia C Unavailable Unavailable Stewart WALKER, Phillip Clark Unavailable Jorge Alberto JACOBS, Jennifer L Unavailable Unavail able Jose L PHYSICAL INTEGRATION PRACTITIONER, Alena Unavailable Unavailable LABELS MOLDER-C, Yifan P Unavailable [phone] Lex JACOBS, Sugey Clark Unavailable Unavaila ble Mutersbaugh PHYSICAL INTEGRATION PRACTITIONER, Velma K Unavailable Unavai ghazala Degroot PASushmaC, Graciela J Unavailable [phone] Scottie (Dea), Guero Unavailable Unavailab le Richert PHYSICAL INTEGRATION PRACTITIONER, Janessa L Unavailable Unavailab le Katarzyna PHYSICAL INTEGRATION PRACTITIONER, Sylwia M Unavailable Unavailab le Conner PHYSICAL INTEGRATION PRACTITIONER, Blank Nazario Unavailable Unavailab fred Sparks MA, Alena Unavailable Unavailable Wengerd PHYSICAL INTEGRATION PRACTITIONER, Anila Unavailable Unavailabl e Tito PHYSICAL INTEGRATION PRACTITIONER, Stacy Monreal Unavailable Unavaila ble Unavailable Unavailable Gar[facility], [facility] Unavailable Dayan Mckeon MA Unavailable Unavailable COLEMAN, ENRIQUE PAC Attending Unavailable COLEMAN, ENRIQUE PAC Consulting Unavailable COLEMAN, ENRIQUE PAC Primary Care Unavailable COLEMAN, ENRIQUE PAC Admitting Unavailable PROVIDER, UNKNOWN Consulting Unavailable STELLA WELLER MD Referring Unavailable DEGROOT, GRACIELA J Attending Unavailable DEGROOT, GRACIELA Vallejo Primary Care Unavailable DEGROOT, GRACIELA J Admitting Unavailable COLEMAN, ENRIQUE PAC Consulting Unavailable PROVIDER, UNKNOWN Consulting Unavailable ANABELL, VAISHNAVI Admitting Unavailable SAID, VAISHNAVI Attending Unavailable SAIDVAISHNAVI Referring Unavailable BROWN, TOMMY Primary Care Unavailable [facility], TOMMY Primary Care Unavailable Genevieve MARQUEZ Attending Unavailable DIYA ROSALES Attending Unavailable DIYA ROSALES Referring Unavailable BROWN, TOMMY Primary Care Unavailable DIYA ROSALES Attending Unavailable [facility], TOMMY Primary Care Unavailable DIYA ROSALES Attending Unavailable BROWN, TOMMY Primary Care Unavailable KEVIN GANNON Attending Unavailable [facility] Primary Care Unavailable SAIDVAISHNAVI Attending Unavailable BROWN, TOMMY Primary Care Unavailable BROWN, TOMMY Primary Care Unavailable KEVIN GANNON Attending Unavailable [facility], TOMMY Primary Care Unavailable SAIDVAISHNAVI Attending Unavailable [facility], TOMMY Primary Care Unavailable KEVIN GANNON Referring Unavailable [facility], TOMMY Primary Care Unavailable Allergies Allergy Classification Reported Allergen(s) Allergy Type Date of Onset Reaction(s) Facility (18 sources) Gluten Propensity to adverse reactions 5 Diarrhea [facility] (3 sources) Wheat gluten extract; Translations: [GLUTEN] Drug Allergy 07-24-201 5 Diarrhea [facility] Work Phone: (3 sources) HYDROmorphone Drug Allergy 4 Hallucinations [facility] Medications Current Medications Medication Drug Class(es) Dates Sig (Normalized) Sig (Original) acetaminophen 325 mg oral tablet (11 sources) Start: 01-11-2024 End: 01-21-2024 take 2 tablets by mouth every six hours as needed for pain acetaminophen (Tylenol) 325 MG tablet Take 2 tablets (650 mg) by mouth every 6 hours as needed for mild pain (1-3) for up to 10 days. 30 tablet 0 01/11/2024 01/21/2024 Active Completed/Discontinued Medications Medication Drug Class(es) Dates Sig (Normalized) Sig (Original) acetaminophen 325 mg / oxyCODONE hydrochloride 5 mg oral tablet (20 sources) Opioid Agonist Start: 12-04-2022 End: 02-28-2023 take 1 tablet by mouth every four hours as needed for pain oxyCODONE-acetamino phen (Percocet) 5-325 MG tablet TAKE 1 TABLET BY MOUTH EVERY 4 HOURS (INTERVAL) NEEDED FOR PAIN 0 12/04/2022 02/28/2023 Discontinued (Med list cleanup) Problems Active Problems Problem Classification Problem Date Documented Date Episodic/Chronic Abdominal hernia (18 sources) Hernia of anterior abdominal wall; Translations: [Ventral hernia without obstruction or gangrene] Onset: 01-06-2024 Episodic Abdominal pain (20 sources) Abdominal pain; Translations: [Unspecified abdominal pain] 11-25-2023 Episodic Adjustment disorders (20 sources) Complicated grieving; 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] 11-25-2023 Chronic Administrative/socia l admission (20 sources) Issue of repeat prescriptions 08-04-2012 Episodic Anxiety disorders (20 sources) Anxiety; Translations: [Anxiety disorder, unspecified] 09-07-2016 Chronic Cardiac dysrhythmias (18 sources) AV jhon re-entry tachycardia; Translations: [Supraventricular tachycardia] Onset: 11-24-2021 12-26-2022 Chronic Coagulation and hemorrhagic disorders (18 sources) Platelet count below reference range; Translations: [Thrombocytopenia, unspecified] Onset: 12-26-2022 12-26-2022 Chronic Diseases of mouth; excluding dental (20 sources) Ulcer of mouth; Translations: [Other forms of stomatitis] 11-25-2023 Episodic Diverticulosis and diverticulitis (20 sources) Diverticulitis; Translations: [Diverticulitis of intestine, part unspecified, without perforation or abscess without bleeding] Onset: 12-26-2022 12-26-2022 Chronic E Codes: Cut/pierceb (20 sources) Accident caused by powered home demonstrator; Translations: [Contact with powered home demonstrator, initial encounter] 11-25-2023 Episodic Esophageal disorders (18 sources) Gastroesophageal reflux disease; Translations: [Gastro-esophageal reflux disease without esophagitis] Onset: 01-09-2023 01-24-2023 Chronic Essential hypertension (20 sources) Hypertensive disorder; Translations: [Essential (primary) hypertension] Onset: 01-09-2023 01-24-2023 Chronic Past or Other Problems Problem Classification Problem Date Documented Da te Episodic/Chronic Bacterial infection; unspecified site (18 sources) Infection due to ESBL bacteria; Translations: [Bacterial infection, unspecified] Onset: 01-04-2023 01-04-2023 Episodic Cardiac dysrhythmias (18 sources) Tachycardia; Translations: [Tachycardia, unspecified] Onset: 12-26-2022 12-26-2022 Episodic Complications of surgical procedures or medical care (18 sources) Postoperative intra-abdominal abscess; Translations: [Infection following a procedure, organ and space surgical site, initial encounter] Onset: 01-04-2023 01-04-2023 Episodic Other acquired deformities (20 sources) Lumbar spondylolisthesis; Translations: [Spondylolisthesis, lumbar region] Onset: 12-26-2022 01-30-2022 Episodic Other and unspecified benign neoplasm (18 sources) Familial multiple polyposis syndrome; Translations: [Benign neoplasm of colon, unspecified] Onset: 12-26-2022 12-26-2022 Episodic Other gastrointestinal disorders (20 sources) Viscus structure finding; Translations: [Other specified symptoms and signs involving the digestive system and abdomen] Onset: 12-06-2022 Episodic Other gastrointestinal disorders (18 sources) Pneumatosis coli; Translations: [Other specified diseases of intestine] Onset: 12-06-2022 12-06-2022 Episodic Other gastrointestinal disorders (2 sources) Other specified symptoms and signs involving the digestive system and abdomen; Translations: [Other specified symptoms and signs involving the digestive system and abdomen] Onset: 12-06-2022 Episodic Other lower respiratory disease (18 sources) Chest pain on breathing; Translations: [Chest pain on breathing] Onset: 12-26-2022 12-26-2022 Episodic Residual codes; unclassified (18 sources) History of partial resection of colon; Translations: [Acquired absence of other specified parts of digestive tract] Onset: 01-24-2023 01-24-2023 Episodic Unclassified (12 sources) Abdominal pain - The onset of [...] stool softener with no improvement. reviewed by [facility] 11-25-2023 Unclassified (12 sources) Mouth pain - Symptoms include mouth [...] and puts listerine in it reviewed by [facility] 01-15-2023 Unclassified (12 sources) Preoperative Clearance - Surgical procedure(s) planned: other (Left hip arthroplasty). Date of procedure: (12-04-22) Surgeon: (Dr Keo Vidal) and Location of procedure: ([facility]) There have been no problems with general anesthesia or blood/blood products. Prosthetics include dentures (Full upper and lower). 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 Denies any chest pain, fatigue, shortness of breath, or palpitations. 11-27-2022 Unclassified (12 sources) Fever - The onset of the [...] Continues with pain and fever. 10-08-2022 Unclassified (12 sources) Consult - Patient is here today [...] to relieve the pain. He stands on [employer] for his job. 09-24-2022 Unclassified (12 sources) grief reaction - pts father at [...] his and other family members 12-12-2021 Unclassified (12 sources) Hip pain - The onset of [...] to come out of socket. 07-21-2021 Unclassified (3 sources) Transition into care - The patient is transitioning into care from a hospital and a summary of care was reviewed. 12-08-2019 Unclassified (3 sources) [ADDITIONAL REASON] Follow up consultation - The patient is here to follow-up after hospitalization ([facility] with bowel obstruction.) on : (11-30-19 to 12-01-19.). Note for Consultation follow-up : Is feeling well. reviewed by [facility] 12-08-2019 Unclassified (12 sources) Preoperative Clearance - Surgical procedure(s) planned: other (Right shoulder Rotator cuff repair). Date of procedure: (08-28-18) Surgeon: and Location of procedure: ([facility] There have been no problems with general anesthesia or blood/blood products. Prosthetics include dentures and eye glasses. Note for Pre-operative clearance : Saw Dr Dillard in November 2017. Had an EKG and stress test at that time. 08-18-2018 Unclassified (12 sources) Breathing trouble - The onset of [...] went away after 10-15 minutes 08-26-2017 Unclassified (10 sources) Follow up consultation - The patient is here to follow-up after Emergency Room/Urgent Care on : (Patient seen at [facility] on 05/17/2017 for lawnmower accident. Was discharged to home. Patient went to [facility] ER on 05/20/2017 due to having [...] pain has been improving slowely. 06-04-2017 Unclassified (10 sources) [ADDITIONAL REASON] Transition into care - The patient is transitioning into care from an emergency room and a summary of care was reviewed. 06-04-2017 Unclassified (12 sources) home demonstrator accident - patient is herer for a home demonstrator accident. he was mowing the lawn going down a hill and rolled off the home demonstrator. his pain while moving from a scale [...] for pain. Reviewed by JOHANA. 05-17-2017 Unclassified (12 sources) Follow up consultation - The patient is here to follow-up after hospitalization ([facility]) on : (08/28-09/04). Follow up visit with no current symptoms. Note for Consultation follow-up : Patient was hospitalized for recurrent diverticulitis. He had a sigmoid partial colectomy. 09-10-2016 Unclassified (12 sources) Rectal bleeding - The onset of [...] 15# in the 10 days. 11-15-2015 Unclassified (12 sources) Abdominal pain - The onset of [...] have been associated with fever. 09-08-2015 Unclassified (12 sources) Follow up consultation - The patient is here to follow-up after hospitalization on : (10/19/14 to 10/21/14). Current symptoms include abdominal pain. Note for Consultation follow-up : Pt was in hospital for diverticulitis. Pt was given Cipro, Flagyl and percocet. 10-23-2014 Unclassified (12 sources) Back pain - The onset of [...] pain : also headache . reviewed by [facility] 07-21-2012 Unclassified (12 sources) Insect Bite/Sting - This occurred 1 [...] not know what bit him. reviewed by [facility] 05-27-2012 Unclassified (12 sources) Bloody stools - The onset of [...] about 10 years ago by doctor in [place]. reviewed by [facility] 09-24-2011 Unclassified (12 sources) Follow up consultation - The patient [...] of family history of clots. 06-29-2011 Unclassified (12 sources) Anxiety - The onset of the anxiety has been gradual and has been occurring in a persistent pattern for 2 weeks. The course has been increasing. The anxiety is characterized as apprehension. The phobia is defined as social phobias (diagnosed with social phobia few yrs ago. Son is getting in 2 days and apprehensive about that. There is conflict in the [employer] and these people will be at the wedding. 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 Precipitating factors include specific forthcoming events. The symptoms have been associated with agitation and chest pain. 03-14-2011 Unclassified (12 sources) Shoulder Pain - The onset of [...] pain was preceded by trauma. 02-01-2011 Unclassified (9 sources) Follow up consultation - The patient is here to follow-up after hospitalization ([facility] with bowel obstruction.) on : (11-30-19 to 12-01-19.). Note for Consultation follow-up : Is feeling well. reviewed by [facility] 12-08-2019 Unclassified (9 sources) [ADDITIONAL REASON] Transition into care - The patient is transitioning into care from a hospital and a summary of care was reviewed. 12-08-2019 Unclassified (2 sources) Transition into care - The patient is transitioning into care from an emergency room and a summary of care was reviewed. 06-04-2017 Unclassified (2 sources) [ADDITIONAL REASON] Follow up consultation - The patient is here to follow-up after Emergency Room/Urgent Care on : (Patient seen at [facility] on 05/17/2017 for lawnmower accident. Was discharged to home. Patient went to [facility] ER on 05/20/2017 due to having [...] Time Vital Sign Value Performing Clinician Nikki malin 01-11-2024 07:44-0500 Body temperature 98.71 [degF] Vaishnavi Barnhart MD Work Phone: [facility] 01-11-2024 07:44-0500 Diastolic blood pressure 80 mm[Hg] Vaishnavi Barnhart MD Work Phone: [facility] 01-11-2024 07:44-0500 Heart rate 76 /min Vaishnavi Barnhart MD Work Phone: [facility] 01-11-2024 07:44-0500 Respiratory rate 16 /min Vaishnavi Barnhart MD Work Phone: [facility] 01-11-2024 07:44-0500 SaO2% (BldA) [Mass fraction] 95 % Vaishnavi Barnhart MD Work Phone: [facility] 01-11-2024 07:44-0500 Systolic blood pressure 130 mm[Hg] Vaishnavi Barnhart MD Work Phone: [facility] 01-06-2024 06:31-0500 Body height 180.3 cm Vaishnavi Barnhart MD Work Phone: [facility] 01-06-2024 06:31-0500 Body mass index (BMI) [Ratio] 35.57 kg/m2 Vaishnavi Barnhart MD Work Phone: [facility] 01-06-2024 06:31-0500 Body weight 115.67 kg Vaishnavi Barnhart MD Work Phone: [facility] 12-13-2023 09:36-0500 Body height 180.34 cm Dayan Mckeon [facility] 12-13-2023 09:36-0500 Body mass index (BMI) [Ratio] 35.43 kg/m2 [facility]an Mckeon [facility] 12-13-2023 09:36-0500 Body surface area Derived from formula 2.33 m2 Dayan Mckeon MA [facility] 12-13-2023 09:36-0500 Body weight 115.21 kg Dayan Mckeon MA [facility] 12-13-2023 09:36-0500 Diastolic blood pressure 76 mm[Hg] Dayan Mckeon MA [facility] Encounters Encounter Date Encounter Type Care Provider Facility Start: 01-16-2024 End: 01-16-2024 Telephone follow-up Enrique Coleman PA-C Work Phone: [facility] Start: 01-16-2024 End: 01-16-2024 Telephone follow-up Enrique Coleman PA-C Work Phone: [facility]. Start: 01-15-2024 End: 01-15-2024 ambulatory DIYA ROSALES [facility] Start: 01-15-2024 End: 01-15-2024 Postop follow up visit related to original px Diya Rosales PA-C Work Phone: [facility] Procedures Date Procedure Procedure Detail Performing Clinician Start: 01-09-2024 Blood count hemoglobin Lucila Tran MD Work Phone: Start: 01-07-2024 Radiologic exam ches t single view Edison Sarmiento MD Work Phone: Start: 01-06-2024 Antibody screen [facility] Plan of Treatment Date Care Activity Detail Author Start: 2027 RSV Immunization aged 60 or older (1 - 1-dose 60+ series) RSV Immunization aged 60 or older (1 - 1-dose 60+ series) [facility] Start: 09-19-2024 Colonoscopy Colonoscopy [facility] Start: 09-19-2024 Colorectal Cancer Screening Colorectal Cancer Screening [facility] Start: 01-22-2024 End: 01-22-2024 Patient encounter procedure 01/22/2024 10:30 AM EDT Office Visit [facility] [address] [place] [phone] Diya Rosales PA-C [address] [place], [place] [id number] [facility] Start: 01-15-2024 End: 01-15-2024 Patient encounter procedure 01/15/2024 11:30 AM EST Office Visit [facility] [address] [place] [id number] Diya Rosales PA-C [address] [place] [id number] [facility] Start: 01-06-2024 End: 01-06-2024 Admission to same day surgery center 01/06/2024 7:30 AM EST - 01/06/2024 12:30 PM EST Surgery [facility] [address] [facility] [place] [address] Vaishnavi Barnhart MD [address] [place] [id number] ANTERIOR VS POSTERIOR COMPONENT SEPARATION WITH MESH PLACEMENT [22148 (CPT )] [facility] Payers Date Payer Category Payer Unknown 133 2022 Unknown [id number] 2022 Unknown [id number] 1965 Unknown [id number] 1965 Unknown [id number] 1965 Unknown [id number] Social History Date Type Detail Facility Tobacco Nicotine Use: sn uff. Type: Oral (Snuff, Chew). [facility] Sex Assigned At [facility] Start: 01-04-2023 End: 12-30-2023 Tobacco smoking status NEIS Never smoked tobacco [facility] Start: 01-04-2023 Tobacco use and exposure Smokeless tobacco non-user [facility] Start: 01-04-2023 End: 01-15-2024 Alcohol intake Lifetime non-drinker (finding) [facility] Start: 12-06-2022 History SDOH Alcohol Frequency 4 [facility] Start: 12-06-2022 History SDOH Alcohol Std Drinks 1 [facility] Start: 1965 Sex Assigned At Not on file [facility] Start: 01-14-2023 End: 03-27-2023 Exposure to SARS-CoV-2 (event) Not sure [facility] Start: 12-06-2022 End: 01-15-2024 History of Social function [facility] Start: 12-06-2022 End: 01-15-2024 Alcohol Use Disorder Identification Test - Consumption [AUDIT-C] [facility] How often to you hav e a drink containing alcohol? 2-3 time sa week [facility] How many standard dr inks containing alcohol do you have on a typical day? 1 or 2 [facility] How often do you hav e 6 or more drinks on 1 occasion? Never [facility] Start: 08-27-2023 Tobacco smoking status NEIS Smokes tobacco daily [facility] History of tobacco use Cigar Smoker [facility] Start: 08-27-2023 End: 12-30-2023 Tobacco use and exposure User of smokeless tobacco [facility] Start: 08-27-2023 End: 09-19-2023 Alcohol intake Current drinker of alcohol (finding) [facility] National Score (1-10 0), lower number is lower risk 47 [facility] Start: 08-27-2023 Tobacco Comment 2 cigars a day and snuff [facility] Start: 09-19-2023 Tobacco smoking status NHIS Occasional tobacco smoker [facility] History of tobacco use Snuff User [facility] Tobacco Use: Tobacco Use: ; C urrent some day smoker. [facility] [place] Male [facility], [facility]. Work Phone: How often to you hav e a drink containing alcohol? 2-4 times a month [facility] Medical Equipment Procedure Code Equipment Code Equipment Origin al Text Equipment Identifier Dates Mesh Progrip 15x 30cm - [id number] Start: 01-06-2024 Mesh Progrip 15x 30cm - [id number] Start: 01-06-2024 Functional Status Date Assessment Result Facility 03-29-[address] [facility] Mental Status Date Assessment Result Facility 03-29-2022 Mental Status [facility] Clinical Notes 03-29-2022 to 01-15-2024 Diya Rosales PA-C - 01/15/2024 11:30 AM Gonzalez Madison RN - 01/11/2024 10:30 AM Gonzalez Madison RN - 01/11/2024 10:30 AM Gonzalez Madison RN - 01/11/2024 10:21 AM ESTDischazeyad Instructions Note Date & Type Note Facility 01-15-2024 History of Present illness Narrative Adam is 9 days post-op: posterior component separation with mesh placement, lysis of adhesions (01/06/2024) . Unfortunately, his postoperative course was complicated by ileus which was managed with an NG tube. Prior to discharge, he had return of normal bowel function and was tolerating diet. Presenting for routine follow-up. S: Doing well. Patient has noted no excessive redness, swelling, and pain. Bilateral abdominal drains with 30 to 40 mL of serosanguineous output for the last 3 consecutive days. The right abdominal drain has had less output overall than the left. Otherwise, requesting a note for work stating his restrictions. O: Wound healing well. Abdominal incision is clean, dry, and intact. It is closed primarily with pradip, every other staple was removed in the office today. Bilateral abdominal drains with serosanguineous discharge. Drains were stripped aggressively in the office today, these will stay in for at least another week. PROCEDURE: After cleansing the skin with a 70% alcohol wipe, the nylon drain stitch was cut and the negative pressure was released from the drain bulb. The right abdominal drain was then removed without complication. Patient tolerated the procedure well. The drain site/s was/were dressed with a sterile gauze and paper tape. Patient was advised to leave dressings in place for the first 24 hours, and that some oozing and bleeding from the drain site is to be expected over the next 24-48 hours. A: Satisfactory course. P: Every other staple removed, drains will stay in tact for at least another week . Return to work note given. Patient to return in 1 week. Patient is to return as needed for redness, swelling, discomfort, or any concern about his surgery. The physician was present, and has seen and examined the patient at the bedside with me. documented in this encounter [facility] 01-11-2024 Note Discharge Summary Adam Lawson : 1965 ADMIT DATE: 01/06/2024 DISCHARGE DATE: 01/14/2024 PRIMARY CARE PHYSICIAN: Tommy Dan VISIT STATUS: Admission CODE STATUS: Prior DISCHARGE DIAGNOSES: Principal Problem: Ventral hernia without obstruction or gangrene HOSPITAL COURSE: Patient is a 58 y/o male with a history of a large ventral hernia that is symptomatic. He was admitted post operatively with posterior component separation and mesh repair of his ventral hernia. Post operatively, he developed an ileus and an NG tube was placed which improved his abdominal discomfort and distention. He had return of bowel function and his diet was advanced, which he tolerated well. He is ambulating and voiding himself. Pain is well controlled. He meets all requirements for discharge. SIGNIFICANT DIAGNOSTIC STUDIES: none CONSULTANTS: none RECOMMENDED NEXT STEPS: Follow up outpatient DISCHARGE MEDICATIONS: Medication List START taking these medications acetaminophen 325 MG tablet Commonly known as: Tylenol Take 2 tablets (650 mg) by mouth every 6 hours as needed for mild pain (1-3) for up to 10 days. methocarbamol 500 MG tablet Commonly known as: Robaxin Take 1 tablet (500 mg) by mouth every 6 hours as needed for muscle spasms for up to 7 days. CONTINUE taking these medications buPROPion XL 150 MG 24 hr tablet Commonly known as: Wellbutrin XL cholecalciferol 25 MCG (1000 UT) capsule Generic drug: cholecalciferol docusate sodium 100 MG capsule Commonly known as: Colace fiber 625 MG tablet lisinopril 10 MG tablet metoprolol succinate XL 50 MG 24 hr tablet Commonly known as: Toprol-XL omega-3 acid ethyl esters 1 g capsule Commonly known as: Lovaza Where to Get Your Medications These medications were sent to [facility] [address] [place] [address] [address] acetaminophen 325 MG tablet methocarbamol 500 MG tablet DIET: No diet orders on file ACTIVITY: No heavy lifting. COMPLEXITY OF FOLLOW UP: [] Moderate Complexity: follow up within 7-14 calendar days (51347) [] Severe Complexity: follow up within 7 calendar days (69995) FOLLOW UP TESTING, PENDING RESULTS OR REFERRALS AT TRANSITIONAL CARE VISIT: [] Yes [] No PENDING STUDIES: None DISPOSITION: Home FACILITY/HOME CARE AGENCY NAME: Follow up with Vaishnavi Barnhart MD [address] [facility] [address] Follow up Tommy Dan MD [address] [place] [id number] INSTRUCTIONS TO MA/SW: Please call patient on day after discharge (must document patient contacted within 2 business days of discharge). FOLLOW UP QUESTIONS FOR MA/SW: 1. Did you get medications filled and taking them as instructed from discharge? 2. Are you following your discharge instructions from your hospital stay? 3. Please confirm patient is scheduled for a follow up appointment within the above time frame. DISCHARGE TIME: < 30 minutes SIGNED: Edison Sarmiento MD 01/14/2024, 7:37 AM [facility] 01-11-2024 Nurse Note Patient transferred to [facility] via w/c by staff for discharge [facility] 01-11-2024 Nurse Note Patient transferred to [facility] via w/c by staff for discharge Patient's discharge instructions reviewed with patient , all questions answered , iv removed , patient awaiting ride at this time Patient's requested nurse notify physicians again to come assess her , Resident's messaged again to notify of the patient and family request Plastic surgery resident's messaged 3x regarding some blood tinged drainage noted coming from Ng tube after unhooked for patient to use restroom , patient and both concerned and requesting a doctor . Resident say they will be up shortly to assess documented in this encounter [facility] 01-11-2024 Nurse Note Patient's discharge instructions reviewed with patient , all questions answered , iv removed , patient awaiting ride at this time [facility] 01-11-2024 Hospital Discharge instructions Lucila Tran MD - 01/11/2024 7:39 AM EST [facility] Post-op Instructions The following instructions will help you know what to expect in the days following your surgery. Do not, however, hesitate to call if you have questions or concerns. Activities No driving, lifting, or strenuous activity. Walking is necessary after you are discharged to prevent blood clots. Walk for 10 to 15 minutes every 2 hours. When sitting, use the spirometer (breathing device) 10 times every 2 hours minimum. Wear your abdominal binder day and night for 3 weeks. Keep it snug. This reduces bruising and prevents fluid from accumulating under the flap. Do not get midline dressing wet, sponge bathe while in place. Be sure to replace your abdominal binder snugly after your bathe. Do not tub bathe or use hot water in the shower. Warm water is okay. Do not exercise or do any activity that raises your heart rate or blood pressure for 2 to 3 weeks. You may resume light activity such as walking and light lifting (up to 5 pounds) within the first few days after surgery. No lifting > 5-10 lbs for 6 weeks. Diet Resume a normal diet as tolerated. Take home OTC stool softeners. Special Instructions Medications Take your medications as prescribed. Wound Care If you are discharged with drains in, record the amount that you empty every eight hours or when 1/3 full. Make sure to keep the outputs for each drain separate, so we can determine the output for each individual drain at your follow-up appointment. Total the output in cc for each 24-hour period on the Drainage Record Sheet. We will want to know this amount. The drainage can vary in color from yellowish to red. Drains will not be removed until each drain has less than 30 cc in a 24-hour period for 2 consecutive days. Once your drains are removed, fluid can leak from the drain holes. This can occur when walking or rolling over in bed and can saturate your clothes or linens. This is normal. Each day, apply a small amount of antibiotic ointment (Bacitracin , Neosporin , or Bactroban ) to your belly button and to the drain holes. It is normal to experience swelling and bruising of the abdomen and groin for the first few weeks after surgery. Other normal experiences include: Tightness and discomfort of the abdominal muscles for several weeks Areas of numbness of the abdominal skin for up to six months A small amount of drainage during the first few days Redness of surgical scars for three to six months after surgery (This will then slowly fade.) Miscellaneous If you are unable to urinate once you are home, call the office and you will be directed as to what to do. Follow up Usually there are no sutures to remove. You will have a follow up appointment when you are ready to have the drains removed, approximately 1 week after surgery. Please call your doctor s office at the first sign of: Excessive (severe) pain associated with pressure and enlargement of the abdomen. Nausea/vomiting, inability to pass gas Redness, drainage, or odor from the incision(s) or drains Fever or chills Shortness of breath It is best to avoid exposing the scar to the sun and to wear sun protection of at least SPF 30 for at least 6 months after surgery. The following attachments cannot be sent through Care Everywhere.Celiac Disease (Qatari)documented in this encounter [facility] 01-10-2024 Note Care Management Prog ress Note 01/06- ventral hernia repair- NPO/NG- LADARIUS x2- monitor bowel function Discharge plan- Home when medically stable Discharge Milestones and Delays Expected Date/Time: 01/13/[address] discharge order Complete med reconciliation Case mgmt discharge readiness Clinical Stability Diagnsotic Workup Expected Discharge History Expected Date/Time Set By Reviewed At 01/13/2024 Allyssa Cai RN 01/10/2024 8:17 AM 01/11/2024 Salma Barlow RN 01/09/2024 8:37 AM 01/09/2024 Allyssa Cai RN 01/08/2024 8:11 AM 01/07/2024 Allyssa Cai RN 01/07/2024 8:15 AM 01/07/2024 Vaishnavi Barnhart MD 01/06/2024 2:54 PM 01/07/2024 Vaishnavi Barnhart MD 01/06/2024 7:47 AM Length of Stay (Days): 4 GMLOS: 2.3 [facility] 01-10-2024 History of Present illness Narrative SUBJECTIVE : POD 4 from posterior component separation for ventral hernia repair Some blood tinged output from NG yesterday afternoon. Clamped NG tube and allowed for clear liquids. This went down well overnight. No melanotic stool and had two bowel movements. Continues to pass flatus. OBJECTIVE Physical Abdominal distention improving, appropriately tender around incision. Incision clean/dry/intact. Drain serosanguinous ASSESSMENT AND PLAN: Patient is a 58 y/o female with a ventral hernia and component separation repair on 01/06/24 Plan: - Remove NG tube, clear liquid diet. If continues to do well, will advance diet as tolerated later this afternoon. - pain control -Encouraged ambulation Discussed w/ Dr. Anabell Sarmiento MD Plastic and Reconstructive surgery fellow [phone] SUBJECTIVE : POD 3 from posterior component separation for ventral hernia repair Pain and discomfort improved since NG placement. No flatus yet. Patient has been ambulating in halls. 1600cc bilious output from NG in last 24 hours. Did pass flatus OBJECTIVE Physical NG cannister with dark bilious output Abdominal distention improving, appropriately tender around incision. Incision clean/dry/intact. Drain serosanguinous ASSESSMENT AND PLAN: Patient is a 58 y/o female with a ventral hernia and component separation repair on 01/06/24 Plan: - Continue NGT/IVF/sips & chips - IV pain control only without narcotics - awaiting return of bowel function -Encouraged ambulation Discussed w/ Dr. Anabell Sarmiento MD Plastic and Reconstructive surgery fellow [phone] Nutrition rescreen completed. Chart reviewed. Patient to be monitored and followed by the diet lawn technician. ARNULFO Estrada SUBJECTIVE : POD 2 from posterior component separation for ventral hernia repair Pain and discomfort improved since NG placement. No flatus yet. Patient has been ambulating in halls. OBJECTIVE Physical NG cannister with 700 ml bilious output Abdomen mildly distended, appropriately tender around incision. Incision clean/dry/intact. Drain serosanguinous ASSESSMENT AND PLAN: Patient is a 58 y/o female with a ventral hernia and component separation repair on 01/06/24 Plan: - Continue NGT/IVF/sips & chips - IV pain control only without narcotics - awaiting return of bowel function -Encouraged ambulation Discussed w/ Dr. Anabell Tran, PGY 7 Plastic and Reconstructive Surgery Fellow Pager: [phone] SUBJECTIVE : POD 1 from posterior component separation for ventral hernia repair Doing well this AM but this afternoon started to have some abdominal discomfort and fullness Does not think he has passed gas. OBJECTIVE Physical Abdomen mildly distended. Incision clean/dry/intact. Drain serosanguinous ASSESSMENT AND PLAN: Patient is a 58 y/o female with a ventral hernia and component separation repair on 01/06/24 Plan: - if patient continues to have discomfort, will place NGT - IV pain control only without narcotics - awaiting return of bowel function Discussed w/ . Anabell Sarmiento MD Plastic and Reconstructive surgery fellow [phone] documented in this encounter [facility] 01-10-2024 Note Formatting of this n ote is different from the original. Images from the original note were not included. Care Management Progress Note 01/06- ventral hernia repair- NPO/NG- LADARIUS x2- monitor bowel function Discharge plan- Home when medically stable Discharge Milestones and Delays Expected Date/Time: 01/13/[address] discharge order Complete med reconciliation Case mgmt discharge readiness Clinical Stability Diagnsotic Workup Expected Discharge History Expected Date/Time Set By Reviewed At 01/13/2024 Allyssa Cai RN 01/10/2024 8:17 AM 01/11/2024 Salma Barlow RN 01/09/2024 8:37 AM 01/09/2024 Allyssa Cai RN 01/08/2024 8:11 AM 01/07/2024 Allyssa Cai RN 01/07/2024 8:15 AM 01/07/2024 Vaishnavi Barnhart MD 01/06/2024 2:54 PM 01/07/2024 Vaishnavi Barnhart MD 01/06/2024 7:47 AM Length of Stay (Days): 4 GMLOS: 2.3 [facility] 01-10-2024 Note Formatting of this n ote is different from the original. Images from the original note were not included. Care Management Progress Note 01/06- ventral hernia repair- NPO/NG- LADARIUS x2- monitor bowel function Discharge plan- Home when medically stable Discharge Milestones and Delays Expected Date/Time: 01/13/[address] discharge order Complete med reconciliation Case mgmt discharge readiness Clinical Stability Diagnsotic Workup Expected Discharge History Expected Date/Time Set By Reviewed At 01/13/2024 Allyssa Cai RN 01/10/2024 8:17 AM 01/11/2024 Salma Barlow RN 01/09/2024 8:37 AM 01/09/2024 Allyssa Cai RN 01/08/2024 8:11 AM 01/07/2024 Allyssa Cai RN 01/07/2024 8:15 AM 01/07/2024 Vaishnavi Barnhart MD 01/06/2024 2:54 PM 01/07/2024 Vaishnavi Barnhart MD 01/06/2024 7:47 AM Length of Stay (Days): 4 GMLOS: 2.3 [facility] 01-10-2024 Miscellaneous Notes Images from the original note were not included. Care Management Progress Note 01/06- ventral hernia repair- NPO/NG- LADARIUS x2- monitor bowel function Discharge plan- Home when medically stable Discharge Milestones and Delays Expected Date/Time: 01/13/[address] discharge order Complete med reconciliation Case mgmt discharge readiness Clinical Stability Diagnsotic Workup Expected Discharge History Expected Date/Time Set By Reviewed At 01/13/2024 Allyssa Cai RN 01/10/2024 8:17 AM 01/11/2024 Salma Barlow RN 01/09/2024 8:37 AM 01/09/2024 Allyssa Cai RN 01/08/2024 8:11 AM 01/07/2024 Allyssa Cai RN 01/07/2024 8:15 AM 01/07/2024 Vaishnavi Barnhart MD 01/06/2024 2:54 PM 01/07/2024 Vaishnavi Barnhart MD 01/06/2024 7:47 AM Length of Stay (Days): 4 GMLOS: 2.3 Problem: Pain - Adult Goal: Verbalizes/displays adequate comfort level or baseline comfort level Outcome: Progressing Problem: Safety - Adult Goal: Free from fall injury Outcome: Progressing Problem: Discharge Planning Goal: Discharge to home or other facility with appropriate resources Outcome: Progressing Problem: Chronic Conditions and Co-morbidities Goal: Patient's chronic conditions and co-morbidity symptoms are monitored and maintained or improved Outcome: Progressing Problem: Knowledge Deficit Goal: Patient/family/caregiver demonstrates understanding of disease process, treatment plan, medications, and discharge instructions Outcome: Progressing The patient is Moderately Stable - Low risk of patient condition declining or worsening The patient's goals for the shift include bowel movement , ambulation The clinical goals for the shift include pain control, ambulation Images from the original note were not included. Care Management Progress Note 01/06- ventral hernia repair- NPO/NG- LADARIUS x2 Discharge plan- Home when medically stable Discharge Milestones and Delays Expected Date/Time: 01/09/[address] discharge order Complete med reconciliation Case mgmt discharge readiness Clinical Stability Diagnsotic Workup Expected Discharge History Expected Date/Time Set By Reviewed At 01/09/2024 Allyssa Cai RN 01/08/2024 8:11 AM 01/07/2024 Allyssa Cai RN 01/07/2024 8:15 AM 01/07/2024 Vaishnavi Barnhart MD 01/06/2024 2:54 PM 01/07/2024 Vaishnavi Barnhart MD 01/06/2024 7:47 AM Length of Stay (Days): 2 GMLOS: No GMLOS Documented Care Managment Initial Assessment Date: 01/07/2024 Patient Name: Adam Lawson : 1965 Patient Information Source of Information: Patient Cognition/Language: WFL - Within Functional Limits Permission given to speak with patient financial service representative/caregiver as indicated: Confirmation of Payer with patient/family: Yes Payer Name: KASANDRA ALFORD [place]: Confirmation of Primary Care Physician: Confirmed PCP Name: Tommy Dan MD Seen in last 2 years?: Yes Primary Caregiver: Self If assistance needed, confirmed caregiver ready, willing and able to care for patient at discharge: Confirmed with: Living Arrangements Current Residence: House Number of Floors 2 Number of Entry Steps: 2 Bed/Bath Levels: Facility: Facility Name: Plan to Return: Lives with: Spouse/significant other Support Systems: Spouse/significant other Activities of Daily Living Ambulation: Independent Bathing/Dressing: Independent Elimination/Continence/Toileting: Independent Feeding: Independent Who Assists with Activities of Daily Living: Instrumental Activities of Daily Living Prescription Coverage: No Pharmacy Used: [facility] [place] Medication Management: ( fills pill box) Transportation/Shopping: Assistance Provider Transportation/Shopping Assistance Provider Name: paid local owner operator truck driver Transportation Mode: Needs Assistance with Transportation at Discharge: No (will call paid local owner operator truck driver) Meal Preparation: Assistance Provider Meal Prep Assistance Provider Name: per Laundry/Cleaning: Assistance Provider Laundry/Cleaning Assistance Provider Name: per Finances/Bill Paying: Independent Communication: Independent Types of Care Services/Equipment Utilized Care Services: Dialysis Type: Durable Medical Equipment: (denies DME) Patient's Goal/Discharge Plan Patient expects to be discharged to: home Discharge Planning Actions: No needs identified Patient's Choice Rights and [employer] and Collaborative Relationships Disclosed as Indicated for Post-Acute Care: Interdisciplinary Team Engagement: Social Work Referral for: Additional Information: Met with patient at bedside - reviewed discharge plan, introduced self and role. Patient from home independent with . Patient states has insurance -no medication coverage . Help available at home and will call paid local owner operator truck driver for transportation home. Plan -Home - when medically stable. Problem: Safety - Adult Goal: Free from fall injury Outcome: Progressing Problem: Discharge Planning Goal: Discharge to home or other facility with appropriate resources Outcome: Progressing Problem: Chronic Conditions and Co-morbidities Goal: Patient's chronic conditions and co-morbidity symptoms are monitored and maintained or improved Outcome: Progressing Problem: Pain - Adult Goal: Verbalizes/displays adequate comfort level or baseline comfort level Outcome: Not Progressing Patient family/visitor updated by RN at this time. Date: 01/06/2024 Location: [facility] Name: Adam Lawson, : 1965, Diagnosis Pre-op Diagnosis * Incisional hernia without obstruction or gangrene [K43.2] * Obesity, unspecified [E66.9] * Body mass index (BMI) 37.0-37.9, adult [Z68.37] Post-op Diagnosis * Incisional hernia without obstruction or gangrene [K43.2] * Obesity, unspecified [E66.9] * Body mass index (BMI) 37.0-37.9, adult [Z68.37] Procedures POSTERIOR COMPONENT SEPARATION WITH MESH PLACEMENT, LYSIS OF ADHESIONS 88754 - MA EXCISION EXCESSIVE SKIN & SUBQ TISSUE ABDOMEN Surgeons Primary Surgeon: Anabell Riggins MD Co-surgeon: Tiburcio Sher MD Due to the complexity of the case and having trainees without the requisite skill set at this time, two attendings were required for this case. Due to the significantly large ventral hernia defect measuring more than 14 cm, it was recognized that one-sided component separation would not be sufficient to allow primary closure. Decision was made to proceed with contralateral component separation to decrease tension and increase the possibility of tension-free closure. Economic Geographer: Torsten Hogan MD Procedure Summary Anesthesia: General bilateral QL block with liposomal bupivacaine provided by the anesthesia team ASA: III Estimated Blood Loss: 100 mL Total IV Fluids: 1200 mL Drains: Closed/Suction Drain RLQ Bulb 19 Fr. (Active) Dressing Status Clean, dry & intact 01/06/24 1400 Drainage Appearance Bloody 01/06/24 1400 Status To bulb suction 01/06/24 1400 Output (mL) 55 mL 01/06/24 1400 Closed/Suction Drain LLQ Bulb 19 Fr. (Active) Dressing Status Clean, dry & intact 01/06/24 1400 Drainage Appearance Bloody 01/06/24 1400 Status To bulb suction 01/06/24 1400 Output (mL) 80 mL 01/06/24 1400 Specimens ID Source Type Tests Collected By Collected At Frozen? Priority Lab ID 1 Abdominal Wall Tissue TISSUE EXAM Vaishnavi Barnhart MD 01/06/24 0846 No Routine [id number] Description: Ventral Hernia Sack Implants Type Name Action Serial No. Mesh MESH PROGRIP [id number] - [id number] Implanted Mesh MESH PROGRIP [id number] - [id number] Implanted Staff: Side Trimmer: Maryanne Meredith RN Relief Side Trimmer: Faviola Kelley RN Scrub Person: Vita Anthony RN Indications: Adam Lawson is an 58 y.o. male who is having surgery for Incisional hernia without obstruction or gangrene [K43.2] Obesity, unspecified [E66.9] Body mass index (BMI) 37.0-37.9, adult [Z68.37]. The patient presents with significant past surgical history of abdominal peritonitis and pneumoperitoneum. Patient had a hip replacement surgery early November 2022. 2 days later patient developed significant abdominal pain and peritonitis. He underwent diagnostic laparoscopy which was converted to exploratory laparotomy with small bowel resection, appendectomy and application of wound VAC on 01/07/2023. Postoperatively the patient developed an incisional ventral hernia. Patient was asked to wait a year to allow maturation of the scar tissue under the abdominal wall skin which had healed by secondary intention following prolonged wound VAC application. A CT scan was obtained which revealed large ventral abdominal wall hernia with a defect size measuring 14 cm. Based on clinical presentation and imaging decision was made to offer the patient some sort of component separation either anterior or posterior component separation. We discussed risk and benefits including but not limited to infection, bleeding, seroma and hematoma formation as well as the remote possibility of mesh infection and recurrent ventral hernia. Patient was seen and evaluated in the preoperative holding area where his wristband was matched to stated name and date of . All patient questions were answered to satisfaction patient signed informed consent. Technical details: Patient was subsequently taken to the operating room. He was placed in the supine position. After induction of general esthesia with an endotracheal tube, 3 g of Ancef were given for antibiotic prophylaxis. Bilateral sequential devices were placed for DVT prophylaxis. Patient also received 40 mg of Lovenox for pharmacological DVT prophylaxis. All pressure points were padded and protected for safety. Timeout was conducted as per protocol identifying patient's name, date of , location of the ventral hernia and the planned procedure. The area of the anterior torso extending from the neck to the mid thigh was prepped and draped in the usual sterile fashion. Patient had scar tissue within the mid abdominal laparotomy site which had healed by secondary intention due to prolonged wound VAC application. That scar tissue measured 20 cm in length and 5 cm in width. An elliptical excision measuring 30 cm x 5 cm was marked extending from the subxiphoid process to the suprapubic area. Incision was made with a 10 blade knife through the skin and with a coagulating Bovie through the minimal subcutaneous tissue at which point the hernial sac was encountered. Using a 10 blade knife incision was made through the hernial sac. Once the hernia sac was opened, a finger was introduced bluntly and after sweeping movement confirming lack of adhesions at the central umbilical site, using a Metzenbaum scissor incision was made through the hernia sac entering to the abdomen. At this point of time it was realized that there is extensive adhesion between the undersurface of the hernia sac at the midline/ventral and the abdominal omentum as well as portion of the ileum which was severely adherent to the lower portion of the scar/hernial sac. Using gentle sharp dissection with a Metzenbaum scissor alternating with a coagulating Bovie extensive lysis of adhesion was performed the greater omentum from the undersurface of the ventral hernia sac. At the lower aspect of the ventral hernia and scar there was extensive adhesions between the ileum and the anterior abdominal wall as well as the undersurface of the hernial sac. This was sharply dissected with a 15 blade knife. A serosal tear was encountered which was sutured and reinforced in a simple interrupted fashion using 3-0 Vicryl suture. Once the undersurface of the hernial sac and the midline abdominal scar was cleared from all adhesions to the greater omentum and the small bowel, decision was made to run the bowel. The ligament of Treitz was appreciated and the jejunum was subsequently ran in the direction of the ileum. We encountered extensive adhesion between the small bowel segments as well as the small bowel and its mesentery. These adhesions were lysed sharply using a Metzenbaum scissor until the anterior enteric anastomosis which was previously performed encountered. Further lysis of adhesion continued until the cecum was appreciated. Of note,, we did encounter some 32-week of the proximal one third of the transverse colon which seems to be-done in the prior polyp excision via colonoscopy. Our attention was then directed to performing a posterior component separation, but elected to perform the posterior component separation to avoid devascularizing the skin to preserve the umbilical stalk and the patient as well as to decrease the incidence of seroma formation. My attention was initially directed to the left side of the patient where the medial border of the rectus abdominis muscle was palpated. An incision was made using a coagulating Bovie through the posterior rectus sheath 0.5 cm from the edge of the rectus muscle. This incision was made through the posterior rectus sheath extending from the area of the xiphoid process to the suprapubic area. The retromuscular space was entered. Sharp dissection with a coagulating Bovie in the retromuscular space was performed until the deep inferior epigastric vessels were encountered, these vessels were protected, and preserved on the back of the rectus abdominis muscle. Further dissection and the loose areolar tissue was performed until the intercoastal college associate/neurovascular bundle was encountered. These perforators were preserved. Using a coagulating Bovie incision was made in the posterior leaflet of the internal oblique muscle exposing the underlying transversus abdominous aponeurosis distally and muscle proximally. The transversus abdominis muscle proximally was dissected with a right angle and cut sharply with a coagulating Bovie. In the distal portion the transversus abdominis aponeurosis was cut sharply with a coagulating Bovie after blunt dissection with a right angle forceps. Once the transversus abdominis muscle/aponeurosis was incised, the space between the transversus abdominis muscle/aponeurosis and the transversalis fascia was entered. Blunt dissection with a Kitner was performed up to the psoas major muscle laterally, the coastal margin cranially/under the xiphoid process and the conjoined tendon distally. Hemostasis was achieved with a coagulating Bovie for any blood vessel less than 1 mm in diameter with a clip hospital pharmacy technician for any blood vessel greater than 1 mm diameter. During the dissection there was some breach in the transversalis fascia and the underlying peritoneum which was dissected free and repaired with a 3-0 Vicryl suture in a continuous running fashion. Our attention was then directed to the contralateral right side where the same exact procedure was performed as follows: The medial border of the rectus abdominis muscle was palpated. An incision was made using a coagulating Bovie through the posterior rectus sheath 0.5 cm from the edge of the rectus muscle. This incision was made through the posterior rectus sheath extending from the area of the xiphoid process to the suprapubic area. The retromuscular space was entered. Sharp dissection with a coagulating Bovie in the retromuscular space was performed until the deep inferior epigastric vessels were encountered, these vessels were protected, and preserved on the back of the rectus abdominis muscle. Further dissection and the loose areolar tissue was performed until the intercoastal [employer] associate/neurovascular bundle was encountered. These perforators were preserved. Using a coagulating Bovie incision was made in the posterior leaflet of the internal oblique muscle exposing the underlying transversus abdominous aponeurosis distally and muscle proximally. The transversus abdominis muscle proximally was dissected with a right angle and cut sharply with a coagulating Bovie. In the distal portion the transversus abdominis aponeurosis was cut sharply with a coagulating Bovie after blunt dissection with a right angle forceps. Once the transversus abdominis muscle/aponeurosis was incised, the space between the transversus abdominis muscle/aponeurosis and the transversalis fascia was entered. Blunt dissection with a Kitner was performed up to the psoas major muscle laterally, the coastal margin cranially/under the xiphoid process and the conjoined tendon distally. Hemostasis was achieved with a coagulating Bovie for any blood vessel less than 1 mm in diameter with a clip hospital pharmacy technician for any blood vessel greater than 1 mm diameter. During the dissection there was some breach in the transversalis fascia and the underlying peritoneum which was dissected free and repaired with a 3-0 Vicryl suture in a continuous running fashion. Our attention was now directed to repairing the midline at the fascia transversalis/peritoneum level. The greater omentum was draped over the small bowel spanning the area from the xiphoid process to the symphysis pubis. The transversalis fascia/peritoneum layer was approximated across the midline using 2-0 PDS suture in a running continuous fashion. X2, 15 x 30 ProGrip mesh was placed with the gripping side facing the transversalis fascia/peritoneum. The first ProGrip mesh was placed in the transverse orientation extending from the subxiphoid area to the level of the umbilical stalk area followed by another piece of 15 x 30 ProGrip mesh overlapping at the area of the umbilicus, also in a transverse orientation and extending to the level of the conjoined tendon. Both meshes were placed under tension to avoid any crumpling at the central portion. Once the mesh was secured in position with its Grippi extensions, x 2 #19 Vincent drains were placed through a separate stab incision along the anterolateral aspect of the abdominal wall skin and secured to the skin with a 2-0 nylon suture. Due to the posterior component separation, the medial border of the rectus abdominis muscle was transposed medially towards the midline/linea alba. Closure of the midline was performed in a continuous running fashion using #0 looped nylon suture. The first suture was started at the subxiphoid area incorporating the anterior rectus sheath fascia as well as the reflected edge of the posterior rectus sheath fascia (the medial aspect of the posterior rectus fascia after the incision to access the retromuscular space). Another #0 looped nylon suture was started at the suprapubic area from caudal to cranial direction up to the level of the supraumbilical area where both sutures were tied together. Since we were able to preserve the umbilical stalk which was carried on the left abdominal skin flap, a counter semicircular incision was made on the right side of the abdominal skin incision/flap to incorporate the umbilical stalk. The surgical incision was irrigated with saline. Hemostasis was achieved with a coagulating Bovie. Closure was performed anatomically by approximation of the deep dermis with a 4-0 Monocryl in an inverted interrupted fashion followed by approximation of the superficial dermis and epidermis with a skin stapler. Incision was cleaned, dried and covered with a silver impregnated dressing. Patient tolerated the procedure well. Debriefing was done as per protocol. All counts were correct in terms of needles, instruments and sponges. Patient was safely extubated and transferred from the operating room to the PACU for postoperative care. Please disregard any typographical errors. This note was partially dictated using voice recognition software. documented in this encounter [facility] 01-09-2024 Nurse Note Patient's requested nurse notify physicians again to come assess her , Resident's messaged again to notify of the patient and family request [facility] 01-09-2024 Nurse Note Plastic surgery resident's messaged 3x regarding some blood tinged drainage noted coming from Ng tube after unhooked for patient to use restroom , patient and both concerned and requesting a doctor . Resident say they will be up shortly to assess [facility] 01-09-2024 Plan of care note Problem: Pain - Adult Goal: Verbalizes/displays adequate comfort level or baseline comfort level Outcome: Progressing Problem: Safety - Adult Goal: Free from fall injury Outcome: Progressing Problem: Discharge Planning Goal: Discharge to home or other facility with appropriate resources Outcome: Progressing Problem: Chronic Conditions and Co-morbidities Goal: Patient's chronic conditions and co-morbidity symptoms are monitored and maintained or improved Outcome: Progressing Problem: Knowledge Deficit Goal: Patient/family/caregiver demonstrates understanding of disease process, treatment plan, medications, and discharge instructions Outcome: Progressing The patient is Moderately Stable - Low risk of patient condition declining or worsening The patient's goals for the shift include bowel movement , ambulation The clinical goals for the shift include pain control, ambulation [facility] 01-08-2024 Note Care Management Prog ress Note 01/06- ventral hernia repair- NPO/NG- LADARIUS x2 Discharge plan- Home when medically stable Discharge Milestones and Delays Expected Date/Time: 01/09/[address] discharge order Complete med reconciliation Case mgmt discharge readiness Clinical Stability Diagnsotic Workup Expected Discharge History Expected Date/Time Set By Reviewed At 01/09/2024 Allyssa Cai RN 01/08/2024 8:11 AM 01/07/2024 Allyssa Cai RN 01/07/2024 8:15 AM 01/07/2024 Vaishnavi Barnhart MD 01/06/2024 2:54 PM 01/07/2024 Vaishnavi Barnhart MD 01/06/2024 7:47 AM Length of Stay (Days): 2 GMLOS: No GMLOS Documented [facility] 01-08-2024 Note Formatting of this n ote is different from the original. Images from the original note were not included. Care Management Progress Note 01/06- ventral hernia repair- NPO/NG- LADARIUS x2 Discharge plan- Home when medically stable Discharge Milestones and Delays Expected Date/Time: 01/09/[address] discharge order Complete med reconciliation Case mgmt discharge readiness Clinical Stability Diagnsotic Workup Expected Discharge History Expected Date/Time Set By Reviewed At 01/09/2024 Allyssa Cai RN 01/08/2024 8:11 AM 01/07/2024 Allyssa Cai RN 01/07/2024 8:15 AM 01/07/2024 Vaishnavi Barnhart MD 01/06/2024 2:54 PM 01/07/2024 Vaishnavi Barnhart MD 01/06/2024 7:47 AM Length of Stay (Days): 2 GMLOS: No GMLOS Documented [facility] 01-08-2024 Note Formatting of this n ote is different from the original. Images from the original note were not included. Care Management Progress Note 01/06- ventral hernia repair- NPO/NG- LADARIUS x2 Discharge plan- Home when medically stable Discharge Milestones and Delays Expected Date/Time: 01/09/[address] discharge order Complete med reconciliation Case mgmt discharge readiness Clinical Stability Diagnsotic Workup Expected Discharge History Expected Date/Time Set By Reviewed At 01/09/2024 Allyssa Cai RN 01/08/2024 8:11 AM 01/07/2024 Allyssa Cai RN 01/07/2024 8:15 AM 01/07/2024 Vaishnavi Barnhart MD 01/06/2024 2:54 PM 01/07/2024 Vaishnavi Barnhart MD 01/06/2024 7:47 AM Length of Stay (Days): 2 GMLOS: No GMLOS Documented [facility] 01-07-2024 Note Formatting of this n ote might be different from the original. Care Managment Initial Assessment Date: 01/07/2024 Patient Name: Adam Lawson : 1965 Patient Information Source of Information: Patient Cognition/Language: WFL - Within Functional Limits Permission given to speak with patient financial service representative/caregiver as indicated: Confirmation of Payer with patient/family: Yes Payer Name: [employer] [facility] [place]: Confirmation of Primary Care Physician: Confirmed PCP Name: Tommy Dan MD Seen in last 2 years?: Yes Primary Caregiver: Self If assistance needed, confirmed caregiver ready, willing and able to care for patient at discharge: Confirmed with: Living Arrangements Current Residence: House Number of Floors 2 Number of Entry Steps: 2 Bed/Bath Levels: Facility: Facility Name: Plan to Return: Lives with: Spouse/significant other Support Systems: Spouse/significant other Activities of Daily Living Ambulation: Independent Bathing/Dressing: Independent Elimination/Continence/Toileting: Independent Feeding: Independent Who Assists with Activities of Daily Living: Instrumental Activities of Daily Living Prescription Coverage: No [facility]acy Used[facility] [place] Medication Management: ( fills pill box) Transportation/Shopping: Assistance Provider Transportation/Shopping Assistance Provider Name: paid local owner operator truck driver Transportation Mode: Needs Assistance with Transportation at Discharge: No (will call paid local owner operator truck driver) Meal Preparation: Assistance Provider Meal Prep Assistance Provider Name: per Laundry/Cleaning: Assistance Provider Laundry/Cleaning Assistance Provider Name: per Finances/Bill Paying: Independent Communication: Independent Types of Care Services/Equipment Utilized Care Services: Dialysis Type: Durable Medical Equipment: (denies DME) Patient's Goal/Discharge Plan Patient expects to be discharged to: home Discharge Planning Actions: No needs identified Patient's Choice Rights and [employer] and Collaborative Relationships Disclosed as Indicated for Post-Acute Care: Interdisciplinary Team Engagement: Social Work Referral for: Additional Information: Met with patient at bedside - reviewed discharge plan, introduced self and role. Patient from home independent with . Patient states has insurance -no medication coverage . Help available at home and will call paid local owner operator truck driver for transportation home. Plan -Home - when medically stable. [facility] 01-07-2024 Note Formatting of this n ote might be different from the original. Care Managment Initial Assessment Date: 01/07/2024 Patient Name: Adam Lawson : 1965 Patient Information Source of Information: Patient Cognition/Language: WFL - Within Functional Limits Permission given to speak with patient financial service representative/caregiver as indicated: Confirmation of Payer with patient/family: Yes Payer Name: [employer] [facility] [place]: Confirmation of Primary Care Physician: Confirmed PCP Name: Tommy Dan MD Seen in last 2 years?: Yes Primary Caregiver: Self If assistance needed, confirmed caregiver ready, willing and able to care for patient at discharge: Confirmed with: Living Arrangements Current Residence: House Number of Floors 2 Number of Entry Steps: 2 Bed/Bath Levels: Facility: Facility Name: Plan to Return: Lives with: Spouse/significant other Support Systems: Spouse/significant other Activities of Daily Living Ambulation: Independent Bathing/Dressing: Independent Elimination/Continence/Toileting: Independent Feeding: Independent Who Assists with Activities of Daily Living: Instrumental Activities of Daily Living Prescription Coverage: No Pharmacy Used: [facility] [place] Medication Management: ( fills pill box) Transportation/Shopping: Assistance Provider Transportation/Shopping Assistance Provider Name: paid local owner operator truck driver Transportation Mode: Needs Assistance with Transportation at Discharge: No (will call paid local owner operator truck driver) Meal Preparation: Assistance Provider Meal Prep Assistance Provider Name: per Laundry/Cleaning: Assistance Provider Laundry/Cleaning Assistance Provider Name: per Finances/Bill Paying: Independent Communication: Independent Types of Care Services/Equipment Utilized Care Services: Dialysis Type: Durable Medical Equipment: (denies DME) Patient's Goal/Discharge Plan Patient expects to be discharged to: home Discharge Planning Actions: No needs identified Patient's Choice Rights and [employer] and Collaborative Relationships Disclosed as Indicated for Post-Acute Care: Interdisciplinary Team Engagement: Social Work Referral for: Additional Information: Met with patient at bedside - reviewed discharge plan, introduced self and role. Patient from home independent with . Patient states has insurance -no medication coverage . Help available at home and will call paid local owner operator truck driver for transportation home. Plan -Home - when medically stable. [facility] 01-06-2024 Note Problem: Safety - Ad ult Goal: Free from fall injury Outcome: Progressing Problem: Discharge Planning Goal: Discharge to home or other facility with appropriate resources Outcome: Progressing Problem: Chronic Conditions and Co-morbidities Goal: Patient's chronic conditions and co-morbidity symptoms are monitored and maintained or improved Outcome: Progressing Problem: Pain - Adult Goal: Verbalizes/displays adequate comfort level or baseline comfort level Outcome: Not Progressing [facility] 01-06-2024 Plan of care note Problem: Safety - Adult Goal: Free from fall injury Outcome: Progressing Problem: Discharge Planning Goal: Discharge to home or other facility with appropriate resources Outcome: Progressing Problem: Chronic Conditions and Co-morbidities Goal: Patient's chronic conditions and co-morbidity symptoms are monitored and maintained or improved Outcome: Progressing Problem: Pain - Adult Goal: Verbalizes/displays adequate comfort level or baseline comfort level Outcome: Not Progressing [facility] 01-06-2024 Note Patient: Adam garcía Procedure Summary Date: 01/06/24 Room / Location: [facility] OR Operating Room Anesthesia Start: 733 Anesthesia Stop: 1309 Procedure: POSTERIOR COMPONENT SEPARATION WITH MESH PLACEMENT, LYSIS OF ADHESIONS (Abdomen) Diagnosis: Incisional hernia without obstruction or gangrene Obesity, unspecified Body mass index (BMI) 37.0-37.9, adult (Incisional hernia without obstruction or gangrene [K43.2]) (Obesity, unspecified [E66.9]) (Body mass index (BMI) 37.0-37.9, adult [Z68.37]) Surgeons: Vaishnavi Barnhart MD Responsible Provider: Conner De Guzman DO Anesthesia Type: general, regional ASA Status: 3 Anesthesia Type: general, regional Vitals Value Taken Time BP 126/80 01/06/24 1305 Temp 36.7 ?C (98.1 ?F) 01/06/24 1305 Pulse 75 01/06/24 1309 Resp 13 01/06/24 1309 SpO2 95 % 01/06/24 1309 Vitals shown include unfiled device data. Anesthesia Post Evaluation Patient location during evaluation: PACU Patient participation: complete - patient participated Level of consciousness: awake and alert Pain management: satisfactory to patient Airway patency: patent Dental Injury: no Cardiovascular status: acceptable, blood pressure returned to baseline and hemodynamically stable Respiratory status: acceptable and spontaneous ventilation Hydration status: euvolemic Nausea/Vomiting: controlled No notable events documented. Patient can be discharged once all PACU criteria has been met. [facility] 01-06-2024 Note Patient: Adam garcía Procedure Summary Date: 01/06/24 Room / Location: [facility] Operating Room Anesthesia Start: 0734 Anesthesia Stop: 1309 Procedure: POSTERIOR COMPONENT SEPARATION WITH MESH PLACEMENT, LYSIS OF ADHESIONS (Abdomen) Diagnosis: Incisional hernia without obstruction or gangrene Obesity, unspecified Body mass index (BMI) 37.0-37.9, adult (Incisional hernia without obstruction or gangrene [K43.2]) (Obesity, unspecified [E66.9]) (Body mass index (BMI) 37.0-37.9, adult [Z68.37]) Surgeons: Vaishnavi Barnhart MD Responsible Provider: Conner De Guzman DO Anesthesia Type: general, regional ASA Status: 3 Anesthesia Type: general, regional Vitals Value Taken Time BP 126/80 01/06/24 1305 Temp 36.7 ?C (98.1 ?F) 01/06/24 1305 Pulse 75 01/06/24 1308 Resp 17 01/06/24 1308 SpO2 94 % 01/06/24 1308 Vitals shown include unfiled device data. Anesthesia Post Evaluation Patient location during evaluation: PACU Patient participation: complete - patient participated Level of consciousness: awake and alert Pain score: 0 Pain management: satisfactory to patient Multimodal analgesia pain management approach Airway patency: patent Two or more strategies used to mitigate risk of obstructive sleep apnea Cardiovascular status: acceptable and hemodynamically stable Respiratory status: acceptable and face mask Hydration status: acceptable No notable events documented. MIPS #[id number] PONV Patient received an inhalational anesthetic (4554F) Patient exhibits three or more risk factors for PONV (4556F) Patient received at [facility] 2 prophylactic Rx [...] current smoker (e.g. cigarette, cigar, pipe, e-cigarette/vaping/marijuana) If no stop here (XX404) I completed my handoff to the receiving clinician during which we: 1. Identified the patient 2. Identified the responsible provider 3. Reviewed the pertinent medical history 4. Discussed the surgical course 5. Reviewed intra-op anesthesia management and issues during anesthesia 6. Set expectations for post-procedure period 7. Allowed opportunity for questions and acknowledgement of understanding. [facility] 01-06-2024 Note Formatting of this n ote might be different from the original. Patient family/visitor updated by RN at this time. [facility] 01-06-2024 Note Formatting of this n ote might be different from the original. Patient family/visitor updated by RN at this time. [facility] 01-06-2024 Note Peripheral Block Time Out: 01/06/2024 7:39 AM Start time: 01/06/2024 7:39 AM End time: 01/06/2024 7:45 AM Reason for block: at surgeon's request and post-op pain management Staffing Performed: FAST BRIM POUNCER Resident/FAST BRIM POUNCER: JANNA Santana CRNA Preanesthetic Checklist Completed: patient identified, IV checked, site marked, risks and benefits discussed, surgical consent, monitors and equipment checked, pre-op evaluation and timeout performed Region: Truncal Primary: Quadratus Lumborum Peripheral Block Prep: ChloraPrep Patient monitoring: heart rate, library monitor, continuous pulse ox and continuous capnometry O2: ETT/LMA Laterality: bilateral Injection technique: single-shot Guidance: ultrasound guided -image retained in chart, tip of the needle identified by ultraound during injection. Needle Needle: 21G X 110 mm Additional Notes 01/06/2024 7:39 AM Assessment Injection assessment: negative aspiration for heme, no paresthesia on injection, incremental injection, local visualized surrounding nerve on ultrasound and transient paresthesias Heart rate change: no Slow fractionated injection: yes Required Documentation: Relevant anatomy identified (Nerves, Vessels, Muscles), Negative for blood on aspiration, Local anesthetic injected incrementally with intermittent aspiration every 5 mL, Normal resistance with injection, Local anesthetic spread visualized around nerves or plane., No EKG changes noted and No symptoms of toxicityMedications hftWUOWPoxurz-jjjhhzsbkai-soktmsm rine (TAP) syringe - Injection 40 mL - 01/06/2024 7:39:00 AM bupivacaine liposome (Exparel) 1.3 % injection - Injection 20 mL - 01/06/2024 7:39:00 AM [facility] 01-06-2024 Note Airway Date/Time: 01/06/2024 7:44 AM Urgency: scheduled Airway not difficult General Information and Staff Patient location during procedure: Procedural Resident/FAST BRIM POUNCER: JANNA Gambino CRNA Performed: FAST BRIM POUNCER Indications and Patient Condition Indications for airway management: anesthesia and airway protection Sedation level: Asleep Preoxygenated: yes Patient position: sniffing MILS maintained throughout Mask difficulty assessment: 2 - vent by mask + OA or adjuvant +/- NMBA (large OPA) Final Airway Details Final airway type: endotracheal airway Successful airway: ETT Cuffed: yes Successful intubation technique: direct laryngoscopy Facilitating devices/methods: intubating stylet Endotracheal tube insertion site: oral Blade: Keegan Blade size: #4 ETT size (mm): 8.0 Cormack-Lehane Classification: grade I - full view of glottis Placement verified by: chest auscultation and capnometry Measured from: lips ETT to lips (cm): 23 Number of attempts at approach: 1 [facility] 01-06-2024 Note [facility] [address] [facility] [address] Dept: [phone] Dept Patient Name: Adam Lawson Date: 01/06/24 Update History & Physical I examined the patient and there were no significant changes from the previous History and Physical. I verify that the patient's condition and planned treatment has not changed. I also confirm the necessity for the procedure still present. Planned Procedure: ANTERIOR VERSUS POSTERIOR COMPONENT SEPARATION WITH MESH PLACEMENT Patient seen and marked today. Risks/benefits/possible complications were reviewed with the patient as per the preoperative office note to include but not limited to bleeding, infection, wound healing issues, seroma/hematoma. Patient understands and wants to proceed with the procedure. Reason for Consult: Ventral incisional hernia Requesting [...] can pay his bills. 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 REVIEW OF [...] kg (262 lb 6.4 oz) BMI 36.60 kg/m? CONSTITUTIONAL: awake, alert, cooperative, no apparent distress, and appears stated age EYES: PERRLA, EOMI, no signs of occular infection LUNGS: No increased work of breathing, good air exchange, clear to auscult (more content not included)... [facility] 01-06-2024 Note Formatting of this n ote is different from the original. Date: 01/06/2024 Location: [facility] Name: Adam Lawson, : 1965, Diagnosis Pre-op Diagnosis * Incisional hernia without obstruction or gangrene [K43.2] * Obesity, unspecified [E66.9] * Body mass index (BMI) 37.0-37.9, adult [Z68.37] Post-op Diagnosis * Incisional hernia without obstruction or gangrene [K43.2] * Obesity, unspecified [E66.9] * Body mass index (BMI) 37.0-37.9, adult [Z68.37] Procedures POSTERIOR COMPONENT SEPARATION WITH MESH PLACEMENT, LYSIS OF ADHESIONS 19199 - MA EXCISION EXCESSIVE SKIN & SUBQ TISSUE ABDOMEN Surgeons Primary Surgeon: Anabell Riggins MD Co-surgeon: Tiburcio Sher MD Due to the complexity of the case and having trainees without the requisite skill set at this time, two attendings were required for this case. Due to the significantly large ventral hernia defect measuring more than 14 cm, it was recognized that one-sided component separation would not be sufficient to allow primary closure. Decision was made to proceed with contralateral component separation to decrease tension and increase the possibility of tension-free closure. Economic Geographer: Torsten Hogan MD Procedure Summary Anesthesia: General bilateral QL block with liposomal bupivacaine provided by the anesthesia team ASA: III Estimated Blood Loss: 100 mL Total IV Fluids: 1200 mL Drains: Closed/Suction Drain RLQ Bulb 19 Fr. (Active) Dressing Status Clean, dry & intact 01/06/24 1400 Drainage Appearance Bloody 01/06/24 1400 Status To bulb suction 01/06/24 1400 Output (mL) 55 mL 01/06/24 1400 Closed/Suction Drain LLQ Bulb 19 Fr. (Active) Dressing Status Clean, dry & intact 01/06/24 1400 Drainage Appearance Bloody 01/06/24 1400 Status To bulb suction 01/06/24 1400 Output (mL) 80 mL 01/06/24 1400 Specimens ID Source Type Tests Collected By Collected At Frozen? Priority Lab ID 1 Abdominal Wall Tissue TISSUE EXAM Vaishnavi Barnhart MD 01/06/24 0846 No Routine [id number] Description: Ventral Hernia Sack Implants Type Name Action Serial No. Mesh MESH PROGRIP [id number] - [id number] Implanted Mesh MESH PROGRIP [id number] - [id number] Implanted Staff: Side Trimmer: Maryanne Meredith RN Relief Side Trimmer: Faviola Kelley RN Scrub Person: Vita Anthony RN Indications: Adam Lawson is an 58 y.o. male who is having surgery for Incisional hernia without obstruction or gangrene [K43.2] Obesity, unspecified [E66.9] Body mass index (BMI) 37.0-37.9, adult [Z68.37]. The patient presents with significant past surgical history of abdominal peritonitis and pneumoperitoneum. Patient had a hip replacement surgery early November 2022. 2 days later patient developed significant abdominal pain and peritonitis. He underwent diagnostic laparoscopy which was converted to exploratory laparotomy with small bowel resection, appendectomy and application of wound VAC on 01/07/2023. Postoperatively the patient developed an incisional ventral hernia. Patient was asked to wait a year to allow maturation of the scar tissue under the abdominal wall skin which had healed by secondary intention following prolonged wound VAC application. A CT scan was obtained which revealed large ventral abdominal wall hernia with a defect size measuring 14 cm. Based on clinical presentation and imaging decision was made to offer the patient some sort of component separation either anterior or posterior component separation. We discussed risk and benefits including but not limited to infection, bleeding, seroma and hematoma formation as well as the remote possibility of mesh infection and recurrent ventral hernia. Patient was seen and evaluated in the preoperative holding area where his wristband was matched to stated name and date of . All patient questions were answered to satisfaction patient signed informed consent. Technical details: Patient was subsequently taken to the operating room. He was placed in the supine position. After induction of general esthesia with an endotracheal tube, 3 g of Ancef were given for antibiotic prophylaxis. Bilateral sequential devices were placed for DVT prophylaxis. Patient also received 40 mg of Lovenox for pharmacological DVT prophylaxis. All pressure points were padded and protected for safety. Timeout was conducted as per protocol identifying patient's name, date of , location of the ventral hernia and the planned procedure. The area of the anterior torso extending from the neck to the mid thigh was prepped and draped in the usual sterile fashion. Patient had scar tissue within the mid abdominal laparotomy site which had healed by secondary intention due to prolonged wound VAC application. That scar tissue measured 20 cm in length and 5 cm in width. An elliptical excision measuring 30 cm x 5 cm was marked extending from the subxiphoid process to the suprapubic area. Incision was made with a 10 blade knife through the skin and with a coagulating Bovie through the minimal subcutaneous tissue at which point the hernial sac was encountered. Using a 10 blade knife incision was made through the hernial sac. Once the hernia sac was opened, a finger was introduced bluntly and after sweeping movement confirming lack of adhesions at the central umbilical site, using a Metzenbaum scissor incision was made through the hernia sac entering to the abdomen. At this point of time it was realized that there is extensive adhesion between the undersurface of the hernia sac at the midline/ventral and the abdominal omentum as well as portion of the ileum which was severely adherent to the lower portion of the scar/hernial sac. Using gentle sharp dissection with a Metzenbaum scissor alternating with a coagulating Bovie extensive lysis of adhesion was performed the greater omentum from the undersurface of the ventral hernia sac. At the lower aspect of the ventral hernia and scar there was extensive adhesions between the ileum and the anterior abdominal wall as well as the undersurface of the hernial sac. This was sharply dissected with a 15 blade knife. A serosal tear was encountered which was sutured and reinforced in a simple interrupted fashion using 3-0 Vicryl suture. Once the undersurface of the hernial sac and the midline abdominal scar was cleared from all adhesions to the greater omentum and the small bowel, decision was made to run the bowel. The ligament of Treitz was appreciated and the jejunum was subsequently ran in the direction of the ileum. We encountered extensive adhesion between the small bowel segments as well as the small bowel and its mesentery. These adhesions were lysed sharply using a Metzenbaum scissor until the anterior enteric anastomosis which was previously performed encountered. Further lysis of adhesion continued until the cecum was appreciated. Of note,, we did encounter some 32-week of the proximal one third of the transverse colon which seems to be-done in the prior polyp excision via colonoscopy. Our attention was then directed to performing a posterior component separation, but elected to perform the posterior component separation to avoid devascularizing the skin to preserve the umbilical stalk and the patient as well as to decrease the incidence of seroma formation. My attention was initially directed to the left side of the patient where the medial border of the rectus abdominis muscle was palpated. An incision was made using a coagulating Bovie through the posterior rectus sheath 0.5 cm from the edge of the rectus muscle. This incision was made through the posterior rectus sheath extending from the area of the xiphoid process to the suprapubic area. The retromuscular space was entered. Sharp dissection with a coagulating Bovie in the retromuscular space was performed until the deep inferior epigastric vessels were encountered, these vessels were protected, and preserved on the back of the rectus abdominis muscle. Further dissection and the loose areolar tissue was performed until the intercoastal college associate/neurovascular bundle was encountered. These perforators were preserved. Using a coagulating Bovie incision was made in the posterior leaflet of the internal oblique muscle exposing the underlying transversus abdominous aponeurosis distally and muscle proximally. The transversus abdominis muscle proximally was dissected with a right angle and cut sharply with a coagulating Bovie. In the distal portion the transversus abdominis aponeurosis was cut sharply with a coagulating Bovie after blunt dissection with a right angle forceps. Once the transversus abdominis muscle/aponeurosis was incised, the space between the transversus abdominis muscle/aponeurosis and the transversalis fascia was entered. Blunt dissection with a Kitner was performed up to the psoas major muscle laterally, the coastal margin cranially/under the xiphoid process and the conjoined tendon distally. Hemostasis was achieved with a coagulating Bovie for any blood vessel less than 1 mm in diameter with a clip hospital pharmacy technician for any blood vessel greater than 1 mm diameter. During the dissection there was some breach in the transversalis fascia and the underlying peritoneum which was dissected free and repaired with a 3-0 Vicryl suture in a continuous running fashion. Our attention was then directed to the contralateral right side where the same exact procedure was performed as follows: The medial border of the rectus abdominis muscle was palpated. An incision was made using a coagulating Bovie through the posterior rectus sheath 0.5 cm from the edge of the rectus muscle. This incision was made through the posterior rectus sheath extending from the area of the xiphoid process to the suprapubic area. The retromuscular space was entered. Sharp dissection with a coagulating Bovie in the retromuscular space was performed until the deep inferior epigastric vessels were encountered, these vessels were protected, and preserved on the back of the rectus abdominis muscle. Further dissection and the loose areolar tissue was performed until the [employer]co[employer]al [employer] associate/neurovascular bundle was encountered. These perforators were preserved. Using a coagulating Bovie incision was made in the posterior leaflet of the internal oblique muscle exposing the underlying transversus abdominous aponeurosis distally and muscle proximally. The transversus abdominis muscle proximally was dissected with a right angle and cut sharply with a coagulating Bovie. In the distal portion the transversus abdominis aponeurosis was cut sharply with a coagulating Bovie after blunt dissection with a right angle forceps. Once the transversus abdominis muscle/aponeurosis was incised, the space between the transversus abdominis muscle/aponeurosis and the transversalis fascia was entered. Blunt dissection with a Kitner was performed up to the psoas major muscle laterally, the coastal margin cranially/under the xiphoid process and the conjoined tendon distally. Hemostasis was achieved with a coagulating Bovie for any blood vessel less than 1 mm in diameter with a clip hospital pharmacy technician for any blood vessel greater than 1 mm diameter. During the dissection there was some breach in the transversalis fascia and the underlying peritoneum which was dissected free and repaired with a 3-0 Vicryl suture in a continuous running fashion. Our attention was now directed to repairing the midline at the fascia transversalis/peritoneum level. The greater omentum was draped over the small bowel spanning the area from the xiphoid process to the symphysis pubis. The transversalis fascia/peritoneum layer was approximated across the midline using 2-0 PDS suture in a running continuous fashion. X2, 15 x 30 ProGrip mesh was placed with the gripping side facing the transversalis fascia/peritoneum. The first ProGrip mesh was placed in the transverse orientation extending from the subxiphoid area to the level of the umbilical stalk area followed by another piece of 15 x 30 ProGrip mesh overlapping at the area of the umbilicus, also in a transverse orientation and extending to the level of the conjoined tendon. Both meshes were placed under tension to avoid any crumpling at the central portion. Once the mesh was secured in position with its Grippi extensions, x 2 #19 Vincent drains were placed through a separate stab incision along the anterolateral aspect of the abdominal wall skin and secured to the skin with a 2-0 nylon suture. Due to the posterior component separation, the medial border of the rectus abdominis muscle was transposed medially towards the midline/linea alba. Closure of the midline was performed in a continuous running fashion using #0 looped nylon suture. The first suture was started at the subxiphoid area incorporating the anterior rectus sheath fascia as well as the reflected edge of the posterior rectus sheath fascia (the medial aspect of the posterior rectus fascia after the incision to access the retromuscular space). Another #0 looped nylon suture was started at the suprapubic area from caudal to cranial direction up to the level of the supraumbilical area where both sutures were tied together. Since we were able to preserve the umbilical stalk which was carried on the left abdominal skin flap, a counter semicircular incision was made on the right side of the abdominal skin incision/flap to incorporate the umbilical stalk. The surgical incision was irrigated with saline. Hemostasis was achieved with a coagulating Bovie. Closure was performed anatomically by approximation of the deep dermis with a 4-0 Monocryl in an inverted interrupted fashion followed by approximation of the superficial dermis and epidermis with a skin stapler. Incision was cleaned, dried and covered with a silver impregnated dressing. Patient tolerated the procedure well. Debriefing was done as per protocol. All counts were correct in terms of needles, instruments and sponges. Patient was safely extubated and transferred from the operating room to the PACU for postoperative care. Please disregard any typographical errors. This note was partially dictated using voice recognition software. [facility] 01-06-2024 Note Formatting of this n ote is different from the original. Date: 01/06/2024 Location: [facility] Name: Adam Lawson, : 1965, Diagnosis Pre-op Diagnosis * Incisional hernia without obstruction or gangrene [K43.2] * Obesity, unspecified [E66.9] * Body mass index (BMI) 37.0-37.9, adult [Z68.37] Post-op Diagnosis * Incisional hernia without obstruction or gangrene [K43.2] * Obesity, unspecified [E66.9] * Body mass index (BMI) 37.0-37.9, adult [Z68.37] Procedures POSTERIOR COMPONENT SEPARATION WITH MESH PLACEMENT, LYSIS OF ADHESIONS 68011 - MA EXCISION EXCESSIVE SKIN & SUBQ TISSUE ABDOMEN Surgeons Primary Surgeon: Anabell Riggins MD Co-surgeon: Tiburcio Sher MD Due to the complexity of the case and having trainees without the requisite skill set at this time, two attendings were required for this case. Due to the significantly large ventral hernia defect measuring more than 14 cm, it was recognized that one-sided component separation would not be sufficient to allow primary closure. Decision was made to proceed with contralateral component separation to decrease tension and increase the possibility of tension-free closure. Economic Geographer: Torsten Hogan MD Procedure Summary Anesthesia: General bilateral QL block with liposomal bupivacaine provided by the anesthesia team ASA: III Estimated Blood Loss: 100 mL Total IV Fluids: 1200 mL Drains: Closed/Suction Drain RLQ Bulb 19 Fr. (Active) Dressing Status Clean, dry & intact 01/06/24 1400 Drainage Appearance Bloody 01/06/24 1400 Status To bulb suction 01/06/24 1400 Output (mL) 55 mL 01/06/24 1400 Closed/Suction Drain LLQ Bulb 19 Fr. (Active) Dressing Status Clean, dry & intact 01/06/24 1400 Drainage Appearance Bloody 01/06/24 1400 Status To bulb suction 01/06/24 1400 Output (mL) 80 mL 01/06/24 1400 Specimens ID Source Type Tests Collected By Collected At Frozen? Priority Lab ID 1 Abdominal Wall Tissue TISSUE EXAM Vaishnavi Barnhart MD 01/06/24 0846 No Routine [id number] Description: Ventral Hernia Sack Implants Type Name Action Serial No. Mesh MESH PROGRIP [id number] - [id number] Implanted Mesh MESH PROGRIP [id number] - [id number] Implanted Staff: Side Trimmer: Maryanne Meredith RN Relief Side Trimmer: Faviola Kelley RN Scrub Person: Vita Anthony RN Indications: Adam Lawson is an 58 y.o. male who is having surgery for Incisional hernia without obstruction or gangrene [K43.2] Obesity, unspecified [E66.9] Body mass index (BMI) 37.0-37.9, adult [Z68.37]. The patient presents with significant past surgical history of abdominal peritonitis and pneumoperitoneum. Patient had a hip replacement surgery early November 2022. 2 days later patient developed significant abdominal pain and peritonitis. He underwent diagnostic laparoscopy which was converted to exploratory laparotomy with small bowel resection, appendectomy and application of wound VAC on 01/07/2023. Postoperatively the patient developed an incisional ventral hernia. Patient was asked to wait a year to allow maturation of the scar tissue under the abdominal wall skin which had healed by secondary intention following prolonged wound VAC application. A CT scan was obtained which revealed large ventral abdominal wall hernia with a defect size measuring 14 cm. Based on clinical presentation and imaging decision was made to offer the patient some sort of component separation either anterior or posterior component separation. We discussed risk and benefits including but not limited to infection, bleeding, seroma and hematoma formation as well as the remote possibility of mesh infection and recurrent ventral hernia. Patient was seen and evaluated in the preoperative holding area where his wristband was matched to stated name and date of . All patient questions were answered to satisfaction patient signed informed consent. Technical details: Patient was subsequently taken to the operating room. He was placed in the supine position. After induction of general esthesia with an endotracheal tube, 3 g of Ancef were given for antibiotic prophylaxis. Bilateral sequential devices were placed for DVT prophylaxis. Patient also received 40 mg of Lovenox for pharmacological DVT prophylaxis. All pressure points were padded and protected for safety. Timeout was conducted as per protocol identifying patient's name, date of , location of the ventral hernia and the planned procedure. The area of the anterior torso extending from the neck to the mid thigh was prepped and draped in the usual sterile fashion. Patient had scar tissue within the mid abdominal laparotomy site which had healed by secondary intention due to prolonged wound VAC application. That scar tissue measured 20 cm in length and 5 cm in width. An elliptical excision measuring 30 cm x 5 cm was marked extending from the subxiphoid process to the suprapubic area. Incision was made with a 10 blade knife through the skin and with a coagulating Bovie through the minimal subcutaneous tissue at which point the hernial sac was encountered. Using a 10 blade knife incision was made through the hernial sac. Once the hernia sac was opened, a finger was introduced bluntly and after sweeping movement confirming lack of adhesions at the central umbilical site, using a Metzenbaum scissor incision was made through the hernia sac entering to the abdomen. At this point of time it was realized that there is extensive adhesion between the undersurface of the hernia sac at the midline/ventral and the abdominal omentum as well as portion of the ileum which was severely adherent to the lower portion of the scar/hernial sac. Using gentle sharp dissection with a Metzenbaum scissor alternating with a coagulating Bovie extensive lysis of adhesion was performed the greater omentum from the undersurface of the ventral hernia sac. At the lower aspect of the ventral hernia and scar there was extensive adhesions between the ileum and the anterior abdominal wall as well as the undersurface of the hernial sac. This was sharply dissected with a 15 blade knife. A serosal tear was encountered which was sutured and reinforced in a simple interrupted fashion using 3-0 Vicryl suture. Once the undersurface of the hernial sac and the midline abdominal scar was cleared from all adhesions to the greater omentum and the small bowel, decision was made to run the bowel. The ligament of Treitz was appreciated and the jejunum was subsequently ran in the direction of the ileum. We encountered extensive adhesion between the small bowel segments as well as the small bowel and its mesentery. These adhesions were lysed sharply using a Metzenbaum scissor until the anterior enteric anastomosis which was previously performed encountered. Further lysis of adhesion continued until the cecum was appreciated. Of note,, we did encounter some 32-week of the proximal one third of the transverse colon which seems to be-done in the prior polyp excision via colonoscopy. Our attention was then directed to performing a posterior component separation, but elected to perform the posterior component separation to avoid devascularizing the skin to preserve the umbilical stalk and the patient as well as to decrease the incidence of seroma formation. My attention was initially directed to the left side of the patient where the medial border of the rectus abdominis muscle was palpated. An incision was made using a coagulating Bovie through the posterior rectus sheath 0.5 cm from the edge of the rectus muscle. This incision was made through the posterior rectus sheath extending from the area of the xiphoid process to the suprapubic area. The retromuscular space was entered. Sharp dissection with a coagulating Bovie in the retromuscular space was performed until the deep inferior epigastric vessels were encountered, these vessels were protected, and preserved on the back of the rectus abdominis muscle. Further dissection and the loose areolar tissue was performed until the intercoastal college associate/neurovascular bundle was encountered. These perforators were preserved. Using a coagulating Bovie incision was made in the posterior leaflet of the internal oblique muscle exposing the underlying transversus abdominous aponeurosis distally and muscle proximally. The transversus abdominis muscle proximally was dissected with a right angle and cut sharply with a coagulating Bovie. In the distal portion the transversus abdominis aponeurosis was cut sharply with a coagulating Bovie after blunt dissection with a right angle forceps. Once the transversus abdominis muscle/aponeurosis was incised, the space between the transversus abdominis muscle/aponeurosis and the transversalis fascia was entered. Blunt dissection with a Kitner was performed up to the psoas major muscle laterally, the coastal margin cranially/under the xiphoid process and the conjoined tendon distally. Hemostasis was achieved with a coagulating Bovie for any blood vessel less than 1 mm in diameter with a clip hospital pharmacy technician for any blood vessel greater than 1 mm diameter. During the dissection there was some breach in the transversalis fascia and the underlying peritoneum which was dissected free and repaired with a 3-0 Vicryl suture in a continuous running fashion. Our attention was then directed to the contralateral right side where the same exact procedure was performed as follows: The medial border of the rectus abdominis muscle was palpated. An incision was made using a coagulating Bovie through the posterior rectus sheath 0.5 cm from the edge of the rectus muscle. This incision was made through the posterior rectus sheath extending from the area of the xiphoid process to the suprapubic area. The retromuscular space was entered. Sharp dissection with a coagulating Bovie in the retromuscular space was performed until the deep inferior epigastric vessels were encountered, these vessels were protected, and preserved on the back of the rectus abdominis muscle. Further dissection and the loose areolar tissue was performed until the intercoastal [employer] associate/neurovascular bundle was encountered. These perforators were preserved. Using a coagulating Bovie incision was made in the posterior leaflet of the internal oblique muscle exposing the underlying transversus abdominous aponeurosis distally and muscle proximally. The transversus abdominis muscle proximally was dissected with a right angle and cut sharply with a coagulating Bovie. In the distal portion the transversus abdominis aponeurosis was cut sharply with a coagulating Bovie after blunt dissection with a right angle forceps. Once the transversus abdominis muscle/aponeurosis was incised, the space between the transversus abdominis muscle/aponeurosis and the transversalis fascia was entered. Blunt dissection with a Kitner was performed up to the psoas major muscle laterally, the coastal margin cranially/under the xiphoid process and the conjoined tendon distally. Hemostasis was achieved with a coagulating Bovie for any blood vessel less than 1 mm in diameter with a clip hospital pharmacy technician for any blood vessel greater than 1 mm diameter. During the dissection there was some breach in the transversalis fascia and the underlying peritoneum which was dissected free and repaired with a 3-0 Vicryl suture in a continuous running fashion. Our attention was now directed to repairing the midline at the fascia transversalis/peritoneum level. The greater omentum was draped over the small bowel spanning the area from the xiphoid process to the symphysis pubis. The transversalis fascia/peritoneum layer was approximated across the midline using 2-0 PDS suture in a running continuous fashion. X2, 15 x 30 ProGrip mesh was placed with the gripping side facing the transversalis fascia/peritoneum. The first ProGrip mesh was placed in the transverse orientation extending from the subxiphoid area to the level of the umbilical stalk area followed by another piece of 15 x 30 ProGrip mesh overlapping at the area of the umbilicus, also in a transverse orientation and extending to the level of the conjoined tendon. Both meshes were placed under tension to avoid any crumpling at the central portion. Once the mesh was secured in position with its Grippi extensions, x 2 #19 Vincent drains were placed through a separate stab incision along the anterolateral aspect of the abdominal wall skin and secured to the skin with a 2-0 nylon suture. Due to the posterior component separation, the medial border of the rectus abdominis muscle was transposed medially towards the midline/linea alba. Closure of the midline was performed in a continuous running fashion using #0 looped nylon suture. The first suture was started at the subxiphoid area incorporating the anterior rectus sheath fascia as well as the reflected edge of the posterior rectus sheath fascia (the medial aspect of the posterior rectus fascia after the incision to access the retromuscular space). Another #0 looped nylon suture was started at the suprapubic area from caudal to cranial direction up to the level of the supraumbilical area where both sutures were tied together. Since we were able to preserve the umbilical stalk which was carried on the left abdominal skin flap, a counter semicircular incision was made on the right side of the abdominal skin incision/flap to incorporate the umbilical stalk. The surgical incision was irrigated with saline. Hemostasis was achieved with a coagulating Bovie. Closure was performed anatomically by approximation of the deep dermis with a 4-0 Monocryl in an inverted interrupted fashion followed by approximation of the superficial dermis and epidermis with a skin stapler. Incision was cleaned, dried and covered with a silver impregnated dressing. Patient tolerated the procedure well. Debriefing was done as per protocol. All counts were correct in terms of needles, instruments and sponges. Patient was safely extubated and transferred from the operating room to the PACU for postoperative care. Please disregard any typographical errors. This note was partially dictated using voice recognition software. [facility] 01-06-2024 History and physical note [facility] [address] [place] [id number] Dept: [phone] Dept Patient Name: Adam Lawson Date: 01/06/24 Update History & Physical I examined the patient and there were no significant changes from the previous History and Physical. I verify that the patient's condition and planned treatment has not changed. I also confirm the necessity for the procedure still present. Planned Procedure: ANTERIOR VERSUS POSTERIOR COMPONENT SEPARATION WITH MESH PLACEMENT Patient seen and marked today. Risks/benefits/possible complications were reviewed with the patient as per the preoperative office note to include but not limited to bleeding, infection, wound healing issues, seroma/hematoma. Patient understands and wants to proceed with the procedure. Reason for Consult: Ventral incisional hernia Requesting [...] can pay his bills. 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 REVIEW OF [...] was partially dictated using voice recognition software. [facility] 01-06-2024 History and physical note [facility] PLASTIC SURGERY [address] [place] [id number] Dept: [phone] Dept Patient Name: Adam Lawson Date: 01/06/24 Update History & Physical I examined the patient and there were no significant changes from the previous History and Physical. I verify that the patient's condition and planned treatment has not changed. I also confirm the necessity for the procedure still present. Planned Procedure: ANTERIOR VERSUS POSTERIOR COMPONENT SEPARATION WITH MESH PLACEMENT Patient seen and marked today. Risks/benefits/possible complications were reviewed with the patient as per the preoperative office note to include but not limited to bleeding, infection, wound healing issues, seroma/hematoma. Patient understands and wants to proceed with the procedure. Reason for Consult: Ventral incisional hernia Requesting [...] can pay his bills. 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 REVIEW OF [...] was partially dictated using voice recognition software. Comprehensive PreSurgical History and Physical ? Name: Adam Lawson : 1965 (Age-58 y.o.) Date of Service: Pt seen/examined on 12/30/2023 Procedure Information Date/Time: 01/06/2430 Procedure: ANTERIOR VS POSTERIOR COMPONENT SEPARATION WITH MESH PLACEMENT (Abdomen) Location: [facility] [address] [place] [address] Operating Room Surgeons: Vaishnavi Barnhart MD Chief Complaint: UMBILICAL HERNIA AND HAD ABDOMINAL SURGERY LAST YEAR ASSESSMENT/PLAN: Patient is considered intermediate risk for this intermediate risk procedure/surgery noted above with no reducible risk factors. Based on the above evaluation, the benefits of the planned procedure likely exceed the risks. The patient is medically optimized to proceed with the planned procedure without any further cardiopulmonary testing. 1) INCISIONAL HERNIA WITHOUT OBSTRUCTION OR GANGRENE ; Managed per surgery 2) HTN ; ON LISINOPRIL , TOPROL 3) OBESITY ;BMI TO-DAY 36.40 4) ANXIETY/DEPRESSION ; ON WELLBUTRIN 5) S/P 1) Diagnostic Laparoscopy converted to Exploratory Laparotomy 2) Small bowel resection with Enteroenterostomy 3) Appendectomy 4) Application of Wound Vac >50 sq cm ON 12/06/22 Visit Type: Pre-Admission Testing Visit Labs Ordered: NO - COMPLETE PRIOR TO PAT VISIT Sleep Referral Ordered: NO - ALREADY DIAGNOSED WITH [place] AND PATIENT IS NOT COMPLIANT WITH CPAP Total time spent (which include face to face and non face to face encounters) : 45 minutes Toxic drug monitoring/narrow therapeutic index drug monitoring : # Drug name : lisinopril # Route administered : po # Method of monitoring : lab and ekg PAT Protocol referenced includes: 1. Anesthesia Lab Protocol Orders 2. Perioperative Cardiovascular Risk Assessment 3. Anesthesia Assessment 4. Pain Assessment and Acute Pain Service Consult (if appropriate) 5. Medical Clearance/Consult from Internal Medicine (IMS) 6. Shower/Wash Order (for designated surgeries) 7. [place] Screen and Sleep Clinic Referral (if appropriate) History Of Present Illness: 58 y.o. male who presents with chief complaint mentioned above. Patient here in PAT along with his Per surgeon's note dated 03/27/23 The patient is a 57 y.o. male [...] so that he can pay his bills. Pt has seen the surgeon and elected for above procedure. Hx problems with anesthesia? - DENIES Dental? - FULL DENTURES TOP AND BOTTOM Snore at night? - [place] ; NOT COMPLIANT WITH C-PAP Past Medical History: Past Medical History: No date: AVNRT (AV jhon re-entry tachycardia) No date: Bipolar disorder (HCC) No date: Celiac disease No date: Colon polyp No date: Diverticulosis No date: GERD (gastroesophageal reflux disease) No date: Hepatic steatosis No date: Hypertension No date: Motion sickness No date: [place] (obstructive sleep apnea) Comment: unable to tolerate mask No date: Thrombocytopenia (HCC) Past Surgical History: Past Surgical History: No date: ANTERIOR CRUCIATE LIGAMENT REPAIR; Left No date: CHOLECYSTECTOMY No date: COLON SURGERY Comment: 12inch of colon removed No date: COLONOSCOPY 12/06/2022: EXPLORATORY LAPAROTOMY No date: HERNIA REPAIR No date: JOINT REPLACEMENT Comment: L hip No date: ROTATOR CUFF REPAIR No date: SMALL INTESTINE SURGERY No date: VASCULAR SURGERY Comment: left wrist artery repair Medications Prior to Admission: Current Outpatient Medications: metoprolol succinate XL (Toprol-XL) 50 MG 24 hr tablet, Take 50 mg by mouth daily., Disp: , Rfl: buPROPion XL (Wellbutrin XL) 150 MG 24 hr tablet, Take 150 mg by mouth daily. Do not crush, chew, or split., Disp: , Rfl: Calcium Polycarbophil (fiber) 625 MG tablet, Take 1 tablet by mouth., Disp: , Rfl: cholecalciferol (Vitamin D-3) 25 MCG (1000 UT) capsule, Take 1,000 Units by mouth daily., Disp: , Rfl: docusate sodium (Colace) 100 MG capsule, Take 100 mg by mouth daily., Disp: , Rfl: lisinopril 10 MG tablet, Take 10 mg by mouth daily., Disp: , Rfl: omega-3 acid ethyl esters (Lovaza) 1 g capsule, Take 1 g by mouth daily., Disp: , Rfl: CHRONIC NARCOTIC USE: No Allergies: Dilaudid [hydromorphone] and Gluten meal If patient has opioid allergy, is it okay to take Acetaminophen: Yes Social History: TOBACCO: reports that he has never smoked. His smokeless tobacco use includes snuff. ETOH: reports no history of alcohol use. Social History Substance and Sexual Activity Drug Use Never Family History: No family history on file. REVIEW OF SYSTEMS: Review of Systems Constitutional: Negative for fever. Respiratory: Negative for shortness of breath. Cardiovascular: Negative for chest pain. Gastrointestinal: Negative for nausea. Skin: Negative for pallor and rash. Pertinent positives as noted in the HPI. Physical Exam: Physical Exam Vitals and nursing note reviewed. Constitutional: Appearance: Normal appearance. HENT: Head: Normocephalic and atraumatic. Mouth/Throat: Mouth: Mucous membranes are moist. Cardiovascular: Rate and Rhythm: Normal rate and regular rhythm. Pulmonary: Effort: Pulmonary effort is normal. Breath sounds: Normal breath sounds. Abdominal: Hernia: A hernia is present. Comments: HAS SOME ABDOMINAL BINDER AROUND THE ABDOMEN Musculoskeletal: General: Normal range of motion. Cervical back: Normal range of motion and neck supple. Skin: General: Skin is warm. Neurological: General: No focal deficit present. Mental Status: He is alert and oriented to person, place, and time. Psychiatric: Mood and Affect: Mood normal. Behavior: Behavior normal. Vitals: Vitals Value Taken Time BP 135/85 12/30/23 1419 Temp 36.5 C (97.7 F) 12/30/23 1419 Pulse 69 12/30/23 1419 Resp 17 12/30/23 1419 SpO2 97 % 12/30/23 1419 BP 135/85 Pulse 69 Temp 36.5 C (97.7 F) (Temporal) Resp 17 Ht 1.803 m (5' 11 ) Wt 118 kg (261 lb) SpO2 97% BMI 36.40 kg/m Labs: Lab Results Component Value Date WBC 11.7 (H) 11/25/2023 HGB 15.9 11/25/2023 HCT 46.8 11/25/2023 MCV 92.9 11/25/2023 PLT 169 11/25/2023 Lab Results Component Value Date NA 138 11/25/2023 K 4.3 11/25/2023 CL 106 11/25/2023 CO2 22 11/25/2023 BUN 8 (L) 11/25/2023 CREATININE 0.92 11/25/2023 GLUCOSE 101 (H) 11/25/2023 CALCIUM 9.7 11/25/2023 PROT 8.2 11/25/2023 ALKPHOS 56 11/25/2023 AST 34 11/25/2023 ALT 51 (H) 11/25/2023 EGFR >90.0 11/25/2023 Paulo's Simple Cardiac Risk Index: Interpretation: 0 Points Class I 0.5% 1 Point Class II 1.3% 2 Points Class III 3.6% 3+ Points Class IV 9.1% METS Walk indoors, such as around the house (1.75 METs), Do light work around the house, such as dusting or washing dishes (2.70 METs), Take care of self, that is eating, dressing, bathing, using the toilet (2.75 METs), Do moderate work around the house such as vacuuming, sweeping floors, or carrying in groceries (3.50 METs), Do yardwork, such as raking leaves, weeding,or pushing a power mower (4.50 METs), Climb a flight of stairs or walk up a hill (5.50 METs) PAT Pain Score: Postop Pain Management Plan (Pain consult ordered?): Pain consult not indicated at this time ? EKG: Done today: Encounter Date: 12/30/23 ECG 12 lead Result Value Heart Rate 66 QRSD Interval 94 QT Interval 387 QTC Interval 406 P Jackson 36 QRS Jackson 61 T Wave Jackson 73 MA Interval 191 Impression Sinus rhythm Borderline T wave abnormalities ECHO and EF:None on file No components found for: LVEF , LVEFMODE Electronically signed by: RICHAR CORNELIUS PA-C Date: 12/30/2023 at 3:06 PM documented in this encounter [facility] 12-30-2023 Note Patient: Adam garcía Procedure Information Date/Time: 01/06/24 0730 Procedure: ANTERIOR VS POSTERIOR COMPONENT SEPARATION WITH MESH PLACEMENT (Abdomen) Location: [facility] [address] [place] [address] Operating Room Surgeons: Vaishnavi Barnhart MD Past Medical History: Past Medical History: No date: AVNRT (AV jhon re-entry tachycardia) No date: Bipolar disorder (HCC) No date: Celiac disease No date: Colon polyp No date: Diverticulosis No date: GERD (gastroesophageal reflux disease) No date: Hepatic steatosis No date: Hypertension No date: Motion sickness No date: [place] (obstructive sleep apnea) Comment: unable to tolerate mask No date: Thrombocytopenia (HCC) Past Surgical History: Past Surgical History: No date: ANTERIOR CRUCIATE LIGAMENT REPAIR; Left No date: CHOLECYSTECTOMY No date: COLON SURGERY Comment: 12inch of colon removed No date: COLONOSCOPY 12/06/2022: EXPLORATORY LAPAROTOMY No date: HERNIA REPAIR No date: JOINT REPLACEMENT Comment: L hip No date: ROTATOR CUFF REPAIR No date: SMALL INTESTINE SURGERY No date: VASCULAR SURGERY Comment: left wrist artery repair Social History: TOBACCO: reports that he has never smoked. His smokeless tobacco use includes snuff. ETOH: reports no history of alcohol use. Social History Substance and Sexual Activity Drug Use Never Family History: No family history on file. Screening: unknown Clinical information reviewed: Tobacco Allergies Meds Med Hx Surg Hx Fam Hx Soc Hx Physical Exam Airway Mallampati: III TM distance: >3 FB Neck ROM: full Mouth Open: normalendotracheal tube not in place Cardiovascular Dental (+) edentulous Pulmonary Abdominal Anesthesia Plan patient is NPO appropriate Any family history or previous problems with anesthesia no ASA 3 general Any family history or previous problems with anesthesia no(T&S ordered DOS ) The patient is not a current smoker. Anesthetic plan and risks discussed with patient and spouse (son). Anesthesia [place] Considerations Motion sickness ERAS Type General ERAS [place] Screening ALREADY DIAGNOSED WITH [place] AND PATIENT IS NOT COMPLIANT WITH CPAP Labs: Lab Results Component Value Date WBC 11.7 (H) 11/25/2023 HGB 15.9 11/25/2023 HCT 46.8 11/25/2023 MCV 92.9 11/25/2023 PLT 169 11/25/2023 Lab Results Component Value Date NA 138 11/25/2023 K 4.3 11/25/2023 CL 106 11/25/2023 CO2 22 11/25/2023 BUN 8 (L) 11/25/2023 CREATININE 0.92 11/25/2023 GLUCOSE 101 (H) 11/25/2023 CALCIUM 9.7 11/25/2023 PROT 8.2 11/25/2023 ALKPHOS 56 11/25/2023 AST 34 11/25/2023 ALT 51 (H) 11/25/2023 EGFR >90.0 11/25/2023 No echocardiogram results found for the past 14 days 12/30/23 ECG 12-LEAD (Preliminary) This result has not been signed. Information might be incomplete. Impression Sinus rhythm Borderline T wave abnormalities [facility] 12-30-2023 Note Comprehensive PreSur gical History and Physical ? Name: Adam Lawson : 1965 (Age-58 y.o.) Date of Service: Pt seen/examined on 12/30/2023 Procedure Information Date/Time: 01/06/24 0730 Procedure: ANTERIOR VS POSTERIOR COMPONENT SEPARATION WITH MESH PLACEMENT (Abdomen) Location: [address] Operating Room Surgeons: Vaishnavi Barnhart MD Chief Complaint: UMBILICAL HERNIA AND HAD ABDOMINAL SURGERY LAST YEAR ASSESSMENT/PLAN: Patient is considered intermediate risk for this intermediate risk procedure/surgery noted above with no reducible risk factors. Based on the above evaluation, the benefits of the planned procedure likely exceed the risks. The patient is medically optimized to proceed with the planned procedure without any further cardiopulmonary testing. 1) INCISIONAL HERNIA WITHOUT OBSTRUCTION OR GANGRENE ; Managed per surgery 2) HTN ; ON LISINOPRIL , TOPROL 3) OBESITY ;BMI TO-DAY 36.40 4) ANXIETY/DEPRESSION ; ON WELLBUTRIN 5) S/P 1) Diagnostic Laparoscopy converted to Exploratory Laparotomy 2) Small bowel resection with Enteroenterostomy 3) Appendectomy 4) Application of Wound Vac >50 sq cm ON 12/06/22 Visit Type: Pre-Admission Testing Visit Labs Ordered: NO - COMPLETE PRIOR TO PAT VISIT Sleep Referral Ordered: NO - ALREADY DIAGNOSED WITH [place] AND PATIENT IS NOT COMPLIANT WITH CPAP Total time spent (which include face to face and non face to face encounters) : 45 minutes Toxic drug monitoring/narrow therapeutic index drug monitoring : # Drug name : lisinopril # Route administered : po # Method of monitoring : lab and ekg PAT Protocol referenced includes: 1. Anesthesia Lab Protocol Orders 2. Perioperative Cardiovascular Risk Assessment 3. Anesthesia Assessment 4. Pain Assessment and Acute Pain Service Consult (if appropriate) 5. Medical Clearance/Consult from Internal Medicine (IMS) 6. Shower/Wash Order (for designated surgeries) 7. [place] Screen and Sleep Clinic Referral (if appropriate) History Of Present Illness: 58 y.o. male who presents with chief complaint mentioned above. Patient here in PAT along with his Per surgeon's note dated 03/27/23 The patient is a 57 y.o. male [...] so that he can pay his bills. Pt has seen the surgeon and elected for above procedure. Hx problems with anesthesia? - DENIES Dental? - FULL DENTURES TOP AND BOTTOM Snore at night? - [place] ; NOT COMPLIANT WITH C-PAP Past Medical History: Past Medical History: No date: AVNRT (AV jhon re-entry tachycardia) No date: Bipolar disorder (HCC) No date: Celiac disease No date: Colon polyp No date: Diverticulosis No date: GERD (gastroesophageal reflux disease) No date: Hepatic steatosis No date: Hypertension No date: Motion sickness No date: [place] (obstructive sleep apnea) Comment: unable to tolerate mask No date: Thrombocytopenia (HCC) Past Surgical History: Past Surgical History: No date: ANTERIOR CRUCIATE LIGAMENT REPAIR; Left No date: CHOLECYSTECTOMY No date: COLON SURGERY Comment: 12inch of colon removed No date: COLONOSCOPY 12/06/2022: EXPLORATORY LAPAROTOMY No date: HERNIA REPAIR No date: JOINT REPLACEMENT Comment: L hip No date: ROTATOR CUFF REPAIR No date: SMALL INTESTINE SURGERY No date: VASCULAR SURGERY Comment: left wrist artery repair Medications Prior to Admission: Current Outpatient Medications: metoprolol succinate XL (Toprol-XL) 50 MG 24 hr tablet, Take 50 mg by mouth daily., Disp: , Rfl: buPROPion XL (Wellbutrin XL) 150 MG 24 hr tablet, Take 150 mg by mouth daily. Do not crush, chew, or split., Disp: , Rfl: Calcium Polycarbophil (fiber) 625 MG tablet, Take 1 tablet by mouth., Disp: , Rfl: cholecalciferol (Vitamin D-3) 25 MCG (1000 UT) capsule, Take 1,000 Units by mouth daily., Disp: , Rfl: docusate sodium (Colace) 100 MG capsule, Take 100 mg by mouth daily., Disp: , Rfl: lisinopril 10 MG tablet, Take 10 mg by mouth daily., Disp: (more content not included)... [facility] 12-30-2023 Note Comprehensive PreSur gical History and Physical ? Name: Adam Lawson : 1965 (Age-58 y.o.) Date of Service: Pt seen/examined on 12/30/2023 Procedure Information Date/Time: 01/06/24 0730 Procedure: ANTERIOR VS POSTERIOR COMPONENT SEPARATION WITH MESH PLACEMENT (Abdomen) Location: [facility] [address] [place] [address] Operating Room Surgeons: Vaishnavi Barnhart MD Chief Complaint: UMBILICAL HERNIA AND HAD ABDOMINAL SURGERY LAST YEAR ASSESSMENT/PLAN: Patient is considered intermediate risk for this intermediate risk procedure/surgery noted above with no reducible risk factors. Based on the above evaluation, the benefits of the planned procedure likely exceed the risks. The patient is medically optimized to proceed with the planned procedure without any further cardiopulmonary testing. 1) INCISIONAL HERNIA WITHOUT OBSTRUCTION OR GANGRENE ; Managed per surgery 2) HTN ; ON LISINOPRIL , TOPROL 3) OBESITY ;BMI TO-DAY 36.40 4) ANXIETY/DEPRESSION ; ON WELLBUTRIN 5) S/P 1) Diagnostic Laparoscopy converted to Exploratory Laparotomy 2) Small bowel resection with Enteroenterostomy 3) Appendectomy 4) Application of Wound Vac >50 sq cm ON 12/06/22 Visit Type: Pre-Admission Testing Visit Labs Ordered: NO - COMPLETE PRIOR TO PAT VISIT Sleep Referral Ordered: NO - ALREADY DIAGNOSED WITH [place] AND PATIENT IS NOT COMPLIANT WITH CPAP Total time spent (which include face to face and non face to face encounters) : 45 minutes Toxic drug monitoring/narrow therapeutic index drug monitoring : # Drug name : lisinopril # Route administered : po # Method of monitoring : lab and ekg [facility] Protocol referenced includes: 1. Anesthesia Lab Protocol Orders 2. Perioperative Cardiovascular Risk Assessment 3. Anesthesia Assessment 4. Pain Assessment and Acute Pain Service Consult (if appropriate) 5. Medical Clearance/Consult from Internal Medicine (IMS) 6. Shower/Wash Order (for designated surgeries) 7. [place] Screen and Sleep Clinic Referral (if appropriate) History Of Present Illness: 58 y.o. male who presents with chief complaint mentioned above. Patient here in [facility] along with his Per surgeon's note dated 03/27/23 The patient is a 57 y.o. male [...] so that he can pay his bills. Pt has seen the surgeon and elected for above procedure. Hx problems with anesthesia? - DENIES Dental? - FULL DENTURES TOP AND BOTTOM Snore at night? - [place] ; NOT COMPLIANT WITH C-PAP Past Medical History: Past Medical History: No date: AVNRT (AV jhon re-entry tachycardia) No date: Bipolar disorder (HCC) No date: Celiac disease No date: Colon polyp No date: Diverticulosis No date: GERD (gastroesophageal reflux disease) No date: Hepatic steatosis No date: Hypertension No date: Motion sickness No date: NJ (obstructive sleep apnea) Comment: unable to tolerate mask No date: Thrombocytopenia (HCC) Past Surgical History: Past Surgical History: No date: ANTERIOR CRUCIATE LIGAMENT REPAIR; Left No date: CHOLECYSTECTOMY No date: COLON SURGERY Comment: 12inch of colon removed No date: COLONOSCOPY 12/06/2022: EXPLORATORY LAPAROTOMY No date: HERNIA REPAIR No date: JOINT REPLACEMENT Comment: L hip No date: ROTATOR CUFF REPAIR No date: SMALL INTESTINE SURGERY No date: VASCULAR SURGERY Comment: left wrist artery repair Medications Prior to Admission: Current Outpatient Medications: metoprolol succinate XL (Toprol-XL) 50 MG 24 hr tablet, Take 50 mg by mouth daily., Disp: , Rfl: buPROPion XL (Wellbutrin XL) 150 MG 24 hr tablet, Take 150 mg by mouth daily. Do not crush, chew, or split., Disp: , Rfl: Calcium Polycarbophil (fiber) 625 MG tablet, Take 1 tablet by mouth., Disp: , Rfl: cholecalciferol (Vitamin D-3) 25 MCG (1000 UT) capsule, Take 1,000 Units by mouth daily., Disp: , Rfl: docusate sodium (Colace) 100 MG capsule, Take 100 mg by mouth daily., Disp: , Rfl: lisinopril 10 MG tablet, Take 10 mg by mouth daily., Disp: (more content not included)... [facility] 12-30-2023 History and physical note Comprehensive PreSurgical History and Physical ? Name: Adam Lawson : 1965 (Age-58 y.o.) Date of Service: Pt seen/examined on 12/30/2023 Procedure Information Date/Time: 01/06/24 1130 Procedure: ANTERIOR VS POSTERIOR COMPONENT SEPARATION WITH MESH PLACEMENT (Abdomen) Location: [address] Operating Room Surgeons: Vaishnavi Barnhart MD Chief Complaint: UMBILICAL HERNIA AND HAD ABDOMINAL SURGERY LAST YEAR ASSESSMENT/PLAN: Patient is considered intermediate risk for this intermediate risk procedure/surgery noted above with no reducible risk factors. Based on the above evaluation, the benefits of the planned procedure likely exceed the risks. The patient is medically optimized to proceed with the planned procedure without any further cardiopulmonary testing. 1) INCISIONAL HERNIA WITHOUT OBSTRUCTION OR GANGRENE ; Managed per surgery 2) HTN ; ON LISINOPRIL , TOPROL 3) OBESITY ;BMI TO-DAY 36.40 4) ANXIETY/DEPRESSION ; ON WELLBUTRIN 5) S/P 1) Diagnostic Laparoscopy converted to Exploratory Laparotomy 2) Small bowel resection with Enteroenterostomy 3) Appendectomy 4) Application of Wound Vac >50 sq cm ON 12/06/22 Visit Type: Pre-Admission Testing Visit Labs Ordered: NO - COMPLETE PRIOR TO PAT VISIT Sleep Referral Ordered: NO - ALREADY DIAGNOSED WITH [place] AND PATIENT IS NOT COMPLIANT WITH CPAP Total time spent (which include face to face and non face to face encounters) : 45 minutes Toxic drug monitoring/narrow therapeutic index drug monitoring : # Drug name : lisinopril # Route administered : po # Method of monitoring : lab and ekg PAT Protocol referenced includes: 1. Anesthesia Lab Protocol Orders 2. Perioperative Cardiovascular Risk Assessment 3. Anesthesia Assessment 4. Pain Assessment and Acute Pain Service Consult (if appropriate) 5. Medical Clearance/Consult from Internal Medicine (IMS) 6. Shower/Wash Order (for designated surgeries) 7. [place] Screen and Sleep Clinic Referral (if appropriate) History Of Present Illness: 58 y.o. male who presents with chief complaint mentioned above. Patient here in PAT along with his Per surgeon's note dated 03/27/23 The patient is a 57 y.o. male [...] so that he can pay his bills. Pt has seen the surgeon and elected for above procedure. Hx problems with anesthesia? - DENIES Dental? - FULL DENTURES TOP AND BOTTOM Snore at night? - [place] ; NOT COMPLIANT WITH C-PAP Past Medical History: Past Medical History: No date: AVNRT (AV jhon re-entry tachycardia) No date: Bipolar disorder (HCC) No date: Celiac disease No date: Colon polyp No date: Diverticulosis No date: GERD (gastroesophageal reflux disease) No date: Hepatic steatosis No date: Hypertension No date: Motion sickness No date: NJ (obstructive sleep apnea) Comment: unable to tolerate mask No date: Thrombocytopenia (HCC) Past Surgical History: Past Surgical History: No date: ANTERIOR CRUCIATE LIGAMENT REPAIR; Left No date: CHOLECYSTECTOMY No date: COLON SURGERY Comment: 12inch of colon removed No date: COLONOSCOPY 12/06/2022: EXPLORATORY LAPAROTOMY No date: HERNIA REPAIR No date: JOINT REPLACEMENT Comment: L hip No date: ROTATOR CUFF REPAIR No date: SMALL INTESTINE SURGERY No date: VASCULAR SURGERY Comment: left wrist artery repair Medications Prior to Admission: Current Outpatient Medications: metoprolol succinate XL (Toprol-XL) 50 MG 24 hr tablet, Take 50 mg by mouth daily., Disp: , Rfl: buPROPion XL (Wellbutrin XL) 150 MG 24 hr tablet, Take 150 mg by mouth daily. Do not crush, chew, or split., Disp: , Rfl: Calcium Polycarbophil (fiber) 625 MG tablet, Take 1 tablet by mouth., Disp: , Rfl: cholecalciferol (Vitamin D-3) 25 MCG (1000 UT) capsule, Take 1,000 Units by mouth daily., Disp: , Rfl: docusate sodium (Colace) 100 MG capsule, Take 100 mg by mouth daily., Disp: , Rfl: lisinopril 10 MG tablet, Take 10 mg by mouth daily., Disp: , Rfl: omega-3 acid ethyl esters (Lovaza) 1 g capsule, Take 1 g by mouth daily., Disp: , Rfl: CHRONIC NARCOTIC USE: No Allergies: Dilaudid [hydromorphone] and Gluten meal If patient has opioid allergy, is it okay to take Acetaminophen: Yes Social History: TOBACCO: reports that he has never smoked. His smokeless tobacco use includes snuff. ETOH: reports no history of alcohol use. Social History Substance and Sexual Activity Drug Use Never Family History: No family history on file. REVIEW OF SYSTEMS: Review of Systems Constitutional: Negative for fever. Respiratory: Negative for shortness of breath. Cardiovascular: Negative for chest pain. Gastrointestinal: Negative for nausea. Skin: Negative for pallor and rash. Pertinent positives as noted in the HPI. Physical Exam: Physical Exam Vitals and nursing note reviewed. Constitutional: Appearance: Normal appearance. HENT: Head: Normocephalic and atraumatic. Mouth/Throat: Mouth: Mucous membranes are moist. Cardiovascular: Rate and Rhythm: Normal rate and regular rhythm. Pulmonary: Effort: Pulmonary effort is normal. Breath sounds: Normal breath sounds. Abdominal: Hernia: A hernia is present. Comments: HAS SOME ABDOMINAL BINDER AROUND THE ABDOMEN Musculoskeletal: General: Normal range of motion. Cervical back: Normal range of motion and neck supple. Skin: General: Skin is warm. Neurological: General: No focal deficit present. Mental Status: He is alert and oriented to person, place, and time. Psychiatric: Mood and Affect: Mood normal. Behavior: Behavior normal. Vitals: Vitals Value Taken Time BP 135/85 12/30/23 1419 Temp 36.5 C (97.7 F) 12/30/23 1419 Pulse 69 12/30/23 1419 Resp 17 12/30/23 1419 SpO2 97 % 12/30/23 1419 BP 135/85 Pulse 69 Temp 36.5 C (97.7 F) (Temporal) Resp 17 Ht 1.803 m (5' 11 ) Wt 118 kg (261 lb) SpO2 97% BMI 36.40 kg/m Labs: Lab Results Component Value Date WBC 11.7 (H) 11/25/2023 HGB 15.9 11/25/2023 HCT 46.8 11/25/2023 MCV 92.9 11/25/2023 PLT 169 11/25/2023 Lab Results Component Value Date NA 138 11/25/2023 K 4.3 11/25/2023 CL 106 11/25/2023 CO2 22 11/25/2023 BUN 8 (L) 11/25/2023 CREATININE 0.92 11/25/2023 GLUCOSE 101 (H) 11/25/2023 CALCIUM 9.7 11/25/2023 PROT 8.2 11/25/2023 ALKPHOS 56 11/25/2023 AST 34 11/25/2023 ALT 51 (H) 11/25/2023 EGFR >90.0 11/25/2023 Paulo's Simple Cardiac Risk Index: Interpretation: 0 Points Class I 0.5% 1 Point Class II 1.3% 2 Points Class III 3.6% 3+ Points Class IV 9.1% METS Walk indoors, such as around the house (1.75 METs), Do light work around the house, such as dusting or washing dishes (2.70 METs), Take care of self, that is eating, dressing, bathing, using the toilet (2.75 METs), Do moderate work around the house such as vacuuming, sweeping floors, or carrying in groceries (3.50 METs), Do yardwork, such as raking leaves, weeding,or pushing a power mower (4.50 METs), Climb a flight of stairs or walk up a hill (5.50 METs) PAT Pain Score: Postop Pain Management Plan (Pain consult ordered?): Pain consult not indicated at this time ? EKG: Done today: Encounter Date: 12/30/23 ECG 12 lead Result Value Heart Rate 66 QRSD Interval 94 QT Interval 387 QTC Interval 406 P Jackson 36 QRS Jackson 61 T Wave Jackson 73 MA Interval 191 Impression Sinus rhythm Borderline T wave abnormalities ECHO and EF:None on file No components found for: LVEF , LVEFMODE Electronically signed by: RICHAR CORNELIUS PA-C Date: 12/30/2023 at 3:06 PM [facility] [employer] Phone: 11-25-2023 Emergency department Note Pt provided with & educated on discharge paperwork, follow up care, and new medication. Pt verbalized understanding with no further questions. Pt stable, A&O x4, with even & unlabored respirations upon leaving ED Elisha Bee RN 11/25/231809 [employer] 11-25-2023 Emergency department Note Pt provided with & educated on discharge paperwork, follow up care, and new medication. Pt verbalized understanding with no further questions. Pt stable, A&O x4, with even & unlabored respirations upon leaving ED Elisha Bee RN 11/25/231809 Emergency Department Encounter [facility] EMERGENCY DEPT Patient: Adam Lawson : 1965 [...] contact the dictating provider for clarification) Genevieve Marqeuz MD [facility] ([facility]3] Genevieve Marquez MD 11/25/23 1648 documented in this encounter [facility] 11-25-2023 Hospital Discharge instructions SOPHIA Calvo - 11/25/2023 6:02 PM [...] be sent through Care Everywhere.Diverticulitis Discharge Instructions (Qatari)documented in this encounter [facility] 11-25-2023 Physician Emergency department Note Emergency Department Encounter [facility] EMERGENCY [facility]PT Patient: Adam Lawson : 1965 [...] dictating provider for clarification) Genevieve Marquez MD [facility] Genevieve Marquez MD 11/25/23 9124 [employer] Work Phone: 11-21-2023 Telephone encounter Note Mrs Lawson calling to check status of FMLA - I asked the patient to fax the forms to [phone]. I will get them filled out and signed once I received them. Patient's expressed understanding. [facility] 11-21-2023 Miscellaneous Notes Mrs Lawson calling to check status of FMLA - I asked the patient to fax the forms to [phone]. I will get them filled out and signed once I received them. Patient's expressed understanding. documented in this encounter [facility] 10-14-2023 Telephone encounter Note Yomaira notified, voiced her understanding. [facility] 10-14-2023 Miscellaneous Notes Yomaira notified, voiced her [...] Name of caller: Yomaira Contact phone number: [phone] Relationship to Patient: spouse/SO Provider: Deana Practice: [...] their call: No documented in this encounter [employer] 10-09-2023 Telephone encounter Note Left voicemail for Yomaira of information in Dr. Leblanc's note. To call with any questions. [employer] 10-09-2023 Telephone encounter Note No he does not need any surgery from my perspective. He does not have a desmoid tumor. His pathology revealed desmoid fibromatosis, but he does not appear to have disease on his scan. Michael [employer] Work Phone: 10-09-2023 Telephone encounter Note No he does not need any surgery from my perspective. He does not have a desmoid tumor. His pathology revealed desmoid fibromatosis, but he does not appear to have disease on his scan. [facility] [employer] 11-28-2023 Note Case# [id number] Procedure: anterior versus posterior component separation with mesh placement. Sx Date: 01/06/24 730 AM Time: 5 HOURS Location: [facility] Anesthesia: GENERAL CPT: 17011 ICD-10: K43.2, E66.9, Z68.37 Special Equipment: PAT: 12/30/23 2PM COMBO WITH SUBICHIN AND ADMISSION NEEDED FOR OBSERVATION TO ONE DAY. SCHEDULE AFTER 01-04. MERISSA FROM THE [facility] ADVISED THAT PROCEDURE IS APPROVED AND NO PRIOR AUTH IS REQUIRED. [facility] 10-08-2023 Telephone encounter Note Name of caller: Yomaira Contact phone number: [phone] Relationship to Patient: spouse/SO Provider: Deana Practice: Trauma Chief Complaint/Reason for Call: Yomaira called and said the patient is having hernia surgery on 01/06/24. She said the patient had a CT scan done 09/26/23. They want to know if you can look at the scan to see if the desmoid tumor needs to be removed. She said Dr Anabell said that you could come in and remove it when he does the hernia surgery. Please advise Best time of day caller can be reached: any Patient advised that office/PCP has 24-48 business hours to return their call: No [facility] 10-02-2023 History of Present illness Narrative Department of Plastic Surgery - [...] Diya Ngo PA-C documented in this encounter [facility] 09-26-2023 Note HNO ID: [id number] Author: John Jordan MD Service: ? Author [...] to have another colonoscopy in 5 years [facility] 09-19-2023 Nurse Note Patient freely passing [...] Dinah Armenta RN documented in this encounter [facility] 09-19-2023 History and physical note Images from the original note were not included. HISTORY AND PHYSICAL Adam Kenney Renny 1965 [...] DX W/COLLJ SPEC WHEN PFRMD 06/24/2014 Colonoscopy [facility] COLONOSCOPY FLX DX W/COLLJ SPEC WHEN PFRMD 10/16/2011 Colonoscopy [facility] COLONOSCOPY FLX DX W/COLLJ SPEC WHEN PFRMD 11/28/2012 Colonoscopy [facility] HEMORRHOID SURGERY HX with fissurectomy PAST SURGICAL [...] entered by the nurse and reviewed by mo Nursing Notes: Darcie Serrato RN 08/27/2023 4:29 [...] John Jordan III, MD PATIENT NAME: Adam Streeterler DATE: September 19, 2023 TIME: 10:33 AM documented in this encounter [facility] 08-27-2023 Note HNO ID: [id number] Author: John Jordan MD Service: ? Author Type: Physician Type: Progress Notes Filed: 09/13/2023 2:17 PM Note Text: HISTORY AND PHYSICAL Adam Kenney Renny 1965 [...] PAST SURGICAL HISTORY Procedure Laterality Date AMP 11/12 JT/PHALANX W/NEURECT W/DIR [facility] COLONOSCOPY FLX DX W/COLLJ SPEC WHEN PFRMD 06/24/2014 Colonoscopy [facility] COLONOSCOPY FLX DX W/COLLJ SPEC WHEN PFRMD 10/16/2011 Colonoscopy [facility] COLONOSCOPY FLX DX W/COLLJ SPEC WHEN PFRMD 11/28/2012 Colonoscopy [facility] HEMORRHOID SURGERY HX with fissurectomy PAST SURGICAL [...] 2017 Darcie Link (more content not included)... [facility] 08-27-2023 Nurse Note REVIEW OF SYSTEMS: [...] Darcie Serrato RN documented in this encounter [facility] 08-27-2023 Instructions John Jordan MD - [...] If you do not have a responsible local owner operator truck driver (family member or friend) with [...] exam. 2 10/2019 documented in this encounter [facility] 08-27-2023 History of Present illness Narrative HISTORY AND PHYSICAL Adam Lawson [...] DX W/COLLJ SPEC WHEN PFRMD 06/24/2014 Colonoscopy [facility] COLONOSCOPY FLX DX W/COLLJ SPEC WHEN PFRMD 10/16/2011 Colonoscopy [facility] COLONOSCOPY FLX DX W/COLLJ SPEC WHEN PFRMD 11/28/2012 Colonoscopy [facility] HEMORRHOID SURGERY HX with fissurectomy PAST SURGICAL [...] Jordan III, MD documented in this encounter [facility] 03-27-2023 Note Addended by: DIYA LAW on: 09/02/2023 08:03 AM Modules accepted: [facility] 03-27-2023 History of Present illness Narrative Department of Plastic Surgery - [...] voice recognition software. documented in this encounter [facility] 03-27-2023 Miscellaneous Notes Addended by: DIYA ROSALES on: 09/02/2023 08:03 AM Modules accepted: Orders documented in this encounter [facility] 03-27-2023 Note Addended by: DIYA LAW on: 09/02/2023 08:03 AM Modules accepted: Orders [facility] Work Phone: 03-08-2023 Note Name of Caller: Yomaira Contact Reason for Appointment: Ventral hernia without obstruction or gangrene, refer to msg on referral Office Name: [facility] Plastic Surgery Medication Refills need, if any: N/A Medication Name: N/A [facility] 03-08-2023 Telephone encounter Note Name of Caller: Yomaira Contact Reason for Appointment: Ventral hernia without obstruction or gangrene, refer to ms on referral Office Name: [facility] Plastic Surgery Medication Refills need, if any: N/A Medication Name: N/A [facility] 03-08-2023 Miscellaneous Notes Name of Caller: Yomaira Contact Reason for Appointment: Ventral hernia without obstruction or gangrene, refer to msg on referral Office Name: [facility] Plastic Surgery Medication Refills need, if any: N/A Medication Name: N/A documented in this encounter [facility] 02-28-2023 History of Present illness Narrative Acute Care Surgery Brief Clinic [...] discuss robotic ventral hernia repair with Dr Hale vs Lloyd -Patient should source and wear a abdominal [...] This note may have been dictated using [employer] Edition 2.6 and/or [employer] Voice Recognition Feature. The document was proofread; however, unrecognized voice recognition television production assistant errors may be present. Associated attestation - [...] MD Division of Trauma Department of Surgery [facility] Pager: [phone] documented in this encounter [facility] 02-08-2023 Telephone encounter Note Called Adam Lawson to enquire about back pain to see what the nature of the concern was. Unusual that this would be related to the surgical procedure or which study that is required. Will possibly attempted to call back tomorrow. Message was left on the answering machine to call back/stone derrickman and rigger attending. Arturo Desai MD General Surgery, PGY5 [facility] Work Phone: 02-08-2023 Miscellaneous Notes Called Adam Lawson to enquire about back pain to see what the nature of the concern was. Unusual that this would be related to the surgical procedure or which study that is required. Will possibly attempted to call back tomorrow. Message was left on the answering machine to call back/stone derrickman and rigger attending. Arturo Desai MD General Surgery, PGY5 documented in this encounter [facility] 01-24-2023 History of Present illness Narrative Acute Care Surgery Brief Clinic [...] other concerns. He currently follows up at [facility]. -Surgical pathology reviewed with the patient -All of the patient's questions were answered -Patient discussed with Dr. Gannon Follow up: Follow up in about 4 weeks (around 02/21/2023). Controlled Substances Monitoring: reviewed 01/24/23 by MD Kevin Nolasco MD General Surgery PGY-1 01/24/23 4:08 PM This note may have been dictated using [employer] Edition 2.6 and/or [employer] Voice Recognition Feature. The document was proofread; however, unrecognized voice recognition television production assistant errors may be present. Associated attestation - [...] MD Division of Trauma Department of Surgery [facility] Pager: [phone] documented in this encounter [facility] 03-29-2022 Hospital Discharge instructions Patient Education 03/29/2022 08:55:55 Epidural Steroid [...] the bandage (dressing) after 24 hours. Take jwkw-fpl-slxsomr and prescription medicines only as told by your health care provider. Keep all follow-up visits as told by your health care provider. This is important. Contact a health care provider if: You have a fever. You continue to have pain and soreness around the injection site, even after taking kpfp-xod-ceenujn pain medicine. You have severe, sudden, or [...] 02/12/2012 Document Revised: 10/10/2018 Document Reviewed: 02/12/2017 [employer] Patient Education makemoji. [facility] Evaluation + Plan note Future Appointments Appointment Date:03/19/2022 08:30:00 AM Scheduled Provider:JORDAN VELASQUEZ MD Location:PM Office Appointment Type:PM OV [facility] Evaluation + Plan note Future Appointments Appointment Date:03/29/2022 08:30:00 AM Scheduled Provider: Location:Pain Management- [place] Appointment Type:PM Inj Spine L/S With Imaging [facility] Evaluation + Plan note Future Appointments Appointment Date:07/10/2022 01:45:00 PM Scheduled Provider:MICHELLE PHILLIP MD Location:[facility] Appointment Type:NS LABELS [facility]OL[facility] Pain Management Evaluation + Plan note Future Appointments Appointment Date:07/25/2023 01:30:00 PM Scheduled Provider:GERARD EGAN DO Location:[facility] Appointment Type:OSM OV Review Testing [facility] documented in this encounter [facility] Perforated viscus- Primary [facility] this encounter [facility] Diagnosis Ventral hernia without obstruction or gangrene- Primary Unspecified ventral hernia without mention of obstruction or gangrene documented in this [facility] Diagnosis Essential (primary) hypertension Unspecified essential hypertension documented in this encounter [facility] note* Diagnosis Essential (primary) hypertension- Primary Unspecified essential hypertension documented in this encounter [facility] note* Diagnosis Ventral incisional hernia- Primary documented in this encounter [facility] note* Diagnosis Rectal bleeding- Primary Hemorrhage of rectum and anus documented in this encounter [facility] note* Diagnosis Encounter for screening for malignant neoplasm of colon- Primary Special screening for malignant neoplasms, colon Rectal bleeding Hemorrhage of rectum and anus documented in this encounter [facility] note* Diagnosis Ventral incisional hernia documented in this encounter [facility] note* Diagnosis Ventral incisional hernia- Primary Class 2 obesity with body mass index (BMI) of 37.0 to 37.9 in adult, unspecified obesity type, unspecified whether serious comorbidity present documented in this encounter [facility] note* Diagnosis Sigmoid diverticulitis- Primary Diverticulitis of colon (without mention of hemorrhage) Incisional hernia without obstruction or gangrene Obesity, unspecified Body mass index (BMI) 37.0-37.9, adult documented in this encounter [facility] note* Diagnosis Ventral hernia without obstruction or gangrene- Primary Unspecified ventral hernia without mention of obstruction or gangrene Ventral hernia without obstruction or gangrene Unspecified ventral hernia without mention of obstruction or gangrene Incisional hernia without obstruction or gangrene Obesity, unspecified Body mass index (BMI) 37.0-37.9, adult documented in this encounter [facility] note* Diagnosis Postoperative state- Primary Other postprocedural status documented [facility] Narrative No data available for this section [facility] Hospital Discharge instructions No data available for this section [facility] progress note No data available for this section [facility] reason for referral (narrative)* Outpatient Procedure (Routine) - Pending Review Specialty Diagnoses / Procedures Referred By Kasia t Referred To Contact [facility] Diagnoses Rectal bleeding Procedures COLONOSCOPY DIAGNOSTIC COLONOSCOPY FLX DX W/COLLJ SPEC WHEN PFRMD John Jordan MD [address] [place] [address] [id number] [place] [address] Referral ID Status Reason Start Date Expiration Date Visits Requested Visits Authorized [id number] Pending Review Auto-Generat ed Referral 08/27/2024 1 1 [facility] for referral (narrative)* Outpatient Procedure (Routine) - Closed Specialty Diagnoses / Procedures Referred By Kasia flores Referred To Contact [facility] Diagnoses Rectal bleeding Procedures COLONOSCOPY DIAGNOSTIC COLONOSCOPY FLX DX W/COLLJ SPEC WHEN PFRMD Jonh Jordan MD [address] [facility] [place] [address] [facility] Disease [address] [address] Referral ID Status Reason Start Date Expiration Date V isits Requested Visits Authorized [id number] Closed Auto-Generate d Referral 08/27/2023 08/27/2024 1 1 [facility] for referral (narrative)* Consultation (Routine) - Pending Review Specialty Diagnoses / Procedures Referred By Kasia flores Referred To Contact Bariatrics Diagnoses Ventral incisional hernia Class 2 obesity with body mass index (BMI) of 37.0 to 37.9 in adult, unspecified obesity type, unspecified whether serious comorbidity present Procedures MA OFFICE/OUTPATIENT NEW HIGH MDM 60-74 MINUTES Diya Rosales PA-C [facility] [address] [place] [address] [place] [address] [facility] [address] [place] [address] Referral ID Status Reason Start Date Expiration Date Visits Requested Visits Authorized [id number] Pending Review Specialty Services Required 3 10/01/2024 1 1 [facility] for visit Narrative* Outpatient Procedure (Routine) - Closed Specialty Diagnoses / Procedures Referred By Kasia t Referred To Contact [facility] Diagnoses Rectal bleeding Procedures COLONOSCOPY DIAGNOSTIC COLONOSCOPY FLX DX W/COLLJ SPEC WHEN John De La O MD [address] [place] [address] [facility] [place] [address] [place] [address] Referral ID Status Reason Start Date Expiration Date V isits Requested Visits Authorized [id number] Closed Auto-Generate d Referral 08/27/2023 08/27/2024 1 1 [facility] Summary Purpose Family History Colon Cancer Status:Active Comments:Paterna l Uncle. Paternal [...] Comments:Paterna l Uncle. Paternal Grandmother. Advance Directives Latest Code Status on File Code Status Date Activated Date Inactivated Comments Full Code 12/06/2022 12:12 PM 12/20/2022 7:29 PM Latest Code Status on File Code Status Date Activated Date Inactivated Comments Full Code 12/06/2022 12:12 PM 12/20/2022 7:29 PM Latest Code Status on File Code Status Date Activated Date Inactivated Comments Full Code 01/06/2024 2:55 PM 01/11/2024 12:37 PM Code Status History Code Status Date Activated Date Inactivated Comments Full Code 01/06/2024 1:18 PM 01/06/2024 2:55 PM Full Code 12/06/2022 12:12 PM 12/20/2022 7:29 PM Latest Code Status on File Code Status Date Activated Date Inactivated Comments Full Code 01/06/2024 2:55 PM 01/11/2024 12:37 PM Code Status History Code Status Date Activated Date Inactivated Comments Full Code 01/06/2024 1:18 PM 01/06/2024 2:55 PM Full Code 12/06/2022 12:12 PM 12/20/2022 7:29 PM Reason for Referral Specialty Diagnoses / Procedures Referred By Contac t Referred To Contact Radiology Diagnoses Ventral incisional hernia Procedures CT abdomen pelvis w contrast Diya Rosales PA-C [address] [place] [address] [place] [address] Referral ID Status Reason Start Date Expiration Date V isits Requested Visits Authorized [id number] Authorized 09/02/2023 02/29/2024 1 1 Medications Administered [...] DATE CREATED AUTHOR AUTHOR'S ORGANIZ ATION 03/23/2021 [facility] DATE CREATED AUTHOR AUTHOR'S ORGANIZ ATION 12/08/2021 [facility] DATE CREATED AUTHOR AUTHOR'S ORGANIZ ATION 07/12/2023 [facility] ([place]) DATE CREATED AUTHOR AUTHOR'S ORGANIZ ATION 09/29/2023 [facility] DATE CREATED AUTHOR AUTHOR'S ORGANIZ ATION 12/24/2023 [facility] DATE CREATED AUTHOR AUTHOR'S ORGANIZ ATION 01/16/2024 [facility] Care Team (unrecognized sect ion and content) Supervisory Training Specialist Relationship Specialty Start Date End Date None, Pcp [address] [place] [address] PCP - General 12/25/22 Supervisory Training Specialist Relationship Specialty Start Date End Date None, Pcp [address] [place] [address] PCP - General 12/25/22 02/18/23 Tommy Dan MD [address] [place] [phone] PCP - General Family Medicine 02/19/23 Tommy Dan MD [address] [place] [address] Family Medicine 02/19/23 Supervisory Training Specialist Relationship Specialty Start Date End Date Tommy Dan MD [address] [place] [phone] PCP - General Family Medicine 02/19/23 Tommy Dan MD [address] [place] [address] Family Medicine 02/19/23 Supervisory Training Specialist Relationship Specialty Start Date End Date Tommy Dan MD [address] [place] [phone] PCP - General Family Medicine 02/19/23 Tommy Dan MD [address] [place] [phone] Family Medicine 02/19/23 Supervisory Training Specialist Relationship Specialty Start Date End Date Tommy Dan MD [address] [place] [phone] PCP - General Family Medicine 02/19/23 Tommy Dan MD [address] [place] [phone] Family Medicine 02/19/23 Supervisory Training Specialist Relationship Specialty Start Date End Date Tommy Dan MD [address] [place] [phone] PCP - General Family Medicine 02/19/23 Tommy Dan MD [address] [place] [phone] Family Medicine 02/19/23 Supervisory Training Specialist Relationship Specialty Start Date End Date Tommy Dan MD [address] [place] [phone] PCP - General Family Medicine 02/19/23 Tommy Dan MD [address] [place] [phone] Family Medicine 02/19/23 Supervisory Training Specialist Relationship Specialty Start Date End Date Tommy Dan MD [address] [place] [address] PCP - General Family Medicine 08/20/23 Supervisory Training Specialist Relationship Specialty Start Date End Date Tommy Dan MD [address] [place] [address] PCP - General Family Medicine 08/20/23 Supervisory Training Specialist Relationship Specialty Start Date End Date Tommy Dan MD [address] [place] [phone] PCP - General Family Medicine 02/19/23 Tommy Dan MD [address] [place] [phone] Family Medicine 02/19/23 Supervisory Training Specialist Relationship Specialty Start Date End Date Tommy Dan MD [address] [place], [phone] PCP - General Family Medicine 02/19/23 Tommy Dan MD [address] [place], [phone] Family Medicine 02/19/23 Supervisory Training Specialist Relationship Specialty Start Date End Date Tommy Dan MD [address] [place] [phone] PCP - General Family Medicine 02/19/23 Tommy Dan MD [address] [place] [phone] Family Medicine 02/19/23 Supervisory Training Specialist Relationship Specialty Start Date End Date Tommy Dan MD [address] [place] [phone] PCP - General Family Medicine 02/19/23 Tommy Dan MD [address] [place] [phone] Family Medicine 02/19/23 Supervisory Training Specialist Relationship Specialty Start Date End Date Tommy Dan MD [address] [place], [phone] PCP - General Family Medicine 02/19/23 Tommy Dan MD [address] [place] [phone] Family Medicine 02/19/23 Care Team (unrecognized [...] cancer. Specialty Diagnoses / Procedures Referred By Contac t Referred To Contact Radiology Diagnoses Ventral incisional hernia Procedures CT abdomen pelvis w contrast Diya Rosales PA-C [address] [facility] [place] [address] [place] [address] Referral ID Status Reason Start Date Expiration Date Visits Re quested Visits Authorized [id number] Closed 09/02/2023 02/29/2024 1 1 Reason Comments Follow-up Reason Onset Date Comments update 10/08/2023 Reason Onset Date Comments Forms/questionnaires 11/21/2023 [employer] calling to check status of FMLA - I asked the patient to fax the forms to [phone]. I will get them filled out and signed once I received them. Patient's expressed understanding. Reason Comments Constipation Pt states last BM Sa tur morning. Pt denies any vomiting. Pt states having slight nausea. Pt states he abdomen feels bigger. Pt states he has a history of hernia. Specialty Diagnoses / Procedures Referred By Kasia t Referred To Contact Diagnoses Incisional hernia without obstruction or gangrene Obesity, unspecified Body mass index (BMI) 37.0-37.9, adult Incisional hernia without obstruction or gangrene [K43.2] Obesity, unspecified [E66.9] Body mass index (BMI) 37.0-37.9, adult [Z68.37] Procedures MA EXCISION EXCESSIVE SKIN & SUBQ TISSUE ABDOMEN ANTERIOR VERSUS POSTERIOR COMPONENT SEPARATION WITH MESH PLACEMENT Vaishnavi Barnhart MD [address] [facility] [place] [address] [place] [address] [address] [place] [address] Referral ID Status Reason Start Date Expiration Date Visits Re quested Visits Authorized [id number] 1 1 Reason Comments Post-op Source Comments (unrecognize d section and content) In the event this informatio n is protected by the Federal Confidentiality of Alcohol and Drug Abuse Patient Records regulations: The Federal rules restrict any use of the information to criminally investigate or prosecute any alcohol or drug abuse patient.[facility] the event this information is protected by the Federal Confidentiality of Alcohol and Drug Abuse Patient Records regulations: The Federal rules restrict any use of the information to criminally investigate or prosecute any alcohol or drug abuse patient.[facility] Scheduled Active and Recently Administ ered Medications (unrecognized section and content) PRN Medication Order 11/23/2023 11/24/2023 11/25/2023 iopamidol (Isovue-370) 76 % injection 75 mL (COMPLETED) 75 mL, IntraVENous, IMG once PRN, contrast, Starting on Sat11/25/23 at 1548, For 1 dose 1558 (Given - Provid er: Wendy Mata, [facility]) Scheduled Medication Order 01/09/2024 01/10/2024 01/11/2024 acetaminophen (Ofirmev) IVPB 1,000 mg (CANCELED) 1,000 mg, IntraVENous, at 400 mL/hr, Administer over 15 Minutes, Every 6 hours scheduled (4 times per day), First dose on Sat01/06/24 at 1330, Phase II/On Unit 0623 (New Bag - Provider: Bakari Galvan RN)0638 (Stopped - Provider: Bakari Galvan RN)1205 (New Bag - Provider: Jameson Madison RN)1220 (Stopped - Provider: Jameson Madison RN)1731 (New Bag - Provider: Kat Albarado RN)1746 (Stopped - Provider: Jameson Madison RN)2236 (New Bag - Provider: Justyna Zhou RN)2251 (Stopped - Provider: Justyna Zhou RN) 0416 (New Bag - Provider: Justyna Zhou RN)0431 (Stopped - Provider: Justyna Zhou RN)1100 (Not Given - Provider: Teresa Chiu RN - Reason: Other) buPROPion XL (Wellbutrin XL) 24 hr tablet 150 mg 150 mg, Oral, Daily, First dose on [place] 01/09/24 at 194, Do not crush, chew, or split. 1949 (Given - Provider: Justyna Zhou RN) 0913 (Given - Provider: Teresa Chiu RN) 0832 (Given - Provider: Jameson Madison RN) cholecalciferol (Vitamin D-3) tablet 1,000 Units 1,000 Units, Oral, Daily, First dose on [place] 01/09/24 at 1941949 (Given - Provider: Justyna Zhou RN) 0913 (Given - Provider: Teresa Chiu RN) 0832 (Given - Provider: Jameson Madison RN) docusate sodium (Colace) capsule 100 mg 100 mg, Oral, Daily, First dose on [place] 01/09/24 at 1944, Do not crush or break. 1949 (Given - Provider: Justyna Zhou RN) 0914 (Given - Provider: Teresa Chiu RN) 0832 (Given - Provider: Jameson Madison RN) enoxaparin (Lovenox) syringe 40 mg 40 mg, SubCUTAneous, Every 24 hours scheduled (Daily), First dose (after last reorder) on Sat01/07/24 at 0900, Phase II/On Unit, Indication of Use: Prophylaxis-DVT/PE, Indications: Prophylaxis of Venous Thromboembolism 0900 (Given - Provider: Jameson Madison RN) 0914 (Given - Provider: Teresa Chiu RN) 0900 (Not Given - Provider: Jameson Madison RN - Reason: Patient/family refused) lisinopril tablet 10 mg 10 mg, Oral, Daily, First dose on [place] 01/09/24 at 1941949 (Given - Provider: Justyna Zhou RN) 0913 (Given - Provider: Teresa Chiu RN) 0832 (Given - Provider: Jameson Madison RN) methocarbamol (Robaxin) injection 1,000 mg 1,000 mg, IntraVENous, Administer over 5 Minutes, Every 8 hours, First dose on Sat01/06/24 at 1330, Phase II/On Unit, Maximum dose: 3 g/day for no more than 3 consecutive days 0623 (Given - Provider: Bakari Galvan RN)1500 (Not Given - Provider: Jameson Madison RN - Reason: Patient/family refused)2236 (Given - Provider: Justyna Zhou RN) 0519 (Given - Provider: Justyna Zhou RN)1727 (Given - Provider: Teresa Chiu RN)2203 (Given - Provider: Bakari Galvan RN) 0521 (Given - Provider: Bakari Galvan RN) metoprolol succinate XL (Toprol-XL) 24 hr tablet 50 mg 50 mg, Oral, Daily, First dose on [place] 01/09/24 at 1945, Do not crush or chew. 1950 (Given - Provider: Justyna Zhou RN) 0913 (Given - Provider: Teresa Chiu RN) 0832 (Given - Provider: Jameson Madison RN) pantoprazole (ProtoNix) EC tablet 40 mg 40 mg, Oral, 2 times daily before meals, First dose on Sat01/10/24 at 0700, Do not crush, chew, or split. 0519 (Given - Provider: Justyna Zhou RN)1725 (Given - Provider: Teresa Chiu RN) 0522 (Given - Provider: Bakari Galvan RN) sodium chloride 0.9% (NS) flush 10 mL 10 mL, IntraVENous, Every 12 hours scheduled (2 times per day), First dose on Sat01/07/24 at 2100 0859 (Given - Provider: Jameson Madison RN)2000 (Given - Provider: Justyna Zhou RN) 0900 (Not Given - Provider: Teresa Chiu RN - Reason: IV Fluids Infusing)2100 (Given - Provider: Bakari Galvan RN) 0900 (Given - Provider: Jameson Madison RN) Continuous Medication Order 01/09/2024 01/10/2024 01/11/2024 lactated Ringer's infusion (CANCELED) 100 mL/hr, IntraVENous, Continuous, Starting on Sat01/07/24 at 1430 0630 (New Bag - Provider: Bakari Galvan RN)1205 (Rate/Dose Verify - Provider: Jameson Madison RN)1826 (Rate/Dose Verify - Provider: Jameson Madison RN)2037 (Rate/Dose Verify - Provider: Justyna Zhou RN)2357 (Rate/Dose Verify - Provider: Justyna Zhou RN) 0404 (New Bag - Provider: Justyna Zhou RN)1800 (Stopped - Provider: Bakari Galvan RN) PRN Medication Order 01/09/2024 01/10/2024 01/11/2024 acetaminophen (Tylenol) tablet 650 mg 650 mg, Oral, Every 6 hours PRN, mild pain (1-3), Starting on Sat01/10/24 at 1133, Maximum dose of acetaminophen is 4000 mg from all sources in 24 hours. labetalol (Normodyne,Trandate) injection 10 mg 10 mg, IntraVENous, Every 6 hours PRN, high blood pressure, Starting on Sat01/06/24 at 1317, Phase II/On Unit lidocaine (Xylocaine) 2 % mouth solution 15 mL 15 mL, Mouth/Throat, As needed, mild pain (1-3), Starting on Sat01/07/24 at 1842 methocarbamol (Robaxin) tablet 500 mg 500 mg, Oral, Every 6 hours PRN, muscle spasms, Starting on Sat01/11/24 at 0733 naloxone (Narcan) injection 0.4 mg 0.4 mg, IntraVENous, Every 5 min PRN, opioid reversal, respiratory depression, Starting on Sat01/06/24 at 1455, +++ For RR <10, pinpoint pupils, over sedation for opioid reversal - MUST notify stone derrickman and rigger provider immediately after first dose, may give IM or SQ if no IV access +++ ondansetron (Zofran) injection 4 mg(Linked Group 1) 4 mg, IntraVENous, Every 6 hours PRN, nausea, vomiting, Starting on Sat01/06/24 at 1313, Phase II/On Unit, 1st Line. Give IV if patient is unable to take orally. If inadequate response within 60 minutes, proceed to next-line agent or contact provider if no further options ordered. 0634 (Given - Provider: Bakari Gavlan, ARLENE)1728 (Given - Provider: Kat Albarado, RN)2218 (Given - Provider: Justyna Zhou, RN) 0400 (Given - Provider: Justyna Zhou, RN) ondansetron ODT (Zofran-ODT) disintegrating tablet 4 mg(Linked Group 1) 4 mg, Oral, Every 8 hours PRN, nausea, vomiting, Starting on Sat01/06/24 at 1313, Phase II/On Unit, 1st Line. If inadequate response within 60 minutes, proceed to next-line agent or contact provider if no further options ordered. Patient should allow tablet to dissolve on tongue. Do not remove from blister pack until just before administering. 0634 (See Alternative - Provider: Bakari Galvan RN)1728 (See Alternative - Provider: Kat Albarado, ARLENE)2218 (See Alternative - Provider: Justyna Zhou, RN) 0400 (See Alternative - Provider: Justyna Zhou, RN) sodium chloride 0.9 % infusion 5-250 mL/hr, IntraVENous, PRN, if patient receiving piggyback infusions and maintenance fluids are not ordered OR KVO fluids to protect IV site / prevent frequent line interruptions/ long duration, Starting on Sat01/07/24 at 1839, For piggyback infusion, administer at same rate as piggyback for a total of 25 mL. Enter 25 mL into dose field and piggyback rate into rate field of order. If piggyback is infusing at a rate less than 100 mL/hr, enter 25 mL into dose field and 100 mL/hr into rate field of order. For KVO fluids, enter rate of 20 mL/hr or less into rate field of order. sodium chloride 0.9% (NS) flush 10 mL 10 mL, IntraVENous, PRN, line care, Starting on Sat01/07/24 at 1839, After every IV line use Linked Groups Order Group 1: ondansetron ODT (Zofran-ODT) disintegrating tablet 4 mgJump to med 4 mg, Oral, Every 8 hours PRN, nausea, vomiting, Starting on Sat01/06/24 at 1313, Phase II/On Unit, 1st Line. If inadequate response within 60 minutes, proceed to next-line agent or contact provider if no further options ordered. Patient should allow tablet to dissolve on tongue. Do not remove from blister pack until just before administering. Or ondansetron (Zofran) injection 4 mgJump to med 4 mg, IntraVENous, Every 6 hours PRN, nausea, vomiting, Starting on Sat01/06/24 at 1313, Phase II/On Unit, 1st Line. Give IV if patient is unable to take orally. If inadequate response within 60 minutes, proceed to next-line agent or contact provider if no further options ordered. FOR RECORDS PERTAINING TO PATIENTS WHO ARE [...] BE BASED ON THE PRIMARY CLINICAL RECORDS. [employer] provides no warranty or guarantee of the accuracy or completeness of information in this document.
[2024-01-20 05:53] LABS: Absolute Lymphocyte Count 1.75 X10^3/uL (0.83-4.51); Absolute Neutrophil Count 16.1 X10^3/uL (2.0-7.7); Basophil# 0.09 X10^3/uL; Basophil% 0.5 % (0-1); Eosinophil# 0.56 X10^3/uL; Eosinophils% 2.8 % (0-5); Hematocrit 42.6 % (40-54); Hemoglobin 14.4 g/dL (13.0-16.5); Lymphocyte # 1.75 X10^3/ul (0.83-4.51); Lymphocyte % 8.8 % (19-41); Mean Corp Hgb Conc 33.8 g/dL (32-36); Mean Corpuscular Hgb 30.5 pg (27.0-32.0); Mean Corpuscular Volume 90.3 fL (80-94); Mean Platelet Vol. 10.1 fl (6.2-12.0); Monocyte# 1.15 X10^3/uL; Monocyte% 5.8 % (0-10); NRBC Flagged by Analyzer 0 % (0-5); Neutrophil # 16.12 X10^3/uL (2.7-7.7); Neutrophil % 81.3 % (47-70); Platelet Count 295 K/mm3 (150-450); RBC Distribution Width CV 12.7 % (11.6-14.6); RBC Distribution Width SD 41.7 fl (35.1-43.9); Red Blood Count 4.72 M/mm3 (4.6-6.2); White Blood Count 19.8 K/mm3 (4.4-11.0)
[2024-01-20 05:57] LABS: Bacteria 0 SEEN /hpf (None Seen); Mucous, Urine 0 SEEN /hpf (<or=2+); Red Blood Cells-Urine 0 SEEN /hpf (0-5); Squamous Epithelial Cells - UA 0 SEEN /hpf (0-5); White Blood Cells 0 SEEN /hpf (0-5)
[2024-01-20 05:58] LABS: Color, Urine Yellow (Yellow); Glucose, Dipstick Normal (Normal); Ketone-Dipstick Negative (Negative); Leukocyte Esterase-Dipstick Negative /ul (Negative); Nitrite-Dipstick Negative (Negative); Occult Blood-Urine Negative /ul (Negative); Protein-Dipstick Negative (Negative); Urine Bilirubin Dipstick Negative (Negative); Urine Clarity Clear (Clear); Urine Urobilinogen Normal (Normal)
[2024-01-20 06:19] LABS: AST(SGOT) 20 U/L (15-37); Alanine Aminotransfer ALT/SGPT 49 U/L (16-61); Albumin, Serum 3.4 g/dL (3.2-5.0); Alkaline Phosphatase 52 U/L (45-117); Anion Gap 8 (5-15); BUN 10 mg/dL (7-18); BUN/Creat Ratio 9.7 RATIO (10-20); Bilirubin, Direct 0.16 mg/dL (0.00-0.30); Calcium,Total 9.5 mg/dL (8.5-10.1); Chloride 109 mmol/L (98-107); Creatinine, Serum 1.03 mg/dL (0.70-1.30); EST Glomerular Filtration Rate 79 mL/min (>60); Est Glom Filt Rate - Afr Amer 96 mL/min (>60); Estimated Creatinine Clearance 104.28 ml/min; Glucose 121 mg/dL (74-106); Lipase 22 U/L (13-75); Protein, Total 7.4 g/dL (6.4-8.2); Sodium Level 139 mmol/L (136-145)
[2024-01-20 06:23] LABS: Lactic Acid 2.2 mmol/L (0.4-1.9)
--- NOTE | 2024-01-20 06:35 | CT_ITS ---
EXAM: CT ABDOMEN AND PELVIS WITH INTRAVENOUS CONTRAST CLINICAL INDICATION: Lower abdominal pain after surgery TECHNIQUE: Helically acquired images were obtained of the abdomen and pelvis with intravenous contrast. This CT exam was performed using one or more of the following dose reduction techniques: automated exposure control, adjustment of the mA and/or kV according to patient size, and/or use of iterative reconstruction technique. CONTRAST: IV 100mL Isovue-370 RADIATION DOSE: CTDIvol = 16.02 mGy, DLP = 1333.98 mGy-cm COMPARISON: 04/26/2016. FINDINGS: LOWER THORAX: Unremarkable. Lung bases are clear. No cardiomegaly. No significant pericardial effusion. ABDOMEN: LIVER: Unremarkable. Homogeneous. No focal mass. GALLBLADDER AND BILE DUCTS: Cholecystectomy. No intra- or extrahepatic biliary ductal dilation. PANCREAS: Unremarkable. No focal cystic or solid mass. SPLEEN: Unremarkable. Normal size without focal cystic or solid mass. ADRENALS: Unremarkable. No nodules. KIDNEYS AND URETERS: Unremarkable. Normal renal size and position. No hydronephrosis. STOMACH AND BOWEL: Unremarkable. No stomach or bowel distention. No focal inflammatory change. PELVIS: APPENDIX: No evidence of acute appendicitis. BLADDER: Unremarkable. REPRODUCTIVE: Unremarkable as visualized. No mass. ABDOMEN and PELVIS: INTRAPERITONEAL SPACE: Unremarkable. No ascites or other fluid collection. No free air. BONES/JOINTS: Left total hip arthroplasty. Components appear well seated. No suspicious lytic or blastic abnormality. SOFT TISSUES: Fluid collection measuring 8 x 1.6 x 3 cm in the midline lower anterior abdominal wound between the rectus muscles. Small collection measuring 4.0 x 2.5 x 1.8 cm in the lower wound within the subcutaneous fat. No discrete abdominal or pelvic wall hernia. VASCULATURE: Unremarkable. Abdominal aorta is non-dilated. LYMPH NODES: Unremarkable. No enlarged lymph nodes. TUBES, LINES AND DEVICES: Drain in the right rectus muscle. Drain in the left colic gutter in the anterior left lower pelvis. CT/Abdomen/Pelvis W IV Cont ONLY IMPRESSION: 1. Fluid collection measuring 8 x 1.6 x 3 cm in the midline lower anterior abdominal wound between the rectus muscles. Differential diagnosis includes abscess and seroma. 2. Small collection measuring 4.0 x 2.5 x 1.8 cm in the lower wound within the subcutaneous fat. Differential diagnosis includes abscess and seroma. 3. Cholecystectomy. 4. Drain in the right rectus muscle. 5. Drain in the left colic gutter in the anterior left lower pelvis.
[2024-01-20] MEDS: Piperacil/Tazobactam 4.5 GM in 0.9% Normal Saline (100mL MB+) 100 ML IV (07:53)
--- NOTE | 2024-01-20 08:14 | ED.RN ---
ROB CALLED, ETA 2 HOURS ([id number])
[2024-01-20 08:16] LABS: Reflex Lactate? Y
[2024-01-20] MEDS: Vancomycin HCl 1,500 MG in 0.9% Normal Saline (500mL Bag) 500 ML 250 MG IV (08:16)
== END 2024-01-20 09:35 | disposition short-term general hospital (02) ==
PROVIDERS: Emergency Provider Emergency Medicine; PCP Family Medicine; Visit Provider Emergency Medicine
DX: R10.9 Unspecified abdominal pain (principal); F31.9 Bipolar disorder, unspecified; T81.40XA Infection following a procedure, unspecified, initial encounter; R74.8 Abnormal levels of other serum enzymes; I10 Essential (primary) hypertension; Z79.899 Other long term (current) drug therapy; F41.9 Anxiety disorder, unspecified; F17.220 Nicotine dependence, chewing tobacco, uncomplicated; X58.XXXA Exposure to other specified factors, initial encounter
CPT/HCPCS: 74177; 80048; 80076; 81001; 83605; 83690; 85025; 87040; 96365; 96366; 96367; 96375; 96376; 99285; J7030; J7040; J7050; Q9967; A4216

== ENCOUNTER → 2024-01-28 | Outpatient (CLI) | payer OTHER, SELFPAY ==
[2024-01-28 13:03] LABS: Absolute Lymphocyte Count 1.85 X10^3/uL (0.83-4.51); Absolute Neutrophil Count 3.9 X10^3/uL (2.0-7.7); Basophil# 0.04 X10^3/uL; Basophil% 0.6 % (0-1); Eosinophil# 0.36 X10^3/uL; Eosinophils% 5.3 % (0-5); Hematocrit 39.1 % (40-54); Hemoglobin 12.9 g/dL (13.0-16.5); Lymphocyte # 1.85 X10^3/ul (0.83-4.51); Lymphocyte % 27.3 % (19-41); Mean Corpuscular Hgb 30.3 pg (27.0-32.0); Mean Corpuscular Volume 91.8 fL (80-94); Mean Platelet Vol. 10.5 fl (6.2-12.0); Monocyte% 8.9 % (0-10); NRBC Flagged by Analyzer 0 % (0-5); Neutrophil # 3.88 X10^3/uL (2.7-7.7); Neutrophil % 57.3 % (47-70); Platelet Count 302 K/mm3 (150-450); RBC Distribution Width CV 12.6 % (11.6-14.6); Red Blood Count 4.26 M/mm3 (4.6-6.2); White Blood Count 6.8 K/mm3 (4.4-11.0)
[2024-01-28 13:16] LABS: ALB/GLOB Ratio 1.1 RATIO (0.9-2.4); AST(SGOT) 22 U/L (15-37); Alanine Aminotransfer ALT/SGPT 41 U/L (16-61); Albumin, Serum 3.5 g/dL (3.2-5.0); Alkaline Phosphatase 51 U/L (45-117); Anion Gap 11 (5-15); BUN 12 mg/dL (7-18); BUN/Creat Ratio 15.2 RATIO (10-20); Chloride 106 mmol/L (98-107); Creatinine, Serum 0.79 mg/dL (0.70-1.30); EST Glomerular Filtration Rate 107 mL/min (>60); Est Glom Filt Rate - Afr Amer 130 mL/min (>60); Globulin 3.1 g/dL (2.2-4.2); Glucose 95 mg/dL (74-106); Potassium 4.1 mmol/L (3.5-5.1); Protein, Total 6.6 g/dL (6.4-8.2); Sodium Level 143 mmol/L (136-145)
== END | disposition home or self-care (01) ==
LOC: LABSPEC 12:30
PROVIDERS: PCP Family Medicine
DX: T81.49XA Infection following a procedure, other surgical site, initial encounter (principal)
CPT/HCPCS: 80053; 85025

== ENCOUNTER → 2024-02-03 | Outpatient (CLI) | payer OTHER, SELFPAY ==
[2024-02-03 12:55] LABS: Absolute Lymphocyte Count 1.83 X10^3/uL (0.83-4.51); Absolute Neutrophil Count 4.3 X10^3/uL (2.0-7.7); Basophil# 0.05 X10^3/uL; Basophil% 0.7 % (0-1); Eosinophil# 0.41 X10^3/uL; Eosinophils% 5.8 % (0-5); Hematocrit 41.8 % (40-54); Lymphocyte # 1.83 X10^3/ul (0.83-4.51); Lymphocyte % 26.1 % (19-41); Mean Corp Hgb Conc 33.5 g/dL (32-36); Mean Corpuscular Hgb 30.5 pg (27.0-32.0); Mean Corpuscular Volume 91.1 fL (80-94); Mean Platelet Vol. 10.8 fl (6.2-12.0); Monocyte# 0.44 X10^3/uL; Monocyte% 6.3 % (0-10); NRBC Flagged by Analyzer 0 % (0-5); Neutrophil # 4.26 X10^3/uL (2.7-7.7); Neutrophil % 60.8 % (47-70); Platelet Count 228 K/mm3 (150-450); RBC Distribution Width CV 12.5 % (11.6-14.6); RBC Distribution Width SD 40.9 fl (35.1-43.9); Red Blood Count 4.59 M/mm3 (4.6-6.2)
[2024-02-03 13:25] LABS: ALB/GLOB Ratio 1.2 RATIO (0.9-2.4); AST(SGOT) 28 U/L (15-37); Alanine Aminotransfer ALT/SGPT 48 U/L (16-61); Albumin, Serum 3.6 g/dL (3.2-5.0); Alkaline Phosphatase 55 U/L (45-117); Anion Gap 6 (5-15); BUN 11 mg/dL (7-18); BUN/Creat Ratio 13.9 RATIO (10-20); Calcium,Total 8.9 mg/dL (8.5-10.1); Chloride 111 mmol/L (98-107); Creatinine, Serum 0.79 mg/dL (0.70-1.30); EST Glomerular Filtration Rate 107 mL/min (>60); Est Glom Filt Rate - Afr Amer 130 mL/min (>60); Globulin 3.1 g/dL (2.2-4.2); Glucose 89 mg/dL (74-106); Potassium 3.9 mmol/L (3.5-5.1); Protein, Total 6.7 g/dL (6.4-8.2); Sodium Level 142 mmol/L (136-145)
== END | disposition home or self-care (01) ==
LOC: LABSPEC 12:01
PROVIDERS: PCP Family Medicine
DX: T81.42XA Infection following a procedure, deep incisional surgical site, initial encounter (principal)
CPT/HCPCS: 80053; 85025

== ENCOUNTER → 2024-02-10 | Outpatient (CLI) | payer OTHER, SELFPAY ==
[2024-02-10 14:16] LABS: Absolute Lymphocyte Count 1.71 X10^3/uL (0.83-4.51); Absolute Neutrophil Count 3.1 X10^3/uL (2.0-7.7); Basophil# 0.05 X10^3/uL; Basophil% 0.9 % (0-1); Eosinophil# 0.35 X10^3/uL; Eosinophils% 6.2 % (0-5); Hematocrit 42.5 % (40-54); Lymphocyte # 1.71 X10^3/ul (0.83-4.51); Lymphocyte % 30.2 % (19-41); Mean Corp Hgb Conc 32.9 g/dL (32-36); Mean Corpuscular Hgb 29.8 pg (27.0-32.0); Mean Corpuscular Volume 90.4 fL (80-94); Mean Platelet Vol. 11.4 fl (6.2-12.0); Monocyte# 0.46 X10^3/uL; Monocyte% 8.1 % (0-10); NRBC Flagged by Analyzer 0 % (0-5); Neutrophil # 3.07 X10^3/uL (2.7-7.7); Neutrophil % 54.1 % (47-70); Platelet Count 181 K/mm3 (150-450); RBC Distribution Width CV 12.8 % (11.6-14.6); White Blood Count 5.7 K/mm3 (4.4-11.0)
[2024-02-10 14:23] LABS: ALB/GLOB Ratio 1.4 RATIO (0.9-2.4); AST(SGOT) 35 U/L (15-37); Alanine Aminotransfer ALT/SGPT 67 U/L (16-61); Albumin, Serum 3.8 g/dL (3.2-5.0); Alkaline Phosphatase 53 U/L (45-117); Anion Gap 9 (5-15); BUN 9 mg/dL (7-18); BUN/Creat Ratio 9.3 RATIO (10-20); CPK Total, Creatine Kinase 49 U/L (39-308); Calcium,Total 9.1 mg/dL (8.5-10.1); Chloride 109 mmol/L (98-107); Creatinine, Serum 0.96 mg/dL (0.70-1.30); EST Glomerular Filtration Rate 86 mL/min (>60); Est Glom Filt Rate - Afr Amer 104 mL/min (>60); Globulin 2.7 g/dL (2.2-4.2); Glucose 95 mg/dL (74-106); Protein, Total 6.5 g/dL (6.4-8.2); Sodium Level 144 mmol/L (136-145)
== END | disposition home or self-care (01) ==
LOC: LABSPEC 13:35
PROVIDERS: PCP Family Medicine
DX: L02.211 Cutaneous abscess of abdominal wall (principal); T81.42XA Infection following a procedure, deep incisional surgical site, initial encounter
CPT/HCPCS: 80053; 82550; 85025

== ENCOUNTER → 2024-02-17 | Outpatient (CLI) | payer OTHER, SELFPAY ==
[2024-02-17 13:05] LABS: Absolute Lymphocyte Count 2.08 X10^3/uL (0.83-4.51); Absolute Neutrophil Count 3.7 X10^3/uL (2.0-7.7); Basophil# 0.05 X10^3/uL; Basophil% 0.7 % (0-1); Eosinophil# 0.33 X10^3/uL; Eosinophils% 4.9 % (0-5); Hematocrit 43.9 % (40-54); Hemoglobin 14.4 g/dL (13.0-16.5); Lymphocyte # 2.08 X10^3/ul (0.83-4.51); Lymphocyte % 30.9 % (19-41); Mean Corp Hgb Conc 32.8 g/dL (32-36); Mean Corpuscular Hgb 29.8 pg (27.0-32.0); Mean Corpuscular Volume 90.9 fL (80-94); Mean Platelet Vol. 11.5 fl (6.2-12.0); Monocyte% 8.9 % (0-10); NRBC Flagged by Analyzer 0 % (0-5); Neutrophil # 3.65 X10^3/uL (2.7-7.7); Neutrophil % 54.3 % (47-70); Platelet Count 181 K/mm3 (150-450); RBC Distribution Width CV 13.1 % (11.6-14.6); RBC Distribution Width SD 43.3 fl (35.1-43.9); Red Blood Count 4.83 M/mm3 (4.6-6.2); White Blood Count 6.7 K/mm3 (4.4-11.0)
[2024-02-17 13:21] LABS: ALB/GLOB Ratio 1.2 RATIO (0.9-2.4); AST(SGOT) 32 U/L (15-37); Alanine Aminotransfer ALT/SGPT 64 U/L (16-61); Albumin, Serum 3.7 g/dL (3.2-5.0); Alkaline Phosphatase 54 U/L (45-117); Anion Gap 6 (5-15); BUN 12 mg/dL (7-18); BUN/Creat Ratio 13.8 RATIO (10-20); CPK Total, Creatine Kinase 59 U/L (39-308); Chloride 109 mmol/L (98-107); Creatinine, Serum 0.87 mg/dL (0.70-1.30); EST Glomerular Filtration Rate 96 mL/min (>60); Est Glom Filt Rate - Afr Amer 117 mL/min (>60); Globulin 3.2 g/dL (2.2-4.2); Glucose 97 mg/dL (74-106); Potassium 3.7 mmol/L (3.5-5.1); Protein, Total 6.9 g/dL (6.4-8.2); Sodium Level 141 mmol/L (136-145)
== END | disposition home or self-care (01) ==
LOC: LABSPEC 12:27
PROVIDERS: PCP Family Medicine
DX: T81.42XA Infection following a procedure, deep incisional surgical site, initial encounter (principal)
CPT/HCPCS: 80053; 82550; 85025

== ENCOUNTER → 2024-02-25 | Outpatient (CLI) | payer OTHER, SELFPAY ==
[2024-02-25 12:35] LABS: Absolute Lymphocyte Count 2.02 X10^3/uL (0.83-4.51); Absolute Neutrophil Count 4.2 X10^3/uL (2.0-7.7); Basophil# 0.04 X10^3/uL; Basophil% 0.6 % (0-1); Eosinophil# 0.24 X10^3/uL; Eosinophils% 3.3 % (0-5); Hematocrit 43.1 % (40-54); Hemoglobin 14.5 g/dL (13.0-16.5); Lymphocyte # 2.02 X10^3/ul (0.83-4.51); Mean Corp Hgb Conc 33.6 g/dL (32-36); Mean Corpuscular Hgb 30.2 pg (27.0-32.0); Mean Corpuscular Volume 89.8 fL (80-94); Mean Platelet Vol. 11.5 fl (6.2-12.0); Monocyte# 0.67 X10^3/uL; Monocyte% 9.3 % (0-10); NRBC Flagged by Analyzer 0 % (0-5); Neutrophil % 58.2 % (47-70); Platelet Count 183 K/mm3 (150-450); RBC Distribution Width CV 13.1 % (11.6-14.6); RBC Distribution Width SD 42.9 fl (35.1-43.9); White Blood Count 7.2 K/mm3 (4.4-11.0)
[2024-02-25 13:21] LABS: ALB/GLOB Ratio 1.3 RATIO (0.9-2.4); AST(SGOT) 28 U/L (15-37); Alanine Aminotransfer ALT/SGPT 55 U/L (16-61); Albumin, Serum 3.8 g/dL (3.2-5.0); Alkaline Phosphatase 56 U/L (45-117); Anion Gap 8 (5-15); BUN 14 mg/dL (7-18); BUN/Creat Ratio 15.9 RATIO (10-20); CPK Total, Creatine Kinase 104 U/L (39-308); Calcium,Total 9.1 mg/dL (8.5-10.1); Chloride 110 mmol/L (98-107); Creatinine, Serum 0.88 mg/dL (0.70-1.30); EST Glomerular Filtration Rate 95 mL/min (>60); Est Glom Filt Rate - Afr Amer 115 mL/min (>60); Glucose 126 mg/dL (74-106); Potassium 3.7 mmol/L (3.5-5.1); Protein, Total 6.8 g/dL (6.4-8.2); Sodium Level 141 mmol/L (136-145)
== END | disposition home or self-care (01) ==
LOC: LABSPEC 12:22
PROVIDERS: PCP Family Medicine
DX: T81.42XA Infection following a procedure, deep incisional surgical site, initial encounter (principal); L03.311 Cellulitis of abdominal wall
CPT/HCPCS: 80053; 82550; 85025

== ENCOUNTER → 2024-03-02 | Outpatient (CLI) | payer OTHER, SELFPAY ==
[2024-03-02 13:48] LABS: Absolute Neutrophil Count 3.5 X10^3/uL (2.0-7.7); Basophil# 0.04 X10^3/uL; Basophil% 0.6 % (0-1); Eosinophil# 0.25 X10^3/uL; Eosinophils% 3.8 % (0-5); Hematocrit 42.9 % (40-54); Hemoglobin 14.4 g/dL (13.0-16.5); Lymphocyte % 34.6 % (19-41); Mean Corp Hgb Conc 33.6 g/dL (32-36); Mean Corpuscular Hgb 29.9 pg (27.0-32.0); Mean Corpuscular Volume 89.2 fL (80-94); Mean Platelet Vol. 11.5 fl (6.2-12.0); Monocyte# 0.58 X10^3/uL; Monocyte% 8.7 % (0-10); NRBC Flagged by Analyzer 0 % (0-5); Neutrophil # 3.46 X10^3/uL (2.7-7.7); Platelet Count 184 K/mm3 (150-450); RBC Distribution Width CV 12.9 % (11.6-14.6); RBC Distribution Width SD 42.1 fl (35.1-43.9); Red Blood Count 4.81 M/mm3 (4.6-6.2); White Blood Count 6.7 K/mm3 (4.4-11.0)
[2024-03-02 13:58] LABS: ALB/GLOB Ratio 1.2 RATIO (0.9-2.4); AST(SGOT) 31 U/L (15-37); Alanine Aminotransfer ALT/SGPT 61 U/L (16-61); Albumin, Serum 3.8 g/dL (3.2-5.0); Alkaline Phosphatase 52 U/L (45-117); Anion Gap 5 (5-15); BUN 10 mg/dL (7-18); BUN/Creat Ratio 10.3 RATIO (10-20); Calcium,Total 8.9 mg/dL (8.5-10.1); Chloride 110 mmol/L (98-107); Creatinine, Serum 0.97 mg/dL (0.70-1.30); EST Glomerular Filtration Rate 85 mL/min (>60); Est Glom Filt Rate - Afr Amer 103 mL/min (>60); Globulin 3.2 g/dL (2.2-4.2); Glucose 81 mg/dL (74-106); Potassium 3.9 mmol/L (3.5-5.1); Sodium Level 140 mmol/L (136-145)
== END | disposition home or self-care (01) ==
LOC: LABSPEC 13:26
PROVIDERS: PCP Family Medicine
DX: Z00.00 Encounter for general adult medical examination without abnormal findings (principal)
CPT/HCPCS: 80053; 85025

== ENCOUNTER → 2024-05-13 | Outpatient (CLI) | payer SELFPAY, OTHER | END | disposition home or self-care (01) | LOC: SL 20:11 | PROVIDERS: PCP Family Medicine | DX: G47.33 Obstructive sleep apnea (adult) (pediatric) (principal) | CPT/HCPCS: 95810 ==

== ENCOUNTER → 2024-05-20 | Outpatient (CLI) | payer OTHER, SELFPAY ==
--- NOTE | 2024-05-20 09:15 | NEURO ---
NCS and/or EMG Patient Report Ordering Doctor: Archana Fernandez DATE OF SERVICE: 05/20/24 Adam presents for electrodiagnostic testing of the lower limbs. He reports symptoms are worse on the left side with numbness, burning and tingling in the feet. Electrodiagnostic findings: Left peroneal motor nerve demonstrates normal distal latency and amplitude with a nearly 40% drop in conduction across the fibular head. Left tibial motor responses within normal limits right tibial motor responses within normal limits. The right peroneal motor nerve demonstrates normal distal latency and amplitude with approximately 30% drop in conduction across the fibular head. Prolonged right peroneal and left peroneal F?waves. Sensory responses are within normal limits. Needle EMG testing was performed in the lower limbs. All muscles tested showed no evidence of denervation with normal motor unit action potentials. Electrodiagnostic impression: This is an abnormal study in the lower limbs 1. 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 There is no evidence of axonal loss. 2. There is no electrodiagnostic evidence for peripheral polyneuropathy. 3. There is no electrodiagnostic evidence for lumbosacral radiculopathy Multi Select Codes Neurology Neurology Interp Codes: 23129-42 Musc test done w/n test comp (interp) (2) and 62527-99 Nrv cndj test 9-10 studies (interp)
== END | disposition home or self-care (01) ==
LOC: PSN 07:10
PROVIDERS: PCP Family Medicine
DX: R20.0 Anesthesia of skin (principal); R20.2 Paresthesia of skin
CPT/HCPCS: 95886; 95912

== ENCOUNTER → 2024-07-02 | Outpatient (CLI) | payer SELFPAY, OTHER ==
--- NOTE | 2024-07-02 08:00 | MRI_ITS ---
EXAM: MR LUMBAR SPINE WITHOUT INTRAVENOUS CONTRAST CLINICAL INDICATION: BILATERAL SCIATICA, back pain years worsening TECHNIQUE: Multiplanar and multisequence MR images of the lumbar spine without intravenous contrast. COMPARISON: Lumbar spine radiographs, 03/28/2020. FINDINGS: On avaya engineer MR image, degenerative changes are present throughout the cervical and thoracic spine. VERTEBRAE: No fracture or spondylolysis. No spondylolisthesis. Mild straightening of the lumbar lordosis which is almost positional. Multilevel endplate osteophytosis and facet arthrosis. Patchy marrow without focal or suspicious marrow space signal abnormality. Modic type II endplate signal changes at L5-S1. SPINAL CORD: No significant abnormality. Normal position and signal intensity of the conus medullaris. No evidence of nerve root impingement. No thickening or clumping of the nerve roots of the cauda equina. SOFT TISSUES: No significant abnormality. DISCS/SPINAL CANAL/NEURAL FORAMINA: T12-L1: No significant abnormality. No disc herniation, spinal canal stenosis, or neural foraminal narrowing. L1-L2: Small central disc herniation superimposed upon a disc bulge and mild bilateral facet arthrosis. Mild spinal canal stenosis and mild bilateral neural foraminal narrowing. L2-L3: Disc height loss and disc desiccation. Disc bulge with superimposed right central to foraminal disc herniation and mild bilateral facet arthrosis. Mild spinal canal stenosis and [id number] bilateral neural foraminal narrowing. L3-L4: Disc bulge and mild bilateral facet arthrosis. Mild spinal canal stenosis and mild bilateral neural foraminal narrowing. Likely small superimposed left central disc herniation. L4-L5: Disc bulge and mild bilateral facet arthrosis. Mild bilateral neural foraminal narrowing. No significant spinal canal stenosis. L5-S1: Disc height loss and disc desiccation. Asymmetrical disc bulge towards the right with superimposed right foraminal disc herniation. Moderate bilateral facet arthrosis. No significant spinal canal stenosis. Mild right greater than left neural foraminal narrowing. MRI/Spine Lumbar (Routine) IMPRESSION: Multilevel degenerative changes throughout the lumbar spine. Multilevel spinal canal and neural foraminal stenosis. No obvious nerve root impingement. Electronically Signed: Quan Bond DO at 23:35 EDT ,
== END | disposition home or self-care (01) ==
LOC: MRI 07:41
PROVIDERS: PCP Family Medicine; Referring Provider Psychiatry & Neurology Neurology; Visit Provider Psychiatry & Neurology Neurology
DX: M54.30 Sciatica, unspecified side (principal)
CPT/HCPCS: 72148

== ENCOUNTER → 2024-07-14 | Outpatient (CLI) | payer SELFPAY, OTHER ==
--- NOTE | 2024-07-14 09:29 | ART_ITS ---
Reason For Study: PVD Procedure A bilateral lower extremity continuous wave Doppler with analog waveform analysis and ankle brachial indexes. Left Segmental Pressures Left brachial= 145mmHg. Left posterior tibial artery = 184mmHg. Left dorsalis pedis artery = 167mmHg. Left digit = 165 mmHg. The left posterior tibial artery waveforms are triphasic. The left dorsalis pedis waveforms are triphasic. Right Segmental Pressures Right brachial= 140mmHg. Right posterior tibial artery = 187mmHg. Right dorsalis pedis artery = 183mmHg. Right digit = 172 mmHg. The right posterior tibial artery waveforms are triphasic. The right dorsalis pedis waveforms are triphasic. Indices The right ankle brachial index by the posterior tibial artery is 1.29. The right ankle brachial index by the dorsalis pedis is 1.26. The right digital-brachial index is 1.19. The left ankle brachial index by the posterior tibial artery is 1.27. The left ankle brachial index by the dorsalis pedis is 1.15. The left digital-brachial index is 1.14. VL/Ankle Brachial Index Interpretation Summary Triphasic Doppler waveforms are noted at ankle level bilaterally. Pulse-volume recordings appear satisfactory at ankle and digital level bilaterally. Resting ankle-brachial ind ices are normal bilaterally. Digital-brachial indices are normal bilaterally. There is no evidence of significant arterial occlusive disease in the lower ext remities bilaterally. Ordering Physician: Odell Fajardo Referring Physician: Tommy Callahan MD Performed By: Mychal Mchugh RVPiero
== END | disposition home or self-care (01) ==
LOC: CVS 09:26
PROVIDERS: PCP Family Medicine; Referring Provider Psychiatry & Neurology Neurology; Visit Provider Psychiatry & Neurology Neurology
DX: I73.9 Peripheral vascular disease, unspecified (principal)
CPT/HCPCS: 93922

== ENCOUNTER → 2025-01-20 | Outpatient (CLI) | payer OTHER, SELFPAY ==
[2025-01-20 16:17] LABS: Absolute Lymphocyte Count 2.96 X10^3/uL (0.83-4.51); Absolute Neutrophil Count 4.3 X10^3/uL (2.0-7.7); Basophil# 0.04 X10^3/uL; Basophil% 0.5 % (0-1); Eosinophil# 0.13 X10^3/uL; Eosinophils% 1.6 % (0-5); Hematocrit 45.7 % (40-54); Hemoglobin 16.4 g/dL (13.0-16.5); Lymphocyte # 2.96 X10^3/ul (0.83-4.51); Lymphocyte % 36.2 % (19-41); Mean Corp Hgb Conc 35.9 g/dL (32-36); Mean Corpuscular Volume 86.4 fL (80-94); Mean Platelet Vol. 11.2 fl (6.2-12.0); Monocyte# 0.71 X10^3/uL; Monocyte% 8.7 % (0-10); NRBC Flagged by Analyzer 0 % (0-5); Neutrophil % 52.6 % (47-70); Platelet Count 201 K/mm3 (150-450); RBC Distribution Width CV 12.3 % (11.6-14.6); RBC Distribution Width SD 38.7 fl (35.1-43.9); Red Blood Count 5.29 M/mm3 (4.6-6.2); White Blood Count 8.2 K/mm3 (4.4-11.0)
[2025-01-20 18:11] LABS: Anion Gap 14 (5-15); BUN 14 mg/dL (4-19); BUN/Creat Ratio 13.4 RATIO (10-20); Calcium,Total 9.7 mg/dL (7.6-11.0); Carbon Dioxide 19.9 mmol/L (21.0-32.0); Chloride 105 mmol/L (98-108); Cholesterol 224 mg/dL (<=200); Creatinine, Serum 1.01 mg/dL (0.70-1.20); EST Glomerular Filtration Rate 87 (>60); Glucose 105 mg/dL (70-99); High Density Lipoprotein 35 mg/dL; Low Density Lipoprotein Calc. 108 mg/dL; Sodium Level 139 mmol/L (133-145); Triglycerides 403 mg/dL; Very Low Density Lipoprotein 81 mg/dL (5-40)
[2025-01-20 18:37] LABS: Pro- Brain NATRIURETIC PEPTIDE < 36 pg/mL (<=900)
== END | disposition home or self-care (01) ==
LOC: LAB 15:54
PROVIDERS: PCP Family Medicine; Referring Provider Student in an Organized Health Care Education/Training Program; Visit Provider Student in an Organized Health Care Education/Training Program
DX: R60.0 Localized edema (principal); R06.02 Shortness of breath; R53.83 Other fatigue
CPT/HCPCS: 36415; 80048; 80061; 83880; 85025

== ENCOUNTER 2025-05-07 15:04 | Emergency (ER) | payer OTHER, SELFPAY ==
[2025-05-07] VITALS (7 sets, daily range): BP systolic 132–166; BP diastolic 88–100; PULSE 94–105; RESP 15–25; TEMP 36–36.8; O2SAT 94–97
--- NOTE | 2025-05-07 15:24 | RAD_ITS ---
EXAM: XR Chest, 2 Views CLINICAL INDICATION: CHEST PAIN TECHNIQUE: Frontal and lateral views of the chest. COMPARISON: No relevant prior studies available. FINDINGS: LUNGS AND PLEURAL SPACES: Unremarkable. No consolidation. No pneumothorax. HEART: Unremarkable. No cardiomegaly. MEDIASTINUM: Unremarkable. Normal mediastinal contour. BONES/JOINTS: Unremarkable. No acute fracture. RAD/Chest PA and Lateral IMPRESSION: No acute cardiopulmonary process. Reading Location: [id number]
[2025-05-07 15:42] LABS: Absolute Lymphocyte Count 2.35 X10^3/uL (0.83-4.51); Absolute Neutrophil Count 3.2 X10^3/uL (2.0-7.7); Basophil# 0.03 X10^3/uL; Basophil% 0.5 % (0-1); Eosinophil# 0.14 X10^3/uL; Eosinophils% 2.2 % (0-5); Hematocrit 44.2 % (40-54); Hemoglobin 16.4 g/dL (13.0-16.5); Lymphocyte # 2.35 X10^3/ul (0.83-4.51); Lymphocyte % 37.2 % (19-41); Mean Corp Hgb Conc 37.1 g/dL (32-36); Mean Corpuscular Hgb 32.4 pg (27.0-32.0); Mean Corpuscular Volume 87.4 fL (80-94); Mean Platelet Vol. 10.5 fl (6.2-12.0); Monocyte# 0.57 X10^3/uL; NRBC Flagged by Analyzer 0 % (0-5); Neutrophil # 3.19 X10^3/uL (2.7-7.7); Neutrophil % 50.6 % (47-70); Platelet Count 163 K/mm3 (150-450); RBC Distribution Width CV 12.5 % (11.6-14.6); RBC Distribution Width SD 39.7 fl (35.1-43.9); Red Blood Count 5.06 M/mm3 (4.6-6.2); White Blood Count 6.3 K/mm3 (4.4-11.0)
--- NOTE | 2025-05-07 15:48 | ED.VIS.CHEST ---
HPI History of Present Illness Chief Complaint: Palpitations Informant: patient and spouse/S.O. Onset/Context/Timing Onset: Today Activity at onset: sudden Timing: Intermittent Current Severity: 0/10 Worsened By: Nothing Relieved By: Nothing Associated Symptoms: Positive for Lightheadedness; Negative for Nausea, Vomiting, Diaphoresis, Dyspnea, Cough, Fever, Acid Reflux or Palpitations Narrative Narrative: 59-year-old male history of hypertension, bipolar, anxiety depression. Currently on metoprolol and lisinopril for his hypertension. He sees bumper straightener office. He denies any history of DVT or PE or risk factors. He denies any other cardiac history. States today came in from work had lunch around 1230 an episode where he felt lightheaded dizzy and his heart rate he believes was around 153. Did not pass out. Currently is symptom-free. Currently has no chest pain. Denies any recent illness or complaints. Prior Similar Symptoms: Yes Recent Illness/Hospitalization: No CVD Risk Factors: Positive for Hypertension PE Risk Factors: Negative for Recent Travel/Surgery, Recent Immobilization, Prior DVT or PE, Cancer or OCP + Smoking + >/=35 TAD Risk Factors: Negative for Marfan's Syndrome or Family History PFSH PFSH Medical History Postoperative wound dehiscence Hepatic steatosis Obstructive sleep apnea Hypertension GERD (gastroesophageal reflux disease) Celiac disease Bipolar disorder Surgical wound present AVNRT (AV jhon re-entry tachycardia) Hemorrhoids Anxiety Depression Hiatal hernia Family history of colon cancer History of rheumatic fever Thrombocytopenia Obesity (BMI 30.0-34.9) Hyperglycemia Diverticulitis Colon polyps Home Medications ?Medication ?Instructions ?Recorded ?Last Taken ?Type bupropion HCl 150 mg tablet,12 hr 150 mg PO DAILY DEPRESSION 12/03/19 Unknown History sustained-release acetaminophen 325 mg tablet 650 mg PO Q6H PRN PRN mild pain 01/20/24 Unknown History cholecalciferol (vitamin D3) 50 50 mcg PO DAILY 01/20/24 Unknown History mcg (2,000 unit) capsule (D3-2000) omega-3 fatty acids 2,000 mg PO DAILY 01/20/24 Unknown History lisinopril 10 mg tablet 10 mg PO DAILY BLOOD PRESSURE #90 12/21/24 Unknown Rx tabs doxycycline hyclate 100 mg tablet 100 mg PO QDAY 01/20/25 Unknown History metoprolol succinate 50 mg 50 mg PO QDAY BLOOD PRESSURE #90 01/20/25 Unknown Rx tablet,extended release 24 hr tabs omeprazole 40 mg capsule,delayed 40 mg PO QDAY 01/20/25 Unknown History release fenofibrate 54 mg tablet 54 mg PO QDAY hypertriglyceridemia 01/22/25 Unknown Rx #90 tabs mecobalamin (vitamin B12) 500 mcg 500 mcg PO QDAY 04/23/25 Unknown History chewable tablet Allergy/AdvReac Type Severity Reaction Status Date / Time hydromorphone (From Dilaudid) AdvReac Vomiting Verified 05/07/25 15:04 Surgical History History of total left hip replacement History of laparoscopic cholecystectomy History of umbilical hernia repair History of partial colectomy Status post amputation of finger Status post colectomy S/P ACL repair S/P hemorrhoidectomy S/P tooth extraction S/P colonoscopy History of esophagogastroduodenoscopy (EGD) Social History Smoking Status: Never smoker Smokeless tobacco user: chewing tobacco and other how long ago did patient quit smoking: Quit smoking, still chewing alcohol intake: current alcohol intake frequency: 0-2 drinks per day Alcohol type: wine substance use type: does not use caffeine: Yes Type: coffee Number of servings: 3 ROS ROS ED ROS Narrative Denies recent illness. Denies fever. Denies vomiting or diarrhea. Denies melena. Constitutional Constitutional ED: Denies chills or fever(s) Eyes Eyes: Reports none ENT ENT ED: Denies ear pain Cardiovascular Cardiovascular: Reports as per HPI, palpitations and racing heartbeat Respiratory/Chest Respiratory/Chest: Denies cough, dyspnea or dyspnea on exertion Gastrointestinal Gastrointestinal: Denies abdominal pain, constipation, diarrhea, melena, nausea or vomiting Genitourinary Genitourinary ED: Denies dysuria or hematuria Musculoskeletal Musculoskeletal: Denies arthralgias Integumentary Denies abscess Neurologic Neurologic: Denies headache(s) or paresthesias Endocrine Endocrinology: Denies cold intolerance Hematologic/Lymphatic Hematologic/Lymphatic: Denies easy bleeding Allergic/Immunologic Allergic/Immunologic ED: Denies mouth swelling or tongue swelling EXAM Physical Exam Narrative Exam Narrative: Well-appearing 59-year-old male. Vital signs are stable afebrile. Pulse ox 97% on room air no signs of hypoxia. He does not look septic toxic he is in no distress. H EENT exam pupils round react light. Moist with members. Neck nontender JVD. No lymphadenopathy. Lungs clear to auscultation bilaterally. Heart regular rhythm rate about 100 no murmur. Chest wall ribs nontender. Abdomen soft nontender. Moving all 4 extremities. Nontender no edema no cords. Normal strength. Back nontender. Neurologically is awake alert. Answering questions following commands. Const Vital Signs: 05/07/25 15:04 05/07/25 15:31 05/07/25 15:32 Temperature 96.8 F L Temperature Source Temporal Pulse Rate 105 H 101 H Respiratory Rate 16 18 Respiratory Effort Blood Pressure 166/100 H 154/93 H Blood Pressure Mean 122 113 Pulse Ox 97 97 Oxygen Delivery Method Room Air Room Air Room Air 05/07/25 15:32 05/07/25 15:35 05/07/25 15:45 Temperature Temperature Source Pulse Rate 105 H 101 H Respiratory Rate 15 18 Respiratory Effort Normal Non-Labored Blood Pressure 142/92 H Blood Pressure Mean 106 Pulse Ox 97 95 Oxygen Delivery Method 05/07/25 16:00 Temperature Temperature Source Pulse Rate 103 H Respiratory Rate 25 H Respiratory Effort Blood Pressure 138/90 H Blood Pressure Mean 105 Pulse Ox 94 Oxygen Delivery Method Positive well nourished and well developed; Negative for cachectic, contractures or unkempt General Appearance ED: well developed; Negative for unkempt, cachectic, contractures or pallor Nutritional Appearance: Negative for cachectic HEENT Reports moist mucous membranes normocephalic and atraumatic Eyes PERRL and EOMs intact bilaterally Neck no lymphadenopathy, supple and no JVD General: Negative for tenderness Chest Wall inspection of chest normal and palpation of chest normal Resp normal respiratory effort and clear to auscultation bilaterally Auscultation: Negative for rales, rhonchi, wheezes or diminished lung sounds Cardio regular rate, regular rhythm, S1 normal heart sound, S2 normal heart sound and no murmurs Peripheral Pulses: pulses 2+ throughout GI normal to inspection, nondistended, normoactive bowel sounds, soft to palpation, non-tender, non-distended and no masses Back/Spine no CVA tenderness and no thoracic nor lumbar tenderness Extremity normal to inspection General Extremety ED: Negative for edema, pulses abnormal or tenderness General Extremity: Negative for edema or pulses abnormal Neuro oriented x3 and CN's II-XII intact bilaterally Sensorium / Orientation: awake, alert, oriented to person, oriented to place and oriented to time; Negative for confused, lethargic or stuporous Motor Exam: strength 5/5 throughout Psych mental status grossly normal Appearance: Negative for unkempt Attitude: No agitated Mood & Affect: Negative for depressed, anxious or tearful Skin no rashes or lesions noted and no wounds General Skin Exam: Negative for jaundice or pallor Rashes: No rashes noted Trauma: Negative for abrasion, laceration or puncture MDM MDM MDM Narrative Medical decision making narrative: 59-year-old male with palpitations today. Exam currently is benign. He has a history of hypertension on metoprolol lisinopril but he does not have other cardiac history reportedly. Will undergo cardiac workup if its negative he will be discharged home with outpatient follow-up with his cardiology office for an event monitor or further type of monitoring. He and his are comfortable with that plan. Repeat exam patient is doing well at 5:06 PM. We went over his test results. Comfortable being discharged home with outpatient follow-up with the cardiology office possibly for an event or cardiac nurse specialist. History & Record Review Discussion w/independent historian: Patient and Family Additional record(s) reviewed:: Prior inpatient record, Prior outpatient record, Prior ED visit and Prior labs Lab Data Attestation: I reviewed the patient's lab results. Lab results narrative: CBC shows a white count of 6. H&H is 16 and 44. Platelets 163. Chemistry shows sodium 136. Gap 15. Normal BUN and creatinine of 11 and 1. Glucose 290. Troponin less than 6. TSH normal at 2.59. Chest x-ray no acute process. Labs: Laboratory Results - last 24 hr 05/07/25 15:20 WBC 6.3 RBC 5.06 Hgb 16.4 Hct 44.2 MCV 87.4 MCH 32.4 H MCHC 37.1 H RDW Std Deviation 39.7 RDW Coeff of Lei 12.5 Plt Count 163 MPV 10.5 Immature Gran % (Auto) 0.500 Neut % (Auto) 50.6 Lymph % (Auto) 37.2 [place] % (Auto) 9.0 Eos % (Auto) 2.2 Baso % (Auto) 0.5 Absolute Neuts (auto) 3.2 Absolute Lymphs (auto) 2.35 Nucleated RBC % 0 Sodium 136 Potassium 3.8 Chloride 102 Carbon Dioxide 19.1 L Anion Gap 15 BUN 11 Creatinine 1.04 Est GFR (MDRD) Non-Af 84 BUN/Creatinine Ratio 10.4 Glucose 290 H Calcium 9.5 Troponin T High Sens < 6 TSH 2.590 Radiography Chest X-Ray - ED: 2 View, Read by ED Physician, Read by Radiologist, Normal, Heart, Lungs, Mediastinum, Bony Structures, No Acute Disease and Chronic Changes Diagnostic Testing: Clinical Impression(s) from Imaging Studies Chest X-Ray 05/07/25 15:24 IMPRESSION: No acute cardiopulmonary process. Reading Location: [facility] Chest x-ray, 2 views, AP lateral, interpreted by myself radiologist shows no acute abnormality. Rhythm Strip Rhythm Strip: Sinus Tach Rate: 104 Ectopy: None EKG Initial EKG: Attestation: I personally reviewed and interpreted this EKG as follows: Interpretation: No Acute Injury Pattern and Sinus Tachycardia Comments: Sinus tachycardia rate of 104 no acute signs of [place] or ischemia. Discharge Plan Triage Chief Complaint: Palpitations ED Provider: Rex Cruz Dx/Rx/DC Orders Clinical Impression: Palpitations, History of hypertension Instructions: ED Palpitations Prescriptions: No Action omeprazole 40 mg capsule,delayed release(DR/EC) 40 mg PO QDAY doxycycline hyclate 100 mg tablet 100 mg PO QDAY metoprolol succinate 50 mg tablet extended release 24 hr 50 mg PO QDAY Qty: 90 3RF mecobalamin (vitamin B12) 500 mcg tablet,chewable 500 mcg PO QDAY bupropion HCl 150 mg tablet sustained-release 12 hr 150 mg PO DAILY acetaminophen 325 mg tablet 650 mg PO Q6H PRN PRN (Reason: mild pain) omega-3 fatty acids Capsule 2,000 mg PO DAILY cholecalciferol (vitamin D3) [D3-2000] 50 mcg (2,000 unit) capsule 50 mcg PO DAILY lisinopril 10 mg tablet 10 mg PO DAILY Qty: 90 3RF fenofibrate 54 mg tablet 54 mg PO QDAY Qty: 90 1RF Primary Care Provider: Tommy Callahan Referrals: Parveen Dillard MD [Med Staff - Active Staff] - As soon as possible (Call his office on Saturday, May 10. Tell them you had an accelerated heart rate you were seen in the emergency department. Our workup was good. You may need outpatient cardiac monitoring.) Tommy Callahan MD [Primary Care Provider] - Activity Restrictions/Additional Instructions: Call and follow-up with your bumper straightener's office on Saturday. Tell them you have an accelerated heart rate on Saturday and that you were seen in the emergency department. They may want to put you on outpatient cardiac nurse specialist. Print Language: Yoruba Disposition Disposition: Home, Self Care
[2025-05-07 16:18] LABS: Troponin T High Sensitivity < 6 ng/L (<=22)
[2025-05-07 16:40] LABS: Anion Gap 15 (5-15); BUN 11 mg/dL (4-19); BUN/Creat Ratio 10.4 RATIO (10-20); Calcium,Total 9.5 mg/dL (7.6-11.0); Carbon Dioxide 19.1 mmol/L (21.0-32.0); Chloride 102 mmol/L (98-108); Creatinine, Serum 1.04 mg/dL (0.70-1.20); EST Glomerular Filtration Rate 84 (>60); Glucose 290 mg/dL (70-99); Potassium 3.8 mmol/L (3.3-5.1); Sodium Level 136 mmol/L (133-145)
== END 2025-05-07 17:22 | disposition home or self-care (01) ==
PROVIDERS: Emergency Provider Emergency Medicine; PCP Family Medicine; Visit Provider Emergency Medicine
DX: R00.2 Palpitations (principal); F31.9 Bipolar disorder, unspecified; I10 Essential (primary) hypertension; F41.9 Anxiety disorder, unspecified; K21.9 Gastro-esophageal reflux disease without esophagitis; K90.0 Celiac disease; F17.220 Nicotine dependence, chewing tobacco, uncomplicated; Z90.49 Acquired absence of other specified parts of digestive tract; Z87.19 Personal history of other diseases of the digestive system; Z79.899 Other long term (current) drug therapy
CPT/HCPCS: 71046; 80048; 84443; 84484; 85025; 93005; 99284; A4216